=== PATIENT | female | born 1960 | race Hispanic/Latino ===

== ENCOUNTER 2018-11-10 20:02 | Emergency (ER) | payer OTHER ==
[~2018-11-10] VITALS: Ht 152.4 cm; Wt 69.4 kg
--- OUTSIDE RECORDS SUMMARY | 2018-11-10 20:09 | XMS REPORT | Continuity of Care Document ---
Author Author [facility] Organization [facility] Address Unknown Phone Unavailable Care Team Providers Care Personnel Placement Specialist Name Role Phone Kenyetta GARCIA, Ángela YOO Unavailable Insurance Providers Payer name Policy type / Coverage type Policy ID Covered green party ID [place] [place] Encounters Encounter Performer Location Date Office Visit Ángela Kumari MD [facility] Oct 05, 2012 Allergies, Adverse Reactions, Alerts Type Substance Reaction Status Drug allergy IBUPROFEN Active Problems Problem Effective Dates Problem Status GOITER, MULTINODULAR Apr 16, 2010 Active DIABETES MELLITUS, TYPE II, UNCONTROLLED Apr 16, 2010 Active ESSENTIAL HYPERTENSION, BENIGN Apr 16, 2010 Active HYPERLIPIDEMIA Apr 16, 2010 Active OBESITY Apr 16, 2010 Active FIBROMYALGIA Dec 09, 2010 Active ARTHRITIS Dec 09, 2010 Active PEPTIC ULCER DISEASE Dec 09, 2010 Active ANXIETY Dec 09, 2010 Active SMOKER Dec 09, 2010 Active SNORING Dec 09, 2010 Active INSOMNIA Dec 26, 2010 Active ALLERGIC RHINITIS Jan 06, 2011 Active SLEEP APNEA, OBSTRUCTIVE Feb 13, 2011 Active URI May 29, 2011 Inactive WRIST PAIN Nov 17, 2011 Inactive NECK PAIN Jan 13, 2012 Inactive STREPTOCOCCAL PHARYNGITIS Mar 17, 2012 Inactive BRONCHITIS Mar 17, 2012 Inactive VITAMIN D DEFICIENCY Sep 10, 2012 Active Procedures Date Description Comments Oct 03, 2010 smoking status current Oct 03, 2010 smoking/tobacco cessation, patient education and counseling no Oct 03, 2010 diabetic foot check Diabetic Foot Exam Done Today Dec 09, 2010 smoking status current every day smoker Dec 09, 2010 smoking/tobacco cessation, patient education and counseling yes Mar 16, 2011 smoking/tobacco cessation, patient education and counseling yes Apr 03, 2011 diabetic foot check Diabetic Foot Exam Done Today Jan 13, 2012 smoking/tobacco cessation, patient education and counseling DONE Mar 08, 2012 smoking/tobacco cessation, patient education and counseling Smokinng Cessation Handout Provided Sep 07, 2012 smoking/tobacco cessation, patient education and counseling DONE Oct 05, 2012 smoking/tobacco cessation, patient education and counseling Smokinng Cessation Handout Provided Medications Medication Instructions Start Date Status FREESTYLE LITE TEST STRP Check glucose levels tid Apr 16, 2010 Active INSULIN SYRINGE 31G X 5/16" 0.3 ML MISC takes u to 25 units TID Apr 16, 2010 Active INSULIN SYRINGE 31G X 5/16" 1 ML MISC takes up to 65 units daily Apr 16, 2010 Active LEXAPRO 20 MG TABS 1 tab daily Oct 03, 2010 Inactive LACTULOSE 10 GM/15ML SOLN 30 cc every 6 hours as needed for constipation Oct 03, 2010 Inactive MOVIPREP 100 GM SOLR prn Oct 03, 2010 Inactive ACTOPLUS MET 15-850 MG TABS 1 tab twice daily with food Oct 03, 2010 Inactive TRAMADOL HCL 50 MG TABS 1 tablet every 4 to 6 hours as needed Oct 03, 2010 Inactive CARISOPRODOL 350 MG TABS 1 po bid Oct 03, 2010 Inactive TRICOR 145 MG TABS 1 po qd Oct 03, 2010 Inactive LUNESTA 2 MG TABS 1 po prn Oct 03, 2010 Inactive PRILOSEC 40 MG CPDR one PO daily Jan 06, 2011 Active ALPRAZOLAM 0.5 MG TABS 1 po bid Oct 03, 2010 Inactive ALIGN CAPS 1 po qd Oct 03, 2010 Inactive CITALOPRAM HYDROBROMIDE 40 MG TABS 1 po qd Apr 03, 2011 Active VICODIN ES TABS (10/325mg) 1 po prn Oct 03, 2010 Inactive NOVOTWIST 32G X 5 MM MISC Use as directed Jul 09, 2011 Active SOMA 350 MG TABS 1 po qid (only takes 1 daily) Apr 03, 2011 Inactive AZITHROMYCIN 500 MG TABS one PO daily May 29, 2011 Inactive MUCINEX 600 MG [id number] one PO bid prn congestion May 29, 2011 Inactive LORATADINE 10 MG TABS one PO daily prn allergies Jan 12, 2011 Inactive FLUTICASONE PROPIONATE 50 MCG/ACT SUSP one spray in each nostril BID prn allergies. Jan 12, 2011 Inactive LYRICA 100 MG CAPS 1 po tid Apr 03, 2011 Inactive SOMA 350 MG TABS 1-2 po qd Apr 03, 2011 Inactive SIMVASTATIN 40 MG TABS 1 po qhs Jan 06, 2011 Inactive ATORVASTATIN CALCIUM 40 MG TABS one PO qHS Sep 24, 2011 Active ZANAFLEX 4 MG CAPS 1 po BID prn pain Jan 13, 2012 Active LUNESTA 3 MG TABS one PO qHS Sep 08, 2011 Inactive GUAIFENESIN-CODEINE 100-10 MG/5ML SYRP 10 cc PO q 6 hours PRN cough Mar 17, 2012 Inactive PREDNISONE 20 MG TABS 2 PO daily Mar 17, 2012 Inactive LEVOFLOXACIN 500 MG TABS one PO daily Mar 10, 2012 Inactive CEFDINIR 300 MG CAPS 2 tablets PO daily Mar 17, 2012 Inactive ZOLPIDEM TARTRATE 10 MG TABS one PO qHS prn insomnia Jan 15, 2012 Inactive LANTUS 100 UNIT/ML SOLN 60 units sq qhs Sep 07, 2012 Active NOVOLOG 100 UNIT/ML SOLN injects up to 30 units TID-with major meals Sep 07, 2012 Active VICTOZA 18 MG/3ML SOLN Inject 1.2mg qd Aug 03, 2011 Inactive FLORASTOR 250 MG CAPS 1 cap twice daily Sep 07, 2012 Active CLONAZEPAM 2 MG TABS 1 tab qhs Sep 07, 2012 Active TRAMADOL HCL ER (BIPHASIC) 200 MG [id number] 1 tab qhs Sep 07, 2012 Active PREDNISONE 20 MG TABS 2 PO daily Mar 17, 2012 Inactive VITAMIN D3 39541 UNIT CAPS 1 capsule once weekly for 8 weeks Sep 10, 2012 Active AMLODIPINE BESY-BENAZEPRIL HCL 5-10 MG CAPS 1 po qd Oct 05, 2012 Active Vital Signs Date Description Test Result Apr 16, 2010 height E&M - 8302-2 HEIGHT 60 in Apr 16, 2010 weight E&M - 3141-9 WEIGHT 162 lb Apr 16, 2010 pulse rate E&M - 8867-4 PULSE RATE 78 /min Apr 16, 2010 blood pressure, systolic - 8480-6 BP SYSTOLIC 130 mm Hg Apr 16, 2010 blood pressure, diastolic - 8462-4 BP DIASTOLIC 82 mm Hg Oct 03, 2010 height E&M - 8302-2 HEIGHT 60 in Oct 03, 2010 weight E&M - 3141-9 WEIGHT 166 lb Oct 03, 2010 pulse rate E&M - 8867-4 PULSE RATE 76 /min Oct 03, 2010 blood pressure, systolic - 8480-6 BP SYSTOLIC 160 mm Hg Oct 03, 2010 blood pressure, diastolic - 8462-4 BP DIASTOLIC 92 mm Hg Dec 09, 2010 weight E&M - 3141-9 WEIGHT 168 lb Dec 09, 2010 temperature E&M TEMPERATURE 97.6 deg f Dec 09, 2010 pulse rate E&M - 8867-4 PULSE RATE 84 /min Dec 09, 2010 blood pressure, systolic - 8480-6 BP SYSTOLIC 119 mm Hg Dec 09, 2010 blood pressure, diastolic - 8462-4 BP DIASTOLIC 77 mm Hg Dec 26, 2010 weight E&M - 3141-9 WEIGHT 172 lb Dec 26, 2010 temperature E&M TEMPERATURE 97.9 deg f Dec 26, 2010 respiratory rate E&M - 9279-1 RESP RATE 24 /min Dec 26, 2010 pulse rate E&M - 8867-4 PULSE RATE 59 /min Dec 26, 2010 blood pressure, systolic - 8480-6 BP SYSTOLIC 146 mm Hg Dec 26, 2010 blood pressure, diastolic - 8462-4 BP DIASTOLIC 75 mm Hg Jan 06, 2011 weight E&M - 3141-9 WEIGHT 172 lb Jan 06, 2011 temperature E&M TEMPERATURE 97.6 deg f Jan 06, 2011 respiratory rate E&M - 9279-1 RESP RATE 20 /min Jan 06, 2011 pulse rate E&M - 8867-4 PULSE RATE 65 /min Jan 06, 2011 blood pressure, systolic - 8480-6 BP SYSTOLIC 114 mm Hg Jan 06, 2011 blood pressure, diastolic - 8462-4 BP DIASTOLIC 68 mm Hg Feb 13, 2011 weight E&M - 3141-9 WEIGHT 170 lb Feb 13, 2011 temperature E&M TEMPERATURE 97.4 deg f Feb 13, 2011 respiratory rate E&M - 9279-1 RESP RATE 20 /min Feb 13, 2011 pulse rate E&M - 8867-4 PULSE RATE 76 /min Feb 13, 2011 blood pressure, systolic - 8480-6 BP SYSTOLIC 124 mm Hg Feb 13, 2011 blood pressure, diastolic - 8462-4 BP DIASTOLIC 77 mm Hg Mar 16, 2011 weight E&M - 3141-9 WEIGHT 175 lb Mar 16, 2011 respiratory rate E&M - 9279-1 RESP RATE 16 /min Mar 16, 2011 temperature E&M TEMPERATURE 97.9 deg f Mar 16, 2011 pulse rate E&M - 8867-4 PULSE RATE 89 /min Mar 16, 2011 blood pressure, systolic - 8480-6 BP SYSTOLIC 147 mm Hg Mar 16, 2011 blood pressure, diastolic - 8462-4 BP DIASTOLIC 76 mm Hg Apr 03, 2011 weight E&M - 3141-9 WEIGHT 177 lb Apr 03, 2011 blood pressure, systolic - 8480-6 BP SYSTOLIC 128 mm Hg Apr 03, 2011 blood pressure, diastolic - 8462-4 BP DIASTOLIC 80 mm Hg Apr 03, 2011 pulse rate E&M - 8867-4 PULSE RATE 64 /min May 29, 2011 weight E&M - 3141-9 WEIGHT 185 lb May 29, 2011 temperature E&M TEMPERATURE 99.3 deg f May 29, 2011 respiratory rate E&M - 9279-1 RESP RATE 20 /min May 29, 2011 pulse rate E&M - 8867-4 PULSE RATE 69 /min May 29, 2011 blood pressure, systolic - 8480-6 BP SYSTOLIC 162 mm Hg May 29, 2011 blood pressure, diastolic - 8462-4 BP DIASTOLIC 74 mm Hg Sep 08, 2011 weight E&M - 3141-9 WEIGHT 180 lb Sep 08, 2011 temperature E&M TEMPERATURE 97.7 deg f Sep 08, 2011 respiratory rate E&M - 9279-1 RESP RATE 20 /min Sep 08, 2011 pulse rate E&M - 8867-4 PULSE RATE 74 /min Sep 08, 2011 blood pressure, systolic - 8480-6 BP SYSTOLIC 157 mm Hg Sep 08, 2011 blood pressure, diastolic - 8462-4 BP DIASTOLIC 77 mm Hg Sep 08, 2011 weight E&M - 3141-9 WEIGHT 177 lb Sep 08, 2011 blood pressure, systolic - 8480-6 BP SYSTOLIC 144 mm Hg Sep 08, 2011 blood pressure, diastolic - 8462-4 BP DIASTOLIC 86 mm Hg Sep 08, 2011 pulse rate E&M - 8867-4 PULSE RATE 68 /min Jan 13, 2012 weight E&M - 3141-9 WEIGHT 171 lb Jan 13, 2012 temperature E&M TEMPERATURE 98.5 deg f Jan 13, 2012 respiratory rate E&M - 9279-1 RESP RATE 16 /min Jan 13, 2012 blood pressure, systolic - 8480-6 BP SYSTOLIC 143 mm Hg Jan 13, 2012 blood pressure, diastolic - 8462-4 BP DIASTOLIC 81 mm Hg Jan 13, 2012 pulse rate E&M - 8867-4 PULSE RATE 73 /min Mar 08, 2012 weight E&M - 3141-9 WEIGHT 178 lb Mar 08, 2012 pulse rate E&M - 8867-4 PULSE RATE 64 /min Mar 08, 2012 blood pressure, systolic - 8480-6 BP SYSTOLIC 102 mm Hg Mar 08, 2012 blood pressure, diastolic - 8462-4 BP DIASTOLIC 64 mm Hg Mar 17, 2012 weight E&M - 3141-9 WEIGHT 178 lb Mar 17, 2012 temperature E&M TEMPERATURE 98.4 deg f Mar 17, 2012 respiratory rate E&M - 9279-1 RESP RATE 14 /min Mar 17, 2012 pulse rate E&M - 8867-4 PULSE RATE 74 /min Mar 17, 2012 blood pressure, systolic - 8480-6 BP SYSTOLIC 117 mm Hg Mar 17, 2012 blood pressure, diastolic - 8462-4 BP DIASTOLIC 71 mm Hg Sep 07, 2012 weight E&M - 3141-9 WEIGHT 188 lb Sep 07, 2012 temperature E&M TEMPERATURE 98.2 deg f Sep 07, 2012 respiratory rate E&M - 9279-1 RESP RATE 18 /min Sep 07, 2012 pulse rate E&M - 8867-4 PULSE RATE 81 /min Sep 07, 2012 blood pressure, systolic - 8480-6 BP SYSTOLIC 134 mm Hg Sep 07, 2012 blood pressure, diastolic - 8462-4 BP DIASTOLIC 77 mm Hg Oct 05, 2012 weight E&M - 3141-9 WEIGHT 181 lb Oct 05, 2012 pulse rate E&M - 8867-4 PULSE RATE 80 /min Oct 05, 2012 blood pressure, systolic - 8480-6 BP SYSTOLIC 120 mm Hg Oct 05, 2012 blood pressure, diastolic - 8462-4 BP DIASTOLIC 70 mm Hg Results Date Description Test Name Value Reference Interpretation Status Oct 03, 2010 hemoglobin, blood HGB 13.7 g/dL 12.0-16.0 Oct 03, 2010 hematocrit, blood HCT 41.3 % 36.0-48.0 Oct 03, 2010 platelet count PLATELETS 307 K/CMM /mm3 133-450 Sep 08, 2011 hemoglobin, blood HGB 14.8 g/dL 12.0-16.0 Sep 08, 2011 hematocrit, blood HCT 46.5 % 36.0-48.0 Sep 08, 2011 platelet count PLATELETS 305 K/CMM /mm3 133-450 Mar 08, 2012 hemoglobin, blood HGB 13.0 g/dL 12.0-16.0 Mar 08, 2012 hematocrit, blood HCT 39.3 % 36.0-48.0 Mar 08, 2012 platelet count PLATELETS 209 K/CMM /mm3 133-450 Sep 07, 2012 urine color UA COLOR Yellow null Yellow Sep 07, 2012 bacteria, urine microscopy BACTERIA URN Occasional null None Seen Oct 03, 2010 hemoglobin A1C, blood, as % of total hemoglobin HGBA1C 8.6 % - Oct 03, 2010 thyroid stimulating hormone, serum TSH 0.203 uIU/mL 0.360-3.740 Low Oct 03, 2010 sodium, serum SODIUM 139 mmol/L 135-145 Oct 03, 2010 potassium, serum POTASSIUM 4.3 mmol/L 3.5-5.1 Oct 03, 2010 urea nitrogen, blood BUN 20 mg/dL 7-22 Oct 03, 2010 creatinine, serum CREATININE 0.6 mg/dL 0.5-1.4 Oct 03, 2010 urea nitrogen/creatinine ratio, serum BUN/CREAT 33 null 6-25 High Oct 03, 2010 albumin, serum ALBUMIN 4.3 g/dL 3.5-5.0 Oct 03, 2010 calcium, serum CALCIUM 9.6 mg/dL 8.5-10.5 Oct 03, 2010 aspartate aminotransferase (SGOT), serum SGOT (AST) 7 U/L 0-37 Oct 03, 2010 alanine aminotransferase (SGPT), serum SGPT (ALT) 24 U/L 0-65 Oct 03, 2010 alkaline phosphatase, serum ALK PHOS 98 U/L 39-136 Apr 03, 2011 hemoglobin A1C, blood, as % of total hemoglobin HGBA1C 10.3 % - Apr 03, 2011 thyroid stimulating hormone, serum TSH 0.823 uIU/mL 0.360-3.740 Apr 03, 2011 sodium, serum SODIUM 140 MEQ/L mmol/L 135-145 Apr 03, 2011 potassium, serum POTASSIUM 4.2 MEQ/L mmol/L 3.5-5.1 Apr 03, 2011 urea nitrogen, blood BUN 15 mg/dL 7-Apr 03, 2011 creatinine, serum CREATININE 0.6 mg/dL 0.5-1.4 Apr 03, 2011 urea nitrogen/creatinine ratio, serum BUN/CREAT 25 null 6-25 Apr 03, 2011 albumin, serum ALBUMIN 4.4 g/dL 3.5-5.0 Apr 03, 2011 calcium, serum CALCIUM 9.3 mg/dL 8.5-10.5 Apr 03, 2011 aspartate aminotransferase (SGOT), serum SGOT (AST) 9 U/L 0-37 Apr 03, 2011 alanine aminotransferase (SGPT), serum SGPT (ALT) 23 U/L 0-65 Apr 03, 2011 alkaline phosphatase, serum ALK PHOS 109 U/L 39-136 Sep 08, 2011 hemoglobin A1C, blood, as % of total hemoglobin HGBA1C 8.6 % Sep 08, 2011 cholesterol, serum CHOLESTEROL 283 mg/dl 120-200 High Sep 08, 2011 triglyceride, serum, fasting TRIGLYCERIDE 407 mg/dl 0-200 High Sep 08, 2011 HDL cholesterol, serum HDL 38 mg/dl >=35 Sep 08, 2011 LDL cholesterol, serum LDL See Note mg/dL mg/dl 0-129 Sep 08, 2011 ferritin, serum FERRITIN 60 ng/mL 5-204 Sep 08, 2011 iron, serum IRON 58 ug/dL 30-160 Sep 08, 2011 iron binding capacity, total TIBC 436 ug/dL 228-428 High Sep 08, 2011 thyroxine, serum, free T4, FREE 1.06 ng/dl 0.76-1.46 Sep 08, 2011 thyroid stimulating hormone, serum TSH 0.274 uIU/mL 0.360-3.740 Low Sep 08, 2011 sodium, serum SODIUM 140 MEQ/L mmol/L 135-145 Sep 08, 2011 potassium, serum POTASSIUM 4.3 MEQ/L mmol/L 3.5-5.1 Sep 08, 2011 urea nitrogen, blood BUN 11 mg/dL 7-Sep 08, 2011 creatinine, serum CREATININE 0.6 mg/dL 0.5-1.4 Sep 08, 2011 urea nitrogen/creatinine ratio, serum BUN/CREAT 18 null 6-25 Sep 08, 2011 albumin, serum ALBUMIN 4.3 g/dL 3.5-5.0 Sep 08, 2011 calcium, serum CALCIUM 9.6 mg/dL 8.5-10.5 Sep 08, 2011 aspartate aminotransferase (SGOT), serum SGOT (AST) 17 U/L 0-37 Sep 08, 2011 alanine aminotransferase (SGPT), serum SGPT (ALT) 32 U/L 0-65 Sep 08, 2011 alkaline phosphatase, serum ALK PHOS 125 U/L 39-136 Mar 08, 2012 hemoglobin A1C, blood, as % of total hemoglobin HGBA1C 11.8 % Mar 08, 2012 sodium, serum SODIUM 137 MEQ/L mmol/L 135-145 Mar 08, 2012 potassium, serum POTASSIUM 4.3 MEQ/L mmol/L 3.5-5.1 Mar 08, 2012 creatinine, serum CREATININE 0.8 mg/dL 0.5-1.4 Mar 08, 2012 urea nitrogen, blood BUN 15 mg/dL 7-Mar 08, 2012 urea nitrogen/creatinine ratio, serum BUN/CREAT 19 null 6-25 Mar 08, 2012 albumin, serum ALBUMIN 3.7 g/dL 3.5-5.0 Mar 08, 2012 calcium, serum CALCIUM 8.7 mg/dL 8.5-10.5 Mar 08, 2012 alanine aminotransferase (SGPT), serum SGPT (ALT) 34 U/L 0-65 Mar 08, 2012 aspartate aminotransferase (SGOT), serum SGOT (AST) 21 U/L 0-37 Mar 08, 2012 alkaline phosphatase, serum ALK PHOS 88 U/L 39-136 Mar 08, 2012 thyroid stimulating hormone, serum TSH 0.395 uIU/mL 0.360-3.740 Sep 07, 2012 hemoglobin A1C, blood, as % of total hemoglobin HGBA1C 10.6 % <=5.6 High Sep 07, 2012 cholesterol, serum CHOLESTEROL 201 mg/dl <=199 High Sep 07, 2012 triglyceride, serum, fasting TRIGLYCERIDE 203 mg/dl <=149 High Sep 07, 2012 HDL cholesterol, serum HDL 40 mg/dl >=61 Low Sep 07, 2012 LDL cholesterol, serum LDL 120 mg/dl <=99 High Sep 07, 2012 sodium, serum SODIUM 142 MEQ/L mmol/L 135-145 Sep 07, 2012 potassium, serum POTASSIUM 4.2 MEQ/L mmol/L 3.5-5.1 Sep 07, 2012 creatinine, serum CREATININE 0.6 mg/dL 0.5-1.4 Sep 07, 2012 urea nitrogen, blood BUN 16 mg/dL 7-22 Sep 07, 2012 urea nitrogen/creatinine ratio, serum BUN/CREAT 27 null 6-25 High Sep 07, 2012 albumin, serum ALBUMIN 4.1 g/dL 3.5-5.0 Sep 07, 2012 calcium, serum CALCIUM 9.3 mg/dL 8.5-10.5 Sep 07, 2012 alanine aminotransferase (SGPT), serum SGPT (ALT) 30 U/L 0-65 Sep 07, 2012 aspartate aminotransferase (SGOT), serum SGOT (AST) 12 U/L 0-37 Sep 07, 2012 alkaline phosphatase, serum ALK PHOS 114 U/L 39-136 Sep 07, 2012 thyroid stimulating hormone, serum TSH 0.568 uIU/mL 0.360-3.740
--- OUTSIDE RECORDS SUMMARY | 2018-11-10 20:09 | XMS REPORT | Continuity of Care Document ---
Author Author [facility] Address Unknown Phone Unavailable Care Team Providers Care Manager Post Name Role Phone Kenyetta GARCIA, Ángela YOO Unavailable Insurance Providers Payer name Policy type / Coverage type Policy ID Covered constitution party ID [place] [employer] [place] [place] [place] Encounters Encounter Performer Location Date Lab Report Ángela Kumari MD [facility] Sep 07, 2012 Allergies, Adverse Reactions, Alerts Type Substance [...] 2012 Inactive BRONCHITIS Mar 17, 2012 Inactive Procedures Date Description Comments Oct 03, 2010 [...] smoking/tobacco cessation, patient education and counseling DONE Medications Medication Instructions Start Date Status FREESTYLE [...] 1 po qd Apr 03, 2011 Active AMLODIPINE BESY-BENAZEPRIL HCL 5-10 MG CAPS 1 po qd Apr 03, 2011 Active VICODIN ES TABS (10/325mg) 1 po prn Oct 03, 2010 Inactive NOVOTWIST 32G X 5 MM MISC Use as directed Jul 09, 2011 Active SOMA 350 MG TABS 1 po qid (only takes 1 daily) Apr 03, 2011 Inactive AZITHROMYCIN 500 MG TABS one PO daily May 29, 2011 Inactive MUCINEX 600 MG [id number] one PO bid prn congestion May 29, [...] Active TRAMADOL HCL ER (BIPHASIC) 200 MG [id number] 1 tab qhs Sep 07, 2012 Active PREDNISONE 20 MG TABS 2 PO daily Mar 17, 2012 Inactive Vital Signs Date Description Test Result Apr [...] - 8462-4 BP DIASTOLIC 77 mm Hg Results Date Description Test Name [...]
--- OUTSIDE RECORDS SUMMARY | 2018-11-10 20:09 | XMS REPORT | Continuity of Care Document ---
Author Author [facility] Address Unknown Phone Unavailable Care Team Providers Care Vector Control Specialist Name Role Phone Kenyetta GARCIA, Ángela YOO Unavailable Insurance Providers Payer name Policy type / Coverage type Policy ID Covered libertarian ID [place] [employer] Encounters Encounter Performer Location Date Office Visit Ángela Kumari MD [facility] Sep 07, 2012 Allergies, Adverse Reactions, Alerts [...] May 29, 2011 Inactive MUCINEX 600 MG [id number] one PO bid prn congestion May 29, [...] Active TRAMADOL HCL ER (BIPHASIC) 200 MG [id number] 1 tab qhs Sep 07, 2012 Active [...] platelet count PLATELETS 209 K/CMM /mm3 133-450 Oct 03, 2010 hemoglobin A1C, blood, as [...]
--- OUTSIDE RECORDS SUMMARY | 2018-11-10 20:09 | XMS REPORT | Continuity of Care Document ---
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 Name Role Phone [employer] Unavailable Unavailable Problems Problem Status Onset Date Classification Date Reported Comments Source Discharge Diagnosis: Acute lower urinary tract infection 02/24/2017 02/27/2017 [facility] URINARY SYMPTOMS Active 02/24/2017 [facility] Discharge Diagnosis: Acute bronchitis 01/08/2017 01/11/2017 [facility] , COUGH Active 01/08/2017 [facility] SOB Active 01/06/2017 [facility] HEADACHE Active 01/03/2014 Condition 07/19/2014 [facility] Headache7 Active 01/03/2014 Problem 07/14/2018 Data migrated from [employer] on 09/01/14. [facility] VITAMIN D DEFICIENCY Active 09/10/2012 Condition 07/19/2014 [facility] Vitamin D [id number] Active 09/10/2012 Problem 07/14/2018 Data migrated from [employer] on 09/01/14. [facility] STREPTOCOCCAL PHARYNGITIS Inactive 03/17/2012 Condition 07/19/2014 [facility] BRONCHITIS Inactive 03/17/2012 Condition 07/19/2014 [facility] Bronchitis5 Resolved 03/17/2012 Problem 07/14/2018 Data migrated from [employer] on 10/19/14. [facility] Streptococcal sore [id number] Resolved 03/17/2012 Problem 07/14/2018 Data migrated from [employer] on 10/19/14. [facility] NECK PAIN Inactive 01/13/2012 Condition 07/19/2014 [facility] WRIST PAIN Inactive 11/17/2011 Condition 07/19/2014 [facility] URI Inactive 05/29/2011 Condition 07/19/2014 [facility] Upper respiratory [id number] Resolved 05/29/2011 Problem 07/14/2018 Data migrated from [employer] on 10/19/14. [facility] SLEEP APNEA, OBSTRUCTIVE Active 02/13/2011 Condition 07/19/2014 [facility] Obstructive sleep apnea [id number] Active 02/13/2011 Problem 07/14/2018 Data migrated from [employer] on 09/01/14. [facility] ALLERGIC RHINITIS Active 01/06/2011 Condition 07/19/2014 [facility] Allergic rhinitis1 Active 01/06/2011 Problem 07/14/2018 Data migrated from [employer] on 09/01/14. [facility] INSOMNIA Active 12/26/2010 Condition 07/19/2014 [facility] Insomnia9 Active 12/26/2010 Problem 07/14/2018 Data migrated from [employer] on 09/01/14. [facility] FIBROMYALGIA Active 12/09/2010 Condition 07/19/2014 [facility] ARTHRITIS Active 12/09/2010 Condition 07/19/2014 [facility] PEPTIC ULCER DISEASE Active 12/09/2010 Condition 07/19/2014 [facility] ANXIETY Active 12/09/2010 Condition 07/19/2014 [facility] SMOKER Active 12/09/2010 Condition 07/19/2014 [facility] SNORING Active 12/09/2010 Condition 07/19/2014 [facility] Anxiety disorder2 Active 12/09/2010 Problem 07/14/2018 Data migrated from [employer] on 09/01/14. [facility] Arthritis3 Active 12/09/2010 Problem 07/14/2018 Data migrated from [employer] on 09/01/14. [facility] Fibromyositis6 Active 12/09/2010 Problem 07/14/2018 Data migrated from [employer] on 09/01/14. [facility] Peptic ulcer13 Active 12/09/2010 Problem 07/14/2018 Data migrated from [employer] on 09/01/14. [facility] [id number] Active 12/09/2010 Problem 07/14/2018 Data migrated from [employer] on 09/01/14. [facility] [id number] Active 12/09/2010 Problem 07/14/2018 Data migrated from [employer] on 09/01/14. [facility] GOITER, MULTINODULAR Active 04/16/2010 Condition 07/19/2014 [facility] DIABETES MELLITUS, TYPE II, UNCONTROLLED Active 04/16/2010 Condition 07/19/2014 [facility] ESSENTIAL HYPERTENSION, BENIGN Active 04/16/2010 Condition 07/19/2014 [facility] HYPERLIPIDEMIA Active 04/16/2010 Condition 07/19/2014 [facility] OBESITY Active 04/16/2010 Condition 07/19/2014 [facility] Benign essential hypertension4 Active 04/16/2010 Problem 07/14/2018 Data migrated from [employer] on 09/01/14. [facility] Hyperlipidemia8 Active 04/16/2010 Problem 07/14/2018 Data migrated from [employer] on 09/01/14. [facility] Multinodular [id number] Active 04/16/2010 Problem 07/14/2018 Data migrated from [employer] on 09/01/14. [facility] [id number] Active 04/16/2010 Problem 07/14/2018 Data migrated from [employer] on 09/01/14. [facility] Type II diabetes mellitus [id number] Active 04/16/2010 Problem 07/14/2018 Data migrated from [employer] on 09/01/14. [facility] Type 2 diabetes mellitus with hyperglycemia Active Problem 11/08/2018 Serafin Kim Insomnia Active Problem 11/08/2018 Serafin Kim Other and unspecified hyperlipidemia Active Problem 11/08/2018 Serafin Kim Nontoxic multinodular goiter Active Problem 11/08/2018 Serafin Kim Peptic ulcer Active Problem 11/08/2018 Serafin Kim Obesity, unspecified Active Problem 11/08/2018 Serafin Kim Benign essential hypertension Active Problem 11/08/2018 Serafin Kim Cellulitis of shoulder Active Problem 11/08/2018 Serafin Kim Furuncle Active Problem 11/08/2018 Serafin Kim Anemia of other chronic disease Active Problem 11/08/2018 Serafin Kmi DKA Active Problem 11/08/2018 Serafin Kim Other chronic pain Active Problem 11/08/2018 Serafin Kim DM w/o complication type II Active Problem 11/08/2018 Serafin Kim Acquired hypothyroidism Active Problem 11/08/2018 Serafin Kim Type 2 diabetes mellitus without complications Active Problem 11/08/2018 Serafin Kim nursing home current use of insulin Active Problem 11/08/2018 Serafin Kim Vaginal yeast infection Active Problem 11/08/2018 Serafin Kim Acute lower urinary tract infection Active Problem 11/08/2018 Serafin Kim Back pain Active Problem 11/08/2018 Serafin Kim Orthostatic hypotension Active Problem 11/08/2018 Serafin Kim Bronchitis Active Problem 11/08/2018 Serafin Kim Pressure ulcer of buttock Active Problem 11/08/2018 Serafin Kim Mixed hyperlipidemia Active Problem 11/08/2018 Serafin Kim Chronic insomnia Active Problem 11/08/2018 Serafin Kim URI with cough and congestion Active Problem 11/08/2018 Serafin Kim Right hip pain Active Problem 11/08/2018 Serafin Kim Vitamin D deficiency Active Problem 11/08/2018 Serafin Kim Flu vaccine need Active Problem 10/23/2017 Serafin Kim Obstructive sleep apnea Active Problem 11/08/2018 Serafin Kim GERD Active Problem 11/08/2018 Serafin Kim Allergic rhinitis Active Problem 11/08/2018 Serafin Kim Encounter for immunization Active Problem 11/08/2018 Serafin Kim Anxiety state Active Problem 11/08/2018 Serafin Kim Muscle spasm Active Problem 11/08/2018 Serafin Kim Tobacco use disorder Active Problem 11/08/2018 Serafin Kim Iron deficiency anemia due to dietary causes Active Problem 11/08/2018 Serafin Kim Arthropathy Active Problem 11/08/2018 Serafin Kim Pain in thoracic spine Active Problem 11/08/2018 Serafin Kim Altered glucose metabolism due to diabetes Active Problem 11/08/2018 Serafin Kim Vitamin B12 deficiency anemia Active Problem 11/08/2018 Serafin Kim Vitamin B12 deficiency Active Diagnosis 12/15/2016 Serafin Kim Benign paroxysmal positional vertigo due to bilateral vestibular disorder Active Problem 11/08/2018 Serafin Kim Acute lower UTI Active Problem 11/08/2018 Serafin Kim Mass of skin of left shoulder Active Diagnosis 03/09/2017 Serafin Kim Generalized anxiety disorder Active Problem 08/26/2014 Serafin Kim Other chronic pain Active Problem 08/26/2014 Serafin Kim Unspecified arthropathy, site unspecified Active Problem 08/26/2014 Serafin Kim Unspecified vitamin D deficiency Active Problem 08/26/2014 Serafin Kim Peptic ulcer, unspecified site, unspecified as acute or chronic, without mention of hemorrhage, perforation, or obstruction Active Problem 08/26/2014 Serafin Kim Edema Active Problem 08/26/2014 Serafin Kim Unspecified myalgia and myositis Active Problem 08/26/2014 Serafin Kim Abdominal pain, generalized Active Problem 08/26/2014 Serafin Kim Pain in joint, forearm Active Problem 08/26/2014 Serafin Kim Nontraumatic hematoma of soft tissue Active Problem 08/26/2014 Serafin Kim Abdominal pain, epigastric Active Diagnosis 08/26/2014 Serafin Kim Acute bronchitis Active Problem 08/26/2014 Serafin Kim Insomnia, unspecified Active Problem 08/26/2014 Serafin Kim Other dyspnea and respiratory abnormalities Active Problem 08/26/2014 Serafin Kim Acute gastritis without mention of hemorrhage Active Problem 08/26/2014 Serafin Kim Anxiety state, unspecified Active Problem 08/26/2014 Serafin Kim Pain in joint, pelvic region and thigh Active Problem 08/26/2014 Serafin Kim Pain in soft tissues of limb Active Problem 08/26/2014 Serafin Kim Acute laryngitis, without mention of obstruction Active Problem 08/26/2014 Serafin Kim Cough Active Problem 08/26/2014 Serafin Kim Nondependent tobacco use disorder Active Problem 08/26/2014 Serafin Kim Nontoxic multinodular goiter Active Problem 08/26/2014 Serafin Kim Allergic rhinitis, cause unspecified Active Problem 08/26/2014 Serafin Kim Obesity, unspecified Active Problem 08/26/2014 Serafin Kim Essential hypertension, benign Active Problem 08/26/2014 Serafin Kim Diabetes mellitus without mention of complication, type II or unspecified type, uncontrolled Active Problem 08/26/2014 Serafin Kim Obstructive sleep apnea (pediatric) Active Problem 08/26/2014 Serafin Kim Other and unspecified hyperlipidemia Active Problem 08/26/2014 Serafin Kim Flu vaccine need Active Diagnosis 03/13/2014 Serafin Kim Chest pain Active Diagnosis 08/26/2014 Serafin Kim Peptic ulcer Active Diagnosis 08/26/2014 Serafin Kim Leg cramping Active Problem 11/08/2018 Serafin Kim Disorder of right sciatic nerve Active Problem 11/08/2018 Serafin Kim Generalized OA Active Problem 11/08/2018 Serafin Kim Chronic constipation Active Problem 11/08/2018 Serafin Kim Fibromyalgia Active Problem 11/08/2018 Serafin Kim Vaginal dryness Active Problem 11/08/2018 Serafin Kim Sexual pain disorder Active Problem 11/08/2018 Serafin Kim Low back pain Active Diagnosis 10/15/2018 Serafin Kim Cervicalgia Active Diagnosis 10/15/2018 Serafin Kim Folic acid deficiency Active Diagnosis 08/16/2018 Serafin Kim Iron deficiency Active Diagnosis 06/23/2018 Serafin Kim Pain in left hip Active Diagnosis 06/23/2018 Serafin Kim Hot flashes Active Diagnosis 06/23/2018 Serafin Kim Pain in right hip Active Diagnosis 06/23/2018 Serafin Kim Depression [facility]14[facility]N - Hypertension Resolved Problem 07/14/2018 [facility] Thyroid disease Resolved Problem 07/14/2018 [facility] Medications Medication Details Route Status Patient Instructions Ordering Provider Order Date Source Meloxicam 1 TABLET ONCE A DAY WITH FOOD ORALLY 90 DAYS Orally Active 15 MG Orally after breakfast [facility] 10/17/2018 Serafin Kim Trulicity INJECT 1 SYRINGE WEEKLY subcutaneous Active 1.5 MG/0.5ML subcutaneous weekly [facility] 10/17/2018 Serafin Kim Robaxin-750 TAKE 1 TABLET BY MOUTH TWICE A DAY Orally Active 750 MG Orally Daily [facility] 10/17/2018 Serafin Kim Tizanidine HCl TAKE 1 TABLET BY MOUTH 3 TIMES A DAY NEEDED Orally Active 4 MG Orally Daily [facility] 10/17/2018 Serafin Kim NovoFine Plus as directed NA Active 32G X 4 MM [facility] 08/18/2018 Serafin Kim Tresiba FlexTouch 30u Subcutaneous Active 200 UNIT/ML Subcutaneous daily [facility] 08/17/2018 Serafin Kim Levemir FlexTouch 15u Subcutaneous Active 100 UNIT/ML Subcutaneous twice a day (bid) [facility] 08/15/2018 Serafin Kim Folic Acid 1 tablet Orally Active 1 MG Orally Once a day [facility] 08/15/2018 Serafin Kim Methocarbamol 1 tablet Orally Active 750 MG Orally every 4 hrs before breakfast [facility] 04/20/2018 Serafin Kim Cefdinir 1 capsule Orally Active 300 MG Orally Twice a day [facility] 02/04/2018 Serafin Kim Proventil HFA 2 puffs as needed Inhalation Active 108 (90 Base) MCG/ACT Inhalation every 6 hrs [facility] 01/25/2018 Serafin Lopezm Trulicity 0.5 ml Subcutaneous Active 1.5 MG/0.5ML Subcutaneous Q week [facility] 08/07/2017 Serafin Reesxbaum Trulicity 0.5 ml Subcutaneous Active 1.5 MG/0.5ML Subcutaneous Q week [facility] 08/07/2017 Serafin Kim FreeStyle Lite Test Strips and Lancets as directed Capillary Active test strips Capillary three times a day (tid) [facility] 08/05/2017 Serafin Kim PredniSONE 1 tablet Orally Active 10 mg Orally Once a day [facility] 07/01/2017 Serafin Kim Tussionex Pennkinetic ER 5 ml as needed Orally Active 10-8 MG/5ML Orally every 12 hrs [facility] 03/09/2017 Serafin Kim Meclizine HCl 1 tablet as needed for dizziness Orally Active 25 MG Orally four times a day (qid) [facility] 03/08/2017 Serafin Kim Phenazopyridine hydrochloride 200 MG Oral Tablet [Pyridium] 200 mg=1 tab, PO, TID, PRN Dysuria, X 2 day, # 6 tab, 0 Refill(s), [id number] No Longer Active 02/24/2017 [facility] Cephalexin 500 MG Oral Capsule [Keflex] 500 mg=1 cap, PO, TID, X 10 day, # 30 cap, 0 Refill(s), [id number] Active 02/24/2017 [facility] Phenazopyridine hydrochloride 200 MG Oral Tablet [Pyridium] 200 mg=1 tab, PO, TID, PRN Dysuria, X 2 day, # 6 tab, 0 Refill(s), [id number] No Longer Active 02/24/2017 [facility] Acetaminophen 300 MG / Codeine Phosphate 30 MG Oral Tablet [Tylenol with Codeine #3] 1 - 2 tab, PO, Q4H, PRN Pain, X 2 day, # 12 tab, 0 Refill(s) Inactive 02/24/2017 [facility] Cephalexin 500 MG Oral Capsule [Keflex] 500 mg=1 cap, PO, TID, X 10 day, # 30 cap, 0 Refill(s), [id number] Inactive 02/24/2017 [facility] Rocephin 1 gm, Route: IM, Drug form: PDR/INJ, ONCE, Dosing Weight 68.182, kg, Priority: STAT, Start date: 02/24/17 8:43:00 [employer] MONITORING, Stop date: 02/24/17 8:43:00 [employer] MONIT[employer]ING, ABX Indication: Urinary Tract InfectionNotes: (Same As: Rocephin). MEDICATION WASTE Product Size: 1000 mg Product Wasted: _0__ mg Inactive 02/24/2017 [facility] Fluconazole 1 tablet PO once (may repeat in 72 hours if symptoms persist) Active 150 MG PO once (may repeat in 72 hours if symptoms persist) as directed [facility] 01/15/2017 Serafin Kim Medrol (Rigoberto) as directed Orally Active 4 mg Orally as directed [facility] 01/15/2017 Serafin Kim Lisinopril 1 tablet Orally Active 40 mg Orally Once a day before breakfast [facility] 01/11/2017 Serafin Kim albuterol 90 mcg/inh inhalation aerosol 2 puff, INHALATION, Q4H, PRN for wheezing, # 9 gm, 0 Refill(s) Active 01/08/2017 [facility] Tylenol with Codeine 120 mg-12 mg/5 mL oral liquid 15 ml, PO, Q6H, PRN Cough, X 2 day, # 120 mL, 0 Refill(s) No Longer Active 01/08/2017 [facility] Dexamethasone 10 mg, Route: IM, ONCE, Dosing Weight 70.455, kg, Priority: STAT, Start date: 01/08/17 18:04:00 CDT, Stop date: 01/08/17 18:04:00 CDT Inactive 01/08/2017 [facility] Albuterol 0.833 MG/ML / Ipratropium [place] 0.167 MG/ML Inhalant Solution [DuoNeb] 3 ml, Route: INHALATION, Drug Form: SOLN, Dosing Weight 70.455, kg, PRN, PRN Respiratory Protocol, Start date: 01/08/17 18:04:00 CDT, Duration: 30 day, Stop date: 02/07/17 17:03:00 CSTNotes: (Same as: Duoneb) Inactive 01/08/2017 [facility] Augmentin 1 tablet Orally Active 875-125 MG Orally Twice a day with food [facility] 12/28/2016 Serafin Lopezm Promethazine-DM 5 ml as needed for cough Orally Active 6.25-15 MG/5ML Orally every 6 hrs [facility] 12/28/2016 Serafin Reesxbaum PredniSONE 3 tabs qd x 3d, 2 tabs qd x 5d, 1 tab qd x 5d with food or milk Orally Active 10 MG Orally Once a day [facility] 12/28/2016 Serafin Billings [facility] PredniSONE 3 tabs qd x 3d, 2 tabs qd x 5d, 1 tab qd x 5d with food or milk Orally Active 10 mg Orally Once a day [facility] 12/28/2016 Serafin Reesxbaum Promethazine-DM 5 ml as needed for cough Orally Active 6.25-15 MG/5ML Orally every 6 hrs [facility] 12/28/2016 Serafin Lopezm Benzonatate 1 capsule as needed Orally Active 200 MG Orally [facility] Serafin Kim Bactrim DS 1 tablet Orally Active 800-160 MG Orally twice a day (bid) [facility] 12/14/2016 Serafin Reesxboleksandrm Amitriptyline HCl 1 tablet Orally Active 75 MG Orally once every night [facility] 12/14/2016 Serafin Reesxbaum Amitriptyline HCl 1 tablet Orally Active 75 mg Orally once every night [facility] 12/14/2016 Serafin Reesxbaum Benzonatate 1 capsule as needed Orally Active 200 MG Orally Three times a day prn cough [facility] 12/14/2016 Serafin Billings [facility] Trulicity 0.5 ml Subcutaneous Active 1.5 MG/0.5ML Subcutaneous q week [facility] 10/29/2016 Serafin Billings [facility] Trulicity 0.5 ml Subcutaneous Active 1.5 MG/0.5ML Subcutaneous q week [facility] 10/29/2016 Serafin Reesxboleksandrm Meloxicam 1 tablet Orally Active 15 MG Orally Once a day with food [facility] 04/01/2016 Sreafin Reesxboleksandrm Meloxicam 1 tablet Orally Active 15 MG Orally Once a day with food [facility] 04/01/2016 Serafin Reesxbaum Lisinopril 1 tablet Orally Active 40 MG Orally Once a day [facility] 12/31/2015 Serafin Reesxbaum Lisinopril 1 tablet Orally Active 10 mg Orally Once a day [facility] 12/31/2015 Serafin Reesxbaum Amitriptyline HCl 1 tablet Orally Active 50 mg Orally Once a day [facility] 12/31/2015 Serafin Reesxbaum Lisinopril 1 tablet Orally Active 10 mg Orally Once a day [facility] 12/31/2015 Serafin Reesxboleksandrm Robaxin-750 1 tablet Orally Active 750 MG Orally twice a day (bid) [facility] 10/22/2015 Serafin Reesxbaum Omeprazole 1 capsule Orally Active 40 mg Orally Once a day [facility] 07/25/2015 Serafin Billings [facility] Lisinopril 1 tablet Orally Active 2.5 MG Orally Once a day [facility] 07/25/2015 Serafin Reesxboleksandrm Tramadol HCl 1 tablet Orally No Longer Active 50 mg Orally twice a day (bid) for pain [facility] 07/25/2015 Serafin Reesxboleksandrm Tizanidine HCl 1 tablet as needed Orally Active 4 mg Orally three times a day (tid) [facility] 07/12/2015 Serafin Kim Pantoprazole Sodium 1 tablet Orally Active 40 mg [facility] 06/27[facility]2015 Serafin Kim Citalopram Hydrobromide 1 tablet Orally Active 10 mg [facility] 06/12/2015 Serafin Kim Diflucan 1 tablet Orally Active 150 MG Orally Once a day [facility] 01/28/2015 Serafin Kim Tizanidine HCl TAKE 1 TABLET NEEDED THREE TIMES A DAY (TID) NEEDED (PRN) ORALLY NA Active 4 mg [facility] 08/25/2014 Serafin Kim Pantoprazole Sodium 1 tablet Orally Active 40 mg Orally Once a day [facility] 08/24/2014 Serafin Kim Trazodone HCl 1 tablet Orally Active 50 mg [facility] 07/26/2014 Serafin Kim PROBIOTIC CAPS 1 po qd Active 07/19/2014 [facility] VITAMIN D (ERGOCALCIFEROL) 24844 UNIT CAPS Take 1 capsule by mouth every week for 12 weeks Active 07/19/2014 [facility] CONTRAVE 8-90 MG [id number] 2 in am and 2 in pm No Longer Active 04/24/2014 [facility] CREON CPEP 1 po qd No Longer Active 04/19/2014 [facility] TraMADol HCl ER 1 tablet Orally Active 200 MG Orally [facility] 03/14/2014 Serafin Lopezmary Creon 20 1 capsule with meals Orally Active 66.4-20-75 MU Orally Three times a day [facility] 03/12/2014 Serafin Lopezmary Pantoprazole Sodium 1 tablet Orally Active 40 mg [facility]ally [facility] 02/22/2014 Serafin Awa Jessicamary DEXILANT 60 MG CPDR 1 po qd No Longer Active 01/03/2014 [facility] CALCIUM 600 TABS 2 po qd No Longer Active 01/03/2014 [facility] OMEGA-3 300 MG CAPS 2 po bid No Longer Active 01/03/2014 [facility] LORAZEPAM 1 MG TABS 1 po prn Active 01/03/2014 [facility] TRAMADOL HCL ER 200 MG [id number] 1 po prn No Longer Active 01/03/2014 [facility] LORAZEPAM 1 MG TABS 1 po prn Active 01/03/2014 [facility] Dexilant 1 capsule Orally Active 60 MG Orally Once a day [facility] 11/14/2013 Serafin Lopezm INVOKANA 300 MG TABS 1 po qd Active 06/05/2013 [facility] V-GO 40 KIT 1 po qd No Longer Active 06/05/2013 [facility] WELCHOL 625 MG TABS 6 po qd Active 06/05/2013 [facility] INVOKANA 300 MG TABS 1 po qd Active 06/05/2013 [facility] CYMBALTA 60 MG CPEP 1 po qd No Longer Active 05/30/2013 [facility] PREDNISONE 10 MG TABS 1 po qd Active 05/30/2013 [facility] CEVIMELINE HCL 30 MG CAPS 1 po qd prn No Longer Active 05/30/2013 [facility] CYMBALTA 60 MG CPEP 1 po qd Active 05/30/2013 [facility] PREDNISONE 10 MG TABS 1 po qd Active 05/30/2013 [facility] CEVIMELINE HCL 30 MG CAPS 1 po qd prn Active 05/30/2013 [facility] PREDNISONE 10 MG TABS 1 po qd No Longer Active 05/30/2013 [facility] PREDNISONE 10 MG TABS 1 po qd No Longer Active 05/30/2013 [facility] Promethazine-DM 5 ml as needed Orally Active 6.25-15 MG/5ML Orally every 6 hrs for cough [facility] 04/11/2013 Serafin Kim PredniSONE 3 tabs qd x 3d, 2 tabs qd x 5d, 1 tab qd x 5d with food or milk Orally No Longer Active 10 mg Orally Once a day [facility] 04/11/2013 Serafin Lopezm Xanax 1 tablet Orally Active 1 MG Orally twice a day (bid) as needed (prn) for anxiety [facility] 10/14/2012 Serafin Lopezm Neurontin 1 capsule Orally Active 300 MG Orally Three times a day for chronic pain [facility] 10/14/2012 Serafin Reesxboleksandrm Xanax 1 tablet Orally Active 0.5 MG Orally twice a day (bid) as needed (prn) for anxiety [facility] 10/14/2012 Serafin Kim AMLODIPINE BESY-BENAZEPRIL HCL 5-10 MG CAPS 1 po qd Active 10/05/2012 [facility] AMLODIPINE BESY-BENAZEPRIL HCL 5-10 MG CAPS 1 po qd Active 10/05/2012 [facility] AMLODIPINE BESY-BENAZEPRIL HCL 5-10 MG CAPS 1 po qd Active 10/05/2012 [facility] VITAMIN D3 48049 UNIT CAPS take 2 times a week Active 09/10/2012 [facility] VITAMIN D3 60099 UNIT CAPS take 2 times a week No Longer Active 09/10/2012 [facility] LANTUS 100 UNIT/ML SOLN 60 units sq qhs Active 09/07/2012 [facility] NOVOLOG 100 UNIT/ML SOLN injects up to 30 units TID-with major meals (if sugars are 200 inject 20 units, and if they are 300 inject 30 units per patient) Active 09/07/2012 [facility] FLORASTOR 250 MG CAPS 1 cap twice daily Active 09/07/2012 [facility] CLONAZEPAM 2 MG TABS 1 tab qhs Active 09/07/2012 [facility] TRAMADOL HCL ER (BIPHASIC) 200 MG [id number] 1 tab qhs No Longer Active 09/07/2012 [facility] CLONAZEPAM 2 MG TABS 1 tab qhs Active 09/07/2012 [facility] LANTUS 100 UNIT/ML SOLN 65 units sq qhs Active 09/07/2012 [facility] FLORASTOR 250 MG CAPS 1 cap twice daily No Longer Active 09/07/2012 [facility] CLONAZEPAM 2 MG TABS 1 tab qhs No Longer Active 09/07/2012 [facility] NOVOLOG 100 UNIT/ML SOLN injects up to 30 units TID-with major meals Active 09/07/2012 [facility] CLONAZEPAM 2 MG TABS 1 tab qhs No Longer Active 09/07/2012 [facility] CLONAZEPAM 2 MG TABS 1 tab qhs No Longer Active 09/07/2012 [facility] LANTUS 100 UNIT/ML SOLN 65 units sq qhs Active 09/07/2012 [facility] GUAIFENESIN-CODEINE 100-10 MG/5ML SYRP 10 cc PO q 6 hours PRN cough No Longer Active 03/17/[facility] PREDNISONE 20 MG TABS 2 PO daily No Longer Active 03/17/2012 [facility] CEFDINIR 300 MG CAPS 2 tablets PO daily No Longer Active 03/17/2012 [facility] PREDNISONE 20 MG TABS 2 PO daily No Longer Active 03/17/2012 [facility] CEFDINIR 300 MG CAPS 2 tablets PO daily No Longer Active 03/17/2012 [facility] PREDNISONE 20 MG TABS 2 PO daily No Longer Active 03/17/2012 [facility] CEFDINIR 300 MG CAPS 2 tablets PO daily No Longer Active 03/17/2012 [facility] PREDNISONE 20 MG TABS 2 PO daily No Longer Active 03/17/2012 [facility] CEFDINIR 300 MG CAPS 2 tablets PO daily No Longer Active 03/17/2012 [facility] PREDNISONE 20 MG TABS 2 PO daily No Longer Active 03/17/2012 [facility] PREDNISONE 20 MG TABS 2 PO daily No Longer Active 03/17/2012 [facility] LEVOFLOXACIN 500 MG TABS one PO daily No Longer Active 03/10/2012 [facility] LEVOFLOXACIN 500 MG TABS one PO daily No Longer Active 03/10/2012 [facility] LEVOFLOXACIN 500 MG TABS one PO daily No Longer Active 03/10/2012 [facility] LEVOFLOXACIN 500 MG TABS one PO daily No Longer Active 03/10/2012 [facility] LEVOFLOXACIN 500 MG TABS one PO daily No Longer Active 03/10/2012 [facility] ZOLPIDEM TARTRATE 10 MG TABS one PO qHS prn insomnia No Longer Active 01/15/2012 [facility] ZOLPIDEM TARTRATE 10 MG TABS one PO qHS prn insomnia No Longer Active 01/15/2012 [facility] ZOLPIDEM TARTRATE 10 MG TABS one PO qHS prn insomnia No Longer Active 01/15/2012 [facility] ZOLPIDEM TARTRATE 10 MG TABS one PO qHS prn insomnia No Longer Active 01/15/2012 [facility] ZANAFLEX 4 MG CAPS 1 po BID prn pain Active 01/13/2012 [facility] ZANAFLEX 4 MG CAPS 1 po BID prn pain Active 01/13/2012 [facility] ATORVASTATIN CALCIUM 40 MG TABS one PO qHS No Longer Active 09/24/2011 [facility] ATORVASTATIN CALCIUM 40 MG TABS one PO qHS Active 09/24/2011 [facility] ATORVASTATIN CALCIUM 40 MG TABS one PO qHS No Longer Active 09/24/2011 [facility] LUNESTA 3 MG TABS one PO qHS No Longer Active 09/08/2011 [facility] LUNESTA 3 MG TABS one PO qHS No Longer Active 09/08/2011 [facility] LUNESTA 3 MG TABS one PO qHS No Longer Active 09/08/2011 [facility] LUNESTA 3 MG TABS one PO qHS No Longer Active 09/08/2011 [facility] LUNESTA 3 MG TABS one PO qHS No Longer Active 09/08/2011 [facility] VICTOZA 18 MG/3ML SOLN Inject 1.2mg qd No Longer Active 08/03/2011 [facility] VICTOZA 18 MG/3ML SOLN Inject 1.2mg qd No Longer Active 08/03/2011 [facility] NOVOTWIST 32G X 5 MM MISC Use as directed No Longer Active 07/09/2011 [facility] AZITHROMYCIN 500 MG TABS one PO daily No Longer Active 05/29/2011 [facility] MUCINEX 600 MG [id number] one PO bid prn congestion No Longer Active 05/29/2011 [facility] AZITHROMYCIN 500 MG TABS one PO daily No Longer Active 05/29/2011 [facility] MUCINEX 600 MG [id number] one PO bid prn congestion No Longer Active 05/29/2011 [facility] MUCINEX 600 MG [id number] one PO bid prn congestion No Longer Active 05/29/2011 [facility] AZITHROMYCIN 500 MG TABS one PO daily No Longer Active 05/29/2011 [facility] MUCINEX 600 MG [id number] one PO bid prn congestion No Longer Active 05/29/2011 [facility] MUCINEX 600 MG [id number] one PO bid prn congestion No Longer Active 05/29/2011 [facility] CITALOPRAM HYDROBROMIDE 40 MG TABS 1 po qd Active 04/03/2011 [facility] SOMA 350 MG TABS 1 po qid (only takes 1 daily) No Longer Active 04/03/2011 [facility] LYRICA 100 MG CAPS 1 po tid No Longer Active 04/03/2011 [facility] CITALOPRAM HYDROBROMIDE 40 MG TABS 1 po qd Active 04/03/2011 [facility] AMLODIPINE BESY-BENAZEPRIL HCL 5-10 MG CAPS 1 po qd Active 04/03/2011 [facility] SOMA 350 MG TABS 1 po qid (only takes 1 daily) No Longer Active 04/03/2011 [facility] LYRICA 100 MG CAPS 1 po tid No Longer Active 04/03/2011 [facility] LYRICA 100 MG CAPS 1 po tid No Longer Active 04/03/2011 [facility] CITALOPRAM HYDROBROMIDE 40 MG TABS 1 po qd No Longer Active 04/03/2011 [facility] LYRICA 100 MG CAPS 1 po tid No Longer Active 04/03/2011 [facility] CITALOPRAM HYDROBROMIDE 40 MG TABS 1 po qd No Longer Active 04/03/2011 [facility] LYRICA 100 MG CAPS 1 po tid No Longer Active 04/03/2011 [facility] CITALOPRAM HYDROBROMIDE 40 MG TABS 1 po qd No Longer Active 04/03/2011 [facility] LORATADINE 10 MG TABS one PO daily prn allergies No Longer Active 01/12/2011 [facility] FLUTICASONE PROPIONATE 50 MCG/ACT SUSP one spray in each nostril BID prn allergies. No Longer Active 01/12/2011 [facility] LORATADINE 10 MG TABS one PO daily prn allergies No Longer Active 01/12/2011 [facility] LORATADINE 10 MG TABS one PO daily prn allergies No Longer Active 01/12/2011 [facility] FLUTICASONE PROPIONATE 50 MCG/ACT SUSP one spray in each nostril BID prn allergies. No Longer Active 01/12/2011 [facility] LORATADINE 10 MG TABS one PO daily prn allergies No Longer Active 01/12/2011 [facility] LORATADINE 10 MG TABS one PO daily prn allergies No Longer Active 01/12/2011 [facility] FLUTICASONE PROPIONATE 50 MCG/ACT SUSP one spray in each nostril BID prn allergies. No Longer Active 01/12/2011 [facility] PRILOSEC 40 MG CPDR one PO daily Active 01/06/2011 [facility] SIMVASTATIN 40 MG TABS 1 po qhs No Longer Active 01/06/2011 [facility] PRILOSEC 40 MG CPDR one PO daily Active 01/06/2011 [facility] SIMVASTATIN 40 MG TABS 1 po qhs No Longer Active 01/06/2011 [facility] PRILOSEC 40 MG CPDR one PO daily No Longer Active 01/06/2011 [facility] SIMVASTATIN 40 MG TABS 1 po qhs No Longer Active 01/06/2011 [facility] PRILOSEC 40 MG CPDR one PO daily Active 01/06/2011 [facility] SIMVASTATIN 40 MG TABS 1 po qhs No Longer Active 01/06/2011 [facility] SIMVASTATIN 40 MG TABS 1 po qhs No Longer Active 01/06/2011 [facility] LEXAPRO 20 MG TABS 1 tab daily Inactive 10/03/2010 [facility] LACTULOSE 10 GM/15ML SOLN 30 cc every 6 hours as needed for constipation Inactive 10/03/2010 [facility] MOVIPREP 100 GM SOLR prn Inactive 10/03/2010 [facility] ACTOPLUS MET 15-850 MG TABS 1 tab twice daily with food Inactive 10/03/2010 [facility] TRAMADOL HCL 50 MG TABS 1 tablet every 4 to 6 hours as needed Inactive 10/03/2010 [facility] CARISOPRODOL 350 MG TABS 1 po bid No Longer Active 10/03/2010 [facility] TRICOR 145 MG TABS 1 po qd No Longer Active 10/03/2010 [facility] LUNESTA 2 MG TABS 1 po prn No Longer Active 10/03/2010 [facility] ALPRAZOLAM 0.5 MG TABS 1 po bid No Longer Active 10/03/2010 [facility] ALIGN CAPS 1 po qd No Longer Active 10/03/2010 [facility] VICODIN ES TABS (10/325mg) 1 po prn No Longer Active 10/03/2010 [facility] LEXAPRO 20 MG TABS 1 tab daily Inactive 10/03/2010 [facility] MOVIPREP 100 GM SOLR prn Inactive 10/03/2010 [facility] TRAMADOL HCL 50 MG TABS 1 tablet every 4 to 6 hours as needed Inactive 10/03/2010 [facility] CARISOPRODOL 350 MG TABS 1 po bid No Longer Active 10/03/2010 [facility] TRICOR 145 MG TABS 1 po qd No Longer Active 10/03/2010 [facility] LUNESTA 2 MG TABS 1 po prn No Longer Active 10/03/2010 [facility] ALPRAZOLAM 0.5 MG TABS 1 po bid No Longer Active 10/03/2010 [facility] LEXAPRO 20 MG TABS 1 tab daily Inactive 10/03/2010 [facility] TRAMADOL HCL 50 MG TABS 1 tablet every 4 to 6 hours as needed Inactive 10/03/2010 [facility] CARISOPRODOL 350 MG TABS 1 po bid No Longer Active 10/03/2010 [facility] TRICOR 145 MG TABS 1 po qd No Longer Active 10/03/2010 [facility] LUNESTA 2 MG TABS 1 po prn No Longer Active 10/03/2010 [facility] ALPRAZOLAM 0.5 MG TABS 1 po bid No Longer Active 10/03/2010 [facility] LEXAPRO 20 MG TABS 1 tab daily Inactive 10/03/2010 [facility] TRAMADOL HCL 50 MG TABS 1 tablet every 4 to 6 hours as needed Inactive 10/03/2010 [facility] CARISOPRODOL 350 MG TABS 1 po bid No Longer Active 10/03/2010 [facility] LUNESTA 2 MG TABS 1 po prn No Longer Active 10/03/2010 [facility] ALPRAZOLAM 0.5 MG TABS 1 po bid No Longer Active 10/03/2010 [facility] TRAMADOL HCL 50 MG TABS 1 tablet every 4 to 6 hours as needed Inactive 10/03/2010 [facility] CARISOPRODOL 350 MG TABS 1 po bid No Longer Active 10/03/2010 [facility] TRAMADOL HCL 50 MG TABS 1 tablet every 4 to 6 hours as needed Inactive 10/03/2010 [facility] CARISOPRODOL 350 MG TABS 1 po bid No Longer Active 10/03/2010 [facility] TRAMADOL HCL 50 MG TABS 1 tablet every 4 to 6 hours as needed Inactive 10/03/2010 [facility] CARISOPRODOL 350 MG TABS 1 po bid No Longer Active 10/03/2010 [facility] TRICOR 145 MG TABS 1 po qd No Longer Active 10/03/2010 [facility] FREESTYLE LITE TEST STRP Check glucose levels tid Active 04/16/2010 [facility] INSULIN SYRINGE 31G X 5/16" 0.3 ML MISC takes u to 25 units TID Active 04/16/2010 [facility] INSULIN SYRINGE 31G X 5/16" 1 ML MISC takes up to 65 units daily Active 04/16/2010 [facility] FREESTYLE LITE TEST STRP Check glucose levels qid Active 04/16/2010 [facility] INSULIN SYRINGE 31G X 5/16" 0.3 ML MISC takes u to 25 units TID No Longer Active 04/16/2010 [facility] INSULIN SYRINGE 31G X 5/16" 1 ML MISC takes up to 65 units daily Active 04/16/2010 [facility] INSULIN SYRINGE 31G X 5/16" 0.3 ML MISC takes u to 25 units TID Active 04/16/2010 [facility] INSULIN SYRINGE 31G X 5/16" 1 ML MISC takes up to 65 units daily Active 04/16/2010 [facility] Omeprazole 1 capsule Orally Active 40 MG Orally Once a day Judy Kim MetFORMIN HCl ER 2 tablets Orally Active 500 MG Orally twice a day (bid) Bujay Kim Vitamin D3 1 capsule Orally Active 2000 UNIT Orally twice a day (bid) Bujay Kim Vitamin B12 not defined Orally Active 100 MCG Orally Judy Kim Lantus 60 units Subcutaneous Active 100 UNIT/ML Subcutaneous once every night Judy Kim Methocarbamol 1 tablet Orally Active 750 MG Orally every 4 hrs Judy Kim Vitamin D 1 tablet Orally Active 1000 UNIT Orally Once a day Judy Kim Iron 1 tablet Orally Active 325 (65 Fe) MG Orally Once a day Judy Kim NovoLog Mix 70/30 17u qam, 20u qpm Subcutaneous Active (70-30) 100 UNIT/ML Subcutaneous as directed Judy Kim Simvastatin 1 tablet in the evening Orally Active 20 MG Orally Once a day Judy Kim Tizanidine HCl 1 TABLET NEEDED THREE TIMES A DAY (TID) ORALLY 30 NA Active 4 MG Judy Kim Amitriptyline HCl TAKE 1 TABLET ONCE A DAY ORALLY 30 DAY(S) NA Active 50 mg Buxbadri Kim GuaiFENesin DM 10 ml as needed Orally Active 10-100 MG/5ML Orally every 4 hrs for cough Buxbadri Kim Cefdinir 1 capsule Orally Active 300 MG Orally Twice a day Bujay Reesxbadri Simvastatin 1 TABLET IN THE EVENING ONCE A DAY ORALLY 30 DAY(S) Orally Active 20 MG Orally Daily Buxbadri Reesxbadri Robaxin-750 TAKE 1 TABLET BY MOUTH TWICE A DAY NA Active 750 MG Judy Serafin Awa Kim Methocarbamol 1-1 tablets Orally Active 750 MG Orally every 6 hrs prn mm relaxation Bujay Serafin Awa Reesxbaumary Vitamin B12 not defined Orally Active 100 MCG Orally after breakfast Buxboleksandrmary Serafin Awa Claudioadri Omeprazole 1 capsule Orally Active 40 MG Orally Once a day Bujay Betancourt Awa Claudioadri MetFORMIN HCl ER 2 tablets am, 2 pm Orally Active 500 mg Orally as directed Judy Kim Iron 1 tablet Orally Active 325 (65 Fe) MG Orally once a day after breakfast Judy Betancourt Awa Judy Vitamin D 1 tablet Orally Active 1000 UNIT Orally once a day after breakfast Negritajay Betancourt Awa Judy Vitamin D3 1 capsule Orally Active 2000 UNIT Orally twice a day (bid) Negritajay Betancourt Awa Claudiooleksandrmary NovoLog Mix 70/30 15u qam, 15u qpm Subcutaneous Active (70-30) 100 UNIT/ML Subcutaneous as directed Judy Kim Diflucan 1 tablet Orally Active 200 MG Orally Once a day Buxbadri Betancourt Awa Gonzálezaumary Tizanidine HCl TAKE 1 TABLET BY MOUTH THREE TIMES A DAY NEEDED NA Active 4 MG Bugenovevaoleksandrmary Betancourt Awa Judy Meloxicam 1 TABLET ONCE A DAY WITH FOOD ORALLY 90 DAYS NA Active 15 MG after breakfast Bujay Betancourt Awa Judy Phenazopyridine HCl 1 tablet after meals Orally Active 200 MG Orally Three times a day Judy Betancourt Awa Claudioadri Acetaminophen-Codeine #3 1/2 half tablet Orally Active 300-30 MG Orally every 4 hrs PRN Buxbadri Betancourt Awa Reesxbaumary Omeprazole 1 capsule Orally Active 40 mg Orally Once a day before breakfast Bujay Betancourt Awa Claudioaumary Trulicity INJECT 1 SYRINGE WEEKLY subcutaneous Active 1.5 MG/0.5ML subcutaneous weekly Buxbadri Betancourt Awa Reesxbaum Tizanidine HCl TAKE 1 TABLET NEEDED THREE TIMES A DAY (TID) NEEDED (PRN) ORALLY NA Active 4 MG Buxboleksandrm Serafin Awa Reesxbaumary Cymbalta 1 capsule Orally Active 60 MG Orally Once a day Judy Reesxbaumary Amlodipine Besy-Benazepril HCl TAKE 1 CAPSULE BY MOUTH DAILY NA No Longer Active 5-10 MG Buxbaum Serafin E Buxbaum PredniSONE 2 tablet with food or milk Orally Active 20 mg Orally Once a day Buxbaum Serafin E Buxbaum Amitriptyline HCl TAKE 1 TABLET BY MOUTH AT BEDTIME NA Active 50 mg Buxbaum Serafin E Buxbaum NovoLog Unknown Subcutaneous Active 100 UNIT/ML Subcutaneous Buxbaum Serafin Reesxbaum Folic Acid 1 tablet Orally Active 400 MCG Orally Once a day Buxbaum Serafin E Buxbaum Amitriptyline HCl TAKE 1 TABLET BY MOUTH EVERY NIGHT po Active 75 mg po q HS Buxbaum Serafin E Buxbaum Amitriptyline HCl TAKE 1 TABLET BY MOUTH AT BEDTIME Orally No Longer Active 25 MG Orally daily Buxbaum Serafin Billings Buxbaumary Colace 1 capsule as needed Orally Active 100 mg Orally twice a day (bid) Buxbadri Reesxbadri Pantoprazole Sodium 1 tablet Orally Active 40 MG Orally Once a day Buxbadri Billings Buxbaumary Multivitamin Unknown Orally Active Orally Buxbadri Bililngs Buxbaumary Amlodipine Besy-Benazepril HCl TAKE 1 CAPSULE BY MOUTH DAILY NA Active 5-10 MG Negritaxbadri Reesxbaumary Vitamin C Unknown Orally Active 500 MG Orally Buxboleksandrm Serafin Reesxbaum Levemir Unknown Subcutaneous Active 100 UNIT/ML Subcutaneous 40 Units in the morning Buxbadri Kim Lisinopril 1 tablet Orally Active 5 MG Orally Once a day Judy Reesxbadri Amlodipine Besylate 1 tablet Orally Active 5 MG Orally Once a day Buxbadri Billings Buxbaum Invokana 1 tablet Orally Active 300 MG Orally Once a day Buxbadri [place] Buxbaum Omeprazole 1 capsule Orally Active 40 mg Orally Once a day Buxbadri [place] Buxbaum Welchol 3 tablets with meals Orally Active 625 MG Orally Twice a day Buxbaumary [place] Buxbaum Cevimeline HCl 1 capsule Orally Active 30 mg Orally once a day Buxbaumary Billings Buxbaum Trulicity 0.5 ml Subcutaneous Active 1.5 MG/0.5ML Subcutaneous Buxbaumary Billings Buxbaumary Hair Skin Nails as directed Orally Active - Orally Buxbaum Serafin Reesxbaumary MetFORMIN HCl ER TAKE 2 TABLETS BY MOUTH TWICE A DAY NA Active 500 MG Buxbaum Serafin Bill[place] Buxbaum Allergies, Adverse Reactions, Alerts Substance Category Reaction Severity Reaction type Status Date Reported Comments Source IBUPROFEN Drug allergy IBUPROFEN 04/16/2010 [facility] ibuprofen<sup>1</sup> Assertion Drug allergy Active 04/16/2010 1Data migrated from [employer] on 07/31/14. Originally documented as IBUPROFEN. PEGGY [place] Adverse Reaction Info Not Available Adverse Reaction Active 10/14/2018 Serafin Reesxbaum Immunizations Immunization Date Given Site Status Last Updated Comments Source Flu Vaccine - NOT Medicare 01/14/2018 completed Serafin Claudioaumary Flu Vaccine - NOT Medicare 12/31/2015 completed Serafin Reesxbaum Flu Vaccine - NOT Medicare 01/31/2014 completed Serafin Kim Results Order Name Results Value Reference Range Date Interpretation Comments Source URINE AND STOOL UA Urobilinogen <=1.0 mg/dL 0.1 - 1.0 02/24/2017 [facility] URINE AND STOOL UA Trans Epi 4 <=0 /LPF 02/24/2017 [facility] URINE AND STOOL UA pH 5.0 5.0 - 8.0 02/24/2017 [facility] URINE AND STOOL UA Bili Small *ABN* (02/24/17 8:17 AM) Negative 02/24/2017 [facility] URINE AND STOOL UA Blood Large *ABN* (02/24/17 8:17 AM) Negative 02/24/2017 [facility] URINE AND STOOL UA Ketones Trace mg/dL Negative mg/dL 02/24/2017 [facility] URINE AND STOOL UA Turbidity Clear (02/24/17 8:17 AM) Clear 02/24/2017 [facility] URINE AND STOOL UA Spec Grav 1.023 <=1.030 02/24/2017 [facility] URINE AND STOOL UA Color Yellow *NA* (02/24/17 8:17 AM) Yellow 02/24/2017 [facility] URINE AND STOOL UA WBC 15 0 - 5 02/24/2017 [facility] URINE AND STOOL UA Leuk Est Small *ABN* (02/24/17 8:17 AM) Negative 02/24/2017 [facility] URINE AND STOOL UA Nitrite Negative (02/24/17 8:17 AM) Negative 02/24/2017 [facility] URINE AND STOOL UA Protein Negative mg/dL Negative mg/dL 02/24/2017 [facility] URINE AND STOOL UA Glucose Negative mg/dL Negative mg/dL 02/24/2017 [facility] URINE AND STOOL UA RBC >182 0 - 2 02/24/2017 [facility] URINE AND STOOL UA Mucus Many /LPF None Seen /LPF 02/24/2017 [facility] URINE AND STOOL UA Sq Epi Few /LPF Few /LPF 02/24/2017 [facility] Chemistry HGBA1C 8.4 - 5.6 07/18/2014 [facility] CHOLESTEROL 380 - 199 07/18/2014 [facility] TRIGLYCERIDE 537 - 149 07/18/2014 [facility] Chemistry HDL 36 >=61 07/18/2014 [facility] LDL See Note mg/dL - 99 07/18/2014 [facility] SODIUM 135 MEQ/L 135 - 145 07/18/2014 [facility] POTASSIUM 3.7 MEQ/L 3.5 - 5.1 07/18/2014 [facility] CREATININE 0.9 0.5 - 1.4 07/18/2014 [facility] BUN 19 7 - 22 07/18/2014 [facility] Chemistry BUN/CREAT 21 6 - 25 07/18/2014 [facility] ALBUMIN 4.2 3.5 - 5.0 07/18/2014 [facility] CALCIUM 10.0 8.5 - 10.5 07/18/2014 [facility] Chemistry SGPT (ALT) 31 0 - 65 07/18/2014 [facility] Chemistry SGOT (AST) 19 0 - 37 07/18/2014 [facility] ALK PHOS 105 39 - 136 07/18/2014 [facility] Chemistry TSH 0.958 0.360 - 3.740 07/18/2014 [facility] Hematology HGB 14.9 12.0 - 16.0 07/18/2014 [facility] Hematology HCT 48.0 36.0 - 48.0 07/18/2014 [facility] Hematology PLATELETS 310 K/CMM 133 - 450 07/18/2014 [facility] Chemistry HGBA1C 8.1 - 5.6 04/17/2014 [facility] CHOLESTEROL 312 - 199 04/17/2014 [facility] TRIGLYCERIDE 278 - 149 04/17/2014 [facility] Chemistry HGBA1C 8.1 - 5.6 04/17/2014 [facility] CHOLESTEROL 312 - 199 04/17/2014 [facility] TRIGLYCERIDE 278 - 149 04/17/2014 [facility] HDL 41 >=61 04/17/2014 [facility] LDL 215 - 99 04/17/2014 [facility] SODIUM 139 MEQ/L 135 - 145 04/17/2014 [facility] POTASSIUM 4.0 MEQ/L 3.5 - 5.1 04/17/2014 [facility] CREATININE 0.9 0.5 - 1.4 04/17/2014 [facility] BUN 20 7 - 22 04/17/2014 [facility] BUN/CREAT 22 6 - 25 04/17/2014 [facility] ALBUMIN 4.2 3.5 - 5.0 04/17/2014 [facility] CALCIUM 9.1 8.5 - 10.5 04/17/2014 [facility] SGPT (ALT) 28 0 - 65 04/17/2014 [facility] SGOT (AST) 15 0 - 37 04/17/2014 [facility] ALK PHOS 119 39 - 136 04/17/2014 [facility] TSH 0.725 0.360 - 3.740 04/17/2014 [facility] Hematology HGB 14.8 12.0 - 16.0 04/17/2014 [facility] Hematology HCT 45.7 36.0 - 48.0 04/17/2014 [facility] Hematology PLATELETS 307 K/CMM 133 - 450 04/17/2014 [facility] HGBA1C 9.7 - 5.6 01/02/2014 [facility] CHOLESTEROL 339 - 199 01/02/2014 [facility] TRIGLYCERIDE 414 - 149 01/02/2014 [facility] HGBA1C 9.7 - 5.6 01/02/2014 [facility] CHOLESTEROL 339 - 199 01/02/2014 [facility] TRIGLYCERIDE 414 - 149 01/02/2014 [facility] HGBA1C 9.7 - 5.6 01/02/2014 [facility] CHOLESTEROL 339 - 199 01/02/2014 [facility] TRIGLYCERIDE 414 - 149 01/02/2014 [facility] HDL 43 >=61 01/02/2014 [facility] LDL See Note mg/dL - 99 01/02/2014 [facility] SODIUM 139 MEQ/L 135 - 145 01/02/2014 [facility] POTASSIUM 4.2 MEQ/L 3.5 - 5.1 01/02/2014 [facility] CREATININE 0.9 0.5 - 1.4 01/02/2014 [facility] BUN 17 7 - 22 01/02/2014 [facility] BUN/CREAT 19 6 - 25 01/02/2014 [facility] ALBUMIN 3.9 3.5 - 5.0 01/02/2014 [facility] CALCIUM 9.3 8.5 - 10.5 01/02/2014 [facility] SGPT (ALT) 39 0 - 65 01/02/2014 [facility] SGOT (AST) 16 0 - 37 01/02/2014 [facility] ALK PHOS 124 39 - 136 01/02/2014 [facility] TSH 1.230 0.360 - 3.740 01/02/2014 [facility] Hematology HGB 14.9 12.0 - 16.0 01/02/2014 [facility] Hematology HCT 45.7 36.0 - 48.0 01/02/2014 [facility] Hematology PLATELETS 320 K/CMM 133 - 450 01/02/2014 [facility] HGBA1C 10.5 - 5.6 05/29/2013 [facility] CHOLESTEROL 355 - 199 05/29/2013 [facility] TRIGLYCERIDE 348 - 149 05/29/2013 [facility] HGBA1C 10.5 - 5.6 05/29/2013 [facility] CHOLESTEROL 355 - 199 05/29/2013 [facility] TRIGLYCERIDE 348 - 149 05/29/2013 [facility] HGBA1C 10.5 - 5.6 05/29/2013 [facility] CHOLESTEROL 355 - 199 05/29/2013 [facility] TRIGLYCERIDE 348 - 149 05/29/2013 [facility] HGBA1C 10.5 - 5.6 05/29/2013 [facility] CHOLESTEROL 355 - 199 05/29/2013 [facility] TRIGLYCERIDE 348 - 149 05/29/2013 [facility] HDL 41 >=61 05/29/2013 [facility] LDL 244 - 99 05/29/2013 [facility] SODIUM 143 MEQ/L 135 - 145 05/29/2013 [facility] POTASSIUM 4.0 MEQ/L 3.5 - 5.1 05/29/2013 [facility] CREATININE 0.7 0.5 - 1.4 05/29/2013 [facility] BUN 17 7 - 22 05/29/2013 [facility] BUN/CREAT 24 6 - 25 05/29/2013 [facility] ALBUMIN 4.0 3.5 - 5.0 05/29/2013 [facility] CALCIUM 9.5 8.5 - 10.5 05/29/2013 [facility] SGPT (ALT) 34 0 - 65 05/29/2013 [facility] SGOT (AST) 21 0 - 37 05/29/2013 [facility] ALK PHOS 121 39 - 136 05/29/2013 [facility] TSH 1.210 0.360 - 3.740 05/29/2013 [facility] Hematology HGB 13.5 12.0 - 16.0 05/29/2013 [facility] Hemat[facility] HCT 41.3 36.0 - 48.0 05/29/2013 [facility] Hematology PLATELETS 307 K/CMM 133 - 450 05/29/2013 [facility] HGBA1C 10.6 - 5.6 09/07/2012 [facility] CHOLESTEROL 201 - 199 09/07/2012 [facility] TRIGLYCERIDE 203 - 149 09/07/2012 [facility] HGBA1C 10.6 - 5.6 09/07/2012 [facility] CHOLESTEROL 201 - 199 09/07/2012 [facility] TRIGLYCERIDE 203 - 149 09/07/2012 [facility] HGBA1C 10.6 - 5.6 09/07/2012 [facility] CHOLESTEROL 201 - 199 09/07/2012 [facility] TRIGLYCERIDE 203 - 149 09/07/2012 [facility] HGBA1C 10.6 - 5.6 09/07/2012 [facility] CHOLESTEROL 201 - 199 09/07/2012 [facility] TRIGLYCERIDE 203 - 149 09/07/2012 [facility] HGBA1C 10.6 - 5.6 09/07/2012 [facility] CHOLESTEROL 201 - 199 09/07/2012 [facility] TRIGLYCERIDE 203 - 149 09/07/2012 [facility] HDL 40 >=61 09/07/2012 [facility] LDL 120 - 99 09/07/2012 [facility] SODIUM 142 MEQ/L 135 - 145 09/07/2012 [facility] POTASSIUM 4.2 MEQ/L 3.5 - 5.1 09/07/2012 [facility] CREATININE 0.6 0.5 - 1.4 09/07/2012 [facility] BUN 16 7 - 22 09/07/2012 [facility] BUN/CREAT 27 6 - 25 09/07/2012 [facility] ALBUMIN 4.1 3.5 - 5.0 09/07/2012 [facility] CALCIUM 9.3 8.5 - 10.5 09/07/2012 [facility] SGPT (ALT) 30 0 - 65 09/07/2012 [facility] SGOT (AST) 12 0 - 37 09/07/2012 [facility] ALK PHOS 114 39 - 136 09/07/2012 [facility] TSH 0.568 0.360 - 3.740 09/07/2012 [facility] Urinalysis UA COLOR Yellow 09/07/2012 [facility] Urinalysis BACTERIA URN Occasional 09/07/2012 [facility] Urinalysis UA COLOR Yellow 09/07/2012 [facility] Urinalysis BACTERIA URN Occasional 09/07/2012 [facility] Urinalysis UA COLOR Yellow 09/07/2012 [facility] Urinalysis BACTERIA URN Occasional 09/07/2012 [facility] Urinalysis UA COLOR Yellow 09/07/2012 [facility] Urinalysis BACTERIA URN Occasional 09/07/2012 [facility] Urinalysis UA COLOR Yellow 09/07/2012 [facility] Urinalysis BACTERIA URN Occasional 09/07/2012 [facility] Chemistry HGBA1C 11.8 03/08/2012 [facility] Chemistry SODIUM 137 MEQ/L 135 - 145 03/08/2012 [facility] POTASSIUM 4.3 MEQ/L 3.5 - 5.1 03/08/2012 [facility] HGBA1C 11.8 03/08/2012 [facility] SODIUM 137 MEQ/L 135 - 145 03/08/2012 [facility] POTASSIUM 4.3 MEQ/L 3.5 - 5.1 03/08/2012 [facility] Chemistry HGBA1C 11.8 03/08/2012 [facility] SODIUM 137 MEQ/L 135 - 145 03/08/2012 [facility] POTASSIUM 4.3 MEQ/L 3.5 - 5.1 03/08/2012 [facility] HGBA1C 11.8 03/08/2012 [facility] SODIUM 137 MEQ/L 135 - 145 03/08/2012 [facility] POTASSIUM 4.3 MEQ/L 3.5 - 5.1 03/08/2012 [facility] Chemistry HGBA1C 11.8 03/08/2012 [facility] SODIUM 137 MEQ/L 135 - 145 03/08/2012 [facility] Chemistry HGBA1C 11.8 03/08/2012 [facility] Chemistry SODIUM 137 MEQ/L 135 - 145 03/08/2012 [facility] POTASSIUM 4.3 MEQ/L 3.5 - 5.1 03/08/2012 [facility] CREATININE 0.8 0.5 - 1.4 03/08/2012 [facility] BUN 15 7 - 22 03/08/2012 [facility] Chemistry BUN/CREAT 19 6 - 25 03/08/2012 [facility] ALBUMIN 3.7 3.5 - 5.0 03/08/2012 [facility] CALCIUM 8.7 8.5 - 10.5 03/08/2012 [facility] SGPT (ALT) 34 0 - 65 03/08/2012 [facility] SGOT (AST) 21 0 - 37 03/08/2012 [facility] ALK PHOS 88 39 - 136 03/08/2012 [facility] TSH 0.395 0.360 - 3.740 03/08/2012 [facility] Hematology HGB 13.0 12.0 - 16.0 03/08/2012 [facility] HCT 39.3 36.0 - 48.0 03/08/2012 [facility] Hematology PLATELETS 209 K/CMM 133 - 450 03/08/2012 [facility] HGBA1C 8.6 09/08/2011 [facility] CHOLESTEROL 283 120 - 200 09/08/2011 [facility] TRIGLYCERIDE 407 0 - 200 09/08/2011 [facility] HGBA1C 8.6 09/08/2011 [facility] CHOLESTEROL 283 120 - 200 09/08/2011 [facility] TRIGLYCERIDE 407 0 - 200 09/08/2011 [facility] HGBA1C 8.6 09/08/2011 [facility] CHOLESTEROL 283 120 - 200 09/08/2011 [facility] TRIGLYCERIDE 407 0 - 200 09/08/2011 [facility] HGBA1C 8.6 09/08/2011 [facility] CHOLESTEROL 283 120 - 200 09/08/2011 [facility] TRIGLYCERIDE 407 0 - 200 09/08/2011 [facility] Chemistry HGBA1C 8.6 09/08/2011 [facility] CHOLESTEROL 283 120 - 200 09/08/2011 [facility] TRIGLYCERIDE 407 0 - 200 09/08/2011 [facility] Chemistry HDL 38 >=35 09/08/2011 [facility] LDL See Note mg/dL 0 - 129 09/08/2011 [facility] FERRITIN 60 5 - 204 09/08/2011 [facility] IRON 58 30 - 160 09/08/2011 [facility] TIBC 436 228 - 428 09/08/2011 [facility] HGBA1C 8.6 09/08/2011 [facility] CHOLESTEROL 283 120 - 200 09/08/2011 [facility] Chemistry T4, FREE 1.06 0.76 - 1.46 09/08/2011 [facility] TSH 0.274 0.360 - 3.740 09/08/2011 [facility] SODIUM 140 MEQ/L 135 - 145 09/08/2011 [facility] POTASSIUM 4.3 MEQ/L 3.5 - 5.1 09/08/2011 [facility] BUN 11 7 - 22 09/08/2011 [facility] CREATININE 0.6 0.5 - 1.4 09/08/2011 [facility] BUN/CREAT 18 6 - 25 09/08/2011 [facility] ALBUMIN 4.3 3.5 - 5.0 09/08/2011 [facility] CALCIUM 9.6 8.5 - 10.5 09/08/2011 [facility] Chemistry SGOT (AST) 17 0 - 37 09/08/2011 [facility] SGPT (ALT) 32 0 - 65 09/08/2011 [facility] Chemistry ALK PHOS 125 39 - 136 09/08/2011 [facility] Hematology HGB 14.8 12.0 - 16.0 09/08/2011 [facility] H[facility] HCT 46.5 36.0 - 48.0 09/08/2011 [facility] Hematology PLATELETS 305 K/CMM 133 - 450 09/08/2011 [facility] Chemistry HGBA1C 10.3 04/03/2011 [facility] Chemistry TSH 0.823 0.360 - 3.740 04/03/2011 [facility] Chemistry SODIUM 140 MEQ/L 135 - 145 04/03/2011 [facility] Chemistry HGBA1C 10.3 04/03/2011 [facility] Chemistry TSH 0.823 0.360 - 3.740 04/03/2011 [facility] Chemistry SODIUM 140 MEQ/L 135 - 145 04/03/2011 [facility] Chemistry HGBA1C 10.3 04/03/2011 [facility] Chemistry TSH 0.823 0.360 - 3.740 04/03/2011 [facility] Chemistry SODIUM 140 MEQ/L 135 - 145 04/03/2011 [facility] Chemistry HGBA1C 10.3 04/03/2011 [facility] Chemistry TSH 0.823 0.360 - 3.740 04/03/2011 [facility] Chemistry SODIUM 140 MEQ/L 135 - 145 04/03/2011 [facility] Chemistry HGBA1C 10.3 04/03/2011 [facility] Chemistry TSH 0.823 0.360 - 3.740 04/03/2011 [facility] Chemistry HGBA1C 10.3 04/03/2011 [facility] Chemistry TSH 0.823 0.360 - 3.740 04/03/2011 [facility] Chemistry SODIUM 140 MEQ/L 135 - 145 04/03/2011 [facility] POTASSIUM 4.2 MEQ/L 3.5 - 5.1 04/03/2011 [facility] BUN 15 7 - 22 04/03/2011 [facility] CREATININE 0.6 0.5 - 1.4 04/03/2011 [facility] BUN/CREAT 25 6 - 25 04/03/2011 [facility] ALBUMIN 4.4 3.5 - 5.0 04/03/2011 [facility] CALCIUM 9.3 8.5 - 10.5 04/03/2011 [facility] SGOT (AST) 9 0 - 37 04/03/2011 [facility] SGPT (ALT) 23 0 - 65 04/03/2011 [facility] ALK PHOS 109 39 - 136 04/03/2011 [facility] HGBA1C 8.6 10/03/2010 [facility] TSH 0.203 0.360 - 3.740 10/03/2010 [facility] SODIUM 139 135 - 145 10/03/2010 [facility] Chemistry HGBA1C 8.6 10/03/2010 [facility] Chemistry TSH 0.203 0.360 - 3.740 10/03/2010 [facility] SODIUM 139 135 - 145 10/03/2010 [facility] Chemistry HGBA1C 8.6 10/03/2010 [facility] Chemistry TSH 0.203 0.360 - 3.740 10/03/2010 [facility] SODIUM 139 135 - 145 10/03/2010 [facility] Chemistry HGBA1C 8.6 10/03/2010 [facility] Chemistry TSH 0.203 0.360 - 3.740 10/03/2010 [facility] Chemistry SODIUM 139 135 - 145 10/03/2010 [facility] Chemistry HGBA1C 8.6 10/03/2010 [facility] Chemistry TSH 0.203 0.360 - 3.740 10/03/2010 [facility] Chemistry HGBA1C 8.6 10/03/2010 [facility] Chemistry TSH 0.203 0.360 - 3.740 10/03/2010 [facility] SODIUM 139 135 - 145 10/03/2010 [facility] POTASSIUM 4.3 3.5 - 5.1 10/03/2010 [facility] BUN 20 7 - 22 10/03/2010 [facility] CREATININE 0.6 0.5 - 1.4 10/03/2010 [facility] BUN/CREAT 33 6 - 25 10/03/2010 [facility] ALBUMIN 4.3 3.5 - 5.0 10/03/2010 [facility] CALCIUM 9.6 8.5 - 10.5 10/03/2010 [facility] Chemistry SGOT (AST) 7 0 - 37 10/03/2010 [facility] Chemistry SGPT (ALT) 24 0 - 65 10/03/2010 [facility] Chemistry ALK PHOS 98 39 - 136 10/03/2010 [facility] Hematology HGB 13.7 12.0 - 16.0 10/03/2010 [facility] H[facility] HCT 41.3 36.0 - 48.0 10/03/2010 [facility] Hemat[facility] PLATELETS 307 K/CMM 133 - 450 10/03/2010 [facility] Pathology Reports No Data Provided for This Section Diagnostic Reports Report Value Date Source Hip bilat w pelvis and both lat hips DX Exam: Pelvis x- ray, one view and bilateral hip x-rays 2 views each Reason for Exam: - M62.838 Other muscle spasm;M25.552 Pain in left hip; M25.551 Pain in right hip Comparison Exam: None Discussion: No fractures or dislocations are seen within the pelvis or hips. SI joints and pubic symphysis are unremarkable. 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 No evidence for avascular necrosis within the femoral heads. No suspicious osteoblastic or osteolytic lesions. No dilated loops of bowel within the visualized portions of the pelvis. Impression: 1. 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 07/12/2018 PEGGY Dye Spine lumbar 2 or 3 views DX Exam: Spine lumbar 2 or 3 views DX Reason for Exam: - M54.5 Low back pain; M62.838 Other muscle spasm Comparison Exam: None Discussion: 5 non rib-bearing lumbar vertebral bodies are seen. Vertebral body heights are maintained. No spondylolisthesis or scoliosis. Bridging osteophyte formation seen at the L2/L3 and L3/L4 levels. Facet joint arthropathy seen within the lower lumbar spine. No suspicious osteoblastic or osteolytic lesions. Note that a lumbar spine x-ray cannot rule out ligamentous injuries or spinal cord abnormalities. No dilated loops of bowel within the visualized portions of the abdomen and pelvis. Impression: 1. Bridging osteophyte formation seen at the L2/L3 and L3/L4 levels. Facet joint arthropathy seen within the lower lumbar spine. 07/12/2018 PEGGY Dye Chest 2 views DX Two-view chest Patient Name: NATALIE ARENAS : 1960; Age: 56 years Female MR: [id number] Study: Chest 2 views DX Order Time: 01/08/2017 2:49 PM CDT Clinical Indication: - productive cough. COMPARISON: January 2017. May 2011. March 2011. FINDINGS: Views: 2 LUNGS: There is normal lung volume. There are no suspicious interstitial/airspace opacities. There are no pleural effusions. There is no pneumothorax. The pulmonary vasculature is normal. MEDIASTINUM: The cardiac silhouette is normal. The trachea is midline. BONES: Mild thoracic spondylosis. IMPRESSION: No radiographic evidence of acute pulmonary disease. SL: [id number] 01/08/2017 Geraldo Chest 2 views DX Study: Chest 2 views DX Clinical Indication: R06.02 Shortness of breath - R06.02 Shortness of breath Comparison: Chest x-ray from 05/29/2011 FINDINGS: The cardiac silhouette is normal in size. Aortic arch calcification is present. The lungs are clear and without consolidation or congestion. No pleural effusion or pneumothorax is seen. The osseous structures are unremarkable. IMPRESSION: No acute cardiopulmonary disease. SL: [id number] 01/06/2017 [facility] Consultation Notes No Data Provided for This Section Discharge Summaries No Data Provided for This Section History and Physicals No Data Provided for This Section Vital Signs Vital Sign Value Date Comments Source Weight 157 10/14/2018 Serafin Reesxbaum Height 60 10/14/2018 Serafin E Buxbaum Temperature Oral (F) 97.9 F 10/14/2018 Serafin E Buxbaum Heart Rate 80 10/14/2018 Serafin E Buxbaum Diastolic (mm Hg) 98 10/14/2018 Serafin E Buxbaum Systolic (mm Hg) 178 10/14/2018 Serafin Billings Buxbaum Weight 162.4 08/15/2018 Serafin E Buxbaum Height 60 08/15/2018 Serafin E Buxbaum Temperature Oral (F) 97.7 F 08/15/2018 Serafin E Buxbaum Heart Rate 86 08/15/2018 Serafin E Buxbaum Diastolic (mm Hg) 76 08/15/2018 Serafin E Buxbaum Systolic (mm Hg) 138 08/15/2018 Serafin Awa Buxbaum Weight 160.4 06/22/2018 Serafin E Buxbaum Height 60 06/22/2018 Serafin E Buxbaum Temperature Oral (F) 97.1 F 06/22/2018 Serafin E Buxbaum Heart Rate 94 06/22/2018 Serafin E Buxbaum Diastolic (mm Hg) 82 06/22/2018 Serafin E Buxbaum Systolic (mm Hg) 136 06/22/2018 Serafin E Buxbaum Weight 155 01/14/2018 Serafin E Buxbaum Height 60 01/14/2018 Serafin E Buxbaum Temperature Oral (F) 97.8 F 01/14/2018 Serafin E Buxbaum Heart Rate 74 01/14/2018 Serafin E Buxbaum Diastolic (mm Hg) 88 01/14/2018 Serafin E Buxbaum Systolic (mm Hg) 154 01/14/2018 Serafin E Buxbaum Weight 157 10/22/2017 Serafin E Buxbaum Height 60 10/22/2017 Serafin E Buxbaum Temperature Oral (F) 98.3 F 10/22/2017 Serafin Claudioaum Heart Rate 83 10/22/2017 Serafin Reesxbaum Diastolic (mm Hg) 88 10/22/2017 Serafin Reesxbaum Systolic (mm Hg) 144 10/22/2017 Serafin Claudioaum Weight 155 03/08/2017 Serafin Claudioaum Height 60 03/08/2017 Serafin Claudioaum Temperature Oral (F) 96.4 F 03/08/2017 Serafin Reesxbaum Heart Rate 76 03/08/2017 Serafin Awa Reesxbaum Diastolic (mm Hg) 84 03/08/2017 Serafin Claudioaum Systolic (mm Hg) 136 03/08/2017 Serafin Claudioaum Respitory Rate 18 02/24/2017 [facility] Heart Rate 82 02/24/2017 [facility] Systolic (mm Hg) 160 02/24/2017 [facility] Diastolic (mm Hg) 85 02/24/2017 [facility] Temperature Oral (F) 98.7 F 02/24/2017 [facility] Respitory Rate 18 02/24/2017 [facility] Systolic (mm Hg) 160 02/24/2017 [facility] Diastolic (mm Hg) 80 02/24/2017 [facility] Heart Rate 90 02/24/2017 [facility] Temperature Oral (F) 99.1 F 02/24/2017 [facility] BMI Calculated 29.36 02/24/2017 [facility] Height 152.4 cm 02/24/2017 [facility] Weight 68.182 02/24/2017 [facility] Weight 155 01/15/2017 Serafin Kim Height 60 01/15/2017 Serafin Claudioaum Temperature Oral (F) 98.1 F 01/15/2017 Serafin Awa Reesxbaum Heart Rate 80 01/15/2017 Serafin Billings Buxbaum Diastolic (mm Hg) 86 01/15/2017 Serafin Reesxbaum Systolic (mm Hg) 140 01/15/2017 Serafin Billings Buxbaum Systolic (mm Hg) 156 01/09/2017 [facility] Diastolic (mm Hg) 84 01/09/2017 [facility] Temperature Oral (F) 97.9 F 01/09/2017 [facility] Heart Rate 80 01/09/2017 [facility] Respitory Rate 20 01/09/2017 [facility] Respitory Rate 16 01/09/2017 [facility] Systolic (mm Hg) 145 01/08/2017 [facility] Diastolic (mm Hg) 82 01/08/2017 [facility] Heart Rate 82 01/08/2017 [facility] Respitory Rate 18 01/08/2017 [facility] Temperature Oral (F) 98 F 01/08/2017 [facility] Temperature Oral (F) 97.8 F 01/08/2017 [facility] Height 152.4 cm 01/08/2017 [facility] Weight 70.455 01/08/2017 [facility] BMI Calculated 30.33 01/08/2017 [facility] Heart Rate 98 01/08/2017 [facility] Systolic (mm Hg) 179 01/08/2017 [facility] Diastolic (mm Hg) 86 01/08/2017 [facility] Weight 163 12/14/2016 Serafin E Buxbaum Height 60 12/14/2016 Serafin E Buxbaum Temperature Oral (F) 97.1 F 12/14/2016 Serafin E Buxbaum Heart Rate 64 12/14/2016 Serafin E Buxbaum Diastolic (mm Hg) 86 12/14/2016 Serafin E Buxbaum Systolic (mm Hg) 126 12/14/2016 Serafin E Buxbaum Weight 167 08/12/2016 Serafin E Buxbaum Height 60 08/12/2016 Serafin E Buxbaum Temperature Oral (F) 98.5 F 08/12/2016 Serafin E Buxbaum Heart Rate 84 08/12/2016 Serafin E Buxbaum Diastolic (mm Hg) 92 08/12/2016 Serafin E Buxbaum Systolic (mm Hg) 152 08/12/2016 Serafin E Buxbaum Weight 170 04/01/2016 Serafin E Buxbaum Height 60 04/01/2016 Serafin E Buxbaum Temperature Oral (F) 97.3 F 04/01/2016 Serafin E Buxbaum Heart Rate 64 04/01/2016 Serafin E Buxbaum Diastolic (mm Hg) 85 04/01/2016 Serafin E Buxbaum Systolic (mm Hg) 125 04/01/2016 Serafin E Buxbaum Weight 170 12/31/2015 Serafin E Buxbaum Height 60 12/31/2015 Serafin E Buxbaum Temperature Oral (F) 97.1 F 12/31/2015 Serafin E Buxbaum Heart Rate 84 12/31/2015 Serafin E Buxbaum Diastolic (mm Hg) 94 12/31/2015 Serafin E Buxbaum Systolic (mm Hg) 192 12/31/2015 Serafin Kim Weight 130 07/25/2015 Serafin Kim Height 60 07/25/2015 Serafin Claudioaum Temperature Oral (F) 97.9 F 07/25/2015 Serafin Lopezm Heart Rate 84 07/25/2015 Serafin Claudioaum Diastolic (mm Hg) 86 07/25/2015 Serafin Claudioaum Systolic (mm Hg) 152 07/25/2015 Serafin Lopezm Weight 135 05/21/2015 Serafin Lopezm Height 60 05/21/2015 Serafin Reesxbaum Temperature Oral (F) 98.4 F 05/21/2015 Serafin Claudioaum Heart Rate 76 05/21/2015 Serafin Claudioaum Diastolic (mm Hg) 86 05/21/2015 Serafin Claudioaum Systolic (mm Hg) 134 05/21/2015 Serafin Kim Weight 187 08/24/2014 Serafin Kim Height 60 08/24/2014 Serafin Claudioaum Temperature Oral (F) 97.1 F 08/24/2014 Serafin Kim Heart Rate 90 08/24/2014 Serafin Claudioaum Diastolic (mm Hg) 68 08/24/2014 Serafin Claudioaum Systolic (mm Hg) 138 08/24/2014 Serafin Kim Height 60 07/19/2014 [facility] Weight 191 07/19/2014 [facility] Systolic (mm Hg) 130 07/19/2014 [facility] Diastolic (mm Hg) 72 07/19/2014 [facility] Heart Rate 88 07/19/2014 [facility] Height 60 04/19/2014 [facility] Weight 189 04/19/2014 [facility] Heart Rate 92 04/19/2014 [facility] Systolic (mm Hg) 140 04/19/2014 [facility] Diastolic (mm Hg) 80 04/19/2014 [facility] Weight 186 01/03/2014 [facility] Height 60 01/03/2014 [facility] Heart Rate 108 01/03/2014 [facility] Systolic (mm Hg) 120 01/03/2014 [facility] Diastolic (mm Hg) 80 01/03/2014 [facility] Weight 182 11/14/2013 Serafin Lopezm Height 60 11/14/2013 Serafin Claudioaum Temperature Oral (F) 98.5 F 11/14/2013 Serafin Kim Heart Rate 72 11/14/2013 Serafin Kim Diastolic (mm Hg) 78 11/14/2013 Serafin Kim Systolic (mm Hg) 120 11/14/2013 Serafin Kim Weight 192 05/30/2013 [facility] Systolic (mm Hg) 120 05/30/2013 [facility] Diastolic (mm Hg) 60 05/30/2013 [facility] Heart Rate 76 05/30/2013 [facility] Weight 181 10/05/2012 [facility] Heart Rate 80 10/05/2012 [facility] Systolic (mm Hg) 120 10/05/2012 [facility] Diastolic (mm Hg) 70 10/05/2012 [facility] Weight 188 09/07/2012 [facility] Temperature Oral (F) 98.2 F 09/07/2012 [facility] Respitory Rate 18 09/07/2012 [facility] Heart Rate 81 09/07/2012 [facility] Systolic (mm Hg) 134 09/07/2012 [facility] Diastolic (mm Hg) 77 09/07/2012 [facility] Weight 178 03/17/2012 [facility] Temperature Oral (F) 98.4 F 03/17/2012 [facility] Respitory Rate 14 03/17/2012 [facility] Heart Rate 74 03/17/2012 [facility] Systolic (mm Hg) 117 03/17/2012 [facility] Diastolic (mm Hg) 71 03/17/2012 [facility] Weight 178 03/08/2012 [facility] Heart Rate 64 03/08/2012 [facility] Systolic (mm Hg) 102 03/08/2012 [facility] Diastolic (mm Hg) 64 03/08/2012 [facility] Weight 171 01/13/2012 [facility] Temperature Oral (F) 98.5 F 01/13/2012 [facility] Respitory Rate 16 01/13/2012 [facility] Systolic (mm Hg) 143 01/13/2012 [facility] Diastolic (mm Hg) 81 01/13/2012 [facility] Heart Rate 73 01/13/2012 [facility] Weight 177 09/08/2011 [facility] Systolic (mm Hg) 144 09/08/2011 [facility] Diastolic (mm Hg) 86 09/08/2011 [facility] Heart Rate 68 09/08/2011 [facility] Weight 180 09/08/2011 [facility] Temperature Oral (F) 97.7 F 09/08/2011 [facility] Respitory Rate 20 09/08/2011 [facility] Heart Rate 74 09/08/2011 [facility] Systolic (mm Hg) 157 09/08/2011 [facility] Diastolic (mm Hg) 77 09/08/2011 [facility] Weight 185 05/29/2011 [facility] Temperature Oral (F) 99.3 F 05/29/2011 [facility] Respitory Rate 20 05/29/2011 [facility] Heart Rate 69 05/29/2011 [facility] Systolic (mm Hg) 162 05/29/2011 [facility] Diastolic (mm Hg) 74 05/29/2011 [facility] Weight 177 04/03/2011 [facility] Systolic (mm Hg) 128 04/03/2011 [facility] Diastolic (mm Hg) 80 04/03/2011 [facility] Heart Rate 64 04/03/2011 [facility] Weight 175 03/16/2011 [facility] Respitory Rate 16 03/16/2011 [facility] Temperature Oral (F) 97.9 F 03/16/2011 [facility] Heart Rate 89 03/16/2011 [facility] Systolic (mm Hg) 147 03/16/2011 [facility] Diastolic (mm Hg) 76 03/16/2011 [facility] Weight 170 02/13/2011 [facility] Temperature Oral (F) 97.4 F 02/13/2011 [facility] Respitory Rate 20 02/13/2011 [facility] Heart Rate 76 02/13/2011 [facility] Systolic (mm Hg) 124 02/13/2011 [facility] Diastolic (mm Hg) 77 02/13/2011 [facility] Weight 172 01/06/2011 [facility] Temperature Oral (F) 97.6 F 01/06/2011 [facility] Respitory Rate 20 01/06/2011 [facility] Heart Rate 65 01/06/2011 [facility] Systolic (mm Hg) 114 01/06/2011 [facility] Diastolic (mm Hg) 68 01/06/2011 [facility] Weight 172 12/26/2010 [facility] Temperature Oral (F) 97.9 F 12/26/2010 [facility] Respitory Rate 24 12/26/2010 [facility] Heart Rate 59 12/26/2010 [facility] Systolic (mm Hg) 146 12/26/2010 [facility] Diastolic (mm Hg) 75 12/26/2010 [facility] Weight 168 12/09/2010 [facility] Temperature Oral (F) 97.6 F 12/09/2010 [facility] Heart Rate 84 12/09/2010 [facility] Systolic (mm Hg) 119 12/09/2010 [facility] Diastolic (mm Hg) 77 12/09/2010 [facility] Height 60 10/03/2010 [facility] Weight 166 10/03/2010 [facility] Heart Rate 76 10/03/2010 [facility] Systolic (mm Hg) 160 10/03/2010 [facility] Diastolic (mm Hg) 92 10/03/2010 [facility] Height 60 04/16/2010 [facility] Weight 162 04/16/2010 [facility] Heart Rate 78 04/16/2010 [facility] Systolic (mm Hg) 130 04/16/2010 [facility] Diastolic (mm Hg) 82 04/16/2010 [facility] Encounters Location Location Details Encounter Type Encounter Number Reason For Visit Attending Provider ADM Date DC Date Status Source [facility] Office Visit [id number] Andrés Fritz MD 09/07/2012 09/07/2012 [facility] Lab Report [id number] Andrés Fritz MD 09/07/2012 09/07/2012 [facility] [place] Visit [id number] Andrés Fritz MD 10/05/2012 10/05/2012 [facility] [place] Visit [id number] Adnrés Fritz MD 05/30/2013 05/30/2013 [facility] Serafin Kim DO, PA reff, meds [id number] 11/14/2013 11/14/2013 Serafin Kim DO, PA reff, meds [id number] 11/14/2013 11/14/2013 Serafin Kim DO, PA reff, meds [id number] 11/14/2013 11/14/2013 Serafin Kim DO PA reff, meds [id number] 11/14/2013 11/14/2013 Serafin Kim DO PA reff, meds [id number] 11/14/2013 11/14/2013 Serafin Kim DO PA reff, meds [id number] 11/14/2013 11/14/2013 Serafin Kim DO PA reff, meds [id number] 11/14/2013 11/14/2013 Serafin Kim DO PA reff, meds [id number] 11/14/2013 11/14/2013 Serafin Kim DO PA reff, meds [id number] 11/14/2013 11/14/2013 Serafin Kim DO PA reff, meds [id number] 11/14/2013 11/14/2013 Serafin Kim DO PA reff, meds [id number] 11/14/2013 11/14/2013 Serafin Kim DO PA reff, meds [id number] 11/14/2013 11/14/2013 Serafin Kim DO PA reff, meds [id number] 11/14/2013 11/14/2013 Serafin Kim DO PA reff, meds [id number] 11/14/2013 11/14/2013 Serafin Kim DO PA reff, meds [id number] 11/14/2013 11/14/2013 Serafin Kim DO PA reff, meds [id number] 11/14/2013 11/14/2013 Serafin Kim DO PA reff, meds [id number] 11/14/2013 11/14/2013 Serafin Kim DO PA reff, meds [id number] 11/14/2013 11/14/2013 Serafin Kim DO PA reff, meds [id number] 11/14/2013 11/14/2013 Serafin Kim DO PA reff, meds [id number] 11/14/2013 11/14/2013 Serafin Kim DO PA reff, meds [id number] 11/14/2013 11/14/2013 Serafin Kim DO, PA reff, meds [id number] 11/14/2013 11/14/2013 Serafin Kim DO, PA reff, meds [id number] 11/14/2013 11/14/2013 Serafin Kim DO, PA reff, meds [id number] 11/14/2013 11/14/2013 Serafin Kim DO, PA reff, meds [id number] 11/14/2013 11/14/2013 Serafin Kim DO, PA reff, meds [id number] 11/14/2013 11/14/2013 Serafin Kim DO, PA reff, meds [id number] 11/14/2013 11/14/2013 Serafin Kim [facility] [place] Lab Report [id number] Andrés Fritz MD 11/15/2013 11/15/2013 [facility] Serafin Kim [facility], [place] refill [id number] 11/15/2013 11/15/2013 Serafin Kim DO, PA refill [id number] 11/15/2013 11/15/2013 Serafin Kim DO, PA refill [id number] 11/15/2013 11/15/2013 Serafin Betancourt Kirstin Judy DO, PA refill [id number] 11/15/2013 11/15/2013 Serafin Awa Judy Betancourt Kirstin Judy DO, PA refill [id number] 11/15/2013 11/15/2013 Serafin Kim DO, PA refill [id number] 11/15/2013 11/15/2013 Serafin Kim DO, PA refill [id number] 11/15/2013 11/15/2013 Serafin Kim DO, PA refill [id number] 11/15/2013 11/15/2013 Serafin Kim DO, PA refill [id number] 11/15/2013 11/15/2013 Serafin Betancourt AwaClaudia Kim DO, PA refill [id number] 11/15/2013 11/15/2013 Serafin Kim DO, PA refill [id number] 11/15/2013 11/15/2013 Serafin Kim DO, PA refill [id number] 11/15/2013 11/15/2013 Serafin Kim DO, [place] refill [id number] 11/15/2013 11/15/2013 Serafin Awa Judy Betancourt Kirstin Judy DO, PA refill [id number] 11/15/2013 11/15/2013 Serafin Kim Serafin Fulton Judy DO, PA refill [id number] 11/15/2013 11/15/2013 Serafin Betancourt AwaClaudia Kim DO, PA refill [id number] 11/15/2013 11/15/2013 Serafin Kim DO, PA refill [id number] 11/15/2013 11/15/2013 Serafin Betancourt AwaClaudia Kim DO, PA refill [id number] 11/15/2013 11/15/2013 Serafin Kim DO, PA refill [id number] 11/15/2013 11/15/2013 Serafin Betancourt AwaClaudia Kim DO, PA refill [id number] 11/15/2013 11/15/2013 Serafin Betancourt AwaClaudia Kim DO, PA refill [id number] 11/15/2013 11/15/2013 Serafin Kim DO, PA refill [id number] 11/15/2013 11/15/2013 Serafin Kim DO, PA refill [id number] 11/15/2013 11/15/2013 Serafin Kim DO, PA refill [id number] 11/15/2013 11/15/2013 Serafin Kim DO, PA refill [id number] 11/15/2013 11/15/2013 Serafin Kim DO, PA refill [id number] 11/15/2013 11/15/2013 Seraifn Kim DO, PA refill [id number] 11/15/2013 11/15/2013 Serafin Kim DO, [place] coupon [id number] 11/20/2013 11/20/2013 Serafin Kim DO, PA coupon [id number] 11/20/2013 11/20/2013 Serafin Kim DO, PA coupon [id number] 11/20/2013 11/20/2013 Serafin Kim DO, PA coupon [id number] 11/20/2013 11/20/2013 Serafin Kim DO, [place] coupon [id number] 11/20/2013 11/20/2013 Serafin Kim DO, PA coupon [id number] 11/20/2013 11/20/2013 Serafin Kim DO, PA coupon [id number] 11/20/2013 11/20/2013 Serafin Kim DO, [place] coupon [id number] 11/20/2013 11/20/2013 Serafin Kim DO, PA coupon [id number] 11/20/2013 11/20/2013 Serafin Kim DO, [place] coupon [id number] 11/20/2013 11/20/2013 Serafin Kim DO, [place] coupon [id number] 11/20/2013 11/20/2013 Serafin Kim DO, PA coupon [id number] 11/20/2013 11/20/2013 Serafin Kim DO, PA coupon [id number] 11/20/2013 11/20/2013 Serafin Kim DO, PA coupon [id number] 11/20/2013 11/20/2013 Serafin Kim DO, PA coupon [id number] 11/20/2013 11/20/2013 Serafin Kim DO, PA coupon [id number] 11/20/2013 11/20/2013 Serafin Kim Serafin Kirstin Lopezmary DO, PA coupon [id number] 11/20/2013 11/20/2013 Serafin Kim DO, PA coupon [id number] 11/20/2013 11/20/2013 Serafin Kim DO, PA coupon [id number] 11/20/2013 11/20/2013 Serafin Kim DO, PA coupon [id number] 11/20/2013 11/20/2013 Serafin Kim DO, PA coupon [id number] 11/20/2013 11/20/2013 Serafin Kim, DO, PA coupon [id number] 11/20/2013 11/20/2013 Serafin Kim DO, PA coupon [id number] 11/20/2013 11/20/2013 Serafin Kim DO, PA coupon [id number] 11/20/2013 11/20/2013 Serafin Kim DO, PA coupon [id number] 11/20/2013 11/20/2013 Serafin Lopezm, DO, PA coupon [id number] 11/20/2013 11/20/2013 Serafin Kim DO, PA coupon [id number] 11/20/2013 11/20/2013 Serafin Kim [facility] Endocrinology [facility] [place] [phone] Andrés Fritz MD 01/03/2014 01/03/2014 [facility] Serafin Kim DO, [place] Mammogram [id number] 01/12/2014 01/12/2014 Serafin Kim DO, PA Mammogram [id number] 01/12/2014 01/12/2014 Serafin Kim DO, PA Mammogram [id number] 01/12/2014 01/12/2014 Serafin Kim DO, PA Mammogram [id number] 01/12/2014 01/12/2014 Serafin Kim DO, PA Mammogram [id number] 01/12/2014 01/12/2014 Serafin Kim DO, PA Mammogram [id number] 01/12/2014 01/12/2014 Serafin Kim DO, PA Mammogram [id number] 01/12/2014 01/12/2014 Serafin Kim DO, PA Mammogram [id number] 01/12/2014 01/12/2014 Serafin Kim, DO, PA Mammogram [id number] 01/12/2014 01/12/2014 Serafin Kim, DO, PA Mammogram [id number]-730l-t34k-cm4d667h0090 01/12/2014 01/12/2014 Serafin Kim, DO, PA Mammogram [id number] 01/12/2014 01/12/2014 Serafin Kim, DO, PA Mammogram [id number] 01/12/2014 01/12/2014 Serafin Kim, DO, PA Mammogram [id number]-h2w6q69xzd1y 01/12/2014 01/12/2014 Serafin Kim, DO, PA Mammogram [id number] 01/12/2014 01/12/2014 Serafin Kim, DO, PA Mammogram [id number] 01/12/2014 01/12/2014 Serafin Kim, DO, PA Mammogram [id number] 01/12/2014 01/12/2014 Serafin Kim DO, PA Mammogram [id number] 01/12/2014 01/12/2014 Serafin Claudioaum, DO, PA Mammogram [id number] 01/12/2014 01/12/2014 Serafin Kim DO, PA Mammogram [id number] 01/12/2014 01/12/2014 Serafin Kim DO, PA Mammogram [id number] 01/12/2014 01/12/2014 Serafin Kim DO, PA Mammogram [id number] 01/12/2014 01/12/2014 Serafin Kim DO, PA Mammogram [id number] 01/12/2014 01/12/2014 Serafin Kim , PA Mammogram [id number] 01/12/2014 01/12/2014 Serafin Kim , PA Mammogram [id number] 01/12/2014 01/12/2014 Serafin Kim DO, PA Unknown [id number] 01/31/2014 01/31/2014 Serafin Kim DO, PA Unknown [id number] 01/31/2014 01/31/2014 Serafin Kim DO, PA Unknown [id number] 01/31/2014 01/31/2014 Serafin Billings. Buxbaum, DO, [place] Unknown [id number] 01/31/2014 01/31/2014 Serafin Reesdharmeshmary Kim DO, PA Unknown [id number] 01/31/2014 01/31/2014 Serafin Billings Jessicamary Reesgenovevaadri DO, PA Unknown [id number] 01/31/2014 01/31/2014 Serafin Billings Judy Serafin Fulton Gonzálezadri DO, PA Unknown [id number] 01/31/2014 01/31/2014 Serafin Billings Judy Serafin Kim DO, PA Unknown [id number] 01/31/2014 01/31/2014 Serafin Billings Jessicamary Kim DO, PA Unknown [id number] 01/31/2014 01/31/2014 Serafin Billings Judy Serafin Reesgenovevaadri DO, PA Unknown [id number] 01/31/2014 01/31/2014 Serafin Kim Serafin Fulton Gonzálezadri DO, PA Unknown [id number] 01/31/2014 01/31/2014 Serafin Awa Judy Serafin Fulton Jessicamary DO, PA Unknown [id number] 01/31/2014 01/31/2014 Serafin Kim Serafin Fulton Jessicamary DO, PA Unknown [id number] 01/31/2014 01/31/2014 Serafin Kim DO, PA Unknown [id number] 01/31/2014 01/31/2014 Serafin Kim DO, PA Unknown [id number] 01/31/2014 01/31/2014 Serafin Kim DO, PA Unknown [id number] 01/31/2014 01/31/2014 Serafin Kim DO, PA Unknown [id number] 01/31/2014 01/31/2014 Serafin Kim DO, PA Unknown [id number] 01/31/2014 01/31/2014 Serafin Kim DO, PA Unknown [id number] 01/31/2014 01/31/2014 Serafin Kim DO, PA Unknown [id number] 01/31/2014 01/31/2014 Serafin Kim DO, PA Unknown [id number] 01/31/2014 01/31/2014 Serafin Billings Gonzálezadri Reesgenovevaadri DO, PA Unknown [id number] 01/31/2014 01/31/2014 Serafin Billings Gonzálezadri Reesgenovevaadri DO, PA Unknown [id number] 01/31/2014 01/31/2014 Serafin Kim DO, PA refill meds [id number] 02/07/2014 02/07/2014 Serafin Kim DO, PA refill meds [id number] 02/07/2014 02/07/2014 Serafin Kim DO, PA refill meds [id number] 02/07/2014 02/07/2014 Serafin Kim DO, PA refill meds [id number] 02/07/2014 02/07/2014 Serafin Kim DO, PA refill meds [id number] 02/07/2014 02/07/2014 Serafin Kim DO, PA refill meds [id number]-dhrc-[id number] 02/07/2014 02/07/2014 Serafin Kim DO, PA refill meds [id number] 02/07/2014 02/07/2014 Serafin Kim DO, PA refill meds [id number] 02/07/2014 02/07/2014 Serafin Kim DO, PA refill meds [id number] 02/07/2014 02/07/2014 Serafin Kim DO, PA refill meds [id number] 02/07/2014 02/07/2014 Serafin Kim DO, PA refill meds [id number] 02/07/2014 02/07/2014 Serafin Kim DO, PA refill meds [id number] 02/07/2014 02/07/2014 Serafin Kim DO, PA refill meds [id number] 02/07/2014 02/07/2014 Serafin Kim DO, PA refill meds [id number] 02/07/2014 02/07/2014 Serafin Kim DO, PA refill meds [id number]-l19f-80fow1hf0100 02/07/2014 02/07/2014 Serafin Kim DO, PA refill meds [id number]-4x5247wqlk4n 02/07/2014 02/07/2014 Serafin Kim DO, PA refill meds [id number]-[id number] 02/07/2014 02/07/2014 Serafin Kim DO, PA refill meds [id number] 02/07/2014 02/07/2014 Serafin Kim DO, PA refill meds [id number] 02/07/2014 02/07/2014 Serafin Kim DO, PA refill meds [id number] 02/07/2014 02/07/2014 Serafin Kim DO, PA refill meds [id number] 02/07/2014 02/07/2014 Serafin Kim DO, PA refill meds [id number] 02/07/2014 02/07/2014 Serafin Kim DO PA refill meds [id number]-[id number] 02/07/2014 02/07/2014 Serafin Kim DO PA reff [id number] 02/21/2014 02/21/2014 Serafin Kim DO PA reff [id number] 02/21/2014 02/21/2014 Serafin Kim DO, PA reff [id number] 02/21/2014 02/21/2014 Serafin Kim DO PA reff [id number] 02/21/2014 02/21/2014 Serafin Kim DO, PA reff [id number] 02/21/2014 02/21/2014 Serafin Kim DO PA reff [id number] 02/21/2014 02/21/2014 Serafin Kim DO, PA reff [id number] 02/21/2014 02/21/2014 Serafin Kim DO, PA reff [id number] 02/21/2014 02/21/2014 Serafin Kim DO, PA reff [id number] 02/21/2014 02/21/2014 Serafin Kim DO, PA reff [id number] 02/21/2014 02/21/2014 Serafin Kim DO, PA reff [id number] 02/21/2014 02/21/2014 Serafin Kim DO, PA reff [id number]-kkrpdk9szq57 02/21/2014 02/21/2014 Serafin Kim DO, PA reff [id number] 02/21/2014 02/21/2014 Serafin Kim DO, PA reff [id number] 02/21/2014 02/21/2014 Serafin Kim DO, PA reff [id number] 02/21/2014 02/21/2014 Serafin Kim DO, PA reff [id number] 02/21/2014 02/21/2014 Serafin Kim DO, PA reff [id number] 02/21/2014 02/21/2014 Serafin Kim DO, PA reff [id number] 02/21/2014 02/21/2014 Serafin iKm DO, PA reff [id number] 02/21/2014 02/21/2014 Serafin Kim DO, PA reff [id number] 02/21/2014 02/21/2014 Serafin Kim DO, PA reff [id number] 02/21/2014 02/21/2014 Serafin Kim DO, PA reff [id number] 02/21/2014 02/21/2014 Serafin Kim DO, PA reff [id number] 02/21/2014 02/21/2014 Serafin Kim DO, PA refill meds [id number] 02/22/2014 02/22/2014 Serafin Kim DO, PA refill meds [id number]-[id number] 02/22/2014 02/22/2014 Serafin Kim DO PA refill meds [id number] 02/22/2014 02/22/2014 Serafin Kim DO, PA refill meds [id number] 02/22/2014 02/22/2014 Serafin Kim DO, PA refill meds [id number] 02/22/2014 02/22/2014 Serafin Kim DO, PA refill meds [id number] 02/22/2014 02/22/2014 Serafin Kim DO, PA refill meds [id number] 02/22/2014 02/22/2014 Serafin Kim DO, PA refill meds [id number] 02/22/2014 02/22/2014 Serafin Kim DO, PA refill meds [id number] 02/22/2014 02/22/2014 Serafin Kim DO, PA refill meds [id number] 02/22/2014 02/22/2014 Serafin Kim DO, PA refill meds [id number] 02/22/2014 02/22/2014 Serafin Kim DO, PA refill meds [id number] 02/22/2014 02/22/2014 Serafin Kim DO, PA refill meds [id number] 02/22/2014 02/22/2014 Serafin Kim DO, PA refill meds [id number] 02/22/2014 02/22/2014 Serafin Kim DO, PA refill meds [id number]-[id number] 02/22/2014 02/22/2014 Serafin Kim DO, PA refill meds [id number] 02/22/2014 02/22/2014 Serafin Kim DO, PA refill meds [id number]-398t7r463t2h 02/22/2014 02/22/2014 Serafin Kim DO, PA refill meds [id number]-[id number] 02/22/2014 02/22/2014 Serafin Kim DO, PA refill meds [id number] 02/22/2014 02/22/2014 Serafin Kim DO, PA refill meds [id number] 02/22/2014 02/22/2014 Serafin Kim DO, PA refill meds [id number] 02/22/2014 02/22/2014 Serafin Reesgenovevaadri Fulton Gonzálezadri DO, PA refill meds [id number] 02/22/2014 02/22/2014 Serafin Reesgenovevaadri DO, PA refill meds [id number] 02/22/2014 02/22/2014 Serafin Billings Gonzálezadri Fulton Gonzálezadri DO, [place] Unknown [id number] 03/12/2014 03/12/2014 Serafin Billings Gonzálezadri Fulton Gonzálezadri DO, [place] Unknown [id number] 03/12/2014 03/12/2014 Serafin Billings Jessicamary Fulton Jessicamary DO, PA Unknown [id number] 03/12/2014 03/12/2014 Serafin Billings Gonzálezadri Fulton Jessicamary DO, [place] Unknown [id number] 03/12/2014 03/12/2014 Serafin Billings Gonzálezadri Fulton Gonzálezadri DO, PA Unknown [id number] 03/12/2014 03/12/2014 Serafin Billings Gonzálezadri Fulton Gonzálezadri DO, [place] Unknown [id number] 03/12/2014 03/12/2014 Serafin Lopezmary [place]on Jessicamary DO, [place] Unknown [id number] 03/12/2014 03/12/2014 Serafin Lopezmary Serafin Kirstin Jessicamary DO, [place] Unknown [id number] 03/12/2014 03/12/2014 Serafin Reesgenovevaadri DO, [place] Unknown [id number] 03/12/2014 03/12/2014 Serafin Reesgenovevaadri DO, [place] Unknown [id number] 03/12/2014 03/12/2014 Serafin Billings Gonzálezadri Reesgenovevaadri DO, [place] Unknown [id number] 03/12/2014 03/12/2014 Serafin Billings Gonzálezadri Reesgenovevaadri [place], [place] Unknown [id number] 03/12/2014 03/12/2014 Serafin Billings Jessicamary Fulton Jessicamary DO, [place] Unknown [id number] 03/12/2014 03/12/2014 Serafin Billings Jessicamary [place]on Jessicamary DO, [place] Unknown [id number] 03/12/2014 03/12/2014 Serafin Billings Gonzálezadri Fulton Gonzálezadri DO, [place] Unknown [id number] 03/12/2014 03/12/2014 Serafin Billings Gonzálezadri Fulton Gonzálezadri DO, [place] Unknown [id number] 03/12/2014 03/12/2014 Serafin Lopezmary Serafin Kirstin Jessicamary DO, [place] Unknown [id number] 03/12/2014 03/12/2014 Serafin Lopezmary Serafin BillingsClaudia Judy DO, [place] Unknown [id number] 03/12/2014 03/12/2014 Serafin Kim DO, PA [facility] [id number] 03/12/2014 03/12/2014 Serafin Kim DO, [place] refill meds [id number] 04/13/2014 04/13/2014 Serafin Kim DO, [place] refill meds [id number] 04/13/2014 04/13/2014 Serafin Kim DO, [place] refill meds [id number] 04/13/2014 04/13/2014 Serafin Kim DO, [place] refill meds [id number] 04/13/2014 04/13/2014 Serafin Kim DO, [place] refill meds [id number] 04/13/2014 04/13/2014 Serafin Kim DO PA refill meds [id number] 04/13/2014 04/13/2014 Serafin Kim DO, [place] refill meds [id number] 04/13/2014 04/13/2014 Serafin Kim DO, PA refill meds [id number] 04/13/2014 04/13/2014 Serafin Kim DO, [place] refill meds [id number] 04/13/2014 04/13/2014 Serafin Kim DO, PA refill meds [id number] 04/13/2014 04/13/2014 Serafin Kim DO, PA refill meds [id number] 04/13/2014 04/13/2014 Serafin Kim DO, [place] refill meds [id number] 04/13/2014 04/13/2014 Serafin Kim DO, PA refill meds [id number] 04/13/2014 04/13/2014 Serafin Kim DO, PA refill meds [id number] 04/13/2014 04/13/2014 Serafin Kim DO, PA refill meds [id number] 04/13/2014 04/13/2014 Serafin Kim DO, PA refill meds [id number] 04/13/2014 04/13/2014 Serafin Kim DO, PA refill meds [id number] 04/13/2014 04/13/2014 Serafin Kim DO, PA refill meds [id number] 04/13/2014 04/13/2014 Serafin Kim DO PA refill meds [id number] 04/13/2014 04/13/2014 Serafin Kim [facility] Endocrin[facility] [place] [id number] Andrés Fritz MD 04/17/2014 04/17/2014 [facility] Endocrin[facility] [place] Visit [id number] nAdrés Fritz MD 04/19/2014 04/19/2014 [facility] Serafin Kim DO [place] Refill [id number] 04/27/2014 04/27/2014 Serafin Kim DO, PA Refill [id number] 04/27/2014 04/27/2014 Serafin Kim DO PA Refill [id number] 04/27/2014 04/27/2014 Serafin Kim DO PA Refill [id number] 04/27/2014 04/27/2014 Serafin Kim DO PA Refill [id number] 04/27/2014 04/27/2014 Serafin Kim DO PA Refill [id number] 04/27/2014 04/27/2014 Serafin Kim DO PA Refill [id number] 04/27/2014 04/27/2014 Serafin Kim DO, PA Refill [id number] 04/27/2014 04/27/2014 Serafin Kim DO, [place] Refill [id number] 04/27/2014 04/27/2014 Serafin Kim DO, [place] Refill [id number] 04/27/2014 04/27/2014 Serafin Kim DO, PA Refill [id number] 04/27/2014 04/27/2014 Serafin Kim DO, PA Refill [id number] 04/27/2014 04/27/2014 Serafin Kim DO, [place] Refill [id number] 04/27/2014 04/27/2014 Serafin Kim DO, [place] Refill [id number] 04/27/2014 04/27/2014 Serafin Kim DO, [place] Refill [id number] 04/27/2014 04/27/2014 Serafin Kim DO, [place] Refill [id number] 04/27/2014 04/27/2014 Serafin Kim DO, [place] Refill [id number] 04/27/2014 04/27/2014 Serafin Kim, DO, [place] Refill [id number] 04/27/2014 04/27/2014 Serafin Kim [facility] Endocrinology C Office Visit [id number] Andrés Fritz MD 07/19/2014 07/19/2014 [facility] Serafin Kim DO, PA ankle pain and swelling [id number] 07/26/2014 07/26/2014 Serafin Kim DO, PA ankle pain and swelling [id number] 07/26/2014 07/26/2014 Serafin Kim DO, PA ankle pain and swelling [id number] 07/26/2014 07/26/2014 Serafin Kim, DO, PA ankle pain and swelling [id number] 07/26/2014 07/26/2014 Serafin Kim, DO, PA ankle pain and swelling [id number] 07/26/2014 07/26/2014 Serafin Kim DO, PA ankle pain and swelling [id number] 07/26/2014 07/26/2014 Serafin Kim DO, PA ankle pain and swelling [id number] 07/26/2014 07/26/2014 Serafin Kim DO, PA ankle pain and swelling [id number] 07/26/2014 07/26/2014 Serafin Kim, DO, PA ankle pain and swelling [id number] 07/26/2014 07/26/2014 Serafin Kim, DO, PA ankle pain and swelling [id number] 07/26/2014 07/26/2014 Serafin Kim, DO, PA ankle pain and swelling [id number] 07/26/2014 07/26/2014 Serafin Kim, DO, PA ankle pain and swelling [id number] 07/26/2014 07/26/2014 Serafin Kim, DO, PA ankle pain and swelling [id number] 07/26/2014 07/26/2014 Serafin Kim, DO, PA ankle pain and swelling [id number] 07/26/2014 07/26/2014 Serafin Kim, DO, PA ankle pain and swelling [id number] 07/26/2014 07/26/2014 Serafin Kim, DO, PA ankle pain and swelling [id number] 07/26/2014 07/26/2014 Serafin Kim, DO, PA ankle pain and swelling [id number] 07/26/2014 07/26/2014 Serafin Kim [id number] Andrés Fritz 07/30/2014 [facility]/31/2014 [facility] Seraf[facility] Kim [facility], [place] refill request [id number] 08/01/2014 08/01/2014 Serafin Kim DO, [place] refill request [id number] 08/01/2014 08/01/2014 Serafin Kim DO, PA refill request [id number] 08/01/2014 08/01/2014 Serafin Kim DO, PA refill request [id number] 08/01/2014 08/01/2014 Serafin Kim DO, PA refill request [id number] 08/01/2014 08/01/2014 Serafin Kim DO, [place] refill request [id number] 08/01/2014 08/01/2014 Serafin Kim DO, [place] refill request [id number] 08/01/2014 08/01/2014 Serafin Kim DO, [place] refill request [id number] 08/01/2014 08/01/2014 Serafin Kim DO, [place] refill request [id number] 08/01/2014 08/01/2014 Serafin Kim DO, [place] refill request [id number] 08/01/2014 08/01/2014 Serafin Kim DO, [place] refill request [id number] 08/01/2014 08/01/2014 Serafin Kim DO, [place] refill request [id number] 08/01/2014 08/01/2014 Serafin Kim DO, [place] refill request [id number] 08/01/2014 08/01/2014 Serafin Kim DO, [place] refill request [id number] 08/01/2014 08/01/2014 Serafin Kim DO, [place] refill request [id number] 08/01/2014 08/01/2014 Serafin Kim DO, [place] refill request [id number] 08/01/2014 08/01/2014 Serafin Kim DO, [place] refill request [id number] 08/01/2014 08/01/2014 Serafin Kim DO, [place] f/u hospital [id number] 08/24/2014 08/24/2014 Serafin Kim DO, [place] f/u hospital [id number] 08/24/2014 08/24/2014 Serafin Kim [facility] f[place]u [facility] [id number] 08/24/2014 08/24/2014 Serafin Kim [facility]u [facility] [id number] 08/24/2014 08/24/2014 Serafin Kim [facility]u [facility] [id number] 08/24/2014 08/24/2014 Serafin Kim [facility]u [facility] [id number] 08/24/2014 08/24/2014 Serafin Kim [facility]u [facility] [id number] 08/24/2014 08/24/2014 Serafin Kim [facility] f[place]u [facility] [id number] 08/24/2014 08/24/2014 Serafin Kim [place] f/u [facility] [id number] 08/24/2014 08/24/2014 Serafin Kim [facility]u [facility] [id number] 08/24/2014 08/24/2014 Serafin Kim [facility]u [facility] [id number] 08/24/2014 08/24/2014 Serafin Kim, DO, [place] f/u [facility] [id number] 08/24/2014 08/24/2014 Serafin Kim DO, [place] f/u [facility] [id number] 08/24/2014 08/24/2014 Serafin Kim DO, [place] /u [facility] [id number] 08/24/2014 08/24/2014 Serafin Kim DO, [place] /u [facility] [id number] 08/24/2014 08/24/2014 Serafin Kim DO, [place] /u [facility] [id number] 08/24/2014 08/24/2014 Serafin Kim DO, [place] /u [facility] [id number] 08/24/2014 08/24/2014 Serafin Kim [facility] [id number] ANDRÉS FRITZ 10/18/2014 [facility] Serafin Kim DO, [place] Unknown [id number] 01/10/2015 01/10/2015 Serafin Kim DO [place] Unknown [id number] 01/10/2015 01/10/2015 Serafin Kim DO [place] Unknown [id number] 01/10/2015 01/10/2015 Serafin Kim DO [place] Unknown [id number] 01/10/2015 01/10/2015 Serafin Awa Judy Serafin Fulton Gonzálezadri DO, [place] Unknown [id number] 01/10/2015 01/10/2015 Serafin Kim Serafin Fulton Jessicamary DO, [place] Unknown [id number] 01/10/2015 01/10/2015 Serafin Betancourt Kirstin Jessicamary DO, [place] Unknown [id number] 01/10/2015 01/10/2015 Serafin Betancourt Kirstin Judy DO, [place] Unknown [id number] 01/10/2015 01/10/2015 Serafin Betancourt AwaClaudia Kim DO, [place] Unknown [id number] 01/10/2015 01/10/2015 Serafin Betancourt AwaClaudia Kim DO, [place] Unknown [id number] 01/10/2015 01/10/2015 Serafin Kim DO, [place] Unknown [id number] 01/10/2015 01/10/2015 Serafin Kim DO, [place] Unknown [id number] 01/10/2015 01/10/2015 Serafin Kim DO, [place] Unknown [id number] 01/10/2015 01/10/2015 Serafin Kim DO, [place] Unknown [id number] 01/10/2015 01/10/2015 Serafin Kim DO [place] Unknown [id number] 01/10/2015 01/10/2015 Serafin Kim DO [place] Unknown [id number] 01/10/2015 01/10/2015 Serafin Kim Outpatient [id number] ANDRÉS CATRINA 01/28/2015 [facility] Serafin Kim DO [place] refill meds [id number] 01/28/2015 01/28/2015 Serafin Kim DO [place] refill meds [id number] 01/28/2015 01/28/2015 Serafin Kim DO [place] refill meds [id number] 01/28/2015 01/28/2015 Serafin Kim DO [place] refill meds [id number] 01/28/2015 01/28/2015 Serafin Kim DO [place] refill meds [id number] 01/28/2015 01/28/2015 Serafin Kim DO [place] refill meds [id number] 01/28/2015 01/28/2015 Serafin Kim DO PA refill meds [id number] 01/28/2015 01/28/2015 Serafin Kim DO, [place] refill meds [id number] 01/28/2015 01/28/2015 Serafin Kim DO, [place] refill meds [id number] 01/28/2015 01/28/2015 Serafin Kim DO, [place] refill meds [id number] 01/28/2015 01/28/2015 Serafin Kim DO, [place] refill meds [id number] 01/28/2015 01/28/2015 Serafin Kim DO, [place] refill meds [id number] 01/28/2015 01/28/2015 Serafin Kim DO, [place] refill meds [id number] 01/28/2015 01/28/2015 Serafin Kim DO, [place] refill meds [id number] 01/28/2015 01/28/2015 Serafin Kim DO, [place] refill meds [id number] 01/28/2015 01/28/2015 Serafin Kim DO, [place] refill meds [id number] 01/28/2015 01/28/2015 Serafin Kim [facility] [id number] ANDRÉS FRITZ 03/12/2015 [facility] Serafin Kim DO, [place] Unknown [id number] 05/21/2015 05/21/2015 Serafin Billings Jessicamary Fulton Gonzálezadri DO, [place] Unknown [id number] 05/21/2015 05/21/2015 Serafin Lopezmary Fulton Jessicamary DO, [place] Unknown [id number] 05/21/2015 05/21/2015 Serafin Betancourt Kirstin Jessicamary DO, [place] Unknown [id number] 05/21/2015 05/21/2015 Serafin Betancourt Kirstin Jessicamary DO, [place] Unknown [id number] 05/21/2015 05/21/2015 Serafin Betancourt Kirstin Jessicamary DO, [place] Unknown [id number] 05/21/2015 05/21/2015 Serafin Lopezmary Fulton Jessicamary DO, [place] Unknown [id number] 05/21/2015 05/21/2015 Serafin Lopezmary Serafin Lopezmary DO, [place] Unknown [id number] 05/21/2015 05/21/2015 Serafin Kim DO, [place] Unknown [id number] 05/21/2015 05/21/2015 Serafin Kim DO, [place] Unknown [id number] 05/21/2015 05/21/2015 Serafin Billings Jessicamary Fulton Gonzálezadri DO, [place] Unknown [id number] 05/21/2015 05/21/2015 Serafin Billings Jessicamary Reesgenovevaadri DO, [place] Unknown [id number] 05/21/2015 05/21/2015 Serafin Awa Jessicamary Fulton Gonzálezadri DO, [place] Unknown [id number] 05/21/2015 05/21/2015 Serafin Awa Judy Serafin Fulton Gonzálezadri DO, [place] Unknown [id number] 05/21/2015 05/21/2015 Serafin Kim Serafin Fulton Jessicamary DO, [place] Unknown [id number] 05/21/2015 05/21/2015 Serafin Billings Judy Serafin Fulton Gonzálezadri DO, [place] Unknown [id number] 06/12/2015 06/12/2015 Serafin Awa Kim Serafin Fulton Gonzálezadri DO, [place] Unknown [id number] 06/12/2015 06/12/2015 Serafin Betancourt AwaClaudia Lopezmary DO, PA Unknown [id number] 06/12/2015 06/12/2015 Serafin Betancourt AwaClaudia Lopezmary DO, [place] Unknown [id number] 06/12/2015 06/12/2015 Serafin Kim DO, [place] Unknown [id number] 06/12/2015 06/12/2015 Serafin Betancourt E. GonzálezDO adri, [place] Unknown [id number] 06/12/2015 06/12/2015 Serafin Billings Gonzálezadir Reesgenovevaadri DO, PA Unknown [id number] 06/12/2015 06/12/2015 Serafin Awa Lopezmary Fulton Gonzálezadri DO, [place] Unknown [id number] 06/12/2015 06/12/2015 Serafin Lopezmary Fulton Jessicamary DO, PA Unknown [id number] 06/12/2015 06/12/2015 Serafin Kim Serafin Fulton Jessicamary DO, [place] Unknown [id number] 06/12/2015 06/12/2015 Serafin Awa Jessicamary Fulton Jessicamary DO, [place] Unknown [id number] 06/12/2015 06/12/2015 Serafin Billings Jessicamary Fulton Gonzálezadri DO, [place] Unknown [id number] 06/12/2015 06/12/2015 Serafin Lopezmary Serafin Kirstin Jessicamary DO, [place] Unknown [id number] 06/12/2015 06/12/2015 Serafin BillingsClaudia Jessicamary DO, PA Unknown [id number] 06/12/2015 06/12/2015 [facility] [id number] 06/27/2015 06/27/2015 Serafin Kim DO, [place] refill meds [id number] 06/27/2015 06/27/2015 Serafin Kim DO, [place] refill meds [id number] 06/27/2015 06/27/2015 Serafin Kim DO, [place] refill meds [id number] 06/27/2015 06/27/2015 Serafin Kim DO, [place] refill meds [id number] 06/27/2015 06/27/2015 Serafin Kim DO, [place] refill meds [id number] 06/27/2015 06/27/2015 Serafin Kim DO, [place] refill meds [id number] 06/27/2015 06/27/2015 Serafin Kim DO, [place] refill meds [id number] 06/27/2015 06/27/2015 Serafin Kim DO, [place] refill meds [id number] 06/27/2015 06/27/2015 Serafin Kim DO, [place] refill meds [id number] 06/27/2015 06/27/2015 Serafin Kim DO, [place] refill meds [id number] 06/27/2015 06/27/2015 Serafin Kim DO, [place] refill meds [id number] 06/27/2015 06/27/2015 Serafin Kim DO, [place] refill meds [id number] 06/27/2015 06/27/2015 Serafin Kim DO, [place] Refill [id number] 07/12/2015 07/12/2015 Serafin Kim DO, [place] Refill [id number] 07/12/2015 07/12/2015 Serafin Kim DO, [place] Refill [id number] 07/12/2015 07/12/2015 Serafin Kim DO, [place] Refill [id number] 07/12/2015 07/12/2015 Serafin Kim DO, [place] Refill [id number] 07/12/2015 07/12/2015 Serafin Kim DO, [place] Refill [id number] 07/12/2015 07/12/2015 Serafin Kim DO, [place] Refill [id number] 07/12/2015 07/12/2015 Serafin Kim DO, [place] Refill [id number] 07/12/2015 07/12/2015 Serafin Kim DO, [place] Refill [id number] 07/12/2015 07/12/2015 Serafin Kim DO, [place] Refill [id number] 07/12/2015 07/12/2015 Serafin Kim DO, [place] Refill [id number] 07/12/2015 07/12/2015 Serafin Kim DO, [place] Refill [id number] 07/12/2015 07/12/2015 Serafin Kim DO, [place] Unknown [id number] 07/25/2015 07/25/2015 Serafin Kim DO, [place] Unknown [id number] 07/25/2015 07/25/2015 Serafin Kim DO, [place] Unknown [id number] 07/25/2015 07/25/2015 Serafin Kim DO, [place] Unknown [id number] 07/25/2015 07/25/2015 Serafin Kim DO [place] Unknown [id number] 07/25/2015 07/25/2015 Serafin Awa Jessicamary Fulton Gonzálezadri DO, [place] Unknown [id number] 07/25/2015 07/25/2015 Serafin Billings Jessicamary Reesgenovevaadri DO, [place] Unknown [id number] 07/25/2015 07/25/2015 Serafin Lopezmary Fulton Jessicamary DO, [place] Unknown [id number] 07/25/2015 07/25/2015 Serafin Kim Serafin Fulton Jessicamary DO, [place] Unknown [id number] 07/25/2015 07/25/2015 Serafin Betancourt Kirstin Judy DO, [place] Unknown [id number] 07/25/2015 07/25/2015 Serafin Kim Serafin Fulton Jessicamary DO, [place] Unknown [id number] 07/25/2015 07/25/2015 Serafin Kim Serafin Fulton Jessicamary DO, [place] Unknown [id number] 10/22/2015 10/22/2015 Serafin Betancourt AwaClaudia Lopezmary DO, [place] Unknown [id number] 10/22/2015 10/22/2015 Serafin Kim DO, [place] Unknown [id number] 10/22/2015 10/22/2015 Serafin Kim DO, [place] Unknown [id number] 10/22/2015 10/22/2015 Serafin Reesxbaum Serafin Fulton JessicaDO mary, [place] Unknown [id number] 10/22/2015 10/22/2015 Serafin Awa Jessicamary Fulton Gonzálezadri DO, [place] Unknown [id number] 10/22/2015 10/22/2015 Serafin Betancourt Kirstin Jessicamary , PA Unknown [id number] 10/22/2015 10/22/2015 Serafin BillingsClaudia Judy , [place] Unknown [id number] 10/22/2015 10/22/2015 Serafin BillingsClaudia DO Judy, [place] Unknown [id number] 10/22/2015 10/22/2015 Serafin Betancourt Kirstin Jessicamary DO, [place] Unknown [id number] 10/22/2015 10/22/2015 Serafin Betancourt AwaClaudia Kim DO, [place] Refill [id number] 12/18/2015 12/18/2015 Serafin Kim DO, [place] Refill [id number] 12/18/2015 12/18/2015 Serafin Kim DO [place] Refill [id number] 12/18/2015 12/18/2015 Serafin Kim DO PA Refill [id number] 12/18/2015 12/18/2015 Serafin Billings Jessicamary Reesgenovevaadri DO, [place] Refill [id number] 12/18/2015 12/18/2015 Serafin Billings Jessicamary Kim DO, [place] Refill [id number] 12/18/2015 12/18/2015 Serafin Billings Jessicamary Fulton Gonzálezadri DO, [place] Refill [id number] 12/18/2015 12/18/2015 Serafin Billings Jessicamary Fulton Gonzálezadri DO, [place] Refill [id number] 12/18/2015 12/18/2015 Serafin Billings Jessicamary Fulton Jessicamary DO, [place] Refill [id number] 12/18/2015 12/18/2015 Serafin Billings Jessicamary Fulton Jessicamary DO, [place] Unknown [id number] 12/31/2015 12/31/2015 Serafin Billings Jessiacmary Fulton Jessicamary DO, PA Unknown [id number] 12/31/2015 12/31/2015 Seraifn Lopezmary Fulton Jessicamary DO, PA Unknown [id number] 12/31/2015 12/31/2015 Serafin Lopezmary Serafin Kirstin Jessicamary DO, PA Unknown [id number] 12/31/2015 12/31/2015 Serafin Kim DO, [place] Unknown [id number] 12/31/2015 12/31/2015 Serafin Kim DO PA Unknown [id number] 12/31/2015 12/31/2015 Serafin Kim DO PA Unknown [id number] 12/31/2015 12/31/2015 Serafin Kim DO PA Unknown [id number] 12/31/2015 12/31/2015 Serafin Kim DO [place] Refill [id number] 01/06/2016 01/06/2016 Serafin Kim DO, [place] Refill [id number] 01/06/2016 01/06/2016 Serafin Kim DO, [place] Refill [id number] 01/06/2016 01/06/2016 Serafin Kim DO PA Unknown [id number] 01/06/2016 01/06/2016 Serafin Kim DO [place] Unknown [id number] 01/06/2016 01/06/2016 Serafin Kim DO PA Unknown [id number] 01/06/2016 01/06/2016 Serafin Kim DO [place] Refill [id number] 01/06/2016 01/06/2016 Serafin Kim DO, [place] Refill [id number] 01/06/2016 01/06/2016 Serafin Betancourt Kirstin DO Judy, [place] Refill [id number] 01/06/2016 01/06/2016 Serafin Kim DO, [place] Unknown [id number] 01/06/2016 01/06/2016 Serafin Kim DO, [place] Unknown [id number] 01/06/2016 01/06/2016 Serafin Kim DO, [place] Unknown [id number] 01/06/2016 01/06/2016 Serafin Kim DO, [place] Unknown [id number] 01/07/2016 01/07/2016 Serafin Kim DO, [place] Unknown [id number] 01/07/2016 01/07/2016 Serafin Kim DO, [place] Unknown [id number] 01/07/2016 01/07/2016 Serafin Kim DO, [place] Unknown [id number] 01/07/2016 01/07/2016 Serafin Kim DO PA Unknown [id number] 01/07/2016 01/07/2016 Serafin Kim DO, PA Unknown [id number] 01/07/2016 01/07/2016 Serafin Kim DO, PA Unknown [id number] 01/07/2016 01/07/2016 Serafin Kim DO, PA Unknown [id number] 01/30/2016 01/30/2016 Serafin Kim DO, PA Unknown [id number] 01/30/2016 01/30/2016 Serafin Kim DO, PA Unknown [id number] 01/30/2016 01/30/2016 Sreafin Kim DO, PA Unknown [id number] 01/30/2016 01/30/2016 Serafin Kim DO, PA Refill [id number] 03/10/2016 03/10/2016 Serafin Kim DO, PA Refill [id number] 03/10/2016 03/10/2016 Serafin Kim DO, PA Refill [id number] 03/10/2016 03/10/2016 Serafin Kim DO, PA Refill [id number] 03/12/2016 03/12/2016 Serafin Kim DO, PA Refill [id number] 03/12/2016 03/12/2016 Serafin Kim DO, PA Follow- Up [id number] 04/01/2016 04/01/2016 Serafin Kim [facility] Outpatient [id number] Serafin Kim 01/06/2017 01/07/2017 [facility] Emergency [id number] Wade Lien 01/08/2017 01/09/2017 [facility] Emergency [id number] Trung Blount 02/24/2017 02/24/2017 [facility] [id number] Serafin Kim 07/12/2018 07/13/2018 [facility] Procedures Procedure Code Date Perfomer Comments Source diabetic foot check [id number] 07/19/2014 yes [facility] diabetic eye exam 11571.1 05/07/2014 normal [facility] diabetic eye exam 69786.1 05/07/2014 normal [facility] smoking/tobacco cessation, patient education and counseling 14 04/19/2014 yes [facility] diabetic foot check [id number] 04/19/2014 yes [facility] smoking/tobacco cessation, patient education and counseling 14 01/03/2014 yes [facility] diabetic eye exam 29213.1 11/07/2012 normal [facility] smoking/tobacco cessation, patient education and counseling 14 10/05/2012 Smokinng Cessation Handout Provided [facility] smoking/tobacco cessation, patient education and counseling 14 09/07/2012 [facility] smoking/tobacco cessation, patient education and counseling 14 03/08/2012 Smokinng Cessation Handout Provided [facility] smoking/tobacco cessation, patient education and counseling 14 01/13/2012 [facility] diabetic foot check [id number] 04/03/2011 Diabetic Foot Exam Done [facility] smoking/tobacco cessation, patient education and counseling 14 03/16/2011 yes [facility] smoking/tobacco cessation, patient education and counseling 14 12/09/2010 yes [facility] smoking/tobacco cessation, patient education and counseling 14 10/03/2010 no [facility] diabetic foot check [id number] 10/03/2010 Diabetic Foot Exam Done [facility] [id number] [facility] Other<sup>1</sup> [id number] [facility] Other<sup>2</sup> [id number] [facility] Tonsillectomy [id number] [facility]endectomy [id number] [facility] Other<sup>1</sup> [id number] [facility] Other<sup>2</sup> [id number] [facility] Tonsillectomy [id number] [facility] Assessment and Plan No Data Provided for This Section Plan of Care No Data Provided for This Section Social History Social History Date Source Social History TypeResponse Smoking Status Never smoker; Exposure to Tobacco Smoke None; Cigarette Smoking Last 365 Days No; Reg Smoking Cessation Counseling No 02/24/2017 [facility] Social History TypeResponse Smoking Status Never smoker; Exposure to Tobacco Smoke None; Cigarette Smoking Last 365 Days No; Reg Smoking Cessation Counseling No entered on: 02/24/17 02/24/2017 [facility] Social History ElementQualifiersDate Reported Tobacco Use: . Are you a: former smoker Apr 01, 2016 Use of recreational / street drugs? . Answer: No Apr 01, 2016 Marital Status: . Apr 01, 2016 Do you exercise? . Answer: No Apr 01, 2016 Do you drink alcohol? . Status: No Apr 01, 2016 04/01/2016 Serafin Kim No data available for this section 07/31/2014 PEGGY Chávez Family History Value Date Source QualifierDescriptionCommentDate Reported Maternal Grandmother emphysema Apr 01, 2016 Paternal Grandmother Comment not available Apr 01, 2016 Siblings Comment not available Apr 01, 2016 Maternal Grandfather heart attack Apr 01, 2016 Children alive Comment not available Apr 01, 2016 Father colon cancer, diabetes Apr 01, 2016 Paternal Grandfather Comment not available Apr 01, 2016 Mother colon cancer, diabetes Apr 01, 2016 Other: Comment not available Apr 01, 2016 04/02/2016 Serafin Lopezm QualifierDescriptionCommentDate Reported Maternal Grandmother emphysema Dec 31, 2015 Paternal Grandmother Comment not available Dec 31, 2015 Siblings Comment not available Dec 31, 2015 Maternal Grandfather heart attack Dec 31, 2015 Children alive Comment not available Dec 31, 2015 Father colon cancer, diabetes Dec 31, 2015 Paternal Grandfather Comment not available Dec 31, 2015 Mother colon cancer, diabetes Dec 31, 2015 Other: Comment not available Dec 31, 2015 01/02/2016 Serafin [place] QualifierDescriptionCommentDate Reported Maternal Grandmother emphysema July 25, 2015 Paternal Grandmother Comment not available July 25, 2015 Siblings Comment not available July 25, 2015 Maternal Grandfather heart attack July 25, 2015 Children alive Comment not available July 25, 2015 Father colon cancer, diabetes July 25, 2015 Paternal Grandfather Comment not available July 25, 2015 Mother colon cancer, diabetes July 25, 2015 Other: Comment not available July 25, 2015 07/26/2015 Serafin Awa [place] QualifierDescriptionCommentDate Reported Maternal Grandmother emphysema May 21, 2015 Paternal Grandmother Comment not available May 21, 2015 Siblings Comment not available May 21, 2015 Maternal Grandfather heart attack May 21, 2015 Children alive Comment not available May 21, 2015 Father colon cancer, diabetes May 21, 2015 Paternal Grandfather Comment not available May 21, 2015 Mother colon cancer, diabetes May 21, 2015 Other: Comment not available May 21, 2015 05/22/2015 Serafin Awa Judy QualifierDescriptionCommentDate Reported Maternal Grandmother emphysema August 24, 2014 Paternal Grandmother Comment not available August 24, 2014 Siblings Comment not available August 24, 2014 Maternal Grandfather heart attack August 24, 2014 Children alive Comment not available August 24, 2014 Father colon cancer, diabetes August 24, 2014 Paternal Grandfather Comment not available August 24, 2014 Mother colon cancer, diabetes August 24, 2014 Other: Comment not available August 24, 2014 08/26/2014 Serafin Lopezm QualifierDescriptionCommentDate Reported Maternal Grandmother emphysema Mar 12, 2014 Paternal Grandmother Comment not available Mar 12, 2014 Children alive Comment not available Mar 12, 2014 Maternal Grandfather heart attack Mar 12, 2014 Father colon cancer, diabetes Mar 12, 2014 Mother colon cancer, diabetes Mar 12, 2014 Paternal Grandfather Comment not available Mar 12, 2014 03/13/2014 Serafin Kim QualifierDescriptionCommentDate Reported Maternal Grandmother emphysema Mar 12, 2014 Paternal Grandmother Comment not available Mar 12, 2014 Children alive Comment not available Mar 12, 2014 Maternal Grandfather heart attack Mar 12, 2014 Father colon cancer, diabetes Mar 12, 2014 Mother colon cancer, diabetes Mar 12, 2014 Paternal Grandfather Comment not available Mar 12, 2014 03/13/2014 Serafin Kim QualifierDescriptionCommentDate Reported Maternal Grandmother emphysema Mar 12, 2014 Paternal Grandmother Comment not available Mar 12, 2014 Children alive Comment not available Mar 12, 2014 Maternal Grandfather heart attack Mar 12, 2014 Father colon cancer, diabetes Mar 12, 2014 Mother colon cancer, diabetes Mar 12, 2014 Paternal Grandfather Comment not available Mar 12, 2014 03/13/2014 Serafin Kim QualifierDescriptionCommentDate Reported Maternal Grandmother emphysema Mar 12, 2014 Paternal Grandmother Comment not available Mar 12, 2014 Children alive Comment not available Mar 12, 2014 Maternal Grandfather heart attack Mar 12, 2014 Father colon cancer, diabetes Mar 12, 2014 Mother colon cancer, diabetes Mar 12, 2014 Paternal Grandfather Comment not available Mar 12, 2014 03/13/2014 Serafin Kim Advance Directives No Data Provided for This Section Functional Status No Data Provided for This Section
--- OUTSIDE RECORDS SUMMARY | 2018-11-10 20:10 | XMS REPORT | Continuity of Care Document ---
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 Name Role Phone MD Kenyetta, Ángela YOO Unavailable Insurance Providers Payer name Policy type / Coverage type Policy ID Covered alliance party ID [place] Encounters Encounter Performer Location Date Lab Report Ángela Kumari MD [facility] [place] Nov 15, 2013 Allergies, Adverse Reactions, Alerts Type Substance Reaction [...] education and counseling Smokinng Cessation Handout Provided Nov 07, 2012 diabetic eye exam normal Medications Medication Instructions Start Date Status FREESTYLE [...] 1 po qd Oct 03, 2010 Inactive VICODIN ES TABS (10/325mg) 1 po prn Oct 03, 2010 Inactive NOVOTWIST 32G X 5 MM MISC Use as directed Jul 09, 2011 Active SOMA 350 MG TABS 1 po qid (only takes 1 daily) Apr 03, 2011 Inactive AZITHROMYCIN 500 MG TABS one PO daily May 29, 2011 Inactive MUCINEX 600 MG [id number] one PO bid prn congestion May 29, [...] 1 po qhs Jan 06, 2011 Inactive ZANAFLEX 4 MG CAPS 1 po BID [...] Inject 1.2mg qd Aug 03, 2011 Inactive PREDNISONE 20 MG TABS 2 PO daily Mar 17, 2012 Inactive VITAMIN D3 08552 UNIT CAPS 1 capsule once weekly for 8 weeks Sep 10, 2012 Active AMLODIPINE BESY-BENAZEPRIL HCL 5-10 MG CAPS 1 po qd Oct 05, 2012 Active FLORASTOR 250 MG CAPS 1 cap twice daily Sep 07, 2012 Inactive TRAMADOL HCL ER (BIPHASIC) 200 MG [id number] 1 tab qhs Sep 07, 2012 Inactive ATORVASTATIN CALCIUM 40 MG TABS one PO qHS Sep 24, 2011 Inactive CLONAZEPAM 2 MG TABS 1 tab qhs Sep 07, 2012 Inactive CITALOPRAM HYDROBROMIDE 40 MG TABS 1 po qd Apr 03, 2011 Inactive CYMBALTA 60 MG CPEP 1 po qd May 30, 2013 Active PREDNISONE 10 MG TABS 1 po qd May 30, 2013 Active CEVIMELINE HCL 30 MG CAPS 1 po qd prn May 30, 2013 Active INVOKANA 300 MG TABS 1 po qd Jun 05, 2013 Active V-GO 40 KIT 1 po qd Jun 05, 2013 Active WELCHOL 625 MG TABS 6 po qd Jun 05, 2013 Active Vital Signs Date Description Test Result Apr 16, 2010 height E&M HEIGHT 60 in Apr 16, 2010 weight E&M WEIGHT 162 lb Apr 16, 2010 pulse rate E&M PULSE RATE 78 /min Apr 16, 2010 blood pressure, systolic BP SYSTOLIC 130 mm Hg Apr 16, 2010 blood pressure, diastolic BP DIASTOLIC 82 mm Hg Oct 03, 2010 height E&M HEIGHT 60 in Oct 03, 2010 weight E&M WEIGHT 166 lb Oct 03, 2010 pulse rate E&M PULSE RATE 76 /min Oct 03, 2010 blood pressure, systolic BP SYSTOLIC 160 mm Hg Oct 03, 2010 blood pressure, diastolic BP DIASTOLIC 92 mm Hg Dec 09, 2010 weight E&M WEIGHT 168 lb Dec 09, 2010 temperature E&M TEMPERATURE 97.6 deg f Dec 09, 2010 pulse rate E&M PULSE RATE 84 /min Dec 09, 2010 blood pressure, systolic BP SYSTOLIC 119 mm Hg Dec 09, 2010 blood pressure, diastolic BP DIASTOLIC 77 mm Hg Dec 26, 2010 weight E&M WEIGHT 172 lb Dec 26, 2010 temperature E&M TEMPERATURE 97.9 deg f Dec 26, 2010 respiratory rate E&M RESP RATE 24 /min Dec 26, 2010 pulse rate E&M PULSE RATE 59 /min Dec 26, 2010 blood pressure, systolic BP SYSTOLIC 146 mm Hg Dec 26, 2010 blood pressure, diastolic BP DIASTOLIC 75 mm Hg Jan 06, 2011 weight E&M WEIGHT 172 lb Jan 06, 2011 temperature E&M TEMPERATURE 97.6 deg f Jan 06, 2011 respiratory rate E&M RESP RATE 20 /min Jan 06, 2011 pulse rate E&M PULSE RATE 65 /min Jan 06, 2011 blood pressure, systolic BP SYSTOLIC 114 mm Hg Jan 06, 2011 blood pressure, diastolic BP DIASTOLIC 68 mm Hg Feb 13, 2011 weight E&M WEIGHT 170 lb Feb 13, 2011 temperature E&M TEMPERATURE 97.4 deg f Feb 13, 2011 respiratory rate E&M RESP RATE 20 /min Feb 13, 2011 pulse rate E&M PULSE RATE 76 /min Feb 13, 2011 blood pressure, systolic BP SYSTOLIC 124 mm Hg Feb 13, 2011 blood pressure, diastolic BP DIASTOLIC 77 mm Hg Mar 16, 2011 weight E&M WEIGHT 175 lb Mar 16, 2011 respiratory rate E&M RESP RATE 16 /min Mar 16, 2011 temperature E&M TEMPERATURE 97.9 deg f Mar 16, 2011 pulse rate E&M PULSE RATE 89 /min Mar 16, 2011 blood pressure, systolic BP SYSTOLIC 147 mm Hg Mar 16, 2011 blood pressure, diastolic BP DIASTOLIC 76 mm Hg Apr 03, 2011 weight E&M WEIGHT 177 lb Apr 03, 2011 blood pressure, systolic BP SYSTOLIC 128 mm Hg Apr 03, 2011 blood pressure, diastolic BP DIASTOLIC 80 mm Hg Apr 03, 2011 pulse rate E&M PULSE RATE 64 /min May 29, 2011 weight E&M WEIGHT 185 lb May 29, 2011 temperature E&M TEMPERATURE 99.3 deg f May 29, 2011 respiratory rate E&M RESP RATE 20 /min May 29, 2011 pulse rate E&M PULSE RATE 69 /min May 29, 2011 blood pressure, systolic BP SYSTOLIC 162 mm Hg May 29, 2011 blood pressure, diastolic BP DIASTOLIC 74 mm Hg Sep 08, 2011 weight E&M WEIGHT 180 lb Sep 08, 2011 temperature E&M TEMPERATURE 97.7 deg f Sep 08, 2011 respiratory rate E&M RESP RATE 20 /min Sep 08, 2011 pulse rate E&M PULSE RATE 74 /min Sep 08, 2011 blood pressure, systolic BP SYSTOLIC 157 mm Hg Sep 08, 2011 blood pressure, diastolic BP DIASTOLIC 77 mm Hg Sep 08, 2011 weight E&M WEIGHT 177 lb Sep 08, 2011 blood pressure, systolic BP SYSTOLIC 144 mm Hg Sep 08, 2011 blood pressure, diastolic BP DIASTOLIC 86 mm Hg Sep 08, 2011 pulse rate E&M PULSE RATE 68 /min Jan 13, 2012 weight E&M WEIGHT 171 lb Jan 13, 2012 temperature E&M TEMPERATURE 98.5 deg f Jan 13, 2012 respiratory rate E&M RESP RATE 16 /min Jan 13, 2012 blood pressure, systolic BP SYSTOLIC 143 mm Hg Jan 13, 2012 blood pressure, diastolic BP DIASTOLIC 81 mm Hg Jan 13, 2012 pulse rate E&M PULSE RATE 73 /min Mar 08, 2012 weight E&M WEIGHT 178 lb Mar 08, 2012 pulse rate E&M PULSE RATE 64 /min Mar 08, 2012 blood pressure, systolic BP SYSTOLIC 102 mm Hg Mar 08, 2012 blood pressure, diastolic BP DIASTOLIC 64 mm Hg Mar 17, 2012 weight E&M WEIGHT 178 lb Mar 17, 2012 temperature E&M TEMPERATURE 98.4 deg f Mar 17, 2012 respiratory rate E&M RESP RATE 14 /min Mar 17, 2012 pulse rate E&M PULSE RATE 74 /min Mar 17, 2012 blood pressure, systolic BP SYSTOLIC 117 mm Hg Mar 17, 2012 blood pressure, diastolic BP DIASTOLIC 71 mm Hg Sep 07, 2012 weight E&M WEIGHT 188 lb Sep 07, 2012 temperature E&M TEMPERATURE 98.2 deg f Sep 07, 2012 respiratory rate E&M RESP RATE 18 /min Sep 07, 2012 pulse rate E&M PULSE RATE 81 /min Sep 07, 2012 blood pressure, systolic BP SYSTOLIC 134 mm Hg Sep 07, 2012 blood pressure, diastolic BP DIASTOLIC 77 mm Hg Oct 05, 2012 weight E&M WEIGHT 181 lb Oct 05, 2012 pulse rate E&M PULSE RATE 80 /min Oct 05, 2012 blood pressure, systolic BP SYSTOLIC 120 mm Hg Oct 05, 2012 blood pressure, diastolic BP DIASTOLIC 70 mm Hg May 30, 2013 weight E&M WEIGHT 192 lb May 30, 2013 blood pressure, systolic BP SYSTOLIC 120 mm Hg May 30, 2013 blood pressure, diastolic BP DIASTOLIC 60 mm Hg May 30, 2013 pulse rate E&M PULSE RATE 76 /min Results Date Description Test Name Value Reference [...] platelet count PLATELETS 209 K/CMM /mm3 133-450 May 29, 2013 hemoglobin, blood HGB 13.5 g/dL 12.0-16.0 May 29, 2013 hematocrit, blood HCT 41.3 % 36.0-48.0 May 29, 2013 platelet count PLATELETS 307 K/CMM /mm3 133-450 Sep 07, 2012 urine [...] 2011 urea nitrogen, blood BUN 15 mg/dL 7-22 Apr 03, 2011 creatinine, serum CREATININE 0.6 mg/dL [...] 2011 urea nitrogen, blood BUN 11 mg/dL 7-22 Sep 08, 2011 creatinine, serum CREATININE 0.6 mg/dL [...] 2012 cholesterol, serum CHOLESTEROL 201 mg/dl <=199 Sep 07, 2012 triglyceride, serum, fasting TRIGLYCERIDE 203 mg/dl <=149 Sep 07, 2012 HDL cholesterol, serum HDL 40 mg/dl >=61 Low Sep 07, 2012 LDL cholesterol, serum LDL 120 mg/dl <=99 Sep 07, 2012 sodium, serum SODIUM 142 MEQ/L mmol/L 135-145 Sep 07, 2012 potassium, serum POTASSIUM 4.2 MEQ/L mmol/L 3.5-5.1 Sep 07, 2012 creatinine, serum CREATININE 0.6 mg/dL 0.5-1.4 Sep 07, 2012 urea nitrogen, blood BUN 16 mg/dL 7-Sep 07, 2012 urea nitrogen/creatinine ratio, serum BUN/CREAT 27 null 6-Sep 07, 2012 albumin, serum ALBUMIN 4.1 g/dL 3.5-5.0 Sep 07, 2012 calcium, serum CALCIUM 9.3 mg/dL 8.5-10.5 Sep 07, 2012 alanine aminotransferase (SGPT), serum SGPT (ALT) 30 U/L 0-65 Sep 07, 2012 aspartate aminotransferase (SGOT), serum SGOT (AST) 12 U/L 0-37 Sep 07, 2012 alkaline phosphatase, serum ALK PHOS 114 U/L 39-136 Sep 07, 2012 thyroid stimulating hormone, serum TSH 0.568 uIU/mL 0.360-3.740 May 29, 2013 hemoglobin A1C, blood, as % of total hemoglobin HGBA1C 10.5 % <=5.6 High May 29, 2013 cholesterol, serum CHOLESTEROL 355 mg/dl <=199 High May 29, 2013 triglyceride, serum, fasting TRIGLYCERIDE 348 mg/dl <=149 High May 29, 2013 HDL cholesterol, serum HDL 41 mg/dl >=61 Low May 29, 2013 LDL cholesterol, serum LDL 244 mg/dl <=99 High May 29, 2013 sodium, serum SODIUM 143 MEQ/L mmol/L 135-145 May 29, 2013 potassium, serum POTASSIUM 4.0 MEQ/L mmol/L 3.5-5.1 May 29, 2013 creatinine, serum CREATININE 0.7 mg/dL 0.5-1.4 May 29, 2013 urea nitrogen, blood BUN 17 mg/dL 7-May 29, 2013 urea nitrogen/creatinine ratio, serum BUN/CREAT 24 null 6-25 May 29, 2013 albumin, serum ALBUMIN 4.0 g/dL 3.5-5.0 May 29, 2013 calcium, serum CALCIUM 9.5 mg/dL 8.5-10.5 May 29, 2013 alanine aminotransferase (SGPT), serum SGPT (ALT) 34 U/L 0-65 May 29, 2013 aspartate aminotransferase (SGOT), serum SGOT (AST) 21 U/L 0-37 May 29, 2013 alkaline phosphatase, serum ALK PHOS 121 U/L 39-136 May 29, 2013 thyroid stimulating hormone, serum TSH 1.210 uIU/mL 0.360-3.740
--- OUTSIDE RECORDS SUMMARY | 2018-11-10 20:10 | XMS REPORT | Continuity of Care Document ---
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 Name Role Phone MD Kenyetta, Ángela YOO Unavailable Insurance Providers Payer name Policy type / Coverage type Policy ID Covered republican ID [place] Encounters Encounter Performer Location Date Lab Report Ángela Kumari MD [facility] Apr 17, 2014 Allergies, Adverse Reactions, Alerts Type Substance Reaction [...] VITAMIN D DEFICIENCY Sep 10, 2012 Active HEADACHE Jan 03, 2014 Active Procedures Date Description Comments Oct 03, [...] Nov 07, 2012 diabetic eye exam normal Jan 03, 2014 smoking status Current every day smoker Jan 03, 2014 smoking/tobacco cessation, patient education and counseling yes Medications Medication Instructions Start Date Status FREESTYLE [...] 1 po prn Oct 03, 2010 Inactive ALPRAZOLAM 0.5 MG TABS 1 po bid Oct 03, 2010 Inactive ALIGN CAPS 1 po qd Oct 03, 2010 Inactive VICODIN ES TABS (10/325mg) 1 po prn Oct 03, 2010 Inactive SOMA 350 MG TABS 1 po qid (only takes 1 daily) Apr 03, 2011 Inactive AZITHROMYCIN 500 MG TABS one PO daily May 29, 2011 Inactive MUCINEX 600 MG [id number] one PO bid prn congestion May 29, [...] units sq qhs Sep 07, 2012 Active VICTOZA 18 MG/3ML SOLN Inject 1.2mg qd Aug 03, 2011 Inactive PREDNISONE 20 MG TABS 2 PO daily Mar 17, 2012 Inactive AMLODIPINE BESY-BENAZEPRIL HCL 5-10 MG CAPS 1 po qd Oct 05, 2012 Active FLORASTOR 250 MG CAPS 1 cap twice daily Sep 07, 2012 Inactive TRAMADOL HCL ER (BIPHASIC) 200 MG [id number] 1 tab qhs Sep 07, 2012 Inactive [...] 6 po qd Jun 05, 2013 Active NOVOLOG 100 UNIT/ML SOLN injects up to 30 units TID-with major meals (if sugars are 200 inject 20 units, and if they are 300 inject 30 units per patient) Sep 07, 2012 Active NOVOTWIST 32G X 5 MM MISC Use as directed Jul 09, 2011 Inactive INSULIN SYRINGE 31G X 5/16" 0.3 ML MISC takes u to 25 units TID Apr 16, 2010 Inactive PRILOSEC 40 MG CPDR one PO daily Jan 06, 2011 Inactive DEXILANT 60 MG CPDR 1 po qd Jan 03, 2014 Active VITAMIN D3 99830 UNIT CAPS take 2 times a week Sep 10, 2012 Active CALCIUM 600 TABS 2 po qd Jan 03, 2014 Active OMEGA-3 300 MG CAPS 2 po bid Jan 03, 2014 Active PREDNISONE 10 MG TABS 1 po qd May 30, 2013 Inactive V-GO 40 KIT 1 po qd Jun 05, 2013 Inactive LORAZEPAM 1 MG TABS 1 po prn Jan 03, 2014 Active TRAMADOL HCL ER 200 MG [id number] 1 po prn Jan 03, 2014 Active Vital Signs Date Description Test Result [...] - 8462-4 BP DIASTOLIC 70 mm Hg May 30, 2013 weight E&M - 3141-9 WEIGHT 192 lb May 30, 2013 blood pressure, systolic - 8480-6 BP SYSTOLIC 120 mm Hg May 30, 2013 blood pressure, diastolic - 8462-4 BP DIASTOLIC 60 mm Hg May 30, 2013 pulse rate E&M - 8867-4 PULSE RATE 76 /min Jan 03, 2014 weight EErichM - 3141-9 WEIGHT 186 lb Jan 03, 2014 height E&M - 8302-2 HEIGHT 60 in Jan 03, 2014 pulse rate E&M - 8867-4 PULSE RATE 108 /min Jan 03, 2014 blood pressure, systolic - 8480-6 BP SYSTOLIC 120 mm Hg Jan 03, 2014 blood pressure, diastolic - 8462-4 BP DIASTOLIC 80 mm Hg Results Date Description Test Name [...] platelet count PLATELETS 307 K/CMM /mm3 133-450 Jan 02, 2014 hemoglobin, blood HGB 14.9 g/dL 12.0-16.0 Jan 02, 2014 hematocrit, blood HCT 45.7 % 36.0-48.0 Jan 02, 2014 platelet count PLATELETS 320 K/CMM /mm3 133-450 Apr 17, 2014 hemoglobin, blood HGB 14.8 g/dL 12.0-16.0 Apr 17, 2014 hematocrit, blood HCT 45.7 % 36.0-48.0 Apr 17, 2014 platelet count PLATELETS 307 K/CMM /mm3 133-450 [...] 2010 urea nitrogen, blood BUN 20 mg/dL 7-Oct 03, 2010 creatinine, serum CREATININE 0.6 mg/dL [...] 2012 urea nitrogen, blood BUN 15 mg/dL -Mar 08, 2012 urea nitrogen/creatinine ratio, serum BUN/CREAT [...] 2012 urea nitrogen, blood BUN 16 mg/dL -Sep 07, 2012 urea nitrogen/creatinine ratio, serum BUN/CREAT [...] urea nitrogen/creatinine ratio, serum BUN/CREAT 24 null 6-May 29, 2013 albumin, serum ALBUMIN 4.0 g/dL 3.5-5.0 May 29, 2013 calcium, serum CALCIUM 9.5 mg/dL 8.5-10.5 May 29, 2013 alanine aminotransferase (SGPT), serum SGPT (ALT) 34 U/L 0-65 May 29, 2013 aspartate aminotransferase (SGOT), serum SGOT (AST) 21 U/L 0-37 May 29, 2013 alkaline phosphatase, serum ALK PHOS 121 U/L 39-136 May 29, 2013 thyroid stimulating hormone, serum TSH 1.210 uIU/mL 0.360-3.740 Jan 02, 2014 hemoglobin A1C, blood, as % of total hemoglobin HGBA1C 9.7 % <=5.6 High Jan 02, 2014 cholesterol, serum CHOLESTEROL 339 mg/dl <=199 High Jan 02, 2014 triglyceride, serum, fasting TRIGLYCERIDE 414 mg/dl <=149 High Jan 02, 2014 HDL cholesterol, serum HDL 43 mg/dl >=61 Low Jan 02, 2014 LDL cholesterol, serum LDL See Note mg/dL mg/dl <=99 Jan 02, 2014 sodium, serum SODIUM 139 MEQ/L mmol/L 135-145 Jan 02, 2014 potassium, serum POTASSIUM 4.2 MEQ/L mmol/L 3.5-5.1 Jan 02, 2014 creatinine, serum CREATININE 0.9 mg/dL 0.5-1.4 Jan 02, 2014 urea nitrogen, blood BUN 17 mg/dL 7-Jan 02, 2014 urea nitrogen/creatinine ratio, serum BUN/CREAT 19 null 6-25 Jan 02, 2014 albumin, serum ALBUMIN 3.9 g/dL 3.5-5.0 Jan 02, 2014 calcium, serum CALCIUM 9.3 mg/dL 8.5-10.5 Jan 02, 2014 alanine aminotransferase (SGPT), serum SGPT (ALT) 39 U/L 0-65 Jan 02, 2014 aspartate aminotransferase (SGOT), serum SGOT (AST) 16 U/L 0-37 Jan 02, 2014 alkaline phosphatase, serum ALK PHOS 124 U/L 39-136 Jan 02, 2014 thyroid stimulating hormone, serum TSH 1.230 uIU/mL 0.360-3.740 Apr 17, 2014 hemoglobin A1C, blood, as % of total hemoglobin HGBA1C 8.1 % <=5.6 High Apr 17, 2014 cholesterol, serum CHOLESTEROL 312 mg/dl <=199 High Apr 17, 2014 triglyceride, serum, fasting TRIGLYCERIDE 278 mg/dl <=149 High Apr 17, 2014 HDL cholesterol, serum HDL 41 mg/dl >=61 Low Apr 17, 2014 LDL cholesterol, serum LDL 215 mg/dl <=99 High Apr 17, 2014 sodium, serum SODIUM 139 MEQ/L mmol/L 135-145 Apr 17, 2014 potassium, serum POTASSIUM 4.0 MEQ/L mmol/L 3.5-5.1 Apr 17, 2014 creatinine, serum CREATININE 0.9 mg/dL 0.5-1.4 Apr 17, 2014 urea nitrogen, blood BUN 20 mg/dL 7-Apr 17, 2014 urea nitrogen/creatinine ratio, serum BUN/CREAT 22 null 6-25 Apr 17, 2014 albumin, serum ALBUMIN 4.2 g/dL 3.5-5.0 Apr 17, 2014 calcium, serum CALCIUM 9.1 mg/dL 8.5-10.5 Apr 17, 2014 alanine aminotransferase (SGPT), serum SGPT (ALT) 28 U/L 0-65 Apr 17, 2014 aspartate aminotransferase (SGOT), serum SGOT (AST) 15 U/L 0-37 Apr 17, 2014 alkaline phosphatase, serum ALK PHOS 119 U/L 39-136 Apr 17, 2014 thyroid stimulating hormone, serum TSH 0.725 uIU/mL 0.360-3.740
--- OUTSIDE RECORDS SUMMARY | 2018-11-10 20:10 | XMS REPORT | Continuity of Care Document ---
Author Author [facility] Organization [facility] Address Unknown Phone Unavailable Care Team Providers Care Pilot Control Operator Helper Name Role Phone MD Kenyetta, Ángela YOO Unavailable Insurance Providers Payer name Policy type / Coverage type Policy ID Covered constitution party ID [place] [place] Encounters Encounter Performer Location Date Office Visit Ángela Kumari MD [facility] [place] [place] 03, 2014 Allergies, Adverse Reactions, Alerts Type Substance [...] May 29, 2011 Inactive MUCINEX 600 MG [id number] one PO bid prn congestion May 29, [...] Inactive TRAMADOL HCL ER (BIPHASIC) 200 MG [id number] 1 tab qhs Sep 07, 2012 Inactive [...] qd Jan 03, 2014 Active VITAMIN D3 94418 UNIT CAPS take 2 times a week [...] 2014 Active TRAMADOL HCL ER 200 MG [id number] 1 po prn Jan 03, 2014 Active [...] RATE 76 /min Jan 03, 2014 weight Shantel - 3141-9 WEIGHT 186 lb Jan 03, [...] platelet count PLATELETS 320 K/CMM /mm3 133-450 Sep 07, 2012 urine [...] 2011 urea nitrogen, blood BUN 11 mg/dL -Sep 08, 2011 creatinine, serum CREATININE 0.6 mg/dL 0.5-1.4 Sep 08, 2011 urea nitrogen/creatinine ratio, serum BUN/CREAT 18 null 6-Sep 08, 2011 albumin, serum ALBUMIN 4.3 g/dL [...] 2014 urea nitrogen, blood BUN 17 mg/dL -Jan 02, 2014 urea nitrogen/creatinine ratio, serum BUN/CREAT 19 null 6-Jan 02, 2014 albumin, serum ALBUMIN 3.9 g/dL [...]
--- OUTSIDE RECORDS SUMMARY | 2018-11-10 20:10 | XMS REPORT | Continuity of Care Document ---
Author Author [facility] Organization [facility] Address Unknown Phone Unavailable Care Team Providers Care Ice Cream Server Name Role Phone MD Kenyetta, Ángela YOO Unavailable Insurance Providers Payer name Policy type / Coverage type Policy ID Covered constitution party ID [place] Encounters Encounter Performer Location Date Office Visit Ángela Kumari MD [facility] [place] [facility] [place] [facility] [place], 2013 Allergies, Adverse Reactions, Alerts Type Substance [...] May 29, 2011 Inactive MUCINEX 600 MG [id number] one PO bid prn congestion May 29, [...] daily Mar 17, 2012 Inactive VITAMIN D3 69865 UNIT CAPS 1 capsule once weekly for 8 weeks Sep 10, 2012 Active AMLODIPINE BESY-BENAZEPRIL HCL 5-10 MG CAPS 1 po qd Oct 05, 2012 Active FLORASTOR 250 MG CAPS 1 cap twice daily Sep 07, 2012 Inactive TRAMADOL HCL ER (BIPHASIC) 200 MG [id number] 1 tab qhs Sep 07, 2012 Inactive [...] po qd prn May 30, 2013 Active Vital Signs Date Description Test [...] E&M - 8867-4 PULSE RATE 76 /min Results Date Description [...] 2013 urea nitrogen, blood BUN 17 mg/dL 7-22 May 29, 2013 urea nitrogen/creatinine ratio, serum BUN/CREAT [...]
--- OUTSIDE RECORDS SUMMARY | 2018-11-10 20:11 | XMS REPORT | Continuity of Care Document ---
Author Author [facility] Organization [facility] Address Unknown Phone Unavailable Care Team Providers Care Cracking Unit Operator Name Role Phone MD Kenyetta, Ángela YOO Unavailable Insurance Providers Payer name Policy type / Coverage type Policy ID Covered green party ID [place] Encounters Encounter Performer Location Date Office Visit Ángela Kumari MD [facility] Endocrinology [facility] [place] Jul 19, 2014 Allergies, Adverse Reactions, Alerts Type Substance [...] cessation, patient education and counseling yes Apr 19, 2014 smoking status Current every day smoker Apr 19, 2014 smoking/tobacco cessation, patient education and counseling yes Apr 19, 2014 diabetic foot check yes May 07, 2014 diabetic eye exam normal Jul 19, 2014 diabetic foot check yes May 07, 2014 diabetic eye exam normal Medications Medication Instructions Start Date Status INSULIN SYRINGE 31G X 5/16" 1 ML [...] May 29, 2011 Inactive MUCINEX 600 MG [id number] one PO bid prn congestion May 29, [...] qHS prn insomnia Jan 15, 2012 Inactive VICTOZA 18 MG/3ML SOLN Inject 1.2mg qd Aug 03, 2011 Inactive PREDNISONE 20 MG TABS 2 PO daily Mar 17, 2012 Inactive FLORASTOR 250 MG CAPS 1 cap twice daily Sep 07, 2012 Inactive TRAMADOL HCL ER (BIPHASIC) 200 MG [id number] 1 tab qhs Sep 07, 2012 Inactive ATORVASTATIN CALCIUM 40 MG TABS one PO qHS Sep 24, 2011 Inactive CLONAZEPAM 2 MG TABS 1 tab qhs Sep 07, 2012 Inactive CITALOPRAM HYDROBROMIDE 40 MG TABS 1 po qd Apr 03, 2011 Inactive INVOKANA 300 MG TABS 1 po qd [...] one PO daily Jan 06, 2011 Inactive PREDNISONE 10 MG TABS 1 po qd May 30, 2013 Inactive V-GO 40 KIT 1 po qd Jun 05, 2013 Inactive LORAZEPAM 1 MG TABS 1 po prn Jan 03, 2014 Active LANTUS 100 UNIT/ML SOLN 65 units sq qhs Sep 07, 2012 Active FREESTYLE LITE TEST STRP Check glucose levels qid Apr 16, 2010 Active VITAMIN D3 29676 UNIT CAPS take 2 times a week Sep 10, 2012 Inactive CALCIUM 600 TABS 2 po qd Jan 03, 2014 Inactive CYMBALTA 60 MG CPEP 1 po qd May 30, 2013 Inactive DEXILANT 60 MG CPDR 1 po qd Jan 03, 2014 Inactive CEVIMELINE HCL 30 MG CAPS 1 po qd prn May 30, 2013 Inactive OMEGA-3 300 MG CAPS 2 po bid Jan 03, 2014 Inactive TRAMADOL HCL ER 200 MG [id number] 1 po prn Jan 03, 2014 Inactive CONTRAVE 8-90 MG [id number] 2 in am and 2 in pm Apr 24, 2014 Inactive CREON CPEP 1 po qd Apr 19, 2014 Inactive AMLODIPINE BESY-BENAZEPRIL HCL 5-10 MG CAPS 1 po qd Oct 05, 2012 Active PROBIOTIC CAPS 1 po qd Jul 19, 2014 Active VITAMIN D (ERGOCALCIFEROL) 49365 UNIT CAPS Take 1 capsule by mouth every week for 12 weeks Jul 19, 2014 Active Vital Signs Date Description Test [...] 77 mm Hg Sep 08, 2011 weight Awa&Adam - William1-9 WEIGHT 177 lb Sep 08, 2011 blood pressure, systolic - 8480-6 BP SYSTOLIC 144 mm Hg Sep 08, 2011 blood pressure, diastolic - 8462-4 BP DIASTOLIC 86 mm Hg Sep 08, 2011 pulse rate E&M - 8867-4 PULSE RATE 68 /min Jan 13, 2012 weight Awa&Adam - William1-9 WEIGHT 171 lb Jan 13, 2012 temperature [...] RATE 73 /min Mar 08, 2012 weight Awa&Adam - William1-9 WEIGHT 178 lb Mar 08, 2012 pulse rate E&M - 8867-4 PULSE RATE 64 /min Mar 08, 2012 blood pressure, systolic - 8480-6 BP SYSTOLIC 102 mm Hg Mar 08, 2012 blood pressure, diastolic - 8462-4 BP DIASTOLIC 64 mm Hg Mar 17, 2012 weight Awa&Adam - William1-9 WEIGHT 178 lb Mar 17, 2012 temperature [...] 71 mm Hg Sep 07, 2012 weight Awa&Adam - William1-9 WEIGHT 188 lb Sep 07, 2012 temperature [...] RATE 76 /min Jan 03, 2014 weight E&M - 3141-9 WEIGHT 186 lb Jan 03, 2014 height E&M - 8302-2 HEIGHT 60 in Jan 03, 2014 pulse rate E&M - 8867-4 PULSE RATE 108 /min Jan 03, 2014 blood pressure, systolic - 8480-6 BP SYSTOLIC 120 mm Hg Jan 03, 2014 blood pressure, diastolic - 8462-4 BP DIASTOLIC 80 mm Hg Apr 19, 2014 height E&M - 8302-2 HEIGHT 60 in Apr 19, 2014 weight E&M - 3141-9 WEIGHT 189 lb Apr 19, 2014 pulse rate E&M - 8867-4 PULSE RATE 92 /min Apr 19, 2014 blood pressure, systolic - 8480-6 BP SYSTOLIC 140 mm Hg Apr 19, 2014 blood pressure, diastolic - 8462-4 BP DIASTOLIC 80 mm Hg Jul 19, 2014 height E&M - 8302-2 HEIGHT 60 in Jul 19, 2014 weight E&M - 3141-9 WEIGHT 191 lb Jul 19, 2014 blood pressure, systolic - 8480-6 BP SYSTOLIC 130 mm Hg Jul 19, 2014 blood pressure, diastolic - 8462-4 BP DIASTOLIC 72 mm Hg Jul 19, 2014 pulse rate E&M - 8867-4 PULSE RATE 88 /min Results Date Description Test Name Value [...] platelet count PLATELETS 307 K/CMM /mm3 133-450 Jul 18, 2014 hemoglobin, blood HGB 14.9 g/dL 12.0-16.0 Jul 18, 2014 hematocrit, blood HCT 48.0 % 36.0-48.0 Jul 18, 2014 platelet count PLATELETS 310 K/CMM /mm3 133-450 Sep 07, 2012 urine [...] 2011 urea nitrogen, blood BUN 15 mg/dL -Apr 03, 2011 creatinine, serum CREATININE 0.6 mg/dL [...] 2012 urea nitrogen, blood BUN 15 mg/dL 7-22 Mar 08, 2012 urea nitrogen/creatinine ratio, serum BUN/CREAT [...] stimulating hormone, serum TSH 0.725 uIU/mL 0.360-3.740 Jul 18, 2014 hemoglobin A1C, blood, as % of total hemoglobin HGBA1C 8.4 % <=5.6 High Jul 18, 2014 cholesterol, serum CHOLESTEROL 380 mg/dl <=199 High Jul 18, 2014 triglyceride, serum, fasting TRIGLYCERIDE 537 mg/dl <=149 High Jul 18, 2014 HDL cholesterol, serum HDL 36 mg/dl >=61 Low Jul 18, 2014 LDL cholesterol, serum LDL See Note mg/dL mg/dl <=99 Jul 18, 2014 sodium, serum SODIUM 135 MEQ/L mmol/L 135-145 Jul 18, 2014 potassium, serum POTASSIUM 3.7 MEQ/L mmol/L 3.5-5.1 Jul 18, 2014 creatinine, serum CREATININE 0.9 mg/dL 0.5-1.4 Jul 18, 2014 urea nitrogen, blood BUN 19 mg/dL 7-22 Jul 18, 2014 urea nitrogen/creatinine ratio, serum BUN/CREAT 21 null 6-25 Jul 18, 2014 albumin, serum ALBUMIN 4.2 g/dL 3.5-5.0 Jul 18, 2014 calcium, serum CALCIUM 10.0 mg/dL 8.5-10.5 Jul 18, 2014 alanine aminotransferase (SGPT), serum SGPT (ALT) 31 U/L 0-65 Jul 18, 2014 aspartate aminotransferase (SGOT), serum SGOT (AST) 19 U/L 0-37 Jul 18, 2014 alkaline phosphatase, serum ALK PHOS 105 U/L 39-136 Jul 18, 2014 thyroid stimulating hormone, serum TSH 0.958 uIU/mL 0.360-3.740
--- OUTSIDE RECORDS SUMMARY | 2018-11-10 20:11 | XMS REPORT ---
Author Author Serafin Kim Organization [employer] Address Unknown Phone Unavailable Care Team Providers Care Debeader Name Role Phone Serafin Kim CP Unavailable Allergies No Known Allergies Problems Problem Type Condition Code Onset Dates Condition Status Problem Type 2 diabetes mellitus with hyperglycemia E11.65 Active Problem Insomnia G47.00 Active Problem Other and unspecified hyperlipidemia E78.5 Active Problem Nontoxic multinodular goiter E04.2 Active Problem Peptic ulcer K27.9 Active Problem Obesity, unspecified E66.9 Active Problem Benign essential hypertension I10 Active Problem Cellulitis of shoulder L03.119 Active Problem Furuncle L02.92 Active Problem Anemia of other chronic disease D63.8 Active Problem DKA (diabetic ketoacidoses) E13.10 Active Problem Other chronic pain G89.29 Active Problem DM w/o complication type II E11.9 Active Problem Acquired hypothyroidism E03.9 Active Problem Type 2 diabetes mellitus without complications E11.9 Active Problem termination clerk current use of insulin Z79.4 Active Problem Vaginal yeast infection B37.3 Active Problem Acute lower urinary tract infection N39.0 Active Problem Back pain M54.9 Active Problem Orthostatic hypotension I95.1 Active Problem Bronchitis J40 Active Problem Pressure ulcer of buttock L89.309 Active Problem Mixed hyperlipidemia E78.2 Active Problem Chronic insomnia F51.04 Active Problem URI with cough and congestion J06.9 Active Problem Right hip pain M25.551 Active Problem Vitamin D deficiency E55.9 Active Problem Flu vaccine need Z23 Active Problem Obstructive sleep apnea G47.33 Active Problem GERD (gastroesophageal reflux disease) K21.9 Active Problem Allergic rhinitis J30.9 Active Problem Encounter for immunization Z23 Active Problem Anxiety state F41.1 Active Problem Muscle spasm M62.838 Active Problem Tobacco use disorder Z72.0 Active Problem Iron deficiency anemia due to dietary causes D50.8 Active Problem Arthropathy M12.9 Active Problem Pain in thoracic spine M54.6 Active Problem Altered glucose metabolism due to diabetes E11.9 Active Problem Vitamin B12 deficiency (dietary) anemia D51.8 Active Medications No Known Medications Results No Known Results Summary Purpose [employer] Submission
--- OUTSIDE RECORDS SUMMARY | 2018-11-10 20:11 | XMS REPORT ---
Author Author Serafin Kim Organization [employer] Address Unknown Phone Unavailable Care Team Providers Care Air Pollution Auditor Name Role Phone Searfin Kim CP Unavailable Allergies No Known Allergies [...] diabetes mellitus without complications E11.9 Active Problem intermediate accountant current use of insulin Z79.4 Active Problem [...]
--- OUTSIDE RECORDS SUMMARY | 2018-11-10 20:11 | XMS REPORT ---
Author Author Serafin Kim Organization [employer] Address Unknown Phone Unavailable Care Team Providers Care Frame Pulley Mortising Machine Operator Name Role Phone Serafin Kim CP Unavailable Allergies No Known Allergies Problems Problem Type Condition Code Onset Dates Condition Status Problem Arthropathy M12.9 Active Problem Anxiety state F41.1 Active Problem Peptic ulcer K27.9 Active Problem Insomnia G47.00 Active Problem Allergic rhinitis J30.9 Active Problem Obesity, unspecified E66.9 Active Problem Tobacco use disorder Z72.0 Active Problem Nontoxic multinodular goiter E04.2 Active Problem GERD (gastroesophageal reflux disease) K21.9 Active Problem Obstructive sleep apnea G47.33 Active Problem Flu vaccine need Z23 Active Problem Other and unspecified hyperlipidemia E78.5 Active Problem Encounter for immunization Z23 Active Problem Other chronic pain G89.29 Active Problem Pain in thoracic spine M54.6 Active Problem food inspector current use of insulin Z79.4 Active Problem Anemia of other chronic disease D63.8 Active Problem Vitamin D deficiency E55.9 Active Problem Type 2 diabetes mellitus with hyperglycemia E11.65 Active Problem Type 2 diabetes mellitus without complications E11.9 Active Problem Benign essential hypertension I10 Active Problem Altered glucose metabolism due to diabetes E11.9 Active Problem Vitamin B12 deficiency (dietary) anemia D51.8 Active Problem Acquired hypothyroidism E03.9 Active Problem Iron deficiency anemia due to dietary causes D50.8 Active Problem Orthostatic hypotension I95.1 Active Problem DM w/o complication type II E11.9 Active Problem Furuncle L02.92 Active Problem Cellulitis of shoulder L03.119 Active Problem Back pain M54.9 Active Problem Muscle spasm M62.838 Active Problem DKA (diabetic ketoacidoses) E13.10 Active Problem Pressure ulcer of buttock L89.309 Active Medications Medication Code System Code Instructions Start Date End Date Status Dosage Omeprazole [facility] [address]-09 40 MG Orally Once a day Active 1 capsule Results No Known Results Summary Purpose [employer] Submission
--- OUTSIDE RECORDS SUMMARY | 2018-11-10 20:11 | XMS REPORT ---
Author Author Serafin Kim Organization [employer] Address Unknown Phone Unavailable Care Team Providers Care Blooming Mill Supervisor Name Role Phone Serafin Kim CP Unavailable Allergies, Adverse Reactions, Alerts Substance Reaction Event Type N.K.D.A. Info Not Available Non Drug Allergy Problems Problem Type Condition Code Onset Dates Condition Status Problem Arthropathy M12.9 Active Assessment Type 2 diabetes mellitus without complications E11.9 Active Problem Anxiety state F41.1 Active Problem [...] Pain in thoracic spine M54.6 Active Problem custodial current use of insulin Z79.4 Active Problem [...] D50.8 Active Problem Orthostatic hypotension I95.1 Active Assessment custodial current use of insulin Z79.4 Active Problem DM w/o complication type II E11.9 Active Problem Furuncle L02.92 Active Problem Cellulitis of shoulder L03.119 Active Problem Back pain M54.9 Active Problem Muscle spasm M62.838 Active Problem DKA (diabetic ketoacidoses) E13.10 Active Problem Pressure ulcer of buttock L89.309 Active Medications Medication Code System Code Instructions Start Date End Date Status Dosage MetFORMIN HCl ER [facility] [address]-36 500 MG Orally once a day Active 2 tablets Omeprazole [facility] [address]-13 40 mg Orally Once a day July 25, 2015 Active 1 capsule Vitamin D3 [facility] [address]-05 2000 UNIT Orally twice a day (bid) Active 1 capsule Vitamin B12 [facility] [address] 100 MCG Orally Active not defined Lantus [facility] [address]-78 100 UNIT/ML Subcutaneous once every night Active 60 units Lisinopril [facility] [address]-87 40 MG Orally Once a day Dec 31, 2015 Active 1 tablet Pantoprazole Sodium [facility] [address]-92 40 mg Orally Once a day June 27, 2015 Active 1 tablet Methocarbamol [facility] [address]-71 750 MG Orally every 4 hrs Active 1 tablet Vitamin D [facility] [address]-72 1000 UNIT Orally Once a day Active 1 tablet Iron [facility] [address]365-[address]454 325 (65 Fe) MG Orally Once a day Active 1 tablet Trulicity [facility] [address]-70 1.5 MG/0.5ML Subcutaneous Q week August 07, 2017 Active 0.5 ml NovoLog Mix 70/30 [facility] [address]-36 (70-30) 100 UNIT/ML Subcutaneous as directed Active 14u qam, 22u qpm Simvastatin [facility] [address]-88 20 MG Orally Once a day Active 1 tablet in the evening Lisinopril [facility] [address]-16 2.5 MG Orally Once a day July 25, 2015 Active 1 tablet Meloxicam [facility] [address]-72 15 MG Orally Once a day with food Apr 01, 2016 Mar 27, 2017 Active 1 tablet Tizanidine HCl [facility] 67874584868 4 MG Active 1 TABLET NEEDED THREE TIMES A DAY (TID) ORALLY 30 Amitriptyline HCl [facility] 30093861634 50 MG Active TAKE 1 TABLET ONCE A DAY ORALLY 30 DAY(S) Vital Signs Date/Time: August 12, 2016 BMI 32.61 Index Weight 167 lbs Height 60 in Temperature 98.5 F Cardiac Monitoring Heart Rate 84 /min Blood Pressure Diastolic 92 mm Hg Blood Pressure Systolic 152 mm Hg Results No Known Results Summary Purpose [employer] Submission
--- OUTSIDE RECORDS SUMMARY | 2018-11-10 20:11 | XMS REPORT ---
Author Author Serafin Kim Organization [employer] Address Unknown Phone Unavailable Care Team Providers Care Mirror Machine Feeder Name Role Phone Serafin Kim CP Unavailable [...] diabetes mellitus without complications E11.9 Active Problem manager long term care current use of insulin Z79.4 Active Problem Vaginal yeast infection B37.3 Active Problem Acute lower urinary tract infection N39.0 Active Problem Back pain M54.9 Active Problem Orthostatic hypotension I95.1 Active Assessment Bronchitis J40 Active Problem Bronchitis J40 Active Problem Pressure ulcer of buttock L89.309 Active Assessment Vaginal yeast infection B37.3 Active Problem Mixed hyperlipidemia E78.2 Active Problem [...] B12 deficiency (dietary) anemia D51.8 Active Medications Medication Code System Code Instructions Start Date End Date Status Dosage Amitriptyline HCl [facility] 83905611874 50 MG Active TAKE 1 TABLET ONCE A DAY ORALLY 30 DAY(S) Methocarbamol [facility] 43750101593 750 MG Orally every 4 hrs Active 1 tablet Meloxicam [facility] 83635834869 15 MG Orally Once a day with food Apr 01, 2016 Mar 27, 2017 Active 1 tablet Trulicity [facility] 33058901705 1.5 MG/0.5ML Subcutaneous Q week August 07, 2017 Active 0.5 ml Tizanidine HCl [facility] 18270165063 4 MG Active 1 TABLET NEEDED THREE TIMES A DAY (TID) ORALLY 30 PredniSONE [facility] 09221561990 10 MG Orally Once a day Dec 28, 2016 Active 3 tabs qd x 3d, 2 tabs qd x 5d, 1 tab qd x 5d with food or milk Amitriptyline HCl [facility] 07889098369 75 MG Orally once every night Dec 14, 2016 Active 1 tablet Lisinopril [facility] 04700280169 40 mg Orally Once a day Jan 11, 2017 Active 1 tablet Vitamin B12 [facility] 78547403142 100 MCG Orally Active not defined Fluconazole [facility] 56130524153 150 MG PO once (may repeat in 72 hours if symptoms persist) as directed Jan 15, 2017 Jan 16, 2017 Active 1 tablet Robaxin-750 [facility] 73837294720 750 MG Active TAKE 1 TABLET BY MOUTH TWICE A DAY Omeprazole [facility] 13790141890 40 MG Orally Once a day Active 1 capsule Promethazine-DM [facility] 19262728187 6.25-15 MG/5ML Orally every 6 hrs Dec 28, 2016 Active 5 ml as needed for cough MetFORMIN HCl ER [facility] 62309398531 500 MG Orally twice a day (bid) Active 2 tablets Trulicity [facility] 99378221244 1.5 MG/0.5ML Subcutaneous q week October 29, 2016 Jan 27, 2017 Active 0.5 ml Iron [facility] 43414973665 325 (65 Fe) MG Orally Once a day Active 1 tablet Vitamin D [facility] 49565489391 1000 UNIT Orally Once a day Active 1 tablet Benzonatate [facility] 23999067015 200 MG Orally Three times a day prn cough Dec 14, 2016 Active 1 capsule as needed Medrol (Rigoberto) NDC 0 4 mg Orally as directed Jan 15, 2017 Jan 22, 2017 Active as directed Simvastatin [facility] 76459012785 20 MG Active 1 TABLET IN THE EVENING ONCE A DAY ORALLY 30 DAY(S) Lisinopril [facility] 09097091082 10 mg Orally Once a day Dec 31, 2015 Active 1 tablet Vitamin D3 [facility] 88830164914 2000 UNIT Orally twice a day (bid) Active 1 capsule NovoLog Mix 70/30 [facility] 98254355271 (70-30) 100 UNIT/ML Subcutaneous as directed Active 14u qam, 20u qpm Vital Signs Date/Time: Jan 15, 2017 BMI 30.27 Index Weight 155 lbs Height 60 in Temperature 98.1 F Cardiac Monitoring Heart Rate 80 /min Blood Pressure Diastolic 86 mm Hg Blood Pressure Systolic 140 mm Hg Results No Known Results Summary Purpose [employer] Submission
--- OUTSIDE RECORDS SUMMARY | 2018-11-10 20:11 | XMS REPORT ---
Author Author Serafin Kim Organization [employer] Address Unknown Phone Unavailable Care Team Providers Care Trust Mail Clerk Name Role Phone Serafin Kim CP Unavailable [...] diabetes mellitus without complications E11.9 Active Problem roasterman current use of insulin Z79.4 Active Problem [...] Instructions Start Date End Date Status Dosage GuaiFENesin DM [facility] [address]-13 10-100 MG/5ML Orally every 4 hrs for cough Active 10 ml as needed Cefdinir [facility] 43738816779 300 MG Orally Twice a day Active 1 capsule Results No Known Results Summary Purpose [employer] Submission
--- OUTSIDE RECORDS SUMMARY | 2018-11-10 20:11 | XMS REPORT ---
Author Author Serafin Kim Organization [employer] Address Unknown Phone Unavailable Care Team Providers Care Premix Concrete Batcher Name Role Phone Serafin Kim CP Unavailable [...] diabetes mellitus without complications E11.9 Active Problem emt intermediate current use of insulin Z79.4 Active Problem [...] Instructions Start Date End Date Status Dosage Lisinopril [facility][NOTE 3] 30758593838 40 mg Orally Once a day Jan 11, 2017 Active 1 tablet Results No Known Results Summary Purpose [employer] Submission
--- OUTSIDE RECORDS SUMMARY | 2018-11-10 20:11 | XMS REPORT | Continuity of Care Document ---
Author Author [facility] Organization [facility] Address Unknown Phone Unavailable Care Team Providers Care Spinner Tender Name Role Phone MD Kenyetta, Ángela YOO Unavailable Insurance Providers Payer name Policy type / Coverage type Policy ID Covered libertarian ID [place] [employer] [place] [place] [place] [place] Encounters Encounter Performer Location Date Office Visit Ángela Kumari MD [facility] [place] [facility] [place] 19, 2014 Allergies, Adverse Reactions, Alerts Type [...] Apr 19, 2014 diabetic foot check yes Medications Medication Instructions Start Date Status INSULIN [...] May 29, 2011 Inactive MUCINEX 600 MG [id number] one PO bid prn congestion May 29, [...] Inactive TRAMADOL HCL ER (BIPHASIC) 200 MG [id number] 1 tab qhs Sep 07, 2012 Inactive [...] qid Apr 16, 2010 Active VITAMIN D3 12126 UNIT CAPS take 2 times a week [...] 2014 Inactive TRAMADOL HCL ER 200 MG [id number] 1 po prn Jan 03, 2014 Inactive CREON CPEP 1 po qd Apr 19, 2014 Active Vital Signs Date Description [...] 2012 urea nitrogen, blood BUN 15 mg/dL 10-24Mar 08, 2012 urea nitrogen/creatinine ratio, serum BUN/CREAT [...] 2013 urea nitrogen, blood BUN 17 mg/dL -May 29, 2013 urea nitrogen/creatinine ratio, serum BUN/CREAT [...] 2014 urea nitrogen, blood BUN 20 mg/dL 7- Apr 17, 2014 urea nitrogen/creatinine ratio, serum BUN/CREAT [...]
--- OUTSIDE RECORDS SUMMARY | 2018-11-10 20:11 | XMS REPORT ---
Author Author Serafin Kim Organization [employer] Address Unknown Phone Unavailable Care Team Providers Care Mohs Surgeon/General Dermatologist Name Role Phone Serafin Kim CP Unavailable Allergies No Known Allergies Problems Problem Type Condition Code Onset Dates Condition Status Problem DKA (diabetic ketoacidoses) E13.10 Active Problem Cellulitis of shoulder L03.119 Active Problem Orthostatic hypotension I95.1 Active Problem Pressure ulcer of buttock L89.309 Active Problem Tobacco use disorder Z72.0 Active Problem DM w/o complication type II E11.9 Active Problem Arthropathy M12.9 Active Problem Back pain M54.9 Active Problem Allergic rhinitis J30.9 Active Problem Encounter for immunization Z23 Active Problem Muscle spasm M62.838 Active Problem GERD (gastroesophageal reflux disease) K21.9 Active Problem Altered glucose metabolism due to diabetes E11.9 Active Problem Mixed hyperlipidemia E78.2 Active Problem Bronchitis J40 Active Problem Iron deficiency anemia due to dietary causes D50.8 Active Problem Vaginal yeast infection B37.3 Active Problem 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 Active Problem Acute lower UTI N39.0 Active Problem Leg cramping R25.2 Active Problem 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 Problem Pain in thoracic spine M54.6 Active Problem Vitamin B12 deficiency (dietary) anemia D51.8 Active Problem Insomnia G47.00 Active Problem Generalized OA M15.9 Active Problem Other chronic pain G89.29 Active Problem Obstructive sleep apnea G47.33 Active Problem Chronic constipation K59.09 Active Problem Vitamin D deficiency E55.9 Active Problem Fibromyalgia M79.7 Active Problem Anxiety state F41.1 Active Problem Vaginal dryness N89.8 Active Problem Other and unspecified hyperlipidemia E78.5 Active Problem 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 Active Problem Peptic ulcer K27.9 Active Problem nursing home current use of insulin Z79.4 Active Problem Furuncle L02.92 Active Problem Type 2 diabetes mellitus without complications E11.9 Active Problem Type 2 diabetes mellitus with hyperglycemia E11.65 Active Problem Anemia of other chronic disease D63.8 Active Problem Nontoxic multinodular goiter E04.2 Active Problem Acquired hypothyroidism E03.9 Active Problem Obesity, unspecified E66.9 Active Problem Chronic insomnia F51.04 Active Problem Benign essential hypertension I10 Active Problem Right hip pain M25.551 Active Problem URI with cough and congestion J06.9 Active Problem Acute lower urinary tract infection N39.0 Active Medications Medication Code System Code Instructions Start Date End Date Status Dosage Tizanidine HCl [facility] 76284305483 4 MG Active TAKE 1 TABLET BY MOUTH THREE TIMES A DAY NEEDED Results No Known Results Summary Purpose eClinicalWorks Submission
--- OUTSIDE RECORDS SUMMARY | 2018-11-10 20:12 | XMS REPORT ---
Author Author Serafin Kim Organization [employer] Address Unknown Phone Unavailable Care Team Providers Care Balance Weigher Name Role Phone Serafin Kim CP Unavailable [...] Pain in thoracic spine M54.6 Active Problem terminal press operator current use of insulin Z79.4 Active Problem [...] Instructions Start Date End Date Status Dosage Trulicity [facility] [address]-54 1.5 MG/0.5ML Subcutaneous q week October 29, 2016 Jan 27, 2017 Active 0.5 ml Results No Known Results Summary Purpose eClinicalWorks Submission
--- OUTSIDE RECORDS SUMMARY | 2018-11-10 20:12 | XMS REPORT ---
Author Author Serafin Kim Organization [employer] Address Unknown Phone Unavailable Care Team Providers Care Strap Sewer Name Role Phone Serafin Kim CP Unavailable Allergies No Known Allergies Problems Problem Type Condition Code Onset Dates Condition Status Problem Other and unspecified hyperlipidemia E78.5 Active Problem Nontoxic multinodular goiter E04.2 Active Problem Obesity, unspecified E66.9 Active Problem Peptic ulcer K27.9 Active Problem Benign essential hypertension I10 Active Problem Cellulitis of shoulder L03.119 Active Problem Furuncle L02.92 Active Problem DKA (diabetic ketoacidoses) E13.10 Active Problem DM w/o complication type II E11.9 Active Problem Acquired hypothyroidism E03.9 Active Problem Pressure ulcer of buttock L89.309 Active Problem correction current use of insulin Z79.4 Active Problem Orthostatic hypotension I95.1 Active Problem Type 2 diabetes mellitus without complications E11.9 Active Problem Acute lower urinary tract infection N39.0 Active Problem URI with cough and congestion J06.9 Active Problem 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 Active Problem Vaginal yeast infection B37.3 Active Problem Muscle spasm M62.838 Active Problem Encounter for immunization Z23 Active Problem Arthropathy M12.9 Active Problem Acute lower UTI N39.0 Active Problem Back pain M54.9 Active Problem Tobacco use disorder Z72.0 Active Problem Mixed hyperlipidemia E78.2 Active Problem Chronic insomnia F51.04 Active Problem Bronchitis J40 Active Problem Right hip pain M25.551 Active Problem Insomnia G47.00 Active Problem Altered glucose metabolism due to diabetes E11.9 Active Problem Type 2 diabetes mellitus with hyperglycemia E11.65 Active Problem Vitamin B12 deficiency (dietary) anemia D51.8 Active Problem Vitamin D deficiency E55.9 Active Problem Flu vaccine need Z23 Active Problem Obstructive sleep apnea G47.33 Active Problem GERD (gastroesophageal reflux disease) K21.9 Active Problem Allergic rhinitis J30.9 Active Problem Anemia of other chronic disease D63.8 Active Problem Anxiety state F41.1 Active Problem Other chronic pain G89.29 Active Problem Iron deficiency anemia due to dietary causes D50.8 Active Problem Pain in thoracic spine M54.6 Active Medications Medication Code System Code Instructions Start Date End Date Status Dosage Tussionex Pennkinetic [facility] [address]-29 10-8 MG/5ML Orally every 12 hrs Mar 09, 2017 Active 5 ml as needed Results No Known Results Summary Purpose eClinicalWorks Submission
--- OUTSIDE RECORDS SUMMARY | 2018-11-10 20:12 | XMS REPORT ---
Author Author Serafin Kim Organization [employer] Address Unknown Phone Unavailable Care Team Providers Care Garnett Fixer Name Role Phone Serafin Kim CP Unavailable Allergies No Known Allergies Problems Problem Type Condition Code Onset Dates Condition Status Problem Obesity, unspecified E66.9 Active Problem Allergic rhinitis J30.9 Active Problem Nontoxic multinodular goiter E04.2 Active Problem Tobacco use disorder Z72.0 Active Problem Obstructive sleep apnea G47.33 Active Problem Other and unspecified hyperlipidemia E78.5 Active Problem Benign essential hypertension I10 Active Problem Type 2 diabetes mellitus with hyperglycemia E11.65 Active Problem Vitamin D deficiency E55.9 Active Problem Vitamin B12 deficiency (dietary) anemia D51.8 Active Problem Furuncle L02.92 Active Problem Altered glucose metabolism due to diabetes E11.9 Active Problem Cellulitis of shoulder L03.119 Active Problem Iron deficiency anemia due to dietary causes D50.8 Active Problem Anemia of other chronic disease D63.8 Active Problem Acquired hypothyroidism E03.9 Active Problem URI with cough and congestion J06.9 Active Problem Chronic insomnia F51.04 Active Problem DKA (diabetic ketoacidoses) E13.10 Active Problem DM w/o complication type II E11.9 Active Problem Right hip pain M25.551 Active Problem Orthostatic hypotension I95.1 Active Problem Type 2 diabetes mellitus without complications E11.9 Active Problem retirement current use of insulin Z79.4 Active Problem Acute lower urinary tract infection N39.0 Active Problem Mixed hyperlipidemia E78.2 Active Problem Anxiety state F41.1 Active Problem Muscle spasm M62.838 Active Problem Insomnia G47.00 Active Problem GERD (gastroesophageal reflux disease) K21.9 Active Problem Arthropathy M12.9 Active Problem Pressure ulcer of buttock L89.309 Active Problem Peptic ulcer K27.9 Active Problem Back pain M54.9 Active Problem Pain in thoracic spine M54.6 Active Problem Other chronic pain G89.29 Active Problem Flu vaccine need Z23 Active Problem Encounter for immunization Z23 Active Medications Medication Code System Code Instructions Start Date End Date Status Dosage Augmentin [facility] [address]-20 875-125 MG Orally Twice a day with food Dec 28, 2016 Jan 07, 2017 Active 1 tablet Promethazine-DM [facility] [address]-32 6.25-15 MG/5ML Orally every 6 hrs Dec 28, 2016 Active 5 ml as needed for cough PredniSONE [facility] [address]-09 10 MG Orally Once a day Dec 28, 2016 Active 3 tabs qd x 3d, 2 tabs qd x 5d, 1 tab qd x 5d with food or milk Results No Known Results Summary Purpose eClinicalWorks Submission
--- OUTSIDE RECORDS SUMMARY | 2018-11-10 20:12 | XMS REPORT ---
Author Author Serafin Kim Organization [employer] Address Unknown Phone Unavailable Care Team Providers Care Broker In Charge Name Role Phone Serafin Kim CP Unavailable [...] Pressure ulcer of buttock L89.309 Active Problem detention current use of insulin Z79.4 Active Problem [...] Instructions Start Date End Date Status Dosage PredniSONE [facility] 61662761737 10 mg Orally Once a day July 01, 2017 July 08, 2017 Active 1 tablet Results No Known Results Summary Purpose eClinicalWorks Submission
--- OUTSIDE RECORDS SUMMARY | 2018-11-10 20:12 | XMS REPORT ---
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
--- OUTSIDE RECORDS SUMMARY | 2018-11-10 20:12 | XMS REPORT ---
Author Author Serafin Kim Organization [employer] Address Unknown Phone Unavailable Care Team Providers Care Director Biology Name Role Phone Serafin Kim CP Unavailable [...] Pain in thoracic spine M54.6 Active Medications No Known Medications Results No Known Results Summary Purpose eClinicalWorks Submission
--- OUTSIDE RECORDS SUMMARY | 2018-11-10 20:12 | XMS REPORT ---
Author Author Serafin Kim Organization [employer] Address Unknown Phone Unavailable Care Team Providers Care Costume Maker Name Role Phone Serafin Kim CP Unavailable [...] Active Problem Peptic ulcer K27.9 Active Problem correction current use of insulin [...] Instructions Start Date End Date Status Dosage FreeStyle Lite Test Strips and Lancets NDC 0 test strips Capillary three times a day (tid) August 05, 2017 Active as directed Results No Known Results Summary Purpose eClinicalWorks Submission
--- OUTSIDE RECORDS SUMMARY | 2018-11-10 20:12 | XMS REPORT ---
Author Author Serafin Kim Organization [employer] Address Unknown Phone Unavailable Care Team Providers Care Dynamics Ax Solution Architect Name Role Phone Serafin Kim CP Unavailable [...] Active Problem Cellulitis of shoulder L03.119 Active Assessment Mass of skin of left shoulder R22.32 Active Problem Furuncle L02.92 Active Problem DKA (diabetic ketoacidoses) E13.10 Active Problem DM w/o complication type II E11.9 Active Problem Acquired hypothyroidism E03.9 Active Problem Pressure ulcer of buttock L89.309 Active Problem group home current use of insulin Z79.4 Active [...] Z72.0 Active Problem Mixed hyperlipidemia E78.2 Active Assessment Acute lower UTI N39.0 Active Problem Chronic insomnia F51.04 Active Assessment 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 Active Problem Bronchitis J40 Active Assessment Type 2 diabetes mellitus with hyperglycemia E11.65 Active Problem Right hip pain M25.551 Active [...] Instructions Start Date End Date Status Dosage Simvastatin [facility] 21162968912 20 MG Active 1 TABLET IN THE EVENING ONCE A DAY ORALLY 30 DAY(S) Amitriptyline HCl [facility] 78459200435 75 mg Orally once every night Dec 14, 2016 Active 1 tablet Iron [facility] 39139584157 325 (65 Fe) MG Orally once a day after breakfast Active 1 tablet Meclizine HCl [facility] 66877531111 25 MG Orally four times a day (qid) Mar 08, 2017 Active 1 tablet as needed for dizziness Tizanidine HCl [facility] 85739124634 4 mg before bed Active TAKE 1 TABLET BY MOUTH 3 TIMES A DAY NEEDED Lisinopril [facility] 96703208261 10 mg Orally Once a day Dec 31, 2015 Active 1 tablet Promethazine-DM [facility] 81462201684 6.25-15 MG/5ML Orally every 6 hrs Dec 28, 2016 Active 5 ml as needed for cough Vitamin D [facility] 49665144084 1000 UNIT Orally once a day after breakfast Active 1 tablet Vitamin B12 [facility] 67964589320 100 MCG Orally after breakfast Active not defined Lisinopril [facility] 41224020781 40 mg Orally Once a day before breakfast Jan 11, 2017 Active 1 tablet Meloxicam [facility] 34309909240 15 MG after breakfast Active 1 TABLET ONCE A DAY WITH FOOD ORALLY 90 DAYS NovoLog Mix 70/30 [facility] 73597869279 (70-30) 100 UNIT/ML Subcutaneous as directed Active 15u qam, 18u qpm GuaiFENesin DM [facility] [address]-89 10-100 MG/5ML Orally every 4 hrs for cough Active 10 ml as needed Phenazopyridine HCl [facility] 24815126680 200 MG Orally Three times a day Active 1 tablet after meals Vitamin D3 [facility] 57699823873 2000 UNIT Orally twice a day (bid) Active 1 capsule Methocarbamol [facility] 13993715905 750 MG Orally every 4 hrs before breakfast Active 1 tablet Acetaminophen-Codeine #3 [facility] 90845950398 300-30 MG Orally every 4 hrs PRN Active 1/2 half tablet PredniSONE [facility] 30762521499 10 MG Orally Once a day Dec 28, 2016 Active 3 tabs qd x 3d, 2 tabs qd x 5d, 1 tab qd x 5d with food or milk Benzonatate [facility] 45810210370 200 MG Orally Three times a day prn cough Dec 14, 2016 Active 1 capsule as needed Omeprazole [facility] 35164689784 40 mg Orally Once a day before breakfast Active 1 capsule Amitriptyline HCl [facility] 40424309409 50 MG Active TAKE 1 TABLET ONCE A DAY ORALLY 30 DAY(S) Cefdinir [facility] 32891348477 300 MG Orally Twice a day Active 1 capsule MetFORMIN HCl ER [facility] 74977362584 500 mg Orally as directed Active 2 tablets am, 1 pm Robaxin-750 [facility] 59561384055 750 MG Active TAKE 1 TABLET BY MOUTH TWICE A DAY Trulicity [facility] 14116920140 1.5 MG/0.5ML Active INJECT 1 SYRINGE WEEKLY Vital Signs Date/Time: Mar 08, 2017 BMI 30.27 Index Weight 155 lbs Height 60 in Temperature 96.4 F Cardiac Monitoring Heart Rate 76 /min Blood Pressure Diastolic 84 mm Hg Blood Pressure Systolic 136 mm Hg Results No Known Results Summary Purpose eClinicalWorks Submission
--- OUTSIDE RECORDS SUMMARY | 2018-11-10 20:12 | XMS REPORT ---
Author Author Serafin Kim Organization [employer] Address Unknown Phone Unavailable Care Team Providers Care Special Machine Operator Name Role Phone Serafin Kim [...] mellitus without complications E11.9 Active Problem manager intermediate current use of insulin Z79.4 Active [...]
--- OUTSIDE RECORDS SUMMARY | 2018-11-10 20:12 | XMS REPORT ---
Author Author Serafin Kim Organization [employer] Address Unknown Phone Unavailable Care Team Providers Care Glass Silverer Name Role Phone Serafin Kim CP Unavailable [...] Pressure ulcer of buttock L89.309 Active Problem [facility] current use of insulin Z79.4 Active Problem [...] Instructions Start Date End Date Status Dosage Diflucan [facility] 40607730814 200 MG Orally Once a day Active 1 tablet Results No Known Results Summary Purpose eClinicalWorks Submission
--- OUTSIDE RECORDS SUMMARY | 2018-11-10 20:12 | XMS REPORT ---
Author Author Serafin Kim Organization [employer] Address Unknown Phone Unavailable Care Team Providers Care Pbx Operator Name Role Phone Serafin Kim CP Unavailable Allergies No Known Allergies Problems Problem Type Condition Code Onset Dates Condition Status Problem Vitamin D deficiency E55.9 Active Problem Anxiety state F41.1 Active Problem Insomnia G47.00 Active Problem Obstructive sleep apnea G47.33 Active Problem Benign essential hypertension I10 Active Problem Type 2 diabetes mellitus with hyperglycemia E11.65 Active Problem Nontoxic multinodular goiter E04.2 Active Problem Obesity, unspecified E66.9 Active Problem Peptic ulcer K27.9 Active Problem Vitamin B12 deficiency (dietary) anemia D51.8 Active Problem Furuncle L02.92 Active Problem Acquired hypothyroidism E03.9 Active Problem Cellulitis of shoulder L03.119 Active Problem Iron deficiency anemia due to dietary causes D50.8 Active Problem Anemia of other chronic disease D63.8 Active Problem Pain in thoracic spine M54.6 Active Problem Right hip pain M25.551 Active Problem Chronic insomnia F51.04 Active Problem Orthostatic hypotension I95.1 Active Problem Pressure ulcer of buttock L89.309 Active Problem Mixed hyperlipidemia E78.2 Active Problem DKA (diabetic ketoacidoses) E13.10 Active Problem 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.4 Active Problem Type 2 diabetes mellitus without complications E11.9 Active Problem Acute lower urinary tract infection N39.0 Active Problem URI with cough and congestion J06.9 Active Problem Allergic rhinitis J30.9 Active Problem Muscle spasm M62.838 Active Problem Other and unspecified hyperlipidemia E78.5 Active Problem Encounter for immunization Z23 Active Problem Tobacco use disorder Z72.0 Active Problem DM w/o complication type II E11.9 Active Problem Arthropathy M12.9 Active Problem Back pain M54.9 Active Problem Altered glucose metabolism due to diabetes E11.9 Active Assessment Benign essential hypertension I10 Active Problem Other chronic pain G89.29 Active Problem Flu vaccine need Z23 Active Problem GERD (gastroesophageal reflux disease) K21.9 Active Medications Medication Code System Code Instructions Start Date End Date Status Dosage Lisinopril [facility] 09659572577 10 mg Orally Once a day Dec 31, 2015 Active 1 tablet Omeprazole [facility] 32466419852 40 MG Orally Once a day Active 1 capsule Results No Known Results Summary Purpose eClinicalWorks Submission
--- OUTSIDE RECORDS SUMMARY | 2018-11-10 20:12 | XMS REPORT ---
Author Author Serafin Kim Organization [employer] Address Unknown Phone Unavailable Care Team Providers Care Manager Of Business Name Role Phone Serafin Kim CP Unavailable [...] Pressure ulcer of buttock L89.309 Active Problem [facility] current use of insulin Z79.4 Active Problem [...] Active Problem Mixed hyperlipidemia E78.2 Active Assessment Type 2 diabetes mellitus with hyperglycemia E11.65 Active Problem Chronic insomnia F51.04 Active Problem [...] Instructions Start Date End Date Status Dosage NovoLog Mix 70/30 [facility] 69554976249 (70-30) 100 UNIT/ML Subcutaneous as directed Active 15u qam, 18u qpm Results No Known Results Summary Purpose eClinicalWorks Submission
--- OUTSIDE RECORDS SUMMARY | 2018-11-10 20:12 | XMS REPORT ---
Author Author Serafin Kim Organization [employer] Address Unknown Phone Unavailable Care Team Providers Care Factory Supervisor Name Role Phone Serafin Kim CP [...] Problem DKA (diabetic ketoacidoses) E13.10 Active Problem terminal block assembler current use of insulin Z79.4 Active Problem [...] metabolism due to diabetes E11.9 Active Problem Other chronic pain G89.29 Active Problem Flu vaccine need Z23 Active Problem GERD (gastroesophageal reflux disease) K21.9 Active Medications No Known Medications Results No Known Results Summary Purpose eClinicalWorks Submission
--- OUTSIDE RECORDS SUMMARY | 2018-11-10 20:12 | XMS REPORT ---
Author Author Serafin Kim Organization [employer] Address Unknown Phone Unavailable Care Team Providers Care Cloth Handler Name Role Phone Serafin Kim CP Unavailable Allergies, Adverse Reactions, Alerts Substance Reaction Event Type N.K.D.A. Info Not Available Non Drug Allergy Problems Problem Type Condition Code Onset Dates Condition Status Problem Obesity, unspecified E66.9 Active Problem Allergic rhinitis J30.9 Active Problem Nontoxic multinodular goiter E04.2 Active Problem Tobacco use disorder Z72.0 Active Problem Obstructive sleep apnea G47.33 Active Assessment Vitamin B12 deficiency E53.8 Active Problem Other and unspecified hyperlipidemia E78.5 Active Assessment Vitamin D deficiency E55.9 Active Problem Benign essential hypertension I10 Active [...] DM w/o complication type II E11.9 Active Assessment URI with cough and congestion J06.9 Active Problem Right hip pain M25.551 Active Problem Orthostatic hypotension I95.1 Active Assessment Type 2 diabetes mellitus with hyperglycemia E11.65 Active Problem Type 2 diabetes mellitus without complications E11.9 Active Assessment Benign essential hypertension I10 Active Problem long-term current use of insulin Z79.4 Active Assessment Chronic insomnia F51.04 Active Problem Acute lower urinary tract infection N39.0 Active Assessment Mixed hyperlipidemia E78.2 Active Problem Mixed hyperlipidemia E78.2 Active Problem Anxiety state F41.1 Active Problem Muscle spasm M62.838 Active Problem Insomnia G47.00 Active Problem GERD (gastroesophageal reflux disease) K21.9 Active Problem Arthropathy M12.9 Active Problem Pressure ulcer of buttock L89.309 Active Problem Peptic ulcer K27.9 Active Problem Back pain M54.9 Active Assessment Acute lower urinary tract infection N39.0 Active Problem Pain in thoracic spine M54.6 Active Assessment Right hip pain M25.551 Active Problem Other chronic pain G89.29 Active Problem Flu vaccine need Z23 Active Problem Encounter for immunization Z23 Active Medications Medication Code System Code Instructions Start Date End Date Status Dosage Benzonatate [facility] [address]-67 200 MG Orally Three times a day prn cough Dec 14, 2016 Active 1 capsule as needed Meloxicam [facility] [address]-18 15 MG Orally Once a day with food Apr 01, 2016 Mar 27, 2017 Active 1 tablet Iron [facility] 67[address] 325 (65 Fe) MG Orally Once a day Active 1 tablet Trulicity [facility] [address]-08 1.5 MG/0.5ML Subcutaneous q week October 29, 2016 Jan 27, 2017 Active 0.5 ml Omeprazole [facility] [address]-12 40 MG Orally Once a day Active 1 capsule Bactrim DS [facility] [address]-40 800-160 MG Orally twice a day (bid) Dec 14, 2016 Dec 21, 2016 Active 1 tablet MetFORMIN HCl ER [facility] [address]-76 500 MG Orally twice a day (bid) Active 2 tablets Vitamin B12 [facility] [address] 100 MCG Orally Active not defined Amitriptyline HCl [facility] [address]-99 75 MG Orally once every night Dec 14, 2016 Active 1 tablet Amitriptyline HCl [facility] 99372101604 50 MG Active TAKE 1 TABLET ONCE A DAY ORALLY 30 DAY(S) Vitamin D3 [facility] [address]-21 2000 UNIT Orally twice a day (bid) Active 1 capsule Trulicity [facility] [address]-83 1.5 MG/0.5ML Subcutaneous Q week August 07, 2017 Active 0.5 ml Lisinopril [facility] [address]-61 40 MG Orally Once a day Dec 31, 2015 Active 1 tablet NovoLog Mix 70/30 [facility] [address]-10 (70-30) 100 UNIT/ML Subcutaneous as directed Active 14u qam, 20u qpm Simvastatin [facility] 29439093906 20 MG Active 1 TABLET IN THE EVENING ONCE A DAY ORALLY 30 DAY(S) Robaxin-750 [facility] 19859293998 750 MG Active TAKE 1 TABLET BY MOUTH TWICE A DAY Vitamin D [facility] [address]-77 1000 UNIT Orally Once a day Active 1 tablet Methocarbamol [facility] [address]-95 750 MG Orally every 4 hrs Active 1 tablet Tizanidine HCl [facility] 37002455344 4 MG Active 1 TABLET NEEDED THREE TIMES A DAY (TID) ORALLY 30 Vital Signs Date/Time: Dec 14, 2016 BMI 31.83 Index Weight 163 lbs Height 60 in Temperature 97.1 F Cardiac Monitoring Heart Rate 64 /min Blood Pressure Diastolic 86 mm Hg Blood Pressure Systolic 126 mm Hg Results No Known Results Summary Purpose [employer] Submission
--- OUTSIDE RECORDS SUMMARY | 2018-11-10 20:12 | XMS REPORT ---
Author Author Serafin Kim Organization [employer] Address Unknown Phone Unavailable Care Team Providers Care Content Strategist Name Role Phone Serafin Kim CP Unavailable [...] Pressure ulcer of buttock L89.309 Active Problem [facility] current use of insulin Z79.4 Active Problem [...] End Date Status Dosage NovoLog Mix 70/30 [facility] 24904782852 (70-30) 100 UNIT/ML Subcutaneous as directed Active 15u qam, 18u qpm Results No Known Results Summary Purpose [employer] Submission
--- OUTSIDE RECORDS SUMMARY | 2018-11-10 20:13 | XMS REPORT ---
Author Author Serafin Kim Organization [employer] Address Unknown Phone Unavailable Care Team Providers Care Feed And Farm Management Adviser Name Role Phone Serafin Kim CP Unavailable [...] Active Problem Peptic ulcer K27.9 Active Problem detention current use of insulin [...] Instructions Start Date End Date Status Dosage NovoFine Plus [facility] 22281223862 32G X 4 MM August 18, 2018 Active as directed Results No Known Results Summary Purpose [employer] Submission
--- OUTSIDE RECORDS SUMMARY | 2018-11-10 20:13 | XMS REPORT ---
Author Author Serafin Kim Organization [employer] Address Unknown Phone Unavailable Care Team Providers Care Apparel Cutter Name Role Phone Serafin Kim CP Unavailable Allergies No Known Allergies Problems Problem Type Condition Code Onset Dates Condition Status Problem Cellulitis of shoulder L03.119 Active Problem Furuncle L02.92 Active Problem Pressure ulcer of buttock L89.309 Active Problem DKA (diabetic ketoacidoses) E13.10 Active Problem Orthostatic hypotension I95.1 Active Problem Tobacco use disorder Z72.0 Active Problem DM w/o complication type II E11.9 Active Problem Arthropathy M12.9 Active Problem Back pain M54.9 Active Problem Encounter for immunization Z23 Active Problem Muscle spasm M62.838 Active Problem Right hip pain M25.551 Active Problem GERD (gastroesophageal reflux disease) K21.9 Active Problem Mixed hyperlipidemia E78.2 Active Problem Altered glucose metabolism due to diabetes E11.9 Active Problem Bronchitis J40 Active Problem Acute lower UTI N39.0 Active Problem Vaginal yeast infection B37.3 Active Problem Chronic constipation K59.09 Active Problem Leg cramping R25.2 Active Problem Vitamin B12 deficiency (dietary) anemia D51.8 Active Problem Other chronic pain G89.29 Active Problem Obstructive sleep apnea G47.33 Active Problem Fibromyalgia M79.7 Active Problem Iron deficiency anemia due to dietary causes D50.8 Active Problem Vitamin D deficiency E55.9 Active Problem 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 Active Problem Anxiety state F41.1 Active Problem 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 Active Problem Other and unspecified hyperlipidemia E78.5 Active Problem 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 Problem Allergic rhinitis J30.9 Active Problem Vaginal dryness N89.8 Active Problem Nontoxic multinodular goiter E04.2 Active Problem Acquired hypothyroidism E03.9 Active Problem Peptic ulcer K27.9 Active Problem correction current use of insulin Z79.4 Active Problem Benign essential hypertension I10 Active Problem Pain in thoracic spine M54.6 Active Problem Type 2 diabetes mellitus with hyperglycemia E11.65 Active Problem Anemia of other chronic disease D63.8 Active Problem Insomnia G47.00 Active Problem Acute lower urinary tract infection N39.0 Active Problem Obesity, unspecified E66.9 Active Problem Chronic insomnia F51.04 Active Problem Type 2 diabetes mellitus without complications E11.9 Active Problem URI with cough and congestion J06.9 Active Medications Medication Code System Code Instructions Start Date End Date Status Dosage Proventil HFA [facility] 06215401340 108 (90 Base) MCG/ACT Inhalation every 6 hrs Jan 25, 2018 Active 2 puffs as needed PredniSONE [facility] 10344942918 10 mg Orally Once a day Dec 28, 2016 Active 3 tabs qd x 3d, 2 tabs qd x 5d, 1 tab qd x 5d with food or milk Cefdinir [facility] 51882009784 300 MG Orally Twice a day Feb 04, 2018 Active 1 capsule Promethazine-DM [facility] 77670954734 6.25-15 MG/5ML Orally every 6 hrs Dec 28, 2016 Active 5 ml as needed for cough Results No Known Results Summary Purpose [employer]ClinicalWorks Submission
--- OUTSIDE RECORDS SUMMARY | 2018-11-10 20:13 | XMS REPORT ---
Author Author Serafin Kim Organization [employer] Address Unknown Phone Unavailable Care Team Providers Care Electrocardiograph Repairer Name Role Phone Serafin Kim CP Unavailable [...] Active Problem Mixed hyperlipidemia E78.2 Active Assessment URI with cough and congestion [...] Start Date End Date Status Dosage Benzonatate [facility] 71708340098 200 MG Orally Three times a day prn cough Dec 14, 2016 Active 1 capsule as needed Results No Known Results Summary Purpose [employer]ClinicalWorks Submission
--- OUTSIDE RECORDS SUMMARY | 2018-11-10 20:13 | XMS REPORT ---
Author Author Serafin Kim Organization [employer] Address Unknown Phone Unavailable Care Team Providers Care Shirt Closer Name Role Phone Serafin Kim CP Unavailable Allergies, Adverse Reactions, Alerts Substance Reaction Event Type N.K.D.A. Info Not Available Non Drug Allergy Problems Problem Type Condition Code Onset Dates Condition Status Problem DKA (diabetic ketoacidoses) E13.10 Active Problem Cellulitis of shoulder L03.119 Active Problem Orthostatic hypotension I95.1 Active Problem Pressure ulcer of buttock L89.309 Active Problem DM w/o complication type II E11.9 Active Problem Back pain M54.9 Active Problem Encounter for immunization Z23 Active Problem Muscle spasm M62.838 Active Problem GERD (gastroesophageal reflux disease) K21.9 Active Problem Altered glucose metabolism due to diabetes E11.9 Active Problem Iron deficiency anemia due to dietary causes D50.8 Active Problem Pain in thoracic spine M54.6 Active Problem Vitamin B12 deficiency (dietary) anemia D51.8 Active Problem Other chronic pain G89.29 Active Problem correction current use of insulin Z79.4 Active Problem Type 2 diabetes mellitus without complications E11.9 Active Problem Anemia of other chronic disease D63.8 Active Problem Acquired hypothyroidism E03.9 Active Problem Chronic insomnia F51.04 Active Problem Right hip pain M25.551 Active Problem URI with cough and congestion J06.9 Active Problem Acute lower urinary tract infection N39.0 Active Assessment Low back pain M54.5 Active Assessment Other chronic pain G89.29 Active Assessment Cervicalgia M54.2 Active Assessment Folic acid deficiency E53.8 Active Problem Tobacco use disorder Z72.0 Active Problem Arthropathy M12.9 Active Problem Allergic rhinitis J30.9 Active Problem Mixed hyperlipidemia E78.2 Active Assessment Type 2 diabetes mellitus with hyperglycemia E11.65 Active Problem Bronchitis J40 Active Problem Vaginal yeast infection B37.3 Active Problem 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 Active Problem Acute lower UTI N39.0 Active Problem Leg cramping R25.2 Active Problem 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 Problem Generalized OA M15.9 Active Problem Insomnia G47.00 Active Problem Chronic constipation K59.09 Active Problem Obstructive sleep apnea G47.33 Active Problem Fibromyalgia M79.7 Active Problem Vitamin D deficiency E55.9 Active Problem Vaginal dryness N89.8 Active Problem Anxiety state F41.1 Active Problem 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 Active Problem Other and unspecified hyperlipidemia E78.5 Active Problem Peptic ulcer K27.9 Active Problem Furuncle L02.92 Active Problem Type 2 diabetes mellitus with hyperglycemia E11.65 Active Problem Nontoxic multinodular goiter E04.2 Active Problem Obesity, unspecified E66.9 Active Problem Benign essential hypertension I10 Active Medications Medication Code System Code Instructions Start Date End Date Status Dosage Vitamin B12 [facility] 16950197824 100 MCG Orally after breakfast Active not defined Iron [facility] 36077877662 325 (65 Fe) MG Orally once a day after breakfast Active 1 tablet Hair Skin Nails [facility] 25044625437 - Orally Active as directed Simvastatin [facility] 59865607010 20 MG Orally Daily Active 1 TABLET IN THE EVENING ONCE A DAY ORALLY 30 DAY(S) Tizanidine HCl [facility] 47529324048 4 MG Active TAKE 1 TABLET BY MOUTH THREE TIMES A DAY NEEDED Levemir FlexTouch [facility] 91721080895 100 UNIT/ML Subcutaneous twice a day (bid) August 15, 2018 Active 15u Amitriptyline HCl [facility] 29113806512 75 MG po q HS Active TAKE 1 TABLET BY MOUTH EVERY NIGHT Methocarbamol [facility] 70674426989 750 MG Orally every 6 hrs prn mm relaxation Active 1-1 tablets Folic Acid [facility] 05521736711 400 MCG Orally Once a day Active 1 tablet Vitamin D [facility] 40863733522 1000 UNIT Orally once a day after breakfast Active 1 tablet Omeprazole [facility] 86939349407 40 mg Orally Once a day before breakfast Active 1 capsule Meloxicam [facility] 11608660545 15 MG Orally after breakfast October 17, 2018 Active 1 TABLET ONCE A DAY WITH FOOD ORALLY 90 DAYS Lisinopril ND 14641176626 40 mg Orally Once a day before breakfast Jan 11, 2017 Active 1 tablet NovoLog Mix 70/30 [facility] 94344942174 (70-30) 100 UNIT/ML Subcutaneous as directed Inactive 15u qam, 15u qpm Folic Acid [facility] 15144896538 1 MG Orally Once a day August 15, 2018 Feb 11, 2019 Active 1 tablet MetFORMIN HCl ER [facility] 60371252874 500 MG Active TAKE 2 TABLETS BY MOUTH TWICE A DAY Trulicity [facility] 81786215321 1.5 MG/0.5ML subcutaneous weekly Active INJECT 1 SYRINGE WEEKLY Vital Signs Date/Time: August 15, 2018 BMI 31.71 Index Weight 162.4 lbs Height 60 in Temperature 97.7 F Cardiac Monitoring Heart Rate 86 /min Blood Pressure Diastolic 76 mm Hg Blood Pressure Systolic 138 mm Hg Results No Known Results Summary Purpose [employer]ClinicalWorks Submission
--- OUTSIDE RECORDS SUMMARY | 2018-11-10 20:13 | XMS REPORT ---
Author Author Serafin Kim Organization [employer] Address Unknown Phone Unavailable Care Team Providers Care Theatre Manager Name Role Phone Serafin Kim CP Unavailable [...] Pressure ulcer of buttock L89.309 Active Problem prison current use of insulin Z79.4 Active Problem [...] Date End Date Status Dosage Amitriptyline HCl [facility] 62309838384 50 mg Active TAKE 1 TABLET ONCE A DAY ORALLY 30 DAY(S) Results No Known Results Summary Purpose [employer]ClinicalWorks Submission
--- OUTSIDE RECORDS SUMMARY | 2018-11-10 20:13 | XMS REPORT ---
Author Author Serafin Kim Organization [employer] Address Unknown Phone Unavailable Care Team Providers Care Tray Server Name Role Phone Serafin Kim CP Unavailable [...] Problem Other chronic pain G89.29 Active Problem retirement current use of insulin Z79.4 Active Problem Type 2 diabetes mellitus without complications E11.9 Active Problem Anemia of other chronic disease D63.8 Active Problem Acquired hypothyroidism E03.9 Active Problem Chronic insomnia F51.04 Active Problem Right hip pain M25.551 Active Problem URI with cough and congestion J06.9 Active Problem Acute lower urinary tract infection N39.0 Active Assessment 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 Z79.4 Active Assessment Iron deficiency E61.1 Active Assessment Other chronic pain G89.29 Active Assessment Pain in left hip M25.552 Active Assessment Hot flashes R23.2 Active Assessment Type 2 diabetes mellitus with hyperglycemia E11.65 Active Assessment Pain in right hip M25.551 Active Assessment Generalized OA M15.9 Active Problem Tobacco use disorder Z72.0 Active Problem Arthropathy M12.9 Active Problem Allergic rhinitis J30.9 Active Problem Mixed hyperlipidemia E78.2 Active Assessment Low back pain M54.5 Active Problem Bronchitis J40 Active Problem Vaginal [...] HCl [facility] 03358818180 4 MG Active TAKE 1 TABLET BY MOUTH THREE TIMES A DAY NEEDED Trulicity [facility] 06254378561 1.5 MG/0.5ML subcutaneous weekly Active INJECT 1 SYRINGE WEEKLY Iron [facility] 38916466602 325 (65 Fe) MG Orally once a day after breakfast Active 1 tablet Vitamin B12 [facility] 69910090717 100 MCG Orally after breakfast Active not defined Omeprazole [facility] 39560273890 40 mg Orally Once a day before breakfast Active 1 capsule Folic Acid [facility] 69819701077 400 MCG Orally Once a day Active 1 tablet Meloxicam [facility] 02438840323 15 MG Orally after breakfast October 17, 2018 Active 1 TABLET ONCE A DAY WITH FOOD ORALLY 90 DAYS Amitriptyline HCl [facility] 84003458734 75 MG po q HS Active TAKE 1 TABLET BY MOUTH EVERY NIGHT MetFORMIN HCl ER [facility] 09919763410 500 MG Active TAKE 2 TABLETS BY MOUTH TWICE A DAY Methocarbamol [facility] 79099990931 750 MG Orally every 6 hrs prn mm relaxation Active 1-1 tablets Vitamin D [facility] 11822143464 1000 UNIT Orally once a day after breakfast Active 1 tablet NovoLog Mix 70/30 [facility] [address]-04 (70-30) 100 UNIT/ML Subcutaneous as directed Active 17u qam, 20u qpm Hair Skin Nails [facility] 66876457756 - Orally Active as directed Lisinopril [facility] 25375675152 40 mg Orally Once a day before breakfast Jan 11, 2017 Active 1 tablet Simvastatin [facility] 45921866527 20 MG Orally Daily Active 1 TABLET IN THE EVENING ONCE A DAY ORALLY 30 DAY(S) Proventil HFA [facility] 38256306010 108 (90 Base) MCG/ACT Inhalation every 6 hrs Jan 25, 2018 Active 2 puffs as needed Vital Signs Date/Time: June 22, 2018 BMI 31.32 Index Weight 160.4 lbs Height 60 in Temperature 97.1 F Cardiac Monitoring Heart Rate 94 /min Blood Pressure Diastolic 82 mm Hg Blood Pressure Systolic 136 mm Hg Results No Known Results Summary Purpose eClinicalWorks Submission
--- OUTSIDE RECORDS SUMMARY | 2018-11-10 20:13 | XMS REPORT ---
Author Author Serafin Kim Organization [employer] Address Unknown Phone Unavailable Care Team Providers Care Radar Operator Name Role Phone Serafin Kim CP [...] Active Problem Peptic ulcer K27.9 Active Problem [facility] current use of insulin Z79.4 Active Problem [...] Instructions Start Date End Date Status Dosage Tresiba FlexTouch [facility] 86830303096 200 UNIT/ML Subcutaneous daily August 17, 2018 Active 30u Results No Known Results Summary Purpose eClinicalWorks Submission
--- OUTSIDE RECORDS SUMMARY | 2018-11-10 20:13 | XMS REPORT ---
Author Author Serafin Kim Organization [employer] Address Unknown Phone Unavailable Care Team Providers Care Hand Tacker Name Role Phone Serafin Kim CP Unavailable Allergies, Adverse Reactions, Alerts Substance Reaction Event Type N.K.D.A. Info Not Available Non Drug Allergy Problems Problem Type Condition Code Onset Dates Condition Status Problem Cellulitis of shoulder L03.119 Active Problem Furuncle L02.92 Active Problem DM w/o complication type II E11.9 Active Problem DKA (diabetic ketoacidoses) E13.10 Active Problem Orthostatic hypotension I95.1 Active Problem Pressure ulcer of buttock L89.309 Active Problem Back pain M54.9 Active Problem Encounter for immunization Z23 Active Problem Muscle spasm M62.838 Active Problem GERD (gastroesophageal reflux disease) K21.9 Active Problem Altered glucose metabolism due to diabetes E11.9 Active Problem Vitamin B12 deficiency (dietary) anemia D51.8 Active Problem Iron deficiency anemia due to dietary causes D50.8 Active Problem Acquired hypothyroidism E03.9 Active Problem Other chronic pain G89.29 Active Problem Type 2 diabetes mellitus without complications E11.9 Active Problem Pain in thoracic spine M54.6 Active Problem Anemia of other chronic disease D63.8 Active Problem URI with cough and congestion J06.9 Active Problem Acute lower urinary tract infection N39.0 Active Problem nursing home current use of insulin Z79.4 Active Problem Chronic insomnia F51.04 Active Assessment Encounter for immunization Z23 Active Assessment Vaginal dryness N89.8 Active Assessment 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 Active Assessment Fibromyalgia M79.7 Active Assessment Leg cramping R25.2 Active Assessment Benign essential hypertension I10 Active Assessment Chronic constipation K59.09 Active Assessment Type 2 diabetes mellitus with hyperglycemia E11.65 Active Problem Peptic ulcer K27.9 Active Problem Nontoxic multinodular goiter E04.2 Active Problem Right hip pain M25.551 Active Problem Mixed hyperlipidemia E78.2 Active Assessment 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 Problem Bronchitis J40 Active Problem Acute lower UTI N39.0 Active Problem Vaginal yeast infection B37.3 Active Problem Chronic constipation K59.09 Active Problem 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 Problem Fibromyalgia M79.7 Active Problem Obstructive sleep apnea G47.33 Active Problem Leg cramping R25.2 Active Problem Insomnia G47.00 Active Problem 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 Active Problem Benign essential hypertension I10 Active Problem Vaginal dryness N89.8 Active Problem Obesity, unspecified E66.9 Active Problem 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 Active Problem Type 2 diabetes mellitus with hyperglycemia E11.65 Active Problem Tobacco use disorder Z72.0 Active Problem Other and unspecified hyperlipidemia E78.5 Active Problem Allergic rhinitis J30.9 Active Problem Arthropathy M12.9 Active Problem Vitamin D deficiency E55.9 Active Problem Anxiety state F41.1 Active Medications Medication Code System Code Instructions Start Date End Date Status Dosage Lisinopril [facility] 83993013725 40 mg Orally Once a day before breakfast Jan 11, 2017 Active 1 tablet MetFORMIN HCl ER [facility] 52247453526 500 MG Active TAKE 2 TABLETS BY MOUTH TWICE A DAY Trulicity [facility] 60103873742 1.5 MG/0.5ML subcutaneous weekly October 17, 2018 Active INJECT 1 SYRINGE WEEKLY Methocarbamol [facility] 15247306924 750 MG Orally every 4 hrs before breakfast Apr 20, 2018 Active 1 tablet Phenazopyridine HCl [facility] 18149704184 200 MG Orally Three times a day Active 1 tablet after meals Promethazine-DM [facility] 27491116883 6.25-15 MG/5ML Orally every 6 hrs Dec 28, 2016 Active 5 ml as needed for cough Lisinopril [facility] 04075445868 10 mg Orally Once a day Dec 31, 2015 Active 1 tablet Robaxin-750 [facility] 29909080789 750 MG Orally Daily October 17, 2018 Active TAKE 1 TABLET BY MOUTH TWICE A DAY Meloxicam ND 04399323532 15 MG Orally after breakfast October 17, 2018 Active 1 TABLET ONCE A DAY WITH FOOD ORALLY 90 DAYS Vitamin D3 [facility] 06702975771 2000 UNIT Orally twice a day (bid) Active 1 capsule GuaiFENesin DM [facility] [address]-91 10-100 MG/5ML Orally every 4 hrs for cough Active 10 ml as needed Meclizine HCl [facility] 11264214592 25 MG Orally four times a day (qid) Mar 08, 2017 Active 1 tablet as needed for dizziness Diflucan [facility] 70534731918 200 MG Orally Once a day Active 1 tablet Tussionex Pennkinetic ER [facility] [address]-02 10-8 MG/5ML Orally every 12 hrs Mar 09, 2017 Active 5 ml as needed Tizanidine HCl [facility] 26518162402 4 MG Orally Daily October 17, 2018 Active TAKE 1 TABLET BY MOUTH 3 TIMES A DAY NEEDED FreeStyle Lite Test Strips and Lancets ND 0 test strips Capillary three times a day (tid) August 05, 2017 Active as directed Vitamin B12 [facility] 35109027770 100 MCG Orally after breakfast Active not defined PredniSONE [facility] 45153868647 10 MG Orally Once a day Dec 28, 2016 Active 3 tabs qd x 3d, 2 tabs qd x 5d, 1 tab qd x 5d with food or milk NovoLog Mix 70/30 [facility] 54882493198 (70-30) 100 UNIT/ML Subcutaneous as directed Active 15u qam, 18u qpm Omeprazole [facility] 92434494315 40 mg Orally Once a day before breakfast Active 1 capsule Vitamin D [facility] 29559397189 1000 UNIT Orally once a day after breakfast Active 1 tablet Hair Skin Nails [facility] 05094856382 - Orally Active as directed Folic Acid [facility] 94402204933 400 MCG Orally Once a day Active 1 tablet Acetaminophen-Codeine #3 [facility] 52183101697 300-30 MG Orally every 4 hrs PRN Active 1/2 half tablet Iron [facility] 23425531989 325 (65 Fe) MG Orally once a day after breakfast Active 1 tablet Cefdinir [facility] 08506671874 300 MG Orally Twice a day Active 1 capsule Amitriptyline HCl [facility] 16354931743 75 MG Active TAKE 1 TABLET BY MOUTH EVERY NIGHT Simvastatin [facility] 21974007262 20 MG Orally Daily Active 1 TABLET IN THE EVENING ONCE A DAY ORALLY 30 DAY(S) Amitriptyline HCl [facility] 71812275608 50 mg Active TAKE 1 TABLET ONCE A DAY ORALLY 30 DAY(S) Vital Signs Date/Time: Jan 14, 2018 BMI 30.27 Index Weight 155 lbs Height 60 in Temperature 97.8 F Cardiac Monitoring Heart Rate 74 /min Blood Pressure Diastolic 88 mm Hg Blood Pressure Systolic 154 mm Hg Results No Known Results Immunizations Vaccine Administration Date Flu Vaccine - NOT Medicare Jan 14, 2018 Summary Purpose [employer]ClinicalWorks Submission
--- OUTSIDE RECORDS SUMMARY | 2018-11-10 20:13 | XMS REPORT ---
Author Author Serafin Kim Organization [employer] Address Unknown Phone Unavailable Care Team Providers Care [employer] Hospitalist Name Role Phone Serafin Kim CP Unavailable [...] Pressure ulcer of buttock L89.309 Active Problem senior living current use of insulin Z79.4 Active Problem [...]
--- OUTSIDE RECORDS SUMMARY | 2018-11-10 20:13 | XMS REPORT ---
Author Author Serafin Kim Organization [employer] Address Unknown Phone Unavailable Care Team Providers Care Linux Programmer Name Role Phone Serafin Kim CP Unavailable Encounters Encounter Location Date reff, [place] Nov 14, 2013 refill [facility] [place] Nov 15, 2013 coupon [place]af[place], [place] Nov 20, 2013 Problems Problem Type Condition ICD-9 Code Onset Dates Condition Status Problem Generalized anxiety disorder 300.02 Active Problem Other chronic pain 338.29 Active Problem Unspecified arthropathy, site unspecified 716.90 Active Problem Unspecified vitamin D deficiency 268.9 Active Problem Peptic ulcer, unspecified site, unspecified as acute or chronic, without mention of hemorrhage, perforation, or obstruction 533.90 Active Problem Edema 782.3 Active Problem Unspecified myalgia and myositis 729.1 Active Problem Abdominal pain, generalized 789.07 Active Problem Pain in joint, forearm 719.43 Active Problem Nontraumatic hematoma of soft tissue 729.92 Active Problem Abdominal pain, epigastric 789.06 Active Problem Acute bronchitis 466.0 Active Problem Insomnia, unspecified 780.52 Active Problem Other dyspnea and respiratory abnormalities 786.09 Active Problem Acute gastritis without mention of hemorrhage 535.00 Active Problem Anxiety state, unspecified 300.00 Active Problem Pain in joint, pelvic region and thigh 719.45 Active Problem Pain in soft tissues of limb 729.5 Active Problem Acute laryngitis, without mention of obstruction 464.00 Active Problem Cough 786.2 Active Problem Nondependent tobacco use disorder 305.1 Active Problem Nontoxic multinodular goiter 241.1 Active Problem Allergic rhinitis, cause unspecified 477.9 Active Problem Obesity, unspecified 278.00 Active Problem Essential hypertension, benign 401.1 Active Problem Diabetes mellitus without mention of complication, type II or unspecified type, uncontrolled 250.02 Active Problem Obstructive sleep apnea (adult) (pediatric) 327.23 Active Problem Other and unspecified hyperlipidemia 272.4 Active Medications Medication Code System Code Instructions Start Date End Date Status Dosage Tizanidine HCl [facility] [address]-71 4 MG Active TAKE 1 TABLET NEEDED THREE TIMES A DAY (TID) NEEDED (PRN) ORALLY Social History Social History Element Qualifiers Date Reported Tobacco Use: . Are you a: former smoker Nov 14, 2013 Use of recreational / street drugs? . Answer: No Nov 14, 2013 Do you exercise? . Answer: No Nov 14, 2013 Do you drink alcohol? . Status: No Nov 14, 2013 Summary Purpose eClinicalWorks Submission
--- OUTSIDE RECORDS SUMMARY | 2018-11-10 20:13 | XMS REPORT ---
Author Author Serafin Kim Organization [employer] Address Unknown Phone Unavailable Care Team Providers Care Nitrocellulose Operator Name Role Phone Serafin Kim CP [...] w/o complication type II E11.9 Active Problem Pressure ulcer of buttock L89.309 Active Problem Orthostatic hypotension I95.1 Active Problem Muscle spasm M62.838 Active Problem Encounter for immunization Z23 Active Problem Back pain M54.9 Active Problem Altered glucose metabolism due to diabetes E11.9 Active Problem Vitamin B12 deficiency (dietary) anemia D51.8 Active Problem Flu vaccine need Z23 Active Problem GERD (gastroesophageal reflux disease) K21.9 Active Problem Anemia of other chronic disease D63.8 Active Problem Other chronic pain G89.29 Active Problem Iron deficiency anemia due to dietary causes D50.8 Active Problem Pain in thoracic spine M54.6 Active Assessment Pain in thoracic spine M54.6 Active Assessment 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.4 Active Assessment Other and unspecified hyperlipidemia E78.5 Active Assessment Vitamin D deficiency E55.9 Active Assessment Mixed hyperlipidemia E78.2 Active Problem Acquired hypothyroidism E03.9 Active Assessment Vitamin B12 deficiency (dietary) anemia D51.8 Active Problem half-way current use of insulin Z79.4 Active Problem Type 2 diabetes mellitus without complications E11.9 Active Problem Acute lower urinary tract infection N39.0 Active Problem URI with cough and congestion J06.9 Active Problem 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 Active Problem Vaginal yeast infection B37.3 Active Problem Acute lower UTI N39.0 Active Problem Arthropathy M12.9 Active Problem Mixed hyperlipidemia E78.2 Active Problem Tobacco use disorder Z72.0 Active Problem Chronic insomnia F51.04 Active Assessment Type 2 diabetes mellitus with hyperglycemia E11.65 Active Problem Bronchitis J40 Active Assessment Benign essential hypertension I10 Active Problem Right hip pain M25.551 Active Assessment Back pain M54.9 Active Problem Insomnia G47.00 Active Problem Type 2 diabetes mellitus with hyperglycemia E11.65 Active Problem Vitamin D deficiency E55.9 Active Problem Obstructive sleep apnea G47.33 Active Problem Allergic rhinitis J30.9 Active Problem Anxiety state F41.1 Active Medications Medication Code System Code Instructions Start Date End Date Status Dosage GuaiFENesin DM [facility] [address]-71 10-100 MG/5ML Orally every 4 hrs for cough Active 10 ml as needed Diflucan [facility] 00494904418 200 MG Orally Once a day Active 1 tablet Phenazopyridine HCl [facility] 47779862511 200 MG Orally Three times a day Active 1 tablet after meals Benzonatate [facility] 94459527178 200 MG Orally Three times a day prn cough Dec 14, 2016 Nov 21, 2017 Active 1 capsule as needed Meloxicam [facility] 74758448823 15 MG Orally after breakfast October 17, 2018 Active 1 TABLET ONCE A DAY WITH FOOD ORALLY 90 DAYS Vitamin D [facility] 93630390120 1000 UNIT Orally once a day after breakfast Active 1 tablet Vitamin D3 [facility] 25654392053 2000 UNIT Orally twice a day (bid) Active 1 capsule Tussionex Pennkinetic ER [facility] [address]-67 10-8 MG/5ML Orally every 12 hrs Mar 09, 2017 Active 5 ml as needed Acetaminophen-Codeine #3 [facility] 53754347078 300-30 MG Orally every 4 hrs PRN Active 1/2 half tablet PredniSONE [facility] 77800130885 10 MG Orally Once a day Dec 28, 2016 Active 3 tabs qd x 3d, 2 tabs qd x 5d, 1 tab qd x 5d with food or milk Lisinopril [facility] 49187118714 40 mg Orally Once a day before breakfast Jan 11, 2017 Active 1 tablet Trulicity [facility] 67805069721 1.5 MG/0.5ML subcutaneous weekly October 17, 2018 Active INJECT 1 SYRINGE WEEKLY MetFORMIN HCl ER [facility] 03909491336 500 mg Orally as directed Active 2 tablets am, 2 pm NovoLog Mix 70/30 [facility] 54170206464 (70-30) 100 UNIT/ML Subcutaneous as directed Active 15u qam, 18u qpm Folic Acid [facility] 12821640346 400 MCG Orally Once a day Active 1 tablet Cefdinir [facility] 80276471514 300 MG Orally Twice a day Active 1 capsule Robaxin-750 [facility] 48442012288 750 MG Orally Daily October 17, 2018 Active TAKE 1 TABLET BY MOUTH TWICE A DAY Amitriptyline HCl [facility] 28716892822 75 MG Orally as directed Active TAKE 1 TABLET BY MOUTH EVERY NIGHT Meclizine HCl [facility] 42034451029 25 MG Orally four times a day (qid) Mar 08, 2017 Active 1 tablet as needed for dizziness Amitriptyline HCl [facility] 03845490097 50 mg Active TAKE 1 TABLET ONCE A DAY ORALLY 30 DAY(S) Tizanidine HCl [facility] 94785984741 4 MG Orally Daily October 17, 2018 Active TAKE 1 TABLET BY MOUTH 3 TIMES A DAY NEEDED Promethazine-DM [facility] 83772035297 6.25-15 MG/5ML Orally every 6 hrs Dec 28, 2016 Active 5 ml as needed for cough Simvastatin [facility] 37940376983 20 MG Orally Daily Active 1 TABLET IN THE EVENING ONCE A DAY ORALLY 30 DAY(S) Omeprazole [facility] 85542510257 40 mg Orally Once a day before breakfast Active 1 capsule FreeStyle Lite Test Strips and Lancets NDC 0 test strips Capillary three times a day (tid) August 05, 2017 Active as directed Iron [facility] 07625215002 325 (65 Fe) MG Orally once a day after breakfast Active 1 tablet Lisinopril [facility] 74066380339 10 mg Orally Once a day Dec 31, 2015 Active 1 tablet Methocarbamol [facility] 69762858931 750 MG Orally every 4 hrs before breakfast Apr 20, 2018 Active 1 tablet Vitamin B12 [facility] 24670182422 100 MCG Orally after breakfast Active not defined Vital Signs Date/Time: October 22, 2017 BMI 30.66 Index Weight 157 lbs Height 60 in Temperature 98.3 F Cardiac Monitoring Heart Rate 83 /min Blood Pressure Diastolic 88 mm Hg Blood Pressure Systolic 144 mm Hg Results No Known Results Summary Purpose eClinicalWorks Submission
--- OUTSIDE RECORDS SUMMARY | 2018-11-10 20:13 | XMS REPORT ---
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.4 Active Problem Type 2 diabetes mellitus without complications E11.9 Active Problem Anemia of other chronic disease D63.8 Active Problem Acquired hypothyroidism E03.9 Active Problem Chronic insomnia F51.04 Active Problem Right hip pain M25.551 Active Problem URI with cough and congestion J06.9 Active Problem Acute lower urinary tract infection N39.0 Active Assessment Other chronic pain G89.29 Active Assessment Cervicalgia M54.2 Active Problem Tobacco use disorder Z72.0 Active [...] Start Date End Date Status Dosage Simvastatin [facility] 01083098472 20 MG Orally Daily Active 1 TABLET IN THE EVENING ONCE A DAY ORALLY 30 DAY(S) Folic Acid [facility] 08792670273 400 MCG Orally Once a day Active 1 tablet NovoFine Plus [facility] 21026645951 32G X 4 MM August 18, 2018 Active as directed Tizanidine HCl [facility] 56527692191 4 MG Active TAKE 1 TABLET BY MOUTH THREE TIMES A DAY NEEDED Vitamin D [facility] 03076063726 1000 UNIT Orally once a day after breakfast Active 1 tablet Amitriptyline HCl [facility] 16904856593 75 mg po q HS Active TAKE 1 TABLET BY MOUTH EVERY NIGHT Omeprazole [facility] 84332772370 40 mg Orally Once a day before breakfast Active 1 capsule Trulicity [facility] 25303231030 1.5 MG/0.5ML subcutaneous weekly Active INJECT 1 SYRINGE WEEKLY Tresiba FlexTouch [facility] 87153588066 200 UNIT/ML Subcutaneous daily August 17, 2018 Active 30u Methocarbamol [facility] 95580560984 750 MG Orally every 6 hrs prn mm relaxation Active 1-1 tablets Lisinopril [facility] 28040442937 40 mg Orally Once a day before breakfast Jan 11, 2017 Active 1 tablet Vitamin B12 [facility] 67765292771 100 MCG Orally after breakfast Active not defined Iron [facility] 56318595542 325 (65 Fe) MG Orally once a day after breakfast Active 1 tablet Folic Acid [facility] 86166017650 1 MG Orally Once a day August 15, 2018 Feb 11, 2019 Active 1 tablet MetFORMIN HCl ER [facility] 06979078359 500 MG Active TAKE 2 TABLETS BY MOUTH TWICE A DAY Meloxicam [facility] 42221469923 15 MG Orally after breakfast October 17, 2018 Active 1 TABLET ONCE A DAY WITH FOOD ORALLY 90 DAYS Hair Skin Nails [facility] 75189331294 - Orally Active as directed Levemir FlexTouch [facility] 55629509414 100 UNIT/ML Subcutaneous twice a day (bid) August 15, 2018 Active 15u Vital Signs Date/Time: October 14, 2018 BMI 30.66 Index Weight 157 lbs Height 60 in Temperature 97.9 F Cardiac Monitoring Heart Rate 80 /min Blood Pressure Diastolic 98 mm Hg Blood Pressure Systolic 178 mm Hg Results No Known Results Summary Purpose eClinicalWorks Submission
--- OUTSIDE RECORDS SUMMARY | 2018-11-10 20:13 | XMS REPORT ---
Author Author Serafin Kim Organization [employer] Address Unknown Phone Unavailable Care Team Providers Care Accounts Receivable Supervisor Name Role Phone Serafin Kim CP [...] GERD (gastroesophageal reflux disease) K21.9 Active Problem Right hip pain M25.551 Active Problem Mixed hyperlipidemia E78.2 Active Problem [...] Active Problem Peptic ulcer K27.9 Active Problem custodial current use of insulin [...] with cough and congestion J06.9 Active Medications No Known Medications Results No Known Results Summary Purpose eClinicalWorks Submission
--- OUTSIDE RECORDS SUMMARY | 2018-11-10 20:14 | XMS REPORT ---
Author Author Serafin Kim Organization [employer] Address Unknown Phone Unavailable Care Team Providers Care Innersole Fitter Name Role Phone Serafin Kim CP Unavailable Encounters Encounter Location Date Mammogram [place] Jan 12, 2014 Unknown [facility]af[place], [place] Jan 31, 2014 refill meds [place], [place] Feb 07, 2014 reff [facility] Feb 21, 2014 reff, meds [place] Nov 14, 2013 refill [facility] [place], [place] Nov 15, 2013 coupon [facility] [place], [place] Nov 20, 2013 refill meds [place] [place] Apr 13, 2014 refill meds [place] Feb 22, 2014 Unknown [facility]af[place], [place] Mar 12, 2014 Unknown [place]af[place], [place] May 21, 2015 Unknown [facility]af[place], [place] June 12, 2015 Unknown [place] Jan 10, 2015 refill meds [place] Jan 28, 2015 refill request [facility], [place] August 01, 2014 f/u hospital [place] August 24, 2014 Refill [place] Apr 27, 2014 ankle pain and swelling [place] July 26, 2014 Problems Problem Type Condition ICD-9 Code Onset Dates Condition Status Problem Other and unspecified hyperlipidemia E78.5 Active Problem Type 2 diabetes mellitus with hyperglycemia E11.65 Active Problem Benign essential hypertension I10 Active Problem DKA (diabetic ketoacidoses) E13.10 Active Problem DM w/o complication type II E11.9 Active Problem Pressure ulcer of buttock L89.309 Active Problem Furuncle L02.92 Active Problem Vitamin D deficiency E55.9 Active Problem Orthostatic hypotension I95.1 Active Problem Cellulitis of shoulder L03.119 Active Problem Peptic ulcer K27.9 Active Problem Anxiety state F41.1 Active Problem Arthropathy M12.9 Active Problem Obesity, unspecified E66.9 Active Problem Tobacco use disorder Z72.0 Active Problem Insomnia G47.00 Active Problem Nontoxic multinodular goiter E04.2 Active Problem Allergic rhinitis J30.9 Active Problem Obstructive sleep apnea G47.33 Active Medications Medication Code System Code Instructions Start Date End Date Status Dosage Citalopram Hydrobromide [facility] [address]-70 10 mg Orally once every night June 12, 2015 Active 1 tablet Social History Social History Element Qualifiers Date Reported Tobacco Use: . Are you a: former smoker May 21, 2015 Use of recreational / street drugs? . Answer: No May 21, 2015 Do you exercise? . Answer: No May 21, 2015 Do you drink alcohol? . Status: No May 21, 2015 Summary Purpose eClinicalWorks Submission
--- OUTSIDE RECORDS SUMMARY | 2018-11-10 20:14 | XMS REPORT ---
Author Author Serafin Kim Organization [employer] Address Unknown Phone Unavailable Care Team Providers Care Ornamental Ironworking Supervisor Name Role Phone Serafin Kim CP Unavailable Encounters Encounter Location Date Mammogram Seraf[place], [place] Jan 12, 2014 reff, meds [place]af[place] DO, [place] [...] Problem Other and unspecified hyperlipidemia 272.4 Active Social History Social History Element Qualifiers Date Reported Tobacco Use: . Are you a: former smoker Nov 14, 2013 Use of recreational / street drugs? . Answer: No Nov 14, 2013 Do you exercise? . Answer: No Nov 14, 2013 Do you drink alcohol? . Status: No Nov 14, 2013 Summary Purpose eClinicalWorks Submission
--- OUTSIDE RECORDS SUMMARY | 2018-11-10 20:14 | XMS REPORT ---
Author Author Serafin Kim Organization [employer] Address Unknown Phone Unavailable Care Team Providers Care Devil Tender Name Role Phone Serafin Kim CP Unavailable Allergies, Adverse Reactions, Alerts Substance Reaction Event Type N.K.D.A. Info Not Available Non Drug Allergy Encounters Encounter Location Date reff, med[place], [place] Nov 14, 2013 refill [place]af[place], [place] Nov 15, 2013 coupon Serafin [place], [place] Nov 20, 2013 Problems Problem Type Condition ICD-9 Code Onset Dates Condition Status Assessment Anxiety state, unspecified 300.00 Active Assessment Other chronic pain 338.29 Active Assessment Abdominal pain, epigastric 789.06 Active Assessment Acute gastritis without mention of hemorrhage 535.00 Active Problem Generalized anxiety disorder 300.02 Active Problem [...] Instructions Start Date End Date Status Dosage Xanax [facility] [address]-70 1 MG Orally twice a day (bid) as needed (prn) for anxiety October 14, 2012 Active 1 tablet Dexilant [facility] [address]-53 60 MG Orally Once a day Nov 14, 2013 Active 1 capsule Neurontin [facility] [address]-28 300 MG Orally Three times a day for chronic pain October 14, 2012 Active 1 capsule Omeprazole [facility] [address]-23 40 MG Active TAKE ONE CAPSULE BY MOUTH EVERY DAY Cymbalta [facility] [address]-17 60 MG Orally Once a day Active 1 capsule Amlodipine Besy-Benazepril HCl [facility] 56125471333 5-10 MG Inactive TAKE 1 CAPSULE BY MOUTH DAILY Lantus [facility] [address]-14 100 UNIT/ML Subcutaneous Once a day Active 0.02 ml PredniSONE [facility] [address]-50 20 mg Orally Once a day Active 2 tablet with food or milk Amitriptyline HCl [facility] [address]-99 50 MG Active TAKE 1 TABLET BY MOUTH AT BEDTIME Promethazine-DM [facility] [address]-35 6.25-15 MG/5ML Orally every 6 hrs for cough Apr 11, 2013 Active 5 ml as needed Tizanidine HCl [facility] [address]-33 4 MG Active TAKE 1 TABLET NEEDED THREE TIMES A DAY (TID) NEEDED (PRN) ORALLY NovoLog [facility] [address]-81 100 UNIT/ML Subcutaneous Active as directed TraMADol HCl ER [facility] [address]-74 200 MG Orally Once a day Mar 14, 2014 Active 1 tablet PredniSONE [facility] [address]-00 10 mg Orally Once a day Apr 11, 2013 Inactive 3 tabs qd x 3d, 2 tabs qd x 5d, 1 tab qd x 5d with food or milk Xanax [facility] [address]-63 0.5 MG Orally twice a day (bid) as needed (prn) for anxiety October 14, 2012 Active 1 tablet Social History Social History Element Qualifiers Date Reported Tobacco Use: . Are you a: former smoker Nov 14, 2013 Use of recreational / street drugs? . Answer: No Nov 14, 2013 Do you exercise? . Answer: No Nov 14, 2013 Do you drink alcohol? . Status: No Nov 14, 2013 Vital Signs Date/Time: Nov 14, 2013 Weight 182 lbs Height 60 in Temperature 98.5 F Cardiac Monitoring Heart Rate 72 /min Blood Pressure Diastolic 78 mm Hg Blood Pressure Systolic 120 mm Hg Summary Purpose eClinicalWorks Submission
--- OUTSIDE RECORDS SUMMARY | 2018-11-10 20:14 | XMS REPORT ---
Author Author Serafin Kim Organization [employer] Address Unknown Phone Unavailable Care Team Providers Care Ground Support Equipment Assembler Name Role Phone Serafin Kim CP Unavailable Encounters Encounter Location Date Mammogram [place]af[place], [place] Jan 12, 2014 Unknown Serafin Kim DO, [place] Jan 31, 2014 refill meds Serafin Kim DO, [place] Feb 07, 2014 reff Serafin Kim DO, [place] Feb 21, 2014 reff, sumeet Kim DO, [place] Nov 14, 2013 refill Serafin Kim DO, [place] Nov 15, 2013 coupon Serafin Kim DO, [place] Nov 20, 2013 refill meds Serafin Kim DO, [place] Apr 13, 2014 refill meds Serafin Kim DO, [place] Feb 22, 2014 Unknown Serafin Kim DO, [place] Mar 12, 2014 Problems Problem Type Condition ICD-9 Code Onset Dates Condition Status Assessment Anxiety state, unspecified 300.00 Active Social History Social History Element Qualifiers Date Reported Tobacco Use: . Are you a: former smoker Mar 12, 2014 Use of recreational / street drugs? . Answer: No Mar 12, 2014 Do you exercise? . Answer: No Mar 12, 2014 Do you drink alcohol? . Status: No Mar 12, 2014 Summary Purpose [employer]ClinicalWorks Submission
--- OUTSIDE RECORDS SUMMARY | 2018-11-10 20:14 | XMS REPORT ---
Author Author Serafin Kim Organization [employer] Address Unknown Phone Unavailable Care Team Providers Care Customer Security Clerk Name Role Phone Serafin Kim CP [...]
--- OUTSIDE RECORDS SUMMARY | 2018-11-10 20:14 | XMS REPORT ---
Author Author Serafin Kim Organization [employer] Address Unknown Phone Unavailable Care Team Providers Care Lead Game Designer Name Role Phone Serafin Kim CP Unavailable Allergies, Adverse Reactions, Alerts Substance Reaction Event Type N.K.D.A. Info Not Available Non Drug Allergy Encounters Encounter Location Date Mammogram Serafin Kim [...] 21, 2015 Unknown Serafin Kim DO, [place] Jan [...] Active Problem DKA (diabetic ketoacidoses) E13.10 Active Assessment DKA (diabetic ketoacidoses) E13.10 Active Problem DM w/o complication type II E11.9 Active Assessment DM w/o complication type II E11.9 Active Assessment Orthostatic hypotension I95.1 Active Problem Pressure ulcer of buttock L89.309 Active Problem Furuncle L02.92 Active Problem Vitamin D deficiency E55.9 Active Problem Orthostatic hypotension I95.1 Active Problem Cellulitis of shoulder L03.119 Active Problem Peptic ulcer K27.9 Active Problem Anxiety state F41.1 Active Assessment Pressure ulcer of buttock L89.309 Active Problem Arthropathy M12.9 Active Problem Obesity, unspecified E66.9 Active Problem Tobacco use disorder Z72.0 Active Problem Insomnia G47.00 Active Problem Nontoxic multinodular goiter E04.2 Active Problem Allergic rhinitis J30.9 Active Problem Obstructive sleep apnea G47.33 Active Medications Medication Code System Code Instructions Start Date End Date Status Dosage Lantus [facility] [address]-38 100 UNIT/ML Subcutaneous once every night Active 60 units Colace [facility] [address]-36 100 mg Orally twice a day (bid) Active 1 capsule as needed Pantoprazole Sodium [facility] [address]-41 40 MG Orally Once a day Active 1 tablet Multivitamin [facility] 501[address]4675 Orally Active Unknown Amlodipine Besy-Benazepril HCl [facility] [address]-96 5-10 MG Active TAKE 1 CAPSULE BY MOUTH DAILY Vitamin C [facility] 04654-33744 500 MG Orally Active Unknown Levemir [facility] [address]-20 100 UNIT/ML Subcutaneous 40 Units in the morning Active Unknown Amitriptyline HCl [facility] [address]-28 25 MG Orally daily Active TAKE 1 TABLET BY MOUTH AT BEDTIME Lisinopril [facility] [address]-50 5 MG Orally Once a day Active 1 tablet Amlodipine Besylate [facility] [address]-99 5 MG Orally Once a day Active 1 tablet NovoLog [facility] [address]-20 100 UNIT/ML Subcutaneous Active Unknown Invokana [facility] [address]-77 300 MG Orally Once a day Active 1 tablet NovoLog [facility] [address]-33 100 UNIT/ML Subcutaneous BID Active 30 units Omeprazole [facility] [address]-46 40 mg Orally Once a day Active 1 capsule Social History Social History Element Qualifiers Date Reported Tobacco Use: . Are you a: former smoker May 21, 2015 Use of recreational / street drugs? . Answer: No May 21, 2015 Do you exercise? . Answer: No May 21, 2015 Do you drink alcohol? . Status: No May 21, 2015 Family history Qualifier Description Comment Date Reported Maternal Grandmother emphysema May 21, 2015 [...] Other: Comment not available May 21, 2015 Vital Signs Date/Time: May 21, 2015 Weight 135 lbs Height 60 in Temperature 98.4 F Cardiac Monitoring Heart Rate 76 /min Blood Pressure Diastolic 86 mm Hg Blood Pressure Systolic 134 mm Hg Summary Purpose eClinicalWorks Submission
--- OUTSIDE RECORDS SUMMARY | 2018-11-10 20:14 | XMS REPORT ---
Author Author Serafin Kim Organization [employer] Address Unknown Phone Unavailable Care Team Providers Care Education Intern Name Role Phone Serafin Kim CP Unavailable [...] 2013 refill meds Serafin [place] DO, [place] Feb 22, 2014 Problems Problem Type Condition ICD-9 Code Onset Dates Condition Status Assessment Flu vaccine need V04.81 Active Problem Generalized anxiety disorder 300.02 Active [...] alcohol? . Status: No Mar 12, 2014 Family history Qualifier Description Comment Date Reported Maternal Grandmother emphysema Mar 12, 2014 Paternal Grandmother Comment not available Mar 12, 2014 Children alive Comment not available Mar 12, 2014 Maternal Grandfather heart attack Mar 12, 2014 Father colon cancer, diabetes Mar 12, 2014 Mother colon cancer, diabetes Mar 12, 2014 Paternal Grandfather Comment not available Mar 12, 2014 Immunizations Vaccine Administration Date Flu Vaccine - NOT Medicare Jan 31, 2014 Summary Purpose eClinicalWorks Submission
--- OUTSIDE RECORDS SUMMARY | 2018-11-10 20:14 | XMS REPORT ---
Author Author Serafin Kim Organization [employer] Address Unknown Phone Unavailable Care Team Providers Care Physician Compensation Analyst Name Role Phone Serafin Kim CP [...] Serafin Kim DO, [place] Apr 13, 2014 Unknown Serafin Kim DO, [place] July 25, 2015 Refill Serafin Kim DO, [place] July 12, 2015 refill meds Serafin Kim DO, [place] Feb 22, 2014 Unknown Serafin Kim DO, [place] Mar 12, 2014 Unknown Serafin Kim DO, [place] May 21, 2015 Unknown Serafin Kim DO, [place] June 12, 2015 Unknown Serafin Kim DO, [place] Jan 10, 2015 refill meds Serafin Kim DO, [place] Jan 28, 2015 Unknown Serafin Kim DO, [place] October 22, 2015 refill request Serafin Kim DO, [place] August 01, 2014 f/[facility] Serafin Kim DO, [place] August 24, 2014 Refill Serafin Kim DO, [place] Apr 27, 2014 ankle pain and swelling Serafin Kim DO, [place] July 26, 2014 refill meds Serafin Kim DO, [place] June 27, 2015 Problems Problem Type Condition ICD-9 Code Onset Dates Condition Status Problem Benign essential hypertension I10 Active Problem Vitamin D deficiency E55.9 Active Problem Type 2 diabetes mellitus with hyperglycemia E11.65 Active Problem Pressure ulcer of buttock L89.309 Active Assessment Back pain M54.9 Active Problem DKA (diabetic ketoacidoses) E13.10 Active Assessment Type 2 diabetes mellitus with hyperglycemia E11.65 Active Problem Back pain M54.9 Active Problem Cellulitis of shoulder L03.119 Active Problem Furuncle L02.92 Active Problem DM w/o complication type II E11.9 Active Problem Orthostatic hypotension I95.1 Active Problem Anxiety state F41.1 Active Problem Insomnia G47.00 Active Problem Arthropathy M12.9 Active Problem Peptic ulcer K27.9 Active Problem Tobacco use disorder Z72.0 Active Problem Nontoxic multinodular goiter E04.2 Active Problem Allergic rhinitis J30.9 Active Problem Obstructive sleep apnea G47.33 Active Problem Obesity, unspecified E66.9 Active Problem Other and unspecified hyperlipidemia E78.5 Active Medications Medication Code System Code Instructions Start Date End Date Status Dosage Tramadol HCl [facility] [address]-61 50 mg Orally twice a day (bid) for pain July 25, 2015 October 22, 2015 Inactive 1 tablet Robaxin-750 [facility] [address]-04 750 MG Orally twice a day (bid) October 22, 2015 Apr 19, 2016 Active 1 tablet Social History Social History Element Qualifiers Date Reported Tobacco Use: . Are you a: former smoker July 25, 2015 Use of recreational / street drugs? . Answer: No July 25, 2015 Marital Status: . July 25, 2015 Do you exercise? . Answer: No July 25, 2015 Do you drink alcohol? . Status: No July 25, 2015 Summary Purpose eClinicalWorks Submission
--- OUTSIDE RECORDS SUMMARY | 2018-11-10 20:14 | XMS REPORT ---
Author Author Serafin Kim Organization [employer] Address Unknown Phone Unavailable Care Team Providers Care Sink Maker Name Role Phone Serafin Kim CP [...] Serafin Kim DO, [place] Mar 12, 2014 refill request Serafin Kim DO, [place] August 01, 2014 f/u hospital Serafin [place], [place] August 24, 2014 Refill Serafin Kim DO, [place] Apr 27, 2014 ankle pain and swelling Serafin Kim DO, [place] July 26, 2014 Problems Problem Type Condition ICD-9 Code Onset Dates Condition Status Assessment Chest pain 786.50 Active Assessment Peptic ulcer 533.90 Active Assessment Abdominal pain, epigastric 789.06 Active Problem Generalized anxiety disorder 300.02 Active Problem Other chronic pain 338.29 Active Problem Unspecified arthropathy, site unspecified 716.90 Active Problem Peptic ulcer, unspecified site, unspecified as acute or chronic, without mention of hemorrhage, perforation, or obstruction 533.90 Active Problem Unspecified myalgia and myositis 729.1 Active Problem Abdominal pain, generalized 789.07 Active Problem Anxiety state, unspecified 300.00 Active Problem Nontraumatic hematoma of soft tissue 729.92 Active Problem Other dyspnea and respiratory abnormalities 786.09 Active Problem Pain in joint, forearm 719.43 Active Problem Pain in joint, pelvic region and thigh 719.45 Active Problem Pain in soft tissues of limb 729.5 Active Problem Chest pain 786.50 Active Problem Acute gastritis without mention of hemorrhage 535.00 Active Problem Obesity, unspecified 278.00 Active Problem Allergic rhinitis, cause unspecified 477.9 Active Problem Peptic ulcer 533.90 Active Problem Insomnia, unspecified 780.52 Active Problem Acute laryngitis, without mention of obstruction 464.00 Active Problem Cough 786.2 Active Problem Abdominal pain, epigastric 789.06 Active Problem Acute bronchitis 466.0 Active Problem Obstructive sleep apnea (adult) (pediatric) 327.23 Active Problem Other and unspecified hyperlipidemia 272.4 Active Problem Nondependent tobacco use disorder 305.1 Active Problem Nontoxic multinodular goiter 241.1 Active Problem Unspecified vitamin D deficiency 268.9 Active Problem Edema 782.3 Active Problem Essential hypertension, benign 401.1 Active Problem Diabetes mellitus without mention of complication, type II or unspecified type, uncontrolled 250.02 Active Medications Medication Code System Code Instructions Start Date End Date Status Dosage Tizanidine HCl [facility] [address]-47 4 mg August 25, 2014 Active TAKE 1 TABLET NEEDED THREE TIMES A DAY (TID) NEEDED (PRN) ORALLY Xanax [facility] [address]-21 1 MG Orally twice a day (bid) as needed (prn) for anxiety October 14, 2012 Active 1 tablet Pantoprazole Sodium [facility] [address]-27 40 mg Orally Once a day Feb 22, 2014 Active 1 tablet Invokana [facility] [address]-67 300 MG Orally Once a day Active 1 tablet Pantoprazole Sodium [facility] [address]-58 40 mg Orally Once a day August 24, 2014 Active 1 tablet Xanax [facility] [address]-32 0.5 MG Orally twice a day (bid) as needed (prn) for anxiety October 14, 2012 Active 1 tablet Trazodone HCl [facility] [address]-47 50 mg Orally once every night July 26, 2014 Active 1 tablet Promethazine-DM [facility] [address]-68 6.25-15 MG/5ML Orally every 6 hrs for cough Apr 11, 2013 Active 5 ml as needed Welchol [facility] [address]-90 625 MG Orally Twice a day Active 3 tablets with meals Neurontin [facility] [address]-26 300 MG Orally Three times a day for chronic pain October 14, 2012 Active 1 capsule PredniSONE [facility] [address]-98 20 mg Orally Once a day Active 2 tablet with food or milk Creon 20 Unknown 0 66.4-20-75 MU Orally Three times a day Mar 12, 2014 Mar 07, 2015 Active 1 capsule with meals Cevimeline HCl [facility] [address]-16 30 mg Orally once a day Active 1 capsule Amlodipine Besy-Benazepril HCl [facility] [address]-54 5-10 MG Active TAKE 1 CAPSULE BY MOUTH DAILY Amitriptyline HCl [facility] [address]-88 50 mg Active TAKE 1 TABLET BY MOUTH AT BEDTIME Omeprazole [facility] [address]-47 40 MG Active TAKE ONE CAPSULE BY MOUTH EVERY DAY Cymbalta [facility] [address]-53 60 MG Orally Once a day Active 1 capsule NovoLog [facility] [address]-87 100 UNIT/ML Subcutaneous BID Active 30 units Lantus [facility] [address]-00 100 UNIT/ML Subcutaneous once every night Active 60 units Dexilant [facility] [address]-48 60 MG Orally Once a day Nov 14, 2013 Active 1 capsule Social History Social History Element Qualifiers Date Reported Tobacco Use: . Are you a: former smoker August 24, 2014 Use of recreational / street drugs? . Answer: No August 24, 2014 Do you exercise? . Answer: No August 24, 2014 Do you drink alcohol? . Status: No August 24, 2014 Family history Qualifier Description Comment Date Reported Maternal Grandmother emphysema August 24, 2014 [...] Other: Comment not available August 24, 2014 Vital Signs Date/Time: August 24, 2014 Weight 187 lbs Height 60 in Temperature 97.1 F Cardiac Monitoring Heart Rate 90 /min Blood Pressure Diastolic 68 mm Hg Blood Pressure Systolic 138 mm Hg Summary Purpose eClinicalWorks Submission
--- OUTSIDE RECORDS SUMMARY | 2018-11-10 20:14 | XMS REPORT ---
Author Author Serafin Kim Organization [employer] Address Unknown Phone Unavailable Care Team Providers Care Nuclear Engineering Technician Name Role Phone Serafin Kim CP Unavailable [...] Date End Date Status Dosage Amitriptyline [facility] [address]-93 25 MG Orally daily Active TAKE 1 TABLET BY MOUTH AT BEDTIME Pantoprazole Sodium [facility] [address]-38 40 mg Orally Once a day June 27, 2015 Active 1 tablet Social History Social [...]
--- OUTSIDE RECORDS SUMMARY | 2018-11-10 20:14 | XMS REPORT ---
Author Author Serafin Kim Organization [employer] Address Unknown Phone Unavailable Care Team Providers Care Electric Car Operator Name Role Phone Serafin Kim CP Unavailable Encounters Encounter Location Date Mammogram Serafin [place] DO, [place] Jan 12, 2014 Unknown Serafin Kim DO [place] Jan 31, 2014 refill meds Serafin Kim DO, [place] Feb 07, 2014 reff Serafin Kim DO, [place] Feb 21, 2014 reff, meds Serafin Kim DO [place] Nov 14, 2013 refill Serafin Kim DO [place] Nov 15, 2013 coupon Serafin Kim DO [place] Nov 20, 2013 refill meds Serafin Kim DO [place] Apr 13, 2014 Unknown Serafin Kim DO [place] July 25, 2015 Refill Serafin Kim DO [place] July 12, 2015 refill meds Serafin Kim DO [place] Feb 22, 2014 Unknown Serafin Kim DO [place] Mar 12, 2014 Unknown Serafin Kim DO [place] May 21, 2015 Unknown Serafin Kim DO [place] June 12, 2015 Unknown Serafin Kim DO [place] Jan 10, 2015 refill meds Serafin Kim DO [place] Jan 28, 2015 Unknown Serafin Kim DO [place] October 22, 2015 refill request Serafin Kim DO, [place] August 01, 2014 Refill Serafin Kim DO [place] Dec 18, 2015 /[facility] Serafin [place], [place] August 24, 2014 Refill Serafin Kim DO [place] Apr 27, 2014 ankle pain and swelling Serafin Kim DO, [place] July 26, 2014 refill meds Serafin Kim DO, [place] June 27, 2015 Problems Problem Type Condition ICD-9 Code Onset Dates Condition Status Problem Benign essential hypertension I10 Active Problem Vitamin D deficiency E55.9 Active Problem Type 2 diabetes mellitus with hyperglycemia E11.65 Active Problem Pressure ulcer of buttock L89.309 Active Assessment Peptic ulcer K27.9 Active Problem DKA (diabetic ketoacidoses) E13.10 Active Assessment Benign essential hypertension I10 Active Problem Back pain M54.9 Active Problem [...] Start Date End Date Status Dosage Omeprazole [facility] [address]-32 40 mg Orally Once a day July 25, 2015 Active 1 capsule Lisinopril [facility] [address]-37 2.5 MG Orally Once a day July 25, 2015 Active 1 tablet Social History Social [...]
--- OUTSIDE RECORDS SUMMARY | 2018-11-10 20:14 | XMS REPORT ---
Author Author Serafin Kim Organization [employer] Address Unknown Phone Unavailable Care Team Providers Care Terminal System Operator Name Role Phone Serafin Kim CP [...] Seraf[facility] [place] DO, [place] August 01, 2014 [facility] [place] August 24, 2014 Refill Serafin Kim DO, [place] Apr 27, 2014 ankle pain and swelling Serafin Kim DO, [place] July 26, 2014 refill meds Serafin Kim DO, [place] June 27, 2015 Problems Problem Type Condition ICD-9 Code Onset Dates Condition Status Problem Obstructive sleep apnea G47.33 Active Assessment Peptic ulcer K27.9 Active Problem Other and unspecified hyperlipidemia E78.5 Active Assessment Other and unspecified hyperlipidemia E78.5 Active Problem Benign essential hypertension I10 Active Problem Vitamin D deficiency E55.9 Active Problem Type 2 diabetes mellitus with hyperglycemia E11.65 Active Problem Pressure ulcer of buttock L89.309 Active Problem DKA (diabetic ketoacidoses) E13.10 Active Assessment Benign essential hypertension I10 Active Assessment Type 2 diabetes mellitus with hyperglycemia E11.65 Active Problem Back pain M54.9 Active Assessment Back pain M54.9 Active Problem Cellulitis of [...] J30.9 Active Problem Obesity, unspecified E66.9 Active Medications Medication Code System Code Instructions Start Date End Date Status Dosage NovoLog [facility] [address]-76 100 UNIT/ML Subcutaneous Active Unknown Tramadol HCl [facility] [address]-65 50 mg Orally daily for pain July 25, 2015 October 23, 2015 Active 1 tablet as needed Tizanidine HCl [facility] [address]-08 4 mg Orally three times a day (tid) July 12, 2015 Jan 09, 2016 Active 1 tablet as needed Citalopram Hydrobromide [facility] [address]-30 10 mg Orally once every night June 12, 2015 Active 1 tablet Levemir [facility] [address]-96 100 UNIT/ML Subcutaneous 40 Units in the morning Active Unknown Colace [facility] [address]-58 100 mg Orally twice a day (bid) Active 1 capsule as needed Pantoprazole Sodium [facility] [address]-32 40 mg Orally Once a day June 27, 2015 Active 1 tablet Amlodipine Besy-Benazepril HCl [facility] [address]-11 5-10 MG Active TAKE 1 CAPSULE BY MOUTH DAILY Lisinopril [facility] [address]-98 5 MG Orally Once a day Active 1 tablet Invokana [facility] [address]-98 300 MG Orally Once a day Active 1 tablet Omeprazole [facility] [address]-96 40 mg Orally Once a day Active 1 capsule Multivitamin [facility] 30869-[address]24 Orally Active Unknown Vitamin C [facility] 54[address]694 500 MG Orally Active Unknown Lisinopril [facility] [address]-69 2.5 MG Orally Once a day July 25, 2015 Active 1 tablet Lantus [facility] [address]-40 100 UNIT/ML Subcutaneous once every night Active 60 units Pantoprazole Sodium [facility] [address]-58 40 MG Orally Once a day Active 1 tablet NovoLog [facility] [address]-71 100 UNIT/ML Subcutaneous BID Active 30 units Amitriptyline HCl [facility] [address]-15 25 MG Orally daily Active TAKE 1 TABLET BY MOUTH AT BEDTIME Omeprazole [facility] [address]-55 40 mg Orally Once a day July 25, 2015 Active 1 capsule Amlodipine Besylate [facility] [address]-52 5 MG Orally Once a day Active 1 tablet Social History Social History Element Qualifiers Date Reported Tobacco Use: . Are you a: former smoker July 25, 2015 Use of recreational / street drugs? . Answer: No July 25, 2015 Marital Status: . July 25, 2015 Do you exercise? . Answer: No July 25, 2015 Do you drink alcohol? . Status: No July 25, 2015 Family history Qualifier Description Comment Date Reported Maternal Grandmother emphysema July 25, 2015 [...] Other: Comment not available July 25, 2015 Vital Signs Date/Time: July 25, 2015 Weight 130 lbs Height 60 in Temperature 97.9 F Cardiac Monitoring Heart Rate 84 /min Blood Pressure Diastolic 86 mm Hg Blood Pressure Systolic 152 mm Hg Summary Purpose eClinicalWorks Submission
--- OUTSIDE RECORDS SUMMARY | 2018-11-10 20:14 | XMS REPORT ---
Author Author Serafin Kim Organization [employer] Address Unknown Phone Unavailable Care Team Providers Care Cleaning Associate Name Role Phone Serafin Kim CP Unavailable Encounters Encounter Location Date Mammogram [place] Jan 12, 2014 Unknown [place] Jan 31, 2014 refill meds [place]af[place] Feb 07, 2014 reff Seraf[place], [place] Feb 21, 2014 reff, mednata [place] Nov 14, 2013 refill [place]afin [place], [place] Nov 15, 2013 coupon Serafin [place], [place] Nov 20, 2013 refill meds [place]af[place], [place] Apr 13, 2014 refill meds [place]af[place], [place] Feb 22, 2014 Unknown Serafin [place], [place] Mar 12, 2014 Unknown Serafin Kim DO, [place] Jan 10, [...] ICD-9 Code Onset Dates Condition Status Problem Obesity, unspecified E66.9 Active Problem Nontoxic multinodular goiter E04.2 Active Problem Tobacco use disorder Z72.0 Active Problem Furuncle L02.92 Active Problem Vitamin D deficiency E55.9 Active Problem Cellulitis of shoulder L03.119 Active Problem Other and unspecified hyperlipidemia E78.5 Active Problem Obstructive sleep apnea G47.33 Active Problem Type 2 diabetes mellitus with hyperglycemia E11.65 Active Problem Benign essential hypertension I10 Active Problem Peptic ulcer K27.9 Active Problem Anxiety state F41.1 Active Problem Insomnia G47.00 Active Problem Arthropathy M12.9 Active Problem Allergic rhinitis J30.9 Active Medications Medication Code System Code Instructions Start Date End Date Status Dosage Diflucan MEDISPAN [address]-17 150 MG Orally Once a day Jan 28, 2015 Jan 30, 2015 Active 1 tablet Social History Social History Element Qualifiers Date Reported Tobacco Use: . Are you a: former smoker Jan 10, 2015 Use of recreational / street drugs? . Answer: No Jan 10, 2015 Do you exercise? . Answer: No Jan 10, 2015 Do you drink alcohol? . Status: No Jan 10, 2015 Summary Purpose [employer] Submission
--- OUTSIDE RECORDS SUMMARY | 2018-11-10 20:14 | XMS REPORT ---
Author Author Serafin Kim Organization [employer] Address Unknown Phone Unavailable Care Team Providers Care Bulldozer Operator Name Role Phone Serafin Kim CP [...] Instructions Start Date End Date Status Dosage Pantoprazole Sodium [facility] [address]-27 40 mg Orally Once a day Feb 22, 2014 Active 1 tablet Social History Social History [...] Grandfather Comment not available Mar 12, 2014 Summary Purpose [employer] Submission
--- OUTSIDE RECORDS SUMMARY | 2018-11-10 20:14 | XMS REPORT ---
Author Author Serafin Kim Organization [employer] Address Unknown Phone Unavailable Care Team Providers Care Fourdrinier Operator Name Role Phone Serafin Kim CP [...]
--- OUTSIDE RECORDS SUMMARY | 2018-11-10 20:14 | XMS REPORT ---
Author Author Serafin Kim Organization [employer] Address Unknown Phone Unavailable Care Team Providers Care Vault Manager Name Role Phone Serafin Kim CP [...] ICD-9 Code Onset Dates Condition Status Assessment Acute gastritis without mention of hemorrhage [...] Instructions Start Date End Date Status Dosage Dexilant [employer] [address]-62 60 MG Orally Once a day Nov [...]
--- OUTSIDE RECORDS SUMMARY | 2018-11-10 20:14 | XMS REPORT ---
Author Author Serafin Kim Organization [employer] Address Unknown Phone Unavailable Care Team Providers Care Courtroom Deputy Name Role Phone Serafin Kim CP Unavailable Encounters Encounter Location Date Mammogram [place] Jan 12, 2014 Unknown Serafin [place], [place] Jan 31, 2014 refill meds Serafin [place] DO, [place] Feb 07, 2014 reff Serafin [place], [place] Feb 21, 2014 reff, mednata [place] DO, [place] Nov 14, 2013 Refill Serafin [place] DO, [place] Apr 27, 2014 refill Serafin Kim DO, [place] Nov 15, 2013 coupon Serafin Kim DO, [place] Nov 20, 2013 refill meds Serafin Kim DO, [place] Apr 13, 2014 refill meds Serafin Kim DO, [place] Feb 22, 2014 Unknown Serafin Kim DO, [place] Mar 12, 2014 Problems Problem Type Condition ICD-9 Code Onset Dates Condition Status Assessment Unspecified myalgia and myositis 729.1 Active Social History Social History Element Qualifiers Date Reported Tobacco Use: . Are you a: former smoker Mar 12, 2014 Use of recreational / street drugs? . Answer: No Mar 12, 2014 Do you exercise? . Answer: No Mar 12, 2014 Do you drink alcohol? . Status: No Mar 12, 2014 Summary Purpose [employer]Works Submission
--- OUTSIDE RECORDS SUMMARY | 2018-11-10 20:14 | XMS REPORT ---
Author Author Serafin Kim Organization [employer] Address Unknown Phone Unavailable Care Team Providers Care Studio Producer Name Role Phone Serafin Kim CP Unavailable [...] Serafin Kim DO, [place] Apr 13, 2014 Refill Serafin Kim DO, [place] July 12, [...] Date End Date Status Dosage Tizanidine HCl [facility] [address]-02 4 mg Orally three times a day (tid) July 12, 2015 Jan 09, 2016 Active 1 tablet as needed Social History Social History Element Qualifiers Date Reported Tobacco Use: . Are you a: former smoker May 21, 2015 Use of recreational / street drugs? . Answer: No May 21, 2015 Do you exercise? . Answer: No May 21, 2015 Do you drink alcohol? . Status: No May 21, 2015 Summary Purpose [employer] Submission
--- OUTSIDE RECORDS SUMMARY | 2018-11-10 20:15 | XMS REPORT ---
Author Author Serafin Kim Organization [employer] Address Unknown Phone Unavailable Care Team Providers Care Jack Winder Name Role Phone Serafin Kim CP Unavailable Encounters Encounter Location Date refill meds Serafin [place], [place] Apr 13, 2014 Unknown Serafin Kim DO, [place] May [...] Serafin Kim DO, [place] June 27, 2015 Mammogram Serafin Kim DO, [place] Jan 12, 2014 Unknown Serafin Kim DO, [place] Jan 31, 2014 refill meds Serafin Kim DO, [place] Feb 07, 2014 reff Serafin Kim DO, [place] Feb 21, 2014 reff, meds Serafin Kim DO [place] Nov 14, 2013 refill Serafin Kim DO [place] Nov 15, 2013 coupon Serafin Kim DO [place] Nov 20, 2013 Unknown Serafin Kim DO, [place] July 25, 2015 Refill Serafin Kim DO [place] July 12, 2015 refill meds Serafin Kim DO [place] Feb 22, 2014 Unknown Serafin Kim DO, [place] Mar 12, 2014 Refill Serafin Kim DO, [place] Jan 06, 2016 Unknown Serafin Kim DO, [place] Jan 06, 2016 Unknown Serafin Kim DO, [place] October 22, 2015 Refill Serafin Kim DO, [place] Dec 18, 2015 Unknown Serafin Kim DO, [place] Dec 31, 2015 Unknown Serafin Kim DO, [place] Jan 06, 2016 Problems Problem Type Condition ICD-9 Code Onset Dates Condition Status Problem Vitamin D deficiency E55.9 Active Assessment GERD (gastroesophageal reflux disease) K21.9 Active Problem Furuncle L02.92 Active Problem Arthropathy M12.9 Active Problem Cellulitis of shoulder L03.119 Active Problem DM w/o complication type II E11.9 Active Problem Orthostatic hypotension I95.1 Active Problem Flu vaccine need Z23 Active Problem GERD (gastroesophageal reflux disease) K21.9 Active Problem Insomnia G47.00 Active Problem Anxiety state F41.1 Active Problem Encounter for immunization Z23 Active Problem Peptic ulcer K27.9 Active Problem Pressure ulcer of buttock L89.309 Active Problem DKA (diabetic ketoacidoses) E13.10 Active Problem Muscle spasm M62.838 Active Problem Back pain M54.9 Active Problem Tobacco use disorder Z72.0 Active Problem Nontoxic multinodular goiter E04.2 Active Problem Allergic rhinitis J30.9 Active Problem Obesity, unspecified E66.9 Active Problem Benign essential hypertension I10 Active Problem Type 2 diabetes mellitus with hyperglycemia E11.65 Active Problem Obstructive sleep apnea G47.33 Active Problem Other and unspecified hyperlipidemia E78.5 Active Medications Medication Code System Code Instructions Start Date End Date Status Dosage Pantoprazole Sodium [facility] [address]-83 40 mg Orally Once a day June 27, 2015 Active 1 tablet Social History Social History Element Qualifiers Date Reported Tobacco Use: . Are you a: former smoker Dec 31, 2015 Use of recreational / street drugs? . Answer: No Dec 31, 2015 Marital Status: . Dec 31, 2015 Do you exercise? . Answer: No Dec 31, 2015 Do you drink alcohol? . Status: No Dec 31, 2015 Summary Purpose eClinicalWorks Submission
--- OUTSIDE RECORDS SUMMARY | 2018-11-10 20:15 | XMS REPORT ---
Author Author Serafin Kim Organization [employer] Address Unknown Phone Unavailable Care Team Providers Care Glycerine Plant Operator Name Role Phone Serafin Kim CP [...] 2016 Unknown Serafin Kim DO, [place] Jan 30, 2016 Refill Serafin Kim DO, [place] Mar 10, 2016 Unknown Serafin Kim DO, [place] October 22, 2015 Refill Serafin Kim DO, [place] Dec 18, 2015 Unknown Serafin Kim DO, [place] Dec 31, 2015 Unknown Serafin Kim DO, [place] Jan 06, 2016 Problems Problem Type Condition ICD-9 Code Onset Dates Condition Status Problem Cellulitis of shoulder L03.119 Active Problem DM w/o complication type II E11.9 Active Problem Orthostatic hypotension I95.1 Active Problem Flu vaccine need Z23 Active Problem Insomnia G47.00 Active Problem GERD (gastroesophageal reflux disease) K21.9 Active Problem Anxiety state F41.1 Active Problem Peptic ulcer K27.9 Active Problem Encounter for immunization Z23 Active Problem Pressure ulcer of buttock L89.309 [...] Problem Obstructive sleep apnea G47.33 Active Problem Vitamin D deficiency E55.9 Active Problem Arthropathy M12.9 Active Problem Other and unspecified hyperlipidemia E78.5 Active Problem Furuncle L02.92 Active Medications Medication Code System Code Instructions Start Date End Date Status Dosage Simvastatin [facility] [address]-77 20 MG Orally Once a day Active 1 tablet in the evening Social History Social History Element Qualifiers Date [...]
--- OUTSIDE RECORDS SUMMARY | 2018-11-10 20:15 | XMS REPORT ---
Author Author Serafin Kim Organization [employer] Address Unknown Phone Unavailable Care Team Providers Care Acetone Recovery Worker Name Role Phone Serafin Kim CP Unavailable [...] PA August 01, 2014 Refill Serafin Kim DO, [place] Dec 18, 2015 f/u [facility] Serafin Kim DO, [place] August 24, 2014 Unknown Serafin Kim DO, [place] Dec 31, 2015 Refill Serafin Kim DO, [place] Apr 27, 2014 ankle pain and swelling Serafin Kim DO, [place] July 26, 2014 refill meds Serafin Kim DO, [place] June 27, 2015 Problems Problem Type Condition ICD-9 Code Onset Dates Condition Status Assessment Muscle spasm M62.838 Active Assessment GERD (gastroesophageal reflux disease) K21.9 Active Assessment Flu vaccine need Z23 Active Assessment Insomnia G47.00 Active Assessment Encounter for immunization Z23 Active Problem Vitamin D deficiency E55.9 Active Assessment Benign essential hypertension I10 Active Problem Furuncle L02.92 Active Problem Arthropathy [...] Date End Date Status Dosage Amitriptyline HCl [facility] [address]-54 50 mg Orally Once a day Dec 31, 2015 Active 1 tablet Amitriptyline HCl [facility] [address]-07 25 MG Orally daily Inactive TAKE 1 TABLET BY MOUTH AT BEDTIME Omeprazole [facility] [address]-61 40 mg Orally Once a day July 25, 2015 Active 1 capsule Tizanidine HCl [facility] 37166085143 4 mg Orally three times a day (tid) Active 1 tablet as needed Lantus [facility] [address]-83 100 UNIT/ML Subcutaneous once every night Active 60 units Lisinopril [facility] [address]-89 10 mg Orally Once a day Dec 31, 2015 Active 1 tablet Robaxin-750 [facility] [address]-64 750 MG Orally twice a day (bid) October 22, 2015 June 28, 2016 Active 1 tablet NovoLog [facility] [address]-58 100 UNIT/ML Subcutaneous Active Unknown Lisinopril [facility] [address]-97 2.5 MG Orally Once a day July 25, 2015 Active 1 tablet Pantoprazole Sodium [facility] [address]-09 40 mg Orally Once a day June [...] alcohol? . Status: No Dec 31, 2015 Family history Qualifier Description Comment Date Reported Maternal Grandmother emphysema Dec 31, 2015 [...] Other: Comment not available Dec 31, 2015 Vital Signs Date/Time: Dec 31, 2015 Weight 170 lbs Height 60 in Temperature 97.1 F Cardiac Monitoring Heart Rate 84 /min Blood Pressure Diastolic 94 mm Hg Blood Pressure Systolic 192 mm Hg Immunizations Vaccine Administration Date Flu Vaccine - NOT Medicare Dec 31, 2015 Summary Purpose eClinicalWorks Submission
--- OUTSIDE RECORDS SUMMARY | 2018-11-10 20:15 | XMS REPORT ---
Author Author Serafin Kim Organization [employer] Address Unknown Phone Unavailable Care Team Providers Care Truck And Transport Mechanic Name Role Phone Serafin Kim CP Unavailable [...] Serafin Kim DO, PA Jan 30, 2016 Unknown Serafin Kim DO, PA October [...] Start Date End Date Status Dosage Simvastatin [facility] [address]-22 20 MG Orally Once a day Active [...]
--- OUTSIDE RECORDS SUMMARY | 2018-11-10 20:15 | XMS REPORT ---
Author Author Serafin Kim Organization [employer] Address Unknown Phone Unavailable Care Team Providers Care C++ Professor Name Role Phone Serafin Kim CP Unavailable [...] 12, 2014 Unknown Serafin Kim DO, [place] October 22, [...] hyperlipidemia E78.5 Active Problem Furuncle L02.92 Active Social History Social History Element Qualifiers [...]
--- OUTSIDE RECORDS SUMMARY | 2018-11-10 20:15 | XMS REPORT ---
Author Author Serafin Kim Organization [employer] Address Unknown Phone Unavailable Care Team Providers Care Cemetery Keeper Name Role Phone Serafin Kim CP Unavailable Encounters Encounter Location Date refill meds [place]afin [place], [place] Apr 13, 2014 Refill Serafin Kim DO, [place] Mar 12, 2016 Unknown Serafin Kim DO, [place] May 21, [...] Serafin Kim DO, [place] Nov 20, 2013 Unknown Serafin Kim [...] Kim DO, [place] Dec 18, 2015 Unknown Serafni Kim DO, [place] Dec 31, 2015 Unknown [...] Start Date End Date Status Dosage Simvastatin [facility] [address]-44 20 MG Orally Once a day Active [...]
--- OUTSIDE RECORDS SUMMARY | 2018-11-10 20:15 | XMS REPORT ---
Author Author Serafin Kim Organization [employer] Address Unknown Phone Unavailable Care Team Providers Care Dance Entertainer Name Role Phone Serafin Kim CP Unavailable [...] Kim DO PA Feb 22, 2014 Unknown Serfain Kim DO, [place] Mar 12, 2014 Refill [...]
--- OUTSIDE RECORDS SUMMARY | 2018-11-10 20:15 | XMS REPORT ---
Author Author Serafin Kim Organization [employer] Address Unknown Phone Unavailable Care Team Providers Care Technician Chemical Cleaning Name Role Phone Serafin Kim CP Unavailable Allergies, Adverse Reactions, Alerts Substance Reaction Event Type N.K.D.A. Info Not Available Non Drug Allergy Encounters Encounter Location Date refill meds Serafin [place], [place] Apr 13, 2014 Follow-Up Serafin Kim DO, [place] Apr 01, 2016 Refill Serafin Kim DO, [place] Mar 12, [...] ICD-9 Code Onset Dates Condition Status Assessment Anemia of other chronic disease D63.8 Active Assessment Vitamin B12 deficiency (dietary) anemia D51.8 Active Problem Arthropathy M12.9 Active Assessment Altered glucose metabolism due to diabetes E11.9 Active Problem Peptic ulcer K27.9 Active Problem Anxiety state F41.1 Active Problem Insomnia G47.00 Active Problem Allergic rhinitis J30.9 Active Problem Obesity, unspecified E66.9 Active Problem Back pain M54.9 Active Problem Tobacco use disorder Z72.0 Active Problem Muscle spasm M62.838 Active Problem Nontoxic multinodular goiter E04.2 Active Problem GERD (gastroesophageal reflux disease) K21.9 Active Problem Encounter for immunization Z23 Active Problem Flu vaccine need Z23 Active Problem Acquired hypothyroidism E03.9 Active Problem Iron deficiency anemia due to dietary causes D50.8 Active Problem Benign essential hypertension I10 Active Problem Other and unspecified hyperlipidemia E78.5 Active Problem Anemia of other chronic disease D63.8 Active Problem Obstructive sleep apnea G47.33 Active Problem Other chronic pain G89.29 Active Problem Pain in thoracic spine M54.6 Active Problem Altered glucose metabolism due to diabetes E11.9 Active Problem Vitamin B12 deficiency (dietary) anemia D51.8 Active Assessment Iron deficiency anemia due to dietary causes D50.8 Active Problem Furuncle L02.92 Active Assessment Acquired hypothyroidism E03.9 Active Problem Cellulitis of shoulder L03.119 Active Assessment Other chronic pain G89.29 Active Problem Type 2 diabetes mellitus with hyperglycemia E11.65 Active Assessment Pain in thoracic spine M54.6 Active Problem Vitamin D deficiency E55.9 Active Problem DKA (diabetic ketoacidoses) E13.10 Active Problem Pressure ulcer of buttock L89.309 Active Problem Orthostatic hypotension I95.1 Active Problem DM w/o complication type II E11.9 Active Medications Medication Code System Code Instructions Start Date End Date Status Dosage Lisinopril [facility] [address]-12 40 MG Orally Once a day Dec 31, 2015 Active 1 tablet Amitriptyline HCl [facility] [address]-81 50 mg Orally Once a day Dec 31, 2015 Active 1 tablet Pantoprazole Sodium [facility] [address]-19 40 mg Orally Once a day June 27, 2015 Active 1 tablet Trulicity [facility] [address]-66 1.5 MG/0.5ML Subcutaneous Active 0.5 ml Meloxicam [facility] [address]-78 15 MG Orally Once a day with food Apr 01, 2016 Mar 27, 2017 Active 1 tablet Tizanidine HCl [facility] 71465754190 4 mg Orally three times a day (tid) Active 1 tablet as needed Iron [facility] 02770[address]72 325 (65 Fe) MG Orally Once a day Active 1 tablet Lantus [facility] [address]-28 100 UNIT/ML Subcutaneous once every night Active 60 units NovoLog Mix 70/30 [facility] [address]-35 (70-30) 100 UNIT/ML Subcutaneous as directed Active 28u QAM, 22u QPM Simvastatin [facility] [address]-59 20 MG Orally Once a day Active 1 tablet in the evening NovoLog [facility] [address]-43 100 UNIT/ML Subcutaneous Active Unknown Vitamin B12 [facility] 98782-48627 100 MCG Orally Active Unknown Lisinopril [facility] [address]-82 2.5 MG Orally Once a day July 25, 2015 Active 1 tablet Omeprazole [facility] [address]-37 40 mg Orally Once a day July 25, 2015 Active 1 capsule Robaxin-750 [facility] [address]-05 750 MG Orally twice a day (bid) October 22, 2015 June 28, 2016 Active 1 tablet Vitamin D [facility] [address]-72 1000 UNIT Orally Once a day Active [...] alcohol? . Status: No Apr 01, 2016 Family history Qualifier Description Comment Date Reported Maternal Grandmother emphysema Apr 01, 2016 [...] Other: Comment not available Apr 01, 2016 Vital Signs Date/Time: Apr 01, 2016 Weight 170 lbs Height 60 in Temperature 97.3 F Cardiac Monitoring Heart Rate 64 /min Blood Pressure Diastolic 85 mm Hg Blood Pressure Systolic 125 mm Hg Summary Purpose eClinicalWorks Submission
--- OUTSIDE RECORDS SUMMARY | 2018-11-10 20:16 | XMS REPORT | Summary of Care ---
Author Author [facility] Organization [facility] Address Unknown Phone Unavailable Encounter BOB Herzog(KRANTHI) [id number] Date(s): 02/24/17 - 02/24/17 [facility] [address] [place] [address]- [phone] Discharge Diagnosis: Acute lower urinary tract infection Discharge Disposition: Home or Self Care Attending Physician: Trung Blount MD Vital Signs Most recent to 1 2 oldest [Reference Range]: Height 152.4 cm (02/24/17 7:09 AM) Temperature Oral 98.7 DegF 99.1 DegF [96.4-99.1 DegF] (02/24/17 9:50 AM) (02/24/17 7:09 AM) Blood Pressure 160/85 mmHg 160/80 mmHg [90-140/60-90 mmHg] *HI* *HI* (02/24/17 9:50 AM) (02/24/17 7:09 AM) Respiratory Rate 18 BRMIN 18 BRMIN [14-20 BRMIN] (02/24/17 9:50 AM) (02/24/17 7:09 AM) Peripheral Pulse 82 bpm 90 bpm Rate [60-100 bpm] (02/24/17 9:50 AM) (02/24/17 7:09 AM) Weight 68.182 kg (02/24/17 7:09 AM) Body Mass Index 29.36 m2 (02/24/17 7:09 AM) Problem List Condition Effective Dates Status Health Status Informant Allergic rhinitis1 01/06/11 Active Anxiety disorder2 12/09/10 Active Arthritis3 12/09/10 Active Benign essential 04/16/10 Active hypertension4 Bronchitis5 03/17/12 Resolved Depression(Confirmed Resolved ) Fibromyositis6 12/09/10 Active Headache7 10/1/14 Active HTN - Resolved Hypertension(Confirm ed) Hyperlipidemia8 04/16/10 Active Insomnia9 12/26/10 Active Multinodular 04/16/10 Active nfnovc58 Vtskkad29 04/16/10 Active Obstructive sleep 02/13/11 Active apnea oqfnfvjt21 Peptic ulcer13 12/09/10 Active Vxwysv62 12/09/10 Active Wjjpaca67 12/09/10 Active Streptococcal sore 03/17/12 Resolved wpllmi76 Thyroid Resolved disease(Confirmed) Type II diabetes 04/16/10 Active mellitus fihiysysuqrb64 Upper respiratory 05/29/11 Resolved whuhwucff89 Vitamin D 09/10/12 Active uebkhmpdke28 1Data migrated from [employer] on 09/01/14. 2Data migrated from [employer] on 09/01/14. 3Data migrated from [employer] on 09/01/14. 4Data migrated from [employer] on 09/01/14. 5Data migrated from [employer] on 10/19/14. 6Data migrated from [employer] on 09/01/14. 7Data migrated from [employer] on 09/01/14. 8Data migrated from [employer] on 09/01/14. 9Data migrated from [employer] on 09/01/14. 10Data migrated from [employer] on 09/01/14. 11Data migrated from [employer] on 09/01/14. 12Data migrated from [employer] on 09/01/14. 13Data migrated from [employer] on 09/01/14. 14Data migrated from [employer] on 09/01/14. 15Data migrated from [employer] on 09/01/14. 16Data migrated from [employer] on 10/19/14. 17Data migrated from [employer] on 09/01/14. 18Data migrated from [employer] on 10/19/14. 19Data migrated from [employer] on 09/01/14. Allergies, Adverse Reactions, Alerts Substance Reaction Severity Status NKDA Active Medications Keflex 500 mg oral capsule 500 mg=1 cap, PO, TID, X 10 day, # 30 cap, 0 Refill(s), Pharmacy: [facility]/pharmacy # [id number] Start Date: 02/24/17 Stop Date: 02/24/17 Status: Discontinued Keflex 500 mg oral capsule 500 mg=1 cap, PO, TID, X 10 day, # 30 cap, 0 Refill(s), Pharmacy: [facility]/pharmacy # [id number] Start Date: 02/24/17 Stop Date: 03/06/17 Status: Ordered Pyridium 200 mg oral tablet 200 mg=1 tab, PO, TID, PRN Dysuria, X 2 day, # 6 tab, 0 Refill(s), Pharmacy: [facility] /pharmacy #[id number] Start Date: 02/24/17 Stop Date: 02/26/17 Status: Completed Pyridium 200 mg oral tablet 200 mg=1 tab, PO, TID, PRN Dysuria, X 2 day, # 6 tab, 0 Refill(s), Pharmacy: [facility] /pharmacy #[id number] Start Date: 02/24/17 Stop Date: 02/26/17 Status: Completed Rocephin 1 gm, Route: IM, Drug form: PDR/INJ, ONCE, Dosing Weight 68.182, kg, Priority: S TAT, Start date: 02/24/17 8:43:00 CHEMICAL PACKAGER, Stop date: 02/24/17 8:43:00 CHEMICAL PACKAGER, ABX Millie cation: Urinary Tract Infection Notes: (Same As: Rocephin). MEDICATION WASTE Product Size: 1000 mgProduct Wasted: _0__ mg Start Date: 02/24/17 Stop Date: 02/24/17 Status: Completed Tylenol with Codeine #3 oral tablet 1 - 2 tab, PO, Q4H, PRN Pain, X 2 day, # 12 tab, 0 Refill(s) Start Date: 02/24/17 Stop Date: 02/24/17 Status: Discontinued Results URINE AND STOOL Most recent to 1 oldest [Reference Range]: UA Turbidity [Clear] Clear (02/24/17 8:17 AM) UA Color [Yellow] Yellow *NA* (02/24/17 8:17 AM) UA pH [5.0-8.0] 5.0 (02/24/17 8:17 AM) UA Spec Grav 1.023 [<=1.030] (02/24/17 8:17 AM) UA Glucose [Negative Negative mg/dL mg/dL] *NA* (02/24/17 8:17 AM) UA Blood [Negative] Large *ABN* (02/24/17 8:17 AM) UA Ketones [Negative Trace mg/dL mg/dL] *ABN* (02/24/17 8:17 AM) UA Protein [Negative Negative mg/dL mg/dL] (02/24/17 8:17 AM) UA Urobilinogen <=1.0 mg/dL [0.1-1.0 mg/dL] *NA* (02/24/17 8:17 AM) UA Bili [Negative] Small *ABN* (02/24/17 8:17 AM) UA Leuk Est Small [Negative] *ABN* (02/24/17 8:17 AM) UA Nitrite Negative [Negative] (02/24/17 8:17 AM) UA WBC [0-5 /HPF] 15 /HPF *HI* (02/24/17 8:17 AM) UA RBC [0-2 /HPF] >182 /HPF *HI* (02/24/17 8:17 AM) UA Sq Epi [Few /LPF] Few /LPF *NA* (02/24/17 8:17 AM) UA Mucus [None Seen Many /LPF /LPF] *ABN* (02/24/17 8:17 AM) UA Trans Epi [<=0 4 /LPF /LPF] *HI* (02/24/17 8:17 AM) Immunizations No data available for this section Procedures Procedure Date Related Diagnosis Body Site Appendectomy Other1 Other2 Tonsillectomy 1Nisson Fundiplication 2TAH Social History Social History Type Response Smoking Status Never smoker; Exposure to Tobacco Smoke None; Cigarette Smoking Last 365 Days No; Reg Smoking Cessation Counseling No Assessment and Plan No data available for this section
--- OUTSIDE RECORDS SUMMARY | 2018-11-10 20:16 | XMS REPORT | Summary of Care ---
Author Author [facility] [place] [facility] Organization [facility] [place] [facility] Address Unknown Phone Unavailable Encounter HQ Talat_rebecca(FIN) [id number] Date(s): 07/12/18 - 07/12/18 [facility] [place] [address] [place] [address] [phone] Discharge Disposition: Home or Self Care Attending Physician: Serafin Kim DO Referring Physician: Serafin Kim DO Vital Signs No data available for this section Problem List Condition Effective Dates Status Health Status Informant Allergic rhinitis1 01/06/11 Active Anxiety disorder2 12/09/10 Active Arthritis3 12/09/10 Active Benign essential 04/16/10 Active hypertension4 Bronchitis5 03/17/12 Resolved Depression(Confirmed Resolved ) Fibromyositis6 12/09/10 Active Headache7 01/03/14 Active HTN - Resolved Hypertension(Confirm ed) Hyperlipidemia8 04/16/10 Active Insomnia9 12/26/10 Active Multinodular 04/16/10 Active oexcqr92 Ddblkln70 04/16/10 Active Obstructive sleep 02/13/11 Active apnea obcepuaz36 Peptic ulcer13 12/09/10 Active Cowunl16 12/09/10 Active Yyngbud20 12/09/10 Active Streptococcal sore 03/17/12 Resolved curiyq89 Thyroid Resolved disease(Confirmed) Type II diabetes 04/16/10 Active mellitus oesojdmmoimz96 Upper respiratory 05/29/11 Resolved welpltcyu99 Vitamin D 09/10/12 Active cjyppwxfho81 1Data migrated from [employer] on 09/01/14. [...] Substance Reaction Severity Status NKDA Active Medications No data available for this section Results No data available for this section Immunizations No data available for this section Procedures Procedure Date Related Diagnosis Body Site Status Appendectomy Completed Other1 Completed Other2 Completed Tonsillectomy Completed 1Nisson Fundiplication 2TAH Social History Social History Type Response Smoking Status Never smoker; Exposure to Tobacco Smoke None; Cigarette Smoking Last 365 Days No; Reg Smoking Cessation Counseling No entered on: 02/24/17 Assessment and Plan No data available for this section
--- OUTSIDE RECORDS SUMMARY | 2018-11-10 20:16 | XMS REPORT ---
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 Gas Plant Worker Name Role Phone Serafin Kim CP Unavailable Allergies No Known Allergies Problems Problem Type Condition Code Onset Dates Condition Status Problem Arthropathy M12.9 Active Problem Peptic ulcer [...] D51.8 Active Problem Furuncle L02.92 Active Problem Cellulitis of shoulder L03.119 Active Problem Type 2 diabetes mellitus with hyperglycemia E11.65 Active Problem Vitamin D deficiency E55.9 Active Problem DKA (diabetic ketoacidoses) E13.10 Active Problem Pressure ulcer of buttock L89.309 Active Problem Orthostatic hypotension I95.1 Active Problem DM w/o complication type II E11.9 Active Medications No Known Medications Results No Known Results Summary Purpose [employer] Submission
--- OUTSIDE RECORDS SUMMARY | 2018-11-10 20:16 | XMS REPORT | Summary of Care ---
Author Author [facility] Organization [facility] Address Unknown Phone Unavailable Encounter BOB Herzog(KRANTHI) [id number] Date(s): 01/08/17 - 01/08/[address] [facility] [address] [place] [address]- Discharge Diagnosis: Acute bronchitis Discharge Disposition: Home or Self Care Attending Physician: Wade Maldonado DO Vital Signs 1 2 3 Most recent to oldest [Reference Range]: 152.4 cm (01/08/17 2:46 PM) Height 97.9 DegF (01/08/17 8:04 PM) 98 DegF (01/08/17 6:01 PM) 97.8 DegF (01/08/17 2:46 PM) Temperature Oral [96.4-99.1 DegF] 156/84 mmHg *HI* (01/08/17 8:04 PM) 145/82 mmHg *HI* (01/08/17 6:01 PM) 179/86 mmHg *HI* (01/08/17 2:46 PM) Blood Pressure [90-140/60-90 mmHg] 20 BRMIN (01/08/17 8:04 PM) 16 BRMIN (01/08/17 7:44 PM) 18 BRMIN (01/08/17 6:01 PM) Respiratory Rate [14-20 BRMIN] 80 bpm (01/08/17 8:04 PM) 82 bpm (01/08/17 6:01 PM) 98 bpm (01/08/17 2:46 PM) Peripheral Pulse Rate [60-100 bpm] 70.455 kg (01/08/17 2:46 PM) Weight 30.33 m2 (01/08/17 2:46 PM) Body Mass Index Problem List Condition Effective Dates Status Health Status Informant Allergic rhinitis1 01/06/11 Active Anxiety disorder2 12/09/10 Active Arthritis3 12/09/10 Active Benign essential 04/16/10 Active hypertension4 Bronchitis5 03/17/12 Resolved Depression(Confirmed Resolved ) Fibromyositis6 12/09/10 Active Headache7 01/03/14 Active HTN - Resolved Hypertension(Confirm ed) Hyperlipidemia8 04/16/10 Active Insomnia9 12/26/10 Active Multinodular 04/16/10 Active islecf12 Hpnwjmx08 04/16/10 Active Obstructive sleep 02/13/11 Active apnea kedcnpba44 Peptic ulcer13 12/09/10 Active Wzdivy90 12/09/10 Active Zgyqdon46 12/09/10 Active Streptococcal sore 03/17/12 Resolved kqeumr08 Thyroid Resolved disease(Confirmed) Type II diabetes 04/16/10 Active mellitus tzuseybltajo47 Upper respiratory 05/29/11 Resolved raaywrmge61 Vitamin D 09/10/12 Active zziratdklj18 1Data migrated from [employer] on 09/01/14. [...] Substance Reaction Severity Status NKDA Active Medications albuterol 90 mcg/inh inhalation aerosol 2 puff, INHALATION, Q4H, PRN for wheezing, # 9 gm, 0 Refill(s) Start Date: 01/08/17 Status: Ordered dexamethasone 10 mg, Route: IM, ONCE, Dosing Weight 70.455, kg, Priority: STAT, Start date: 18:04:00 CDT, Stop date: 01/08/17 18:04:00 CDT Start Date: 01/08/17 Stop Date: 01/08/17 Status: Completed DuoNeb inhalation solution 3 ml, Route: INHALATION, Drug Form: SOLN, Dosing Weight 70.455, kg, PRN, PRN Res piratory Protocol, Start date: 01/08/17 18:04:00 CDT, Duration: 30 day, Stop mari e: 02/07/17 17:03:00 ENERGY RISK MANAGEMENT ANALYST Notes: (Same as: Duoneb) Start Date: 01/08/17 Stop Date: 01/08/17 Status: Discontinued Tylenol with Codeine 120 mg-12 mg/5 mL oral liquid 15 ml, PO, Q6H, PRN Cough, X 2 day, # 120 mL, 0 Refill(s) Start Date: 01/08/17 Stop Date: 01/10/17 Status: Completed Results No data available for this section [...]
--- OUTSIDE RECORDS SUMMARY | 2018-11-10 20:16 | XMS REPORT | Summary of Care ---
Author Organization Unknown Address Unknown Phone Unavailable Encounter HQ Encntr_alias(FIN) [id number] Date(s): 07/30/14 - 07/30/14 [facility] [address] [id number]- [phone] Discharge Disposition: Home Physician Attending: Ángela Kumari MD Vital Signs No data available for this section Problem List No data available for this section Allergies, Adverse Reactions, Alerts Substance Reaction Severity Status ibuprofen1 Active 1Data migrated from [employer] on 07/31/14. Originally documented as IBUPROFEN. Medications No data available for this section Results No data available for this section Immunizations No data available for this section Procedures No data available for this section Social History No data available for this section Assessment and Plan No data available for this section
--- OUTSIDE RECORDS SUMMARY | 2018-11-10 20:16 | XMS REPORT | Summary of Care ---
Author Author [facility] Organization [facility] Address Unknown Phone Unavailable Encounter HQ Mino(KRANTHI) [id number] Date(s): 01/06/17 - 01/06/17 [facility] [address] [place] [address]- Discharge Disposition: Home or Self Care Attending Physician: Serafin Kim DO Vital Signs No data available for this section Problem List Condition Effective Dates Status Health Status Informant Allergic rhinitis1 01/06/11 Active Anxiety disorder2 12/09/10 Active Arthritis3 12/09/10 Active Benign essential 04/16/10 Active hypertension4 Bronchitis5 03/17/12 Resolved Depression(Confirmed Resolved ) Fibromyositis6 12/09/10 Active Headache7 01/03/14 Active HTN - Resolved Hypertension(Confirm ed) Hyperlipidemia8 04/16/10 Active Insomnia9 12/26/10 Active Multinodular 04/16/10 Active hspicl95 Grfwchw78 04/16/10 Active Obstructive sleep 02/13/11 Active apnea ynfccxrt98 Peptic ulcer13 12/09/10 Active Ikchxn48 12/09/10 Active Vzughhp58 12/09/10 Active Streptococcal sore 03/17/12 Resolved atgzqa74 Thyroid Resolved disease(Confirmed) Type II diabetes 04/16/10 Active mellitus fkfuojotnpll02 Upper respiratory 05/29/11 Resolved fduuyjxqb25 Vitamin D 09/10/12 Active ftykesvmdg38 1Data migrated from [employer] on 09/01/14. [...]
[2018-11-10 20:49] LABS: BASOPHILS # (AUTO) 0.1 (0.0-0.1); BASOPHILS % 0.5 % (0.0-1.0); EOSINOPHILS # (AUTO) 0.1 (0.0-0.4); EOSINOPHILS % 0.6 % (0.0-6.0); HEMATOCRIT 36.5 % (34.2-44.1); HEMOGLOBIN 11.7 g/dL (12.0-16.0); LYMPHOCYTES # (AUTO) 1.4 (1.0-3.2); LYMPHOCYTES % 9.9 % (18.0-39.1); MEAN CORPUSCULAR HEMOGLOBIN 25.3 pg (28-32); MEAN CORPUSCULAR HGB CONC 32.1 g/dL (31-35); MONOCYTES % 6.9 % (4.4-11.3); NEUTROPHILS # (AUTO) 11.4 (2.1-6.9); NEUTROPHILS % 81.6 % (38.7-80.0); PLATELET COUNT 366 x10e3/uL (140-360); RED BLOOD COUNT 4.62 x10e6/uL (3.6-5.1); RED CELL DISTRIBUTION WIDTH 13.5 % (11.7-14.4)
--- NOTE | 2018-11-10 20:56 | Diagnostic Imaging Report ---
EXAMINATION: Head CT without contrast. HISTORY:Headache and fever. COMPARISON:None. TECHNIQUE: Multidetector axial images were obtained from the foramen magnum to the vertex without contrast. The images were reconstructed using brain and bone algorithms. Thin section brain images were reformatted into coronal and sagittal planes. Dose modulation, iterative reconstruction, and/or weight based adjustment of the mA/kV was utilized to reduce the radiation dose to as low as reasonably achievable. Intravenous contrast: None IMAGE QUALITY: Acceptable. FINDINGS: Skull/scalp: No lytic or blastic. lesions. No surgical changes. Parenchyma: Nonspecific few, scattered supratentorial white matter patchy hypodensity are likely related to small vessel ischemic changes. No acute hemorrhage, mass or acute major vascular territorial infarct. Arteries: No density suggestive of thrombosis. Mild atherosclerotic calcification in bilateral carotid siphon. Dural sinuses: No abnormal density suggestive of thrombosis. Ventricles: Moderate ventricular dilatation particularly involving the lateral and third ventricle slightly disproportionate to the amount of cerebral volume loss. Extra-axial spaces: No abnormal density. Brain volume: Normal for age. Craniocervical junction: No mass, Chiari malformation, or basilar invagination. Sella: No mass. Paranasal/mastoid sinuses: Imaged portions unremarkable. IMPRESSION: 1. No acute intracranial abnormality, particularly no acute hemorrhage, mass or acute major vascular territorial infarct. 2. Moderate ventricular dilatation disproportionate to the amount of cerebral volume loss may represent compensated dilatation secondary to selective central cerebral volume loss vs normal pressure or communicating type hydrocephalus in appropriate clinical setting. Signed by: Dr. Alayna Lowe M.D. on 11/10/2018 8:53 PM
[2018-11-10 21:07] LABS: ALBUMIN 3.4 g/dL (3.5-5.0); ANION GAP 18.9 mmol/L (8-16); CALCIUM 9.5 mg/dL (8.4-10.2); CREATININE, SERUM 1.02 mg/dL (0.57-1.11); POTASSIUM 3.9 mmol/L (3.5-5.1)
[2018-11-10 21:08] LABS: AMYLASE 46 U/L (25-125); LIPASE 19 U/L (8-78)
[2018-11-10 21:20] LABS: BILIRUBIN,URINE NEGATIVE (NEGATIVE); CLARITY,URINE SL CLOUDY (CLEAR); COLOR,URINE YELLOW (YELLOW); KETONES,URINE TRACE (NEGATIVE); LEUKOCYTE ESTERASE ,URINE NEGATIVE (NEGATIVE); NITRITE,URINE NEGATIVE (NEGATIVE); PROTEIN,URINE DIPSTICK 2+ (NEGATIVE); URINE UROBILINOGEN 1 mg/dL (0.2 - 1)
[2018-11-10 21:38] LABS: BACTERIA,URINE MANY /HPF; EPITHELIAL CELLS,URINE FEW /LPF; RENAL EPITHELIAL CELLS,URINE MODERATE
[2018-11-10] MEDS: KETOROLAC TROMETHAMINE 30 MG/ML VIAL IV ONE (21:45)
[2018-11-10] MEDS: SODIUM CHLORIDE 0.9% 1000ML 1,000 ML IV STA (21:45)
[2018-11-10] MEDS: METOCLOPRAMIDE HCL 10 MG/2ML VIAL IV ONE (21:45)
[2018-11-10] MEDS: DIPHENHYDRAMINE HCL INJ 50 MG/ML VIAL IV ONE (21:45)
[2018-11-11 01:06] VITALS: BP 120/68
== END 2018-11-11 00:45 | disposition home or self-care (01) ==
LOC: ER 20:02
DX: R50.9 Fever, unspecified (principal); B34.9 Viral infection, unspecified
CPT/HCPCS: 36415; 70450; 80053; 81001; 82150; 82948; 83605; 83690; 85025; 87040; 87086; 87186; 87400; 99284; J1200; J1885; J2765; J7030

== ENCOUNTER 2018-11-30 14:52 | Inpatient (IN) | payer OTHER ==
[~2018-11-30] VITALS: Ht 152.4 cm; Wt 64.9 kg
--- OUTSIDE RECORDS SUMMARY | 2018-11-30 14:54 | XMS REPORT | Clinical Summary ---
Author Author [facility] Address Unknown Phone Unavailable Care Team Providers Care Tentering Machine Feeder Name Role Phone Serafin Kim PCP Allergies No Known Allergies Medications End Date Status Medication Sig Dispensed Refills Start Date Active amLODIPine-benazepril Take 1 0 (LOTREL 5-10) 5-10 mg per capsule by capsule mouth daily. Active traZODone (DESYREL) 50 MG Take 50 mg by 0 tablet mouth nightly. Active colesevelam (WELCHOL) 625 Take 1,875 mg 0 mg tablet by mouth 2 (two) times daily with breakfast and dinner. Active tiZANidine (ZANAFLEX) 4 Take 4 mg by 0 MG tablet mouth every 6 (six) hours as needed. Active amitriptyline (ELAVIL) 50 Take 50 mg by 0 MG tablet mouth nightly. Active canagliflozin (INVOKANA) Take 300 mg 0 300 mg Tab by mouth daily. Active insulin glargine (LANTUS) Inject 60 0 100 unit/mL injection Units subcutaneousl y nightly Use as directed. Active insulin aspart (NOVOLOG) Inject 30 0 100 unit/mL injection Units subcutaneousl y 3 (three) times daily before meals . 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 Chest pain with low risk for cardiac etiology 08/20/2014 Tobacco abuse 08/20/2014 Diabetes mellitus Hypertension Peptic ulcer Fibromyalgia Sleep apnea Hyperlipidemia Family History Medical History Relation Name Comments Cancer Father Heart disease Maternal Grandfather Cancer Mother Relation Name Status Comments Father Maternal Grandfather Mother Social History Date Tobacco Use Types Packs/Day Years Used Current Some Day Smoker 36 Alcohol Use Drinks/Week oz/Week Comments No Sex Assigned at Date Recorded Not on file Industry Job Start Date Occupation Not on file Not on file Not on file Travel End Travel History Travel Start No recent travel history available. Last Filed Vital Signs Not on file Plan of Treatment Not on file Results Not on fileafter 11/29/2017 Insurance Payer Benefit Subscriber ID Type Phone Address Plan / Group [employer]UE [employer] BCBS FED xxxxxxxxx O [phone] [address] [place] [address]
--- OUTSIDE RECORDS SUMMARY | 2018-11-30 14:57 | XMS REPORT | Continuity of Care Document ---
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 Name Role Phone [employer] Unavailable Unavailable Problems Problem Status Onset Date Classification Date Reported Comments Source Discharge Diagnosis: Acute lower urinary tract infection 02/24/2017 02/27/2017 [facility] URINARY SYMPTOMS Active 02/24/2017 [facility] Discharge Diagnosis: Acute bronchitis 01/08/2017 01/11/2017 [facility] , COUGH Active 01/08/2017 [facility] SOB Active 01/06/2017 [facility] HEADACHE Active 01/03/2014 Condition 07/19/2014 [facility] Headache7 Active 01/03/2014 Problem 07/14/2018 Data migrated from [employer] on 09/01/14. [facility] VITAMIN D DEFICIENCY Active 09/10/2012 Condition 07/19/2014 [facility] Vitamin D Active 09/10/2012 Problem 07/14/2018 Data migrated from [employer] on 09/01/14. [facility] STREPTOCOCCAL PHARYNGITIS Inactive 03/17/2012 Condition 07/19/[facility] BRONCHITIS Inactive 03/17/2012 Condition 07/19/[facility] Bronchitis5 Resolved 03/17/2012 Problem 07/14/2018 Data migrated from [employer] on 10/19/14. [facility] Streptococcal sore Resolved 03/17/2012 Problem 07/14/2018 Data migrated from [employer] on 10/19/14. [facility] NECK PAIN Inactive 01/13/2012 Condition 07/19/2014 [facility] WRIST PAIN Inactive 11/17/2011 Condition 07/19/[facility] URI Inactive 05/29/2011 Condition 07/19/2014 [facility] Upper respiratory [id number] Resolved 05/29/2011 Problem 07/14/2018 Data migrated from [employer] on 10/19/14. [facility] SLEEP APNEA, OBSTRUCTIVE Active 02/13/2011 Condition 07/19/2014 [facility] Obstructive sleep apnea [id number] Active 02/13/2011 Problem 07/14/2018 Data migrated from [employer] on 09/01/14. [facility] ALLERGIC RHINITIS Active 01/06/2011 Condition 07/19/2014 [facility] Allergic rhinitis1 Active 01/06/2011 Problem 07/14/2018 Data migrated from [employer] on 09/01/14. [facility] INSOMNIA Active 12/26/2010 Condition 07/19/2014 [facility] Insomnia9 Active 12/26/2010 Problem 07/14/2018 Data migrated from [employer] on 09/01/14. [facility] FIBROMYALGIA Active 12/09/2010 Condition 07/19/2014 [facility] ARTHRITIS Active 12/09/2010 Condition 07/19/2014 [facility] PEPTIC ULCER DISEASE Active 12/09/2010 Condition 07/19/2014 [facility] ANXIETY Active 12/09/2010 Condition 07/19/2014 [facility] SMOKER Active 12/09/2010 Condition 07/19/2014 [facility] SNORING Active 12/09/2010 Condition 07/19/2014 [facility] Anxiety disorder2 Active 12/09/2010 Problem 07/14/2018 Data migrated from [employer] on 09/01/14. [facility] Arthritis3 Active 12/09/2010 Problem 07/14/2018 Data migrated from [employer] on 09/01/14. [facility] Fibromyositis6 Active 12/09/2010 Problem 07/14/2018 Data migrated from [employer] on 09/01/14. [facility] Peptic ulcer13 Active 12/09/2010 Problem 07/14/2018 Data migrated from [employer] on 09/01/14. [facility] [id number] Active 12/09/2010 Problem 07/14/2018 Data migrated from [employer] on 09/01/14. [facility] Alyopzh37 Active 12/09/2010 Problem 07/14/2018 Data migrated from [employer] on 09/01/14. [facility] GOITER, MULTINODULAR Active 04/16/2010 Condition 07/19/2014 [facility] DIABETES MELLITUS, TYPE II, UNCONTROLLED Active 04/16/2010 Condition 07/19/2014 [facility] ESSENTIAL HYPERTENSION, BENIGN Active 04/16/2010 Condition 07/19/2014 [facility] HYPERLIPIDEMIA Active 04/16/2010 Condition 07/19/2014 [facility] OBESITY Active 04/16/2010 Condition 07/19/2014 [facility] Benign essential hypertension4 Active 04/16/2010 Problem 07/14/2018 Data migrated from [employer] on 09/01/14. [facility] Hyperlipidemia8 Active 04/16/2010 Problem 07/14/2018 Data migrated from [employer] on 09/01/14. [facility] Multinodular [id number] Active 04/16/2010 Problem 07/14/2018 Data migrated from [employer] on 09/01/14. [facility] [id number] Active 04/16/2010 Problem 07/14/2018 Data migrated from [employer] on 09/01/14. [facility] Type II diabetes mellitus [id number] Active 04/16/2010 Problem 07/14/2018 Data migrated from [employer] on 09/01/14. [facility] Type 2 diabetes mellitus with hyperglycemia Active Problem 11/30/2018 Serafin Kim Insomnia Active Problem 11/30/2018 Serafin Kim Other and unspecified hyperlipidemia Active Problem 11/30/2018 Serafin Kim Nontoxic multinodular goiter Active Problem 11/30/2018 Serafin Kim Peptic ulcer Active Problem 11/30/2018 Serafin Kim Obesity, unspecified Active Problem 11/30/2018 Serafin Kim Benign essential hypertension Active Problem 11/30/2018 Serafin Kim Cellulitis of shoulder Active Problem 11/30/2018 Serafin Kim Furuncle Active Problem 11/30/2018 Serafin Kim Anemia of other chronic disease Active Problem 11/30/2018 Serafin Kim DKA Active Problem 11/08/2018 Serafin Kim Other chronic pain Active Problem 11/30/2018 Serafin Kim DM w/o complication type II Active Problem 11/30/2018 Serafin Kim Acquired hypothyroidism Active Problem 11/30/2018 Serafin Kim Type 2 diabetes mellitus without complications Active Problem 11/30/2018 Serafin Kim [facility] current use of insulin Active Problem 11/30/2018 Serafin Kim Vaginal yeast infection Active Problem 11/30/2018 Serafin Kim Acute lower urinary tract infection Active Problem 11/30/2018 Serafin Kim Back pain Active Problem 11/30/2018 Serafin Kim Orthostatic hypotension Active Problem 11/30/2018 Serafin Kim Bronchitis Active Problem 11/30/2018 Serafin Kim Pressure ulcer of buttock Active Problem 11/30/2018 Serafin Kim Mixed hyperlipidemia Active Problem 11/30/2018 Serafin Kim Chronic insomnia Active Problem 11/30/2018 Serafin Kim URI with cough and congestion Active Problem 11/30/2018 Serafin Kim Right hip pain Active Problem 11/30/2018 Serafin Kim Vitamin D deficiency Active Problem 11/30/2018 Serafin Kim Flu vaccine need Active Problem 10/23/2017 Serafin Kim Obstructive sleep apnea Active Problem 11/30/2018 Serafin Kim GERD Active Problem 11/08/2018 Serafin Kim Allergic rhinitis Active Problem 11/30/2018 Serafin Kim Encounter for immunization Active Problem 11/30/2018 Serafin Kim Anxiety state Active Problem 11/30/2018 Serafin Kim Muscle spasm Active Problem 11/30/2018 Serafin Kim Tobacco use disorder Active Problem 11/30/2018 Serafin Kim Iron deficiency anemia due to dietary causes Active Problem 11/30/2018 Serafin Kim Arthropathy Active Problem 11/30/2018 Serafin Kim Pain in thoracic spine Active Problem 11/30/2018 Serafin Kim Altered glucose metabolism due to diabetes Active Problem 11/30/2018 Serafin Kim Vitamin B12 deficiency anemia Active Problem 11/08/2018 Serafin Kim Vitamin B12 deficiency Active Diagnosis 12/15/2016 Serafin Kim Benign paroxysmal positional vertigo due to bilateral vestibular disorder Active Problem 11/30/2018 Serafin Kim Acute lower UTI Active Problem 11/30/2018 Serafin Kim Mass of skin of left [...] 08/26/2014 Serafin Kim Leg cramping Active Problem 11/30/2018 Serafin Kim Disorder of right sciatic nerve Active Problem 11/30/2018 Serafin Kim Generalized OA Active Problem 11/30/2018 Serafin Kim Chronic constipation Active Problem 11/30/2018 Serafin Kim Fibromyalgia Active Problem 11/30/2018 Serafin Kim Vaginal dryness Active Problem 11/30/2018 Serafin Kim Sexual pain disorder Active Problem 11/30/2018 Serafin Kim Low back pain Active Diagnosis 10/15/2018 Serafin Kim Cervicalgia Active Diagnosis 10/15/2018 Serafin Kim Folic acid deficiency Active Diagnosis 08/16/2018 Serafin Kim Iron deficiency Active Diagnosis 06/23/2018 Serafin Kim Pain in left hip Active Diagnosis 06/23/2018 Serafin Kim Hot flashes Active Diagnosis 06/23/2018 Serafin Kim Pain in right hip Active Diagnosis 06/23/2018 Serafin Kim DKA (diabetic ketoacidoses) Active Problem 11/30/2018 Serafin Kim GERD (gastroesophageal reflux disease) Active Problem 11/30/2018 Serafin Kim Vitamin B12 deficiency (dietary) anemia Active Problem 11/30/2018 Serafin Kim NPH (normal pressure hydrocephalus) Active Problem 11/30/2018 Serafin Kim Essential (primary) hypertension Active Problem 11/30/2018 Serafin Kim Depression Resolved Problem 07/14/2018 VISHAL Alexis [facility] HTN - Hypertension Resolved Problem 07/14/2018 VISHAL Anderson [facility] Thyroid disease Resolved Problem 07/14/2018 VISHAL Alexis [facility] Medications Medication Details Route Status Patient Instructions Ordering Provider Order Date Source Methocarbamol 1-1 tablets Orally Active 750 MG Orally every 6 hrs prn mm relaxation [facility] 03/17/2019 Serafin Kim Meloxicam 1 TABLET ONCE A DAY WITH FOOD ORALLY 90 DAYS Orally Active 15 MG Orally after breakfast [facility] 10/17/2018 Serafin Kim Trulicity INJECT 1 SYRINGE WEEKLY subcutaneous Active 1.5 MG/0.5ML [facility] 10/17/2018 Serafin Kim Robaxin-750 TAKE 1 TABLET BY MOUTH TWICE A DAY Orally Active 750 MG Orally Daily [facility] 10/17/2018 Serafin Kim Tizanidine HCl TAKE 1 TABLET BY MOUTH 3 TIMES A DAY NEEDED Orally Active 4 MG Orally Daily [facility] 10/17/2018 Serafin Kim NovoFine Plus as directed NA Active 32G X 4 MM [facility] 08/18/2018 Serafin Kim Tresiba FlexTouch 30u Subcutaneous Active 200 UNIT/ML Subcutaneous daily [facility] 08/17/2018 Serafin Kim Levemir FlexTouch 15u Subcutaneous Active 100 UNIT/ML Subcutaneous twice a day (bid) [facility] 08/15/2018 Serafin Kim Folic Acid 1 tablet Orally Active 1 MG Orally Once a day [facility] 08/15/2018 Serafin Kim Methocarbamol 1 tablet Orally Active 750 MG Orally every 4 hrs before breakfast [facility] 04/20/2018 Serafin Kim Cefdinir 1 capsule Orally Active 300 MG Orally Twice a day [facility] 02/04/2018 Serafin Kim Proventil HFA 2 puffs as needed Inhalation Active 108 (90 Base) MCG/ACT Inhalation every 6 hrs [facility] 01/25/2018 Serafin Lopezm Trulicity 0.5 ml Subcutaneous Active 1.5 MG/0.5ML Subcutaneous Q week [facility] 08/07/2017 Serafin Reesxbaum Trulicity 0.5 ml Subcutaneous Active 1.5 MG/0.5ML Subcutaneous Q week [facility] 08/07/2017 Serafin Kim FreeStyle Lite Test Strips and Lancets as directed Capillary Active test strips Capillary three times a day (tid) [facility] 08/05/2017 Serafin Kim PredniSONE 1 tablet Orally Active 10 mg Orally Once a day [facility] 07/01/2017 Serafin Kim Tussionex Pennkinetic ER 5 ml as needed Orally Active 10-8 MG/5ML Orally every 12 hrs [facility] 03/09/2017 Serafin Kim Meclizine HCl 1 tablet as needed for dizziness Orally Active 25 MG Orally four times a day (qid) [facility] 03/08/2017 Serafin Kim Phenazopyridine hydrochloride 200 MG Oral Tablet [Pyridium] 200 mg=1 tab, PO, TID, PRN Dysuria, X 2 day, # 6 tab, 0 Refill(s), [id number] No Longer Active 02/24/2017 [facility] Cephalexin 500 MG Oral Capsule [Keflex] 500 mg=1 cap, PO, TID, X 10 day, # 30 cap, 0 Refill(s), [id number] Active 02/24/2017 [facility] Phenazopyridine hydrochloride 200 MG Oral Tablet [Pyridium] 200 mg=1 tab, PO, TID, PRN Dysuria, X 2 day, # 6 tab, 0 Refill(s), [id number] No Longer Active 02/24/2017 [facility] Acetaminophen 300 MG / Codeine Phosphate 30 MG Oral Tablet [Tylenol with Codeine #3] 1 - 2 tab, PO, Q4H, PRN Pain, X 2 day, # 12 tab, 0 Refill(s) Inactive 02/24/2017 [facility] Cephalexin 500 MG Oral Capsule [Keflex] 500 mg=1 cap, PO, TID, X 10 day, # 30 cap, 0 Refill(s), [id number] Inactive 02/24/2017 [facility] Rocephin 1 gm, Route: IM, Drug form: PDR/INJ, ONCE, Dosing Weight 68.182, kg, Priority: STAT, Start date: 02/24/17 8:43:00 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 MEDICATION WASTE Product Size: 1000 mg Product Wasted: _0__ mg Inactive 02/24/2017 [facility] Fluconazole 1 tablet PO once (may [...] # 9 gm, 0 Refill(s) Active 01/08/2017 [facility] Tylenol with Codeine 120 mg-12 mg/5 mL oral liquid 15 ml, PO, Q6H, PRN Cough, X 2 day, # 120 mL, 0 Refill(s) No Longer Active 01/08/2017 [facility] Dexamethasone 10 mg, Route: IM, ONCE, Dosing Weight 70.455, kg, Priority: STAT, Start date: 01/08/17 18:04:00 CDT, Stop date: 01/08/17 18:04:00 CDT Inactive 01/08/2017 [facility] Albuterol 0.833 MG/ML / Ipratropium [place] 0.167 MG/ML Inhalant Solution [DuoNeb] 3 ml, Route: INHALATION, Drug Form: SOLN, Dosing Weight 70.455, kg, PRN, PRN Respiratory Protocol, Start date: 01/08/17 18:04:00 CDT, Duration: 30 day, Stop date: 02/07/17 17:03:00 CSTNotes: (Same as: Duoneb) Inactive 01/08/2017 [facility] Augmentin 1 tablet Orally Active 875-125 MG Orally Twice a day with food [facility] 12/28/2016 Serafin Kim Promethazine-DM 5 ml as needed for cough Orally Active 6.25-15 MG/5ML Orally every 6 hrs [facility] 12/28/2016 Serafin Kim PredniSONE 3 tabs qd x 3d, 2 tabs qd x 5d, 1 tab qd x 5d with food or milk Orally Active 10 MG Orally Once a day [facility] 12/28/2016 Serafin Kim PredniSONE 3 tabs qd x 3d, 2 tabs qd x 5d, 1 tab qd x 5d with food or milk Orally Active 10 mg Orally Once a day [facility] 12/28/2016 Serafin Reesxbaum Promethazine-DM 5 ml as needed for cough Orally Active 6.25-15 MG/5ML Orally every 6 hrs [facility] 12/28/2016 Serafin Reesxbaum Benzonatate 1 capsule as needed Orally Active 200 MG Orally Three times a day prn cough [facility] 12/14/2016 Serafin Billings [facility] Bactrim DS 1 tablet Orally Active 800-160 MG Orally twice a day (bid) [facility] 12/14/2016 Serafin Billings [facility] Amitriptyline HCl 1 tablet Orally Active 75 MG Orally once every night [facility] 12/14/2016 Serafin Billings [facility] Amitriptyline HCl 1 tablet Orally Active 75 mg Orally once every night [facility] 12/14/2016 Serafin Reesxbaum Benzonatate 1 capsule as needed Orally Active 200 MG Orally Three times a day prn cough [facility] 12/14/2016 Serafin Billings [facility] Trulicity 0.5 ml Subcutaneous Active 1.5 MG/0.5ML Subcutaneous q week [facility] 10/29/2016 Serafin Billings [facility] Trulicity 0.5 ml Subcutaneous Active 1.5 MG/0.5ML Subcutaneous q week [facility] 10/29/2016 Serafin Reesxbaum Meloxicam 1 tablet Orally Active 15 MG Orally Once a day with food [facility] 04/01/2016 Serafin Billings [facility] Meloxicam 1 tablet Orally Active 15 MG Orally Once a day with food [facility] 04/01/2016 Serafin Billings [facility] Lisinopril 1 tablet Orally Active 40 MG Orally Once a day [facility] 12/31/2015 Serafin Billings [facility] Lisinopril 1 tablet Orally Active 10 mg Orally Once a day [facility] 12/31/2015 Serafin Billings [facility] Amitriptyline HCl 1 tablet Orally Active 50 mg Orally Once a day [facility] 12/31/2015 Serafin Billings [facility] Lisinopril 1 tablet Orally Active 10 mg Orally Once a day [facility] 12/31/2015 Serafin Billings [facility] Robaxin-750 1 tablet Orally Active 750 MG Orally twice a day (bid) [facility] 10/22/2015 Serafin Kim Omeprazole 1 capsule Orally Active 40 mg Orally Once a day [facility] 07/25/2015 Serafin Kim Lisinopril 1 tablet Orally Active 2.5 MG Orally Once a day [facility] 07/25/2015 Serafin Kim Tramadol HCl 1 tablet Orally No Longer Active 50 mg Orally twice a day (bid) for pain [facility] 07/25/2015 Serafin Kim Tizanidine HCl 1 tablet as needed Orally Active 4 mg Orally three times a day (tid) [facility] 07/12/2015 Serafin Kim Pantoprazole Sodium 1 tablet Orally Active 40 mg Orally Once a day [facility] 06/27/2015 Serafin Kim Citalopram Hydrobromide 1 tablet Orally Active 10 mg Orally once every night [facility] 06/12/2015 Serafin Kim Diflucan 1 tablet Orally Active 150 MG Orally Once a day [facility] 01/28/2015 Serafin Kim Tizanidine HCl TAKE 1 TABLET NEEDED THREE TIMES A DAY (TID) NEEDED (PRN) ORALLY NA Active 4 mg [facility] 08/25/2014 Serafin Kim Pantoprazole Sodium 1 tablet Orally Active 40 mg Orally Once a day [facility] 08/24/2014 Serafin Kim Trazodone HCl 1 tablet Orally Active 50 mg Orally once every night [facility] 07/26/2014 Serafin Kim PROBIOTIC CAPS 1 po qd Active 07/19/2014 [facility] VITAMIN D (ERGOCALCIFEROL) 72308 UNIT CAPS Take 1 capsule by mouth every week for 12 weeks Active 07/19/2014 [facility] CONTRAVE 8-90 MG [id number] 2 in am and 2 in pm No Longer Active 04/24/2014 [facility] CREON CPEP 1 po qd No Longer Active 04/19/2014 [facility] TraMADol HCl ER 1 tablet Orally Active 200 MG Orally Once a day [facility] 03/14/2014 Serafin Kim Creon 20 1 capsule with meals Orally Active 66.4-20-75 MU Orally Three times a day [facility] 03/12/2014 Serafin E [facility] Pantoprazole Sodium 1 tablet Orally Active 40 mg Orally Once a day [facility] 02/22/2014 Serafin Kim DEXILANT 60 MG CPDR 1 po qd No Longer Active 01/03/2014 [facility] CALCIUM 600 TABS 2 po qd No Longer Active 01/03/2014 [facility] OMEGA-3 300 MG CAPS 2 po bid No Longer Active 01/03/2014 [facility] LORAZEPAM 1 MG TABS 1 po prn Active 01/03/2014 [facility] TRAMADOL HCL ER 200 MG [id number] 1 po prn No Longer Active 01/03/2014 [facility] LORAZEPAM 1 MG TABS 1 po prn Active 01/03/2014 [facility] Dexilant 1 capsule Orally Active 60 MG Orally Once a day [facility] 11/14/2013 Serafin Kim INVOKANA 300 MG TABS 1 po qd [...] Orally Once a day [facility] 04/11/2013 Serafin Kim Xanax 1 tablet Orally Active 1 MG Orally twice a day (bid) as needed (prn) for anxiety [facility] 10/14/2012 Serafin Kim Neurontin 1 capsule Orally Active 300 MG Orally Three times a day for chronic pain [facility] 10/14/2012 Serafin Kim Xanax 1 tablet Orally Active 0.5 MG Orally twice a day (bid) as needed (prn) for anxiety [facility] 10/14/2012 Serafin Kim AMLODIPINE BESY-BENAZEPRIL HCL 5-10 MG CAPS 1 po qd Active 10/05/2012 [facility] AMLODIPINE BESY-BENAZEPRIL HCL 5-10 MG CAPS 1 po qd Active 10/05/2012 [facility] AMLODIPINE BESY-BENAZEPRIL HCL 5-10 MG CAPS 1 po qd Active 10/05/2012 [facility] VITAMIN D3 07317 UNIT CAPS take 2 times a week Active 09/10/2012 [facility] VITAMIN D3 31783 UNIT CAPS take 2 times a week [...] Group TRAMADOL HCL ER (BIPHASIC) 200 MG [id number] 1 tab qhs No Longer Active 09/07/2012 [facility] CLONAZEPAM 2 MG TABS 1 tab qhs Active 09/07/2012 [facility] LANTUS 100 UNIT/ML SOLN 65 units sq qhs Active 09/07/2012 [facility] FLORASTOR 250 MG CAPS 1 cap twice daily No Longer Active 09/07/2012 [facility] CLONAZEPAM 2 MG TABS 1 tab qhs No Longer Active 09/07/2012 [facility] NOVOLOG 100 UNIT/ML SOLN injects up [...] Active 05/29/2011 [facility] MUCINEX 600 MG [id number] one PO bid prn congestion No Longer Active 05/29/2011 [facility] AZITHROMYCIN 500 MG TABS one PO daily No Longer Active 05/29/2011 [facility] MUCINEX 600 MG [id number] one PO bid prn congestion No Longer Active 05/29/2011 [facility] MUCINEX 600 MG [id number] one PO bid prn congestion No Longer Active 05/29/2011 [facility] AZITHROMYCIN 500 MG TABS one PO daily No Longer Active 05/29/2011 [facility] MUCINEX 600 MG [id number] one PO bid prn congestion No Longer Active 05/29/2011 [facility] MUCINEX 600 MG [id number] one PO bid prn congestion No Longer [...] up to 65 units daily Active 04/16/2010 [facility] FREESTYLE LITE TEST STRP Check glucose levels qid Active 04/16/2010 [facility] INSULIN SYRINGE 31G X 5/16" 0.3 ML MISC takes u to 25 units TID No Longer Active 04/16/2010 [facility] INSULIN SYRINGE 31G X 5/16" 1 ML MISC takes up to 65 units daily Active 04/16/2010 [facility] INSULIN SYRINGE 31G X 5/16" 0.3 ML MISC takes u to 25 units TID Active 04/16/2010 [facility] INSULIN SYRINGE 31G X 5/16" 1 ML MISC takes up to 65 units daily Active 04/16/2010 [facility] Omeprazole 1 capsule Orally Active 40 MG Orally Once a day Judy Kim MetFORMIN HCl ER 2 tablets Orally Active 500 MG Orally twice a day (bid) Judy Kim Vitamin D3 1 capsule Orally Active 2000 UNIT Orally twice a day (bid) Judy Kim Vitamin B12 not defined Orally Active [...] ORALLY 30 DAY(S) NA Active 50 mg Judy Kim GuaiFENesin DM 10 ml as needed Orally Active 10-100 MG/5ML Orally every 4 hrs for cough Bux[facility]ri Kim Cefdinir 1 capsule Orally Active 300 MG Orally Twice a day Judy Reesxbadri Simvastatin 1 tablet in the evening Orally Active 20 MG Orally Daily Judy Kim Robaxin-750 TAKE 1 TABLET BY MOUTH TWICE A DAY NA Active 750 MG Judy Kim Methocarbamol 1-1 tablets Orally Active 750 MG Orally every 6 hrs prn mm relaxation Bujay Kim Vitamin B12 not defined Orally Active 100 MCG Orally after breakfast [facility]ri Kim Omeprazole 1 capsule Orally Active 40 MG Orally Once a day Bujay Kim MetFORMIN HCl ER 2 tablets am, 2 pm Orally Active 500 mg Orally as directed Judy Kim Iron 1 tablet Orally Active 325 (65 Fe) MG Orally once a day after breakfast Judy Kim Vitamin D 1 tablet Orally Active 1000 UNIT Orally once a day after breakfast Judy Kim Vitamin D3 1 capsule Orally Active 2000 UNIT Orally twice a day (bid) Judy Reesxbadri NovoLog Mix 70/30 15u qam, 15u qpm Subcutaneous Active (70-30) 100 UNIT/ML Subcutaneous as directed Judy Reesxbaumary Diflucan 1 tablet Orally Active 200 MG Orally Once a day Judy Kim Tizanidine HCl TAKE 1 TABLET BY MOUTH THREE TIMES A DAY NEEDED NA Active 4 MG Judy [facility] Meloxicam 1 TABLET ONCE A DAY WITH FOOD ORALLY 90 DAYS NA Active 15 MG after breakfast Bujay Kim Phenazopyridine HCl 1 tablet after meals Orally Active 200 MG Orally Three times a day Bujay Reesxbadri Acetaminophen-Codeine #3 1/2 half tablet Orally Active 300-30 MG Orally every 4 hrs PRN [facility]ri Reesxbaumary Omeprazole 1 capsule Orally Active 40 mg Orally Once a day before breakfast [facility] Serafin Billings [facility] Trulicity INJECT 1 SYRINGE WEEKLY subcutaneous Active 1.5 MG/0.5ML subcutaneous weekly [facility] Serafin E [facility] Tizanidine HCl TAKE 1 TABLET NEEDED THREE TIMES A DAY (TID) NEEDED (PRN) ORALLY NA Active 4 MG [facility] Serafin E [facility] Cymbalta 1 capsule Orally Active 60 MG Orally Once a day [facility] Betancourt E [facility] Amlodipine Besy-Benazepril HCl TAKE 1 CAPSULE BY MOUTH DAILY NA No Longer Active 5-10 MG [facility] Serafin Billings [facility] PredniSONE 2 tablet with food or milk Orally Active 20 mg Orally Once a day [facility] Betancourt E [facility] Amitriptyline HCl TAKE 1 TABLET BY MOUTH AT BEDTIME NA Active 50 mg [facility] Serafin Reesxbaum NovoLog Unknown Subcutaneous Active 100 UNIT/ML Subcutaneous [facility] Serafin Reesxbadri Folic Acid 1 tablet Orally Active 400 MCG Orally Once a day [facility] Reesxbaum Amitriptyline HCl TAKE 1 TABLET BY MOUTH EVERY NIGHT po Active 75 mg po q HS [facility] Billings [facility] Amitriptyline HCl TAKE 1 TABLET BY MOUTH AT BEDTIME Orally No Longer Active 25 MG Orally daily [facility] Reesxbaumary Colace 1 capsule as needed Orally Active 100 mg Orally twice a day (bid) [facility]ri Reesxbaumary Pantoprazole Sodium 1 tablet Orally Active 40 MG Orally Once a day Buxbadri Billings [facility] Multivitamin Unknown Orally Active Orally [facility] Billings [facility] Amlodipine Besy-Benazepril HCl TAKE 1 CAPSULE BY MOUTH DAILY NA Active 5-10 MG [facility] Billings [facility] Vitamin C Unknown Orally Active 500 MG Orally [facility] [facility] Levemir Unknown Subcutaneous Active 100 UNIT/ML Subcutaneous 40 Units in the morning Buxbadri Billings Buxbaum Lisinopril 1 tablet Orally Active 5 MG Orally Once a day Buxbadri Billings Buxbaumary Amlodipine Besylate 1 tablet Orally Active 5 MG Orally Once a day Buxbadri Billings Buxbaum Invokana 1 tablet Orally Active 300 MG Orally Once a day Buxbaum Serafin Kim Omeprazole 1 capsule Orally Active 40 mg Orally Once a day Buxbaum Serafin Kim Welchol 3 tablets with meals Orally Active 625 MG Orally Twice a day Buxbaum Serafin Kim Cevimeline HCl 1 capsule Orally Active 30 mg Orally once a day Buxbaum Serafin Lopezm Trulicity 0.5 ml Subcutaneous Active 1.5 MG/0.5ML Subcutaneous Buxbaum Serafin Kim Hair Skin Nails as directed Orally Active - Orally Buxbaum Serafin Kim MetFORMIN HCl ER TAKE 2 TABLETS BY MOUTH TWICE A DAY NA Active 500 MG Buxbaum Serafin Kim Allergies, Adverse Reactions, Alerts Substance Category Reaction Severity Reaction type Status Date Reported Comments Source IBUPROFEN Drug allergy IBUPROFEN 04/16/2010 [facility] ibuprofen<sup>1</sup> Assertion Drug allergy Active 04/16/2010 1Data migrated from [employer] on 07/31/14. Originally documented as IBUPROFEN. PEGGY [place] Adverse Reaction Info Not Available Adverse Reaction Active 10/14/2018 Serafin Kim Immunizations Immunization Date Given Site Status Last Updated Comments Source Flu Vaccine - NOT Medicare 01/14/2018 completed Serafin Kim Flu Vaccine - NOT Medicare 12/31/2015 completed Serafin Kim Flu Vaccine - NOT Medicare 01/31/2014 completed Serafin Kim Results Order Name Results Value Reference Range Date Interpretation Comments Source Capillary blood glucose measurement by glucometer (mass/volume) 144 70 - 120 11/11/2018 [facility] Influenza virus A and B antigen identification by immunofluorescence NEGATIVE NEGATIVE 11/10/2018 [facility] Urine color determination YELLOW YELLOW 11/10/2018 [facility] Urine clarity SL CLOUDY CLEAR 11/10/2018 [facility] Specific gravity of Urine by Test strip 1.025 1.010 - 1.025 11/10/2018 [facility] Urine pH measurement by automated test strip 6 5 - 7 11/10/2018 [facility] Urine leukocyte esterase detection by automated test strip NEGATIVE NEGATIVE 11/10/2018 [facility] Urine nitrite detection by automated test strip NEGATIVE NEGATIVE 11/10/2018 [facility] Urine protein detection by automated test strip 2+ NEGATIVE 11/10/2018 [facility] Urine glucose detection by automated test strip 3+ NEGATIVE 11/10/2018 [facility] Urine ketones detection by automated test strip TRACE NEGATIVE 11/10/2018 [facility] Urine urobilinogen measurement by test strip (mass/volume) 1 0.2 - 1 11/10/2018 [facility] Urine total bilirubin detection NEGATIVE NEGATIVE 11/10/2018 [facility] Urine erythrocytes detection 1+ NEGATIVE 11/10/2018 [facility] Automated urine sediment leukocyte count by microscopy (number/high power field) 11-20 0 - 5 11/10/2018 [facility] Erythrocytes detection in urine sediment by light microscopy 6-10 0 - 5 11/10/2018 [facility] Bacteria detection in urine sediment by light microscopy MANY NONE 11/10/2018 [facility] Epithelial cells detection in urine sediment by light microscopy FEW NONE 11/10/2018 [facility] Renal epithelial cells detection in urine sediment by light microscopy MODERATE NONE 11/10/2018 [facility] Blood leukocytes automated count (number/volume) 13.95 4.8 - 10.8 11/10/2018 [facility] Blood erythrocytes automated count (number/volume) 4.62 3.6 - 5.1 11/10/2018 [facility] Blood hemoglobin measurement (moles/volume) 11.7 12.0 - 16.0 11/10/2018 [facility] Automated blood hematocrit (volume fraction) 36.5 34.2 - 44.1 11/10/2018 [facility] Automated erythrocyte mean corpuscular volume 79.0 81 - 99 11/10/2018 [facility] Automated erythrocyte mean corpuscular hemoglobin (mass per erythrocyte) 25.3 28 - 32 11/10/2018 [facility] Automated erythrocyte mean corpuscular hemoglobin concentration measurement (mass/volume) 32.1 31 - 35 11/10/2018 [facility] RDW BldCo-Rto 13.5 11.7 - 14.4 11/10/2018 [facility] Automated blood platelet count (count/volume) 366 140 - 360 11/10/2018 [facility] Automated blood segmented neutrophil count as percentage of total leukocytes 81.6 38.7 - 80.0 11/10/2018 [facility] Automated blood lymphocyte count as percentage ot total leukocytes 9.9 18.0 - 39.1 11/10/2018 [facility] Automated blood monocyte count as percentage of total leukocytes 6.9 4.4 - 11.3 11/10/2018 [facility] Automated blood eosinophil count as percentage of total leukocytes 0.6 0.0 - 6.0 11/10/2018 [facility] Automated blood basophil count as percentage of total leukocytes 0.5 0.0 - 1.0 11/10/2018 [facility] IM GRANULOCYTES % 0.5 0.0 - 1.0 11/10/2018 [facility] Automated blood neutrophil count 11.4 2.1 - 6.9 11/10/2018 [facility] Blood lymphocytes count (number/volume) 1.4 1.0 - 3.2 11/10/2018 [facility] Blood monocytes automated count (number/volume) 1.0 0.2 - 0.8 11/10/2018 [facility] Automated blood eosinophil count 0.1 0.0 - 0.4 11/10/2018 [facility] Automated blood basophil count (count/volume) 0.1 0.0 - 0.1 11/10/2018 [facility] Absolute Immature Granulocyte (auto 0.07 0 - 0.1 11/10/2018 [facility] Serum or plasma sodium measurement (moles/volume) 134 136 - 145 11/10/2018 [facility] Serum or plasma potassium measurement (moles/volume) 3.9 3.5 - 5.1 11/10/2018 [facility] Serum or plasma chloride measurement (moles/volume) 94 98 - 107 11/10/2018 [facility] Serum or plasma carbon dioxide, total measurement (moles/volume) 25 22 - 29 11/10/2018 [facility] Serum or plasma anion gap 18.9 8 - 16 11/10/2018 [facility] Serum or plasma urea nitrogen measurement (mass/volume) 12 7 - 26 11/10/2018 [facility] Serum or plasma creatinine measurement (mass/volume) 1.02 0.57 - 1.11 11/10/2018 [facility] Serum or plasma urea nitrogen/creatinine mass ratio 12 6 - 25 11/10/2018 [facility] Estimated glomerular filtration rate (GFR) determination 56 60 11/10/2018 [facility] Glucose measurement 246 74 - 118 11/10/2018 [facility] Serum or plasma calcium measurement (mass/volume) 9.5 8.4 - 10.2 11/10/2018 [facility] Lactic Acid Level 22.9 4.5 - 19.8 11/10/2018 [facility] Serum or plasma total bilirubin measurement (mass/volume) 0.4 0.2 - 1.2 11/10/2018 [facility] Aspartate Amino Transf (AST/SGOT) 24 5 - 34 11/10/2018 [facility] Serum or plasma alanine aminotransferase measurement (enzymatic activity/volume) 24 0 - 55 11/10/2018 [facility] Serum or plasma protein measurement (mass/volume) 6.8 6.5 - 8.1 11/10/2018 [facility] Serum or plasma albumin measurement (mass/volume) 3.4 3.5 - 5.0 11/10/2018 [facility] Plasma globulin measurement (mass/volume) 3.4 2.3 - 3.5 11/10/2018 [facility] Serum or plasma albumin/globulin mass ratio 1.0 0.8 - 2.0 11/10/2018 [facility] Serum or plasma alkaline phosphatase measurement (enzymatic activity/volume) 114 40 - 150 11/10/2018 [facility] Serum or plasma amylase measurement (enzymatic activity/volume) 46 25 - 125 11/10/2018 [facility] Serum or plasma lipase measurement (enzymatic activity/volume) 19 8 - 78 11/10/2018 [facility] URINE AND STOOL UA Urobilinogen <=1.0 mg/dL 0.1 - 1.0 02/24/2017 [facility] URINE AND STOOL UA Trans Epi 4 <=0 /LPF 02/24/2017 [facility] URINE AND STOOL UA pH 5.0 5.0 - 8.0 02/24/2017 [facility] URINE AND STOOL UA Bili Small *ABN* (02/24/17 8:17 AM) Negative 02/24/2017 [facility] URINE AND STOOL UA Blood Large *ABN* (02/24/17 8:17 AM) Negative 02/24/2017 [facility] URINE AND STOOL UA Ketones Trace mg/dL Negative mg/dL 02/24/2017 [facility] URINE AND STOOL UA Turbidity Clear (02/24/17 8:17 AM) Clear 02/24/2017 [facility] URINE AND STOOL UA Spec Grav 1.023 <=1.030 02/24/2017 [facility] URINE AND STOOL UA Color Yellow *NA* (02/24/17 8:17 AM) Yellow 02/24/2017 [facility] URINE AND STOOL UA WBC 15 0 - 5 02/24/2017 [facility] URINE AND STOOL UA Leuk Est Small *ABN* (02/24/17 8:17 AM) Negative 02/24/2017 [facility] URINE AND STOOL UA Nitrite Negative (02/24/17 8:17 AM) Negative 02/24/2017 [facility] URINE AND STOOL UA Protein Negative mg/dL Negative mg/dL 02/24/2017 [facility] URINE AND STOOL UA Glucose Negative mg/dL Negative mg/dL 02/24/2017 [facility] URINE AND STOOL UA RBC >182 0 - 2 02/24/2017 [facility] URINE AND STOOL UA Mucus Many /LPF None Seen /LPF 02/24/2017 [facility] URINE AND STOOL UA Sq Epi Few /LPF Few /LPF 02/24/2017 [facility] Chemistry HGBA1C 8.4 - 5.6 07/18/2014 [facility] CHOLESTEROL 380 - 199 07/18/2014 [facility] TRIGLYCERIDE 537 - 149 07/18/2014 [facility] HDL 36 >=61 07/18/2014 [facility] LDL See Note mg/dL - 99 07/18/2014 [facility] SODIUM 135 MEQ/L 135 - 145 07/18/2014 [facility] POTASSIUM 3.7 MEQ/L 3.5 - 5.1 07/18/2014 [facility] CREATININE 0.9 0.5 - 1.4 07/18/2014 [facility] BUN 19 7 - 22 07/18/2014 [facility] BUN/CREAT 21 6 - 25 07/18/2014 [facility] ALBUMIN 4.2 3.5 - 5.0 07/18/2014 [facility] CALCIUM 10.0 8.5 - 10.5 07/18/2014 [facility] SGPT (ALT) 31 0 - 65 07/18/2014 [facility] SGOT (AST) 19 0 - 37 07/18/2014 [facility] ALK PHOS 105 39 - 136 07/18/2014 [facility] TSH 0.958 0.360 - 3.740 07/18/2014 [facility] Hematology HGB 14.9 12.0 - 16.0 07/18/2014 [facility] H[facility]ology HCT 48.0 36.0 - 48.0 07/18/2014 [facility] H[facility]ology PLATELETS 310 K/CMM 133 - 450 07/18/2014 [facility] HGBA1C 8.1 - 5.6 04/17/2014 [facility] CHOLESTEROL 312 - 199 04/17/2014 [facility] TRIGLYCERIDE 278 - 149 04/17/2014 [facility] HGBA1C 8.1 - 5.6 04/17/2014 [facility] [...] HGB 14.8 12.0 - 16.0 04/17/2014 [facility] Hematology HCT 45.7 36.0 - 48.0 04/17/2014 [facility] Hematology PLATELETS 307 K/CMM 133 - 450 [...] PHOS 125 39 - 136 09/08/2011 [facility] Hematology HGB 14.8 12.0 - 16.0 09/08/2011 [...] [facility] HGBA1C 8.6 10/03/2010 [facility] Chemistry TSH 0.203 0.360 - 3.740 10/03/2010 [facility] HGBA1C 8.6 10/03/2010 [facility] TSH 0.203 0.360 - 3.740 10/03/2010 [facility] SODIUM 139 135 - 145 10/03/2010 [facility] POTASSIUM 4.3 3.5 - 5.1 10/03/2010 [facility] Chemistry BUN 20 7 - 22 10/03/2010 [facility] CREATININE 0.6 0.5 - 1.4 10/03/2010 [facility] Chemistry BUN/CREAT 33 6 - 25 10/03/2010 [facility] Chemistry ALBUMIN 4.3 3.5 - 5.0 10/03/2010 [facility] Chemistry CALCIUM 9.6 8.5 - 10.5 10/03/2010 [facility] Chemistry SGOT (AST) 7 0 - 37 10/03/2010 [facility] Chemistry SGPT (ALT) 24 0 - 65 10/03/2010 [facility] Chemistry ALK PHOS 98 39 - 136 10/03/2010 [facility] Hematology HGB 13.7 12.0 - 16.0 10/03/2010 [facility] Hematology HCT 41.3 36.0 - 48.0 10/03/2010 [facility] Hematology PLATELETS 307 K/CMM 133 - 450 10/03/2010 [facility] Pathology Reports No Data Provided for This [...] : 1960; Age: 56 years Female MR: [id number] Study: Chest 2 views DX Order Time: [...] radiographic evidence of acute pulmonary disease. SL: [id number] 01/08/2017 [facility] Chest 2 views DX Study: Chest 2 [...] unremarkable. IMPRESSION: No acute cardiopulmonary disease. SL: [id number] 01/06/2017 [facility] Consultation Notes No Data Provided for This Section Discharge Summaries No Data Provided for This Section History and Physicals No Data Provided for This Section Vital Signs Vital Sign Value Date Comments Source Weight 157 10/14/2018 Serafin Billings Buxbaum Height 60 10/14/2018 Serafin E Buxbaum Temperature Oral (F) 97.9 F 10/14/2018 Serafin E Buxbaum Heart Rate 80 10/14/2018 Serafin E Buxbaum Diastolic (mm Hg) 98 10/14/2018 Serafin E Buxbaum Systolic (mm Hg) 178 10/14/2018 Seraf[facility] E Buxbaum Weight 162.4 08/15/2018 Serafin E Buxbaum Height 60 08/15/2018 Serafin E Buxbaum Temperature Oral (F) 97.7 F 08/15/2018 Serafin E Buxbaum Heart Rate 86 08/15/2018 Serafin E Buxbaum Diastolic (mm Hg) 76 08/15/2018 Serafin E Buxbaum Systolic (mm Hg) 138 08/15/2018 Seraf[facility] E Buxbaum Weight 160.4 06/22/2018 Serafin E Buxbaum Height 60 06/22/2018 Esrafin E Buxbaum Temperature Oral (F) 97.1 F [...] Temperature Oral (F) 98.3 F 10/22/2017 Serafin E Buxbaum Heart Rate 83 10/22/2017 Serafin E Buxbaum Diastolic (mm Hg) 88 10/22/2017 Serafin E Buxbaum Systolic (mm Hg) 144 10/22/2017 Seraf[facility] E Buxbaum Weight 155 03/08/2017 Serafin E Buxbaum Height 60 03/08/2017 Serafin E Buxbaum Temperature Oral (F) 96.4 F 03/08/2017 Serafin Awa Buxbaum Heart Rate 76 03/08/2017 [facility] Awa Buxbaum Diastolic (mm Hg) 84 03/08/2017 Serafin Billings Buxbaum Systolic (mm Hg) 136 03/08/2017 Serafin Reesxbaum Respitory Rate 18 02/24/2017 [facility] Heart Rate 82 02/24/2017 [facility] Systolic (mm Hg) 160 02/24/2017 [facility] Diastolic (mm Hg) 85 02/24/2017 [facility] Temperature Oral (F) 98.7 F 02/24/2017 [facility] Respitory Rate 18 02/24/2017 [facility] Systolic (mm Hg) 160 02/24/2017 [facility] Diastolic (mm Hg) 80 02/24/2017 [facility] Heart Rate 90 02/24/2017 [facility] Temperature Oral (F) 99.1 F 02/24/2017 [facility] BMI Calculated 29.36 02/24/2017 [facility] Height 152.4 cm 02/24/2017 [facility] Weight 68.182 02/24/2017 [facility] Weight 155 01/15/2017 Serafin Claudioaum Height 60 01/15/2017 Serafin Reesxbaum Temperature Oral (F) 98.1 F 01/15/2017 Serafin Awa Reesxbaum Heart Rate 80 01/15/2017 Serafin Awa Buxbaum Diastolic (mm Hg) 86 01/15/2017 Serafin Awa Buxbaum Systolic (mm Hg) 140 01/15/2017 Serafin Billings Buxbaum Systolic (mm Hg) 156 01/09/2017 [facility] Diastolic (mm Hg) 84 01/09/2017 [facility] Temperature Oral (F) 97.9 F 01/09/2017 [facility] Heart Rate 80 01/09/2017 [facility] Respitory Rate 20 01/09/2017 [facility] Respitory Rate 16 01/09/2017 [facility] Systolic (mm Hg) 145 01/08/2017 [facility] Diastolic (mm Hg) 82 01/08/2017 [facility] Heart Rate 82 01/08/2017 [facility] Respitory Rate 18 01/08/2017 [facility] Temperature Oral (F) 98 F 01/08/2017 [facility] Temperature Oral (F) 97.8 F 01/08/2017 [facility] Height 152.4 cm 01/08/2017 [facility] Weight 70.455 01/08/2017 [facility] BMI Calculated 30.33 01/08/2017 [facility] Heart Rate 98 01/08/2017 [facility] Systolic (mm Hg) 179 01/08/2017 [facility] Diastolic (mm Hg) 86 01/08/2017 [facility] Weight 163 12/14/2016 Serafin Awa Reesxbaum Height 60 12/14/2016 Serafin E Buxbaum Temperature [...] Buxbaum Systolic (mm Hg) 192 12/31/2015 Serafin E Buxbaum Weight 130 07/25/2015 Serafin E Buxbaum Height 60 07/25/2015 Serafin E Buxbaum Temperature Oral (F) 97.9 F 07/25/2015 Serafin E Buxbaum Heart Rate 84 07/25/2015 Serafin E Buxbaum Diastolic (mm Hg) 86 07/25/2015 Serafin E Buxbaum Systolic (mm Hg) 152 07/25/2015 Serafin Claudioaum Weight 135 05/21/2015 Serafin Claudioaum Height 60 05/21/2015 Serafin Claudioaum Temperature Oral (F) 98.4 F 05/21/2015 Serafin Claudioaum Heart Rate 76 05/21/2015 Serafin Reesxbaum Diastolic (mm Hg) 86 05/21/2015 Serafin Reesxbaum Systolic (mm Hg) 134 05/21/2015 Serafin Claudioaum Weight 187 08/24/2014 Serafin Awa Claudioaum Height 60 08/24/2014 Serafin Claudioaum Temperature Oral (F) 97.1 F 08/24/2014 Serafin Claudioaum Heart Rate 90 08/24/2014 Serafin Reesxbaum Diastolic (mm Hg) 68 08/24/2014 Serafin Claudioaum Systolic (mm Hg) 138 08/24/2014 Serafin Lopezm Height 60 07/19/2014 [facility] Weight 191 [...] 01/03/2014 [facility] Weight 182 11/14/2013 Serafin Claudioaum Height 60 11/14/2013 Serafin Claudioaum Temperature Oral (F) 98.5 F 11/14/2013 Serafin Claudioaum Heart Rate 72 11/14/2013 Serafin Claudioaum Diastolic (mm Hg) 78 11/14/2013 Serafin Reesxbaum Systolic (mm Hg) 120 11/14/2013 Serafin Claudioaum Weight 192 05/30/2013 [facility] Systolic (mm Hg) 120 05/30/2013 [facility] Diastolic (mm Hg) 60 05/30/2013 [facility] Heart Rate 76 05/30/2013 [facility] Weight 181 10/05/2012 [facility] Heart Rate 80 10/05/2012 [facility] Systolic (mm Hg) 120 10/05/2012 [facility] Diastolic (mm Hg) 70 10/05/2012 [facility] Weight 188 09/07/2012 [facility] Temperature Oral (F) 98.2 F 09/07/2012 [facility] Respitory Rate 18 09/07/2012 [facility] Heart Rate 81 09/07/2012 [facility] Systolic (mm Hg) 134 09/07/2012 [facility] Diastolic (mm Hg) 77 09/07/2012 [facility] Weight 178 03/17/2012 [facility] Temperature Oral (F) 98.4 F 03/17/2012 [facility] Respitory Rate 14 03/17/2012 [facility] Heart Rate 74 03/17/2012 [facility] Systolic (mm Hg) 117 03/17/2012 [facility] Diastolic (mm Hg) 71 03/17/2012 [facility] Weight 178 03/08/2012 [facility] [...] 01/13/2012 [facility] Heart Rate 73 01/13/2012 [facility] Weight 177 09/08/2011 [facility] Systolic (mm Hg) 144 09/08/2011 [facility] Diastolic (mm Hg) 86 09/08/2011 [facility] Heart Rate 68 09/08/2011 [facility] Weight 180 09/08/2011 [facility] Temperature Oral (F) 97.7 F 09/08/2011 [facility] Respitory Rate 20 09/08/2011 [facility] Heart Rate 74 09/08/2011 [facility] Systolic (mm Hg) 157 09/08/2011 [facility] Diastolic (mm Hg) 77 09/08/2011 [facility] Weight 185 05/29/2011 [facility] Temperature Oral (F) 99.3 F 05/29/2011 [facility] Respitory Rate 20 05/29/2011 [facility] Heart Rate 69 05/29/2011 [facility] Systolic (mm Hg) 162 05/29/2011 [facility] Diastolic (mm Hg) 74 05/29/2011 [facility] Weight 177 04/03/2011 [facility] Systolic (mm Hg) 128 04/03/2011 [facility] Diastolic (mm Hg) 80 04/03/2011 [facility] Heart Rate 64 04/03/2011 [facility] Weight 175 03/16/2011 [facility] Respitory Rate 16 03/16/2011 [facility] Temperature Oral (F) 97.9 F 03/16/2011 [facility] Heart Rate 89 03/16/2011 [facility] Systolic (mm Hg) 147 03/16/2011 [facility] Diastolic (mm Hg) 76 03/16/2011 [facility] Weight 170 02/13/2011 [facility] Temperature Oral (F) 97.4 F 02/13/2011 [facility] Respitory Rate 20 02/13/2011 [facility] Heart Rate 76 02/13/2011 [facility] Systolic (mm Hg) 124 02/13/2011 [facility] Diastolic (mm Hg) 77 02/13/2011 [...] Provider ADM Date DC Date Status Source [facility] Office Visit [id number] Andrés Fritz MD 09/07/2012 09/07/2012 [facility] Lab Report [id number] Andrés Fritz MD 09/07/2012 09/07/2012 [facility] [place] [id number] Andrés Fritz MD 10/05/2012 10/05/2012 [facility] [place] Visit [id number] Andrés Fritz MD 05/30/2013 05/30/2013 [facility] Serafin Kim DO, PA reff, meds [id number] 11/14/2013 11/14/2013 Serafin Kim DO, PA reff, meds [id number] 11/14/2013 11/14/2013 Serafin Kim DO, PA reff, meds [id number] 11/14/2013 11/14/2013 Serafin Kim DO, PA reff, meds [id number] 11/14/2013 11/14/2013 Serafin Kim DO, PA reff, meds [id number] 11/14/2013 11/14/2013 Serafin Kim DO, PA reff, meds [id number] 11/14/2013 11/14/2013 Serafin Kim DO, PA reff, meds [id number] 11/14/2013 11/14/2013 Serafin Kim DO, PA reff, meds [id number] 11/14/2013 11/14/2013 Serafin Kim DO, PA reff, meds [id number] 11/14/2013 11/14/2013 Serafin Kim DO PA reff, meds [id number] 11/14/2013 11/14/2013 Serafin Kim DO, PA reff, meds [id number] 11/14/2013 11/14/2013 Serafin Kim DO, PA reff, meds [id number] 11/14/2013 11/14/2013 Serafin Kim DO, PA reff, meds [id number] 11/14/2013 11/14/2013 Serafin Kim DO, PA reff, meds [id number] 11/14/2013 11/14/2013 Serafin Kim DO PA reff, meds [id number] 11/14/2013 11/14/2013 Serafin Kim DO PA reff, meds [id number] 11/14/2013 11/14/2013 Serafin Kim DO PA reff, meds [id number] 11/14/2013 11/14/2013 Serafin Kim DO PA reff, meds [id number] 11/14/2013 11/14/2013 Serafin Kim DO PA reff, meds [id number] 11/14/2013 11/14/2013 Serafin Kim DO PA reff, meds [id number] 11/14/2013 11/14/2013 Serafin Kim DO PA reff, meds [id number] 11/14/2013 11/14/2013 Serafin Kim DO, PA reff, meds [id number] 11/14/2013 11/14/2013 Serafin Kim DO PA reff, meds [id number] 11/14/2013 11/14/2013 Serafin Kim DO, PA reff, meds [id number] 11/14/2013 11/14/2013 Serafin Kim DO, PA reff, meds [id number] 11/14/2013 11/14/2013 Serafin Kim DO, PA reff, meds [id number] 11/14/2013 11/14/2013 Serafin Kim DO, PA reff, meds [id number] 11/14/2013 11/14/2013 Serafin Kim [facility] Lab Report [id number] Andrés Fritz MD 11/15/2013 11/15/2013 [facility] [place] refill [id number] 11/15/2013 11/15/2013 Serafin Kim DO, PA refill [id number] 11/15/2013 11/15/2013 Serafin Kim DO, PA refill [id number] 11/15/2013 11/15/2013 Serafin Kim DO, PA refill [id number] 11/15/2013 11/15/2013 Serafin Kim DO, PA refill [id number] 11/15/2013 11/15/2013 Serafin Kim DO, [place] refill [id number] 11/15/2013 11/15/2013 Serafin Betancourt Kirstin Judy DO, PA refill [id number] 11/15/2013 11/15/2013 Serafin Betancourt AwaClaudia Kim DO, PA refill [id number] 11/15/2013 11/15/2013 Serafin Kim DO, PA refill [id number] 11/15/2013 11/15/2013 Serafin Kim DO, PA refill [id number] 11/15/2013 11/15/2013 Serafin Kim DO, PA refill [id number] 11/15/2013 11/15/2013 Serafin Kim DO, PA refill [id number] 11/15/2013 11/15/2013 Serafin Kim DO, [place] refill [id number] 11/15/2013 11/15/2013 Serafin Kim DO, [place] refill [id number] 11/15/2013 11/15/2013 Serafin Kim DO, PA refill [id number] 11/15/2013 11/15/2013 Serafin Kim DO, PA refill [id number] 11/15/2013 11/15/2013 Serafin Kim DO, PA refill [id number] 11/15/2013 11/15/2013 Serafin Kim DO, PA refill [id number] 11/15/2013 11/15/2013 Serafin Kim DO, PA refill [id number] 11/15/2013 11/15/2013 Serafin Kim DO, PA refill [id number] 11/15/2013 11/15/2013 Serafin Kim DO, PA refill [id number] 11/15/2013 11/15/2013 Serafin Kim DO, PA refill [id number] 11/15/2013 11/15/2013 Serafin Kim DO, PA refill [id number] 11/15/2013 11/15/2013 Serafin Kim DO, PA refill [id number] 11/15/2013 11/15/2013 Serafin Kim DO, PA refill [id number] 11/15/2013 11/15/2013 Serafin Kim Serafin Kirstin Kim DO, PA refill [id number] 11/15/2013 11/15/2013 Serafin Kim DO, PA refill [id number] 11/15/2013 11/15/2013 Serafin Kim DO, [place] coupon [id number] 11/20/2013 11/20/2013 Serafin Kim DO, [place] coupon [id number] 11/20/2013 11/20/2013 Serafin Kim DO, [place] coupon [id number] 11/20/2013 11/20/2013 Serafin Kim DO, PA coupon [id number] 11/20/2013 11/20/2013 Serafin Kim DO, [place] coupon [id number] 11/20/2013 11/20/2013 Serafin Kim DO, [place] coupon [id number] 11/20/2013 11/20/2013 Serafin Kim DO, [place] coupon [id number] 11/20/2013 11/20/2013 Serafin Kim DO, [place] coupon [id number] 11/20/2013 11/20/2013 Serafin Kim DO, [place] coupon [id number] 11/20/2013 11/20/2013 Serafin Kim DO, [place] coupon [id number] 11/20/2013 11/20/2013 Serafin Kim DO, [place] coupon [id number] 11/20/2013 11/20/2013 Serafin Kim DO, PA coupon [id number] 11/20/2013 11/20/2013 Serafin Kim DO, [place] coupon [id number] 11/20/2013 11/20/2013 Serafin Kim DO, PA coupon [id number] 11/20/2013 11/20/2013 Serafin Kim DO, PA coupon [id number] 11/20/2013 11/20/2013 Serafin Kim DO, PA coupon [id number] 11/20/2013 11/20/2013 Serafin Kim DO, PA coupon [id number] 11/20/2013 11/20/2013 Serafin Kim DO, PA coupon [id number] 11/20/2013 11/20/2013 Serafin Kim DO, PA coupon [id number] 11/20/2013 11/20/2013 Serafin Kim DO, PA coupon [id number] 11/20/2013 11/20/2013 Serafin Kim DO, PA coupon [id number] 11/20/2013 11/20/2013 Serafin Kim DO, PA coupon [id number] 11/20/2013 11/20/2013 Serafin Kim DO, PA coupon [id number] 11/20/2013 11/20/2013 Serafin Kim DO, PA coupon [id number] 11/20/2013 11/20/2013 Serafin Kim DO, PA coupon [id number] 11/20/2013 11/20/2013 Serafin Kim DO, PA coupon [id number] 11/20/2013 11/20/2013 Serafin Kim DO, PA coupon [id number] 11/20/2013 11/20/2013 Serafin Kim [facility] [place] [facility] [phone] Andrés Fritz MD 01/03/2014 01/03/2014 [facility], [place], [place] Mammogram [id number] 01/12/2014 01/12/2014 Serafin Kim DO, PA Mammogram [id number] 01/12/2014 01/12/2014 Serafin Kim DO, PA Mammogram [id number] 01/12/2014 01/12/2014 Serafin Kim DO, PA Mammogram [id number] 01/12/2014 01/12/2014 Serafin Kim DO, PA Mammogram [id number]-llm5jvwl036o 01/12/2014 01/12/2014 Serafin Kim, DO, [place] Mammogram [id number] 01/12/2014 01/12/2014 Serafin Kim DO, PA Mammogram [id number] 01/12/2014 01/12/2014 Serafin Kim DO, PA Mammogram [id number] 01/12/2014 01/12/2014 Serafin Kim DO, PA Mammogram [id number] 01/12/2014 01/12/2014 Serafin Kim, DO, PA Mammogram [id number] 01/12/2014 01/12/2014 Serafin Kim, DO, [place] Mammogram [id number] 01/12/2014 01/12/2014 Serafin Kim, DO, [place] Mammogram [id number] 01/12/2014 01/12/2014 Serafin Kim, DO, [place] Mammogram [id number]-r8v2h58obv5w 01/12/2014 01/12/2014 Serafin Kim DO, PA Mammogram [id number]-qaz55gwmyg13 01/12/2014 01/12/2014 Serafin Kim, DO, [place] Mammogram [id number] 01/12/2014 01/12/2014 Serafin Kim DO, PA Mammogram [id number] 01/12/2014 01/12/2014 Serafin Kim DO, PA Mammogram [id number]-[id number] 01/12/2014 01/12/2014 Serafin Kim, DO, PA Mammogram [id number] 01/12/2014 01/12/2014 Serafin Kim DO, PA Mammogram [id number] 01/12/2014 01/12/2014 Serafin Kim DO, PA Mammogram [id number] 01/12/2014 01/12/2014 Serafin Kim DO, PA Mammogram [id number] 01/12/2014 01/12/2014 Serafin Kim DO, PA Mammogram [id number] 01/12/2014 01/12/2014 Serafin Kim DO, PA Mammogram [id number] 01/12/2014 01/12/2014 Serafin Kim , PA Mammogram [id number]-c951tvst0647 01/12/2014 01/12/2014 Serafin Kim DO, PA Unknown [id number] 01/31/2014 01/31/2014 Serafin Kim DO, PA Unknown [id number] 01/31/2014 01/31/2014 Serafin Kim DO, PA Unknown [id number] 01/31/2014 01/31/2014 Serafin Kim DO, PA Unknown [id number] 01/31/2014 01/31/2014 Serafin Kim DO, PA Unknown [id number] 01/31/2014 01/31/2014 Serafin Kim DO, PA Unknown [id number] 01/31/2014 01/31/2014 Serafin Kim DO, PA Unknown [id number] 01/31/2014 01/31/2014 Serafin Kim DO, PA Unknown [id number] 01/31/2014 01/31/2014 Serafin Kim DO, PA Unknown [id number] 01/31/2014 01/31/2014 Serafin Billings Gonzálezadri Reesgenovevaadri DO, PA Unknown [id number] 01/31/2014 01/31/2014 Serafin Reesgenovevaadri DO, [place] Unknown [id number] 01/31/2014 01/31/2014 Serafin Kim DO, PA Unknown [id number] 01/31/2014 01/31/2014 Serafin Billings Gonzálezadri Kim DO, PA Unknown [id number] 01/31/2014 01/31/2014 Serafin Awa Gonzálezadri Reesgenovevaadri DO, [place] Unknown [id number] 01/31/2014 01/31/2014 Serafin Awa Jessicamary Fulton Gonzálezadri DO, [place] Unknown [id number] 01/31/2014 01/31/2014 Serafin Kim DO PA Unknown [id number] 01/31/2014 01/31/2014 Serafin Kim DO PA Unknown [id number] 01/31/2014 01/31/2014 Serafin Kim DO PA Unknown [id number] 01/31/2014 01/31/2014 Serafin Kim DO PA Unknown [id number] 01/31/2014 01/31/2014 Serafin Kim DO PA Unknown [id number] 01/31/2014 01/31/2014 Serafin Kim DO PA Unknown [id number] 01/31/2014 01/31/2014 Serafin Kim DO PA Unknown [id number] 01/31/2014 01/31/2014 Serafin Kim DO PA Unknown [id number] 01/31/2014 01/31/2014 Serafin Kim DO PA refill meds [id number]-[id number] 02/07/2014 02/07/2014 Serafin Kim DO, PA refill meds [id number] 02/07/2014 02/07/2014 Serafin Kim DO, PA refill meds [id number]-c8p17z82g4yb 02/07/2014 02/07/2014 Serafin Kim DO, PA refill meds [id number] 02/07/2014 02/07/2014 Serafin Kim DO, PA refill meds [id number] 02/07/2014 02/07/2014 Serafin Kim DO, PA refill meds [id number]-qwpa-[id number] 02/07/2014 02/07/2014 Serafin Kim DO, PA refill meds [id number] 02/07/2014 02/07/2014 Serafin Kim DO, PA refill meds [id number] 02/07/2014 02/07/2014 Serafin Kim DO, PA refill meds [id number] 02/07/2014 02/07/2014 Serafin Kim DO, PA refill meds [id number] 02/07/2014 02/07/2014 Serafin Kim DO, PA refill meds [id number] 02/07/2014 02/07/2014 Serafin Kim DO, PA refill meds [id number] 02/07/2014 02/07/2014 Serafin Kim DO, PA refill meds [id number] 02/07/2014 02/07/2014 Serafin Kim DO, PA refill meds [id number] 02/07/2014 02/07/2014 Serafin Kim DO, PA refill meds [id number]-d67y-[id number] 02/07/2014 02/07/2014 Serafin Kim DO, PA refill meds [id number]-[id number] 02/07/2014 02/07/2014 Serafin Kim DO, PA refill meds [id number]-ut4k-753l93s384x9 02/07/2014 02/07/2014 Serafin Kim DO, PA refill meds [id number]-[id number] 02/07/2014 02/07/2014 Serafin Kim DO, PA refill meds [id number] 02/07/2014 02/07/2014 Serafin Kim DO, PA refill meds [id number]-r23v-0fzznjw6f586 02/07/2014 02/07/2014 Serafin Kim DO, PA refill meds [id number]-7ofx-[id number] 02/07/2014 02/07/2014 Serafin Kim DO, PA refill meds [id number] 02/07/2014 02/07/2014 Serafin Kim DO, PA refill meds [id number]-8slo-bh2u-6i1348t81lz2 02/07/2014 02/07/2014 Serafin Kim DO, PA reff [id number] 02/21/2014 02/21/2014 Serafin Kim DO, PA reff [id number] 02/21/2014 02/21/2014 Serafin Kim DO, PA reff [id number]-ypyc1739kbj3 02/21/2014 02/21/2014 Serafin Kim DO, PA reff [id number]-s45x407yn56r 02/21/2014 02/21/2014 Serafin Kim DO, PA reff [id number] 02/21/2014 02/21/2014 Serafin Kim DO, PA reff [id number] 02/21/2014 02/21/2014 Serafin Kim DO, PA reff [id number] 02/21/2014 02/21/2014 Serafin Lopezm, DO, [place] reff [id number] 02/21/2014 02/21/2014 Serafin Betancourt AwaClaudia Kim DO, PA reff [id number] 02/21/2014 02/21/2014 Serafin Kim DO, PA reff [id number] 02/21/2014 02/21/2014 Serafin Kim DO, PA reff [id number] 02/21/2014 02/21/2014 Serafin Kim DO, PA reff [id number]-klddwp8ure35 02/21/2014 02/21/2014 Serafin Kim DO, PA reff [id number] 02/21/2014 02/21/2014 Serafin Betancourt AwaClaudia Kim DO, PA reff [id number] 02/21/2014 02/21/2014 Serafin Kim DO, PA reff [id number] 02/21/2014 02/21/2014 Serafin Kim DO, PA reff [id number] 02/21/2014 02/21/2014 Serafin Kim DO, PA reff [id number] 02/21/2014 02/21/2014 Serafin Kim DO, PA reff [id number]-0tbu-[id number] 02/21/2014 02/21/2014 Sreafin Kim DO, PA reff [id number]-uc62-[id number] 02/21/2014 02/21/2014 Serafin Kim DO, PA reff [id number]-[id number] 02/21/2014 02/21/2014 Serafin Kim DO, PA reff [id number]-[id number] 02/21/2014 02/21/2014 Serafin Kim DO, PA reff [id number] 02/21/2014 02/21/2014 Serafin Kim DO, PA reff [id number] 02/21/2014 02/21/2014 Serafin Kim DO, PA refill meds [id number]-[id number] 02/22/2014 02/22/2014 Serafin Kim DO, PA refill meds [id number]-0e59-y6lq0jxlf85e 02/22/2014 02/22/2014 Serafin Kim DO, PA refill meds ka12sack-1915-251c-7mj5-q6435t1s1xc6 02/22/2014 02/22/2014 Serafin Kim DO PA refill meds [id number] 02/22/2014 02/22/2014 Serafin Kim DO, PA refill meds a3w3u7w6-[id number]-e612-16te62209w88 02/22/2014 02/22/2014 Serafin Kim DO, PA refill meds [id number]-279d-80m48kxd4k18 02/22/2014 02/22/2014 Serafin Kim DO, PA refill meds [id number]-vt0l-0bft-1763-4wjk30241m53 02/22/2014 02/22/2014 Serafin Kim DO, PA refill meds [id number]-595r-0ki8-080rb37w550q 02/22/2014 02/22/2014 Serafin Kim DO, PA refill meds [id number]-n6e9-[id number] 02/22/2014 02/22/2014 Serafin Kim DO, PA refill meds [id number] 02/22/2014 02/22/2014 Serafin Kim DO, PA refill meds [id number]-16g4-5tsh-62q3i91bmw6t 02/22/2014 02/22/2014 Serafin Kim DO, PA refill meds [id number]-7xhy-[id number] 02/22/2014 02/22/2014 Serafin Kim DO, PA refill meds [id number] 02/22/2014 02/22/2014 Serafin Kim DO, PA refill meds [id number]-54f2u04y15g7 02/22/2014 02/22/2014 Serafin Kim DO, PA refill meds [id number]-p4b7-[id number] 02/22/2014 02/22/2014 Serafin Kim DO, PA refill meds [id number]-[id number]-[id number] 02/22/2014 02/22/2014 Serafin Kim DO, PA refill meds 6htdzdr0-o41p-2010-9t1h-878a6k630z8e 02/22/2014 02/22/2014 Serafin Kim DO, PA refill meds 5ze7o0p0-hk6d-1ywf-963s-p78j8837iz63 02/22/2014 02/22/2014 Serafin Kim DO, PA refill meds [id number]-14tr-onj76ee63735 02/22/2014 02/22/2014 Serafin Kim DO, PA refill meds [id number] 02/22/2014 02/22/2014 Serafin Kim DO, PA refill meds [id number] 02/22/2014 02/22/2014 Serafin Kim DO, PA refill meds [id number]-b608i0hoz4f5 02/22/2014 02/22/2014 Serafin Kim DO, PA refill meds [id number]-e3x6-01j3-8977-26z89qpz43io 02/22/2014 02/22/2014 Serafin Awa Jessicamary Serafin Kirstin Jessicamary DO, [place] Unknown [id number] 03/12/2014 03/12/2014 Serafin Lopezmary Serafin Kirstin Jessicamary DO, [place] Unknown [id number] 03/12/2014 03/12/2014 Serafin Lopezmary Serafin Kirstin Jessicamary DO, [place] Unknown [id number] 03/12/2014 03/12/2014 Serafin Betancourt Kirstin Jessicamary DO, [place] Unknown [id number] 03/12/2014 03/12/2014 Serafin Lopezmary Serafin Kirstin Jessicamary DO, [place] Unknown [id number] 03/12/2014 03/12/2014 Serafin Kim DO, [place] Unknown [id number] 03/12/2014 03/12/2014 Serafin Kim DO, [place] Unknown [id number] 03/12/2014 03/12/2014 Serafin Lopezmary DO, [place] Unknown [id number] 03/12/2014 03/12/2014 Serafin Kim DO, [place] Unknown [id number] 03/12/2014 03/12/2014 Serafin Kim DO, [place] Unknown [id number] 03/12/2014 03/12/2014 Serafin Kim DO, [place] Unknown [id number] 03/12/2014 03/12/2014 Serafin Kim DO, [place] Unknown [id number] 03/12/2014 03/12/2014 Serafin Reesgenovevaadri Reesgenovevaadri DO, [place] Unknown [id number] 03/12/2014 03/12/2014 Serafin Billings Jessicamary Fulton Gonzálezadri DO, [place] Unknown [id number] 03/12/2014 03/12/2014 Serafin Billings Jessicamary Reesgenovevaadri DO, [place] Unknown [id number] 03/12/2014 03/12/2014 Serafin Awa Jessicamary Fulton Jessicamary DO, [place] Unknown [id number] 03/12/2014 03/12/2014 Serafin Billings Jessicamary Fulton Gonzálezadri DO, [place] Unknown [id number] 03/12/2014 03/12/2014 Serafin Billings Jessicamary Fulton Jessicamary DO, [place] Unknown [id number] 03/12/2014 03/12/2014 Serafin Billings Jessicamary Fulton Gonzálezadri DO, [place] Unknown [id number] 03/12/2014 03/12/2014 Serafin Lopezmary Serafin Kim DO, [place] refill meds [id number] 04/13/2014 04/13/2014 Serafin Kim DO, [place] refill meds [id number] 04/13/2014 04/13/2014 Serafin Kim DO, [place] refill meds [id number] 04/13/2014 04/13/2014 Serafin Kim DO, [place] refill meds [id number] 04/13/2014 04/13/2014 Serafin Kim DO, [place] refill meds [id number] 04/13/2014 04/13/2014 Serafin Kim DO, [place] refill meds [id number] 04/13/2014 04/13/2014 Serafin Kim DO, PA refill meds [id number] 04/13/2014 04/13/2014 Serafin Kim DO, PA refill meds [id number] 04/13/2014 04/13/2014 Serafin Kim DO, PA refill meds [id number] 04/13/2014 04/13/2014 Serafin Kim DO PA refill meds [id number] 04/13/2014 04/13/2014 Serafin Kim DO, PA refill meds [id number] 04/13/2014 04/13/2014 Searfin Kim DO, PA refill meds [id number] 04/13/2014 04/13/2014 Serafin Kim DO, PA refill meds [id number] 04/13/2014 04/13/2014 Serafin Kim DO, PA refill meds [id number] 04/13/2014 04/13/2014 Serafin Kim DO, [place] refill meds [id number] 04/13/2014 04/13/2014 Serafin Kim DO, PA refill meds [id number] 04/13/2014 04/13/2014 Serafin Kim DO, PA refill meds [id number] 04/13/2014 04/13/2014 Serafin Kim DO, PA refill meds [id number] 04/13/2014 04/13/2014 Serafin Kim DO, [place] refill meds [id number] 04/13/2014 04/13/2014 Serafin Kim [facility] [place] [facility] [place] [id number] Andrés Fritz MD 04/17/2014 04/17/2014 [facility] [place] [id number] Andrés Fritz MD 04/19/2014 04/19/2014 [facility] Serafin Kim DO, [place] Refill [id number] 04/27/2014 04/27/2014 Serafin Kim DO, PA Refill [id number] 04/27/2014 04/27/2014 Serafin Kim DO, PA Refill [id number] 04/27/2014 04/27/2014 Serafin Kim DO, [place] Refill [id number] 04/27/2014 04/27/2014 Serafin Kim DO PA Refill [id number] 04/27/2014 04/27/2014 Serafin Kim DO, PA Refill [id number] 04/27/2014 04/27/2014 Serafin Kim DO, PA Refill [id number] 04/27/2014 04/27/2014 Serafin Kim DO, PA Refill [id number] 04/27/2014 04/27/2014 Serafin Kim DO PA Refill [id number] 04/27/2014 04/27/2014 Serafin Kim DO, PA Refill [id number] 04/27/2014 04/27/2014 Serafin Kim DO, [place] Refill [id number] 04/27/2014 04/27/2014 Serafin Kim DO, [place] Refill [id number] 04/27/2014 04/27/2014 Serafin Kim DO, [place] Refill [id number] 04/27/2014 04/27/2014 Serafin Kim DO, PA Refill [id number] 04/27/2014 04/27/2014 Serafin Kim DO, PA Refill [id number] 04/27/2014 04/27/2014 Serafin Kim DO, [place] Refill [id number] 04/27/2014 04/27/2014 Serafin Kim DO, [place] Refill [id number] 04/27/2014 04/27/2014 Serafin Kim DO, [place] Refill [id number] 04/27/2014 04/27/2014 Serafin Kim [facility] [place] [facility] [place] [id number] Andrés Fritz MD 07/19/2014 07/19/2014 [facility] Serafin Kim, DO, PA ankle pain and swelling [id number] 07/26/2014 07/26/2014 Serafin Kim, DO, PA ankle pain and swelling [id number] 07/26/2014 07/26/2014 Serafin Kim, DO, PA ankle pain and swelling [id number] 07/26/2014 07/26/2014 Serafni Kim, DO, PA ankle pain and swelling [id number] 07/26/2014 07/26/2014 Serafin Kim, DO, PA ankle pain and swelling [id number] 07/26/2014 07/26/2014 Serafin Kim, DO, PA ankle pain and swelling [id number] 07/26/2014 07/26/2014 Serafin Kim, DO, PA ankle pain and swelling [id number] 07/26/2014 07/26/2014 Serafin Kim, DO, PA ankle pain and swelling [id number] 07/26/2014 07/26/2014 Serafin Kim, DO, PA ankle pain and swelling [id number] 07/26/2014 07/26/2014 Serafin Kim, DO, PA ankle pain and swelling [id number] 07/26/2014 07/26/2014 Serafin Kim, DO, PA ankle pain and swelling [id number] 07/26/2014 07/26/2014 Serafin Kim, DO, PA ankle pain and swelling [id number] 07/26/2014 07/26/2014 Serafin Kim DO, PA ankle pain and swelling [id number] 07/26/2014 07/26/2014 Serafin Kim, DO, PA ankle pain and swelling [id number] 07/26/2014 07/26/2014 Serafin Kim DO, PA ankle pain and swelling [id number] 07/26/2014 07/26/2014 Serafin Kim, DO, PA ankle pain and swelling [id number] 07/26/2014 07/26/2014 Serafin Kim, DO, PA ankle pain and swelling [id number] 07/26/2014 07/26/2014 Serafin Kim [facility] Outpatient Imaging [facility] [id number] Andrés Fritz 07/30/2014 07/31/2014 [facility] Seraf[facility] Kim DO, [place] refill request [id number] 08/01/2014 08/01/2014 Serafin Kim DO, [place] refill request [id number] 08/01/2014 08/01/2014 Serafin Kim DO, PA refill request [id number] 08/01/2014 08/01/2014 Serafin Kim DO, [place] refill request [id number] 08/01/2014 08/01/2014 Serafin Kim DO, PA refill request [id number] 08/01/2014 08/01/2014 Serafin Kim DO, PA refill request [id number] 08/01/2014 08/01/2014 Serafin Kim DO, PA refill request [id number] 08/01/2014 08/01/2014 Serafin Kim DO, PA refill request [id number] 08/01/2014 08/01/2014 Serafin Kim DO, PA refill request [id number] 08/01/2014 08/01/2014 Serafin Kim DO, PA refill request [id number] 08/01/2014 08/01/2014 Serafin Kim DO, PA refill request [id number] 08/01/2014 08/01/2014 Serafin Kim DO, [place] refill request [id number] 08/01/2014 08/01/2014 Serafin Kim DO, [place] refill request [id number] 08/01/2014 08/01/2014 Serafin Kim DO, [place] refill request [id number] 08/01/2014 08/01/2014 Serafin Kim DO, [place] refill request [id number] 08/01/2014 08/01/2014 Serafin Kim DO PA refill request [id number] 08/01/2014 08/01/2014 Serafin Kim DO, [place] refill request [id number] 08/01/2014 08/01/2014 Serafin Kim DO, PA f/u hospital [id number] 08/24/2014 08/24/2014 Serafin Kim DO, [place] f/u hospital [id number] 08/24/2014 08/24/2014 Serafin Kim DO, PA f/u hospital [id number] 08/24/2014 08/24/2014 Serafin Kim DO PA f/u [facility] [id number] 08/24/2014 08/24/2014 Serafin Kim [facility] [place] f/u [facility] [id number] 08/24/2014 08/24/2014 Serafin Kim DO PA f/u [facility] [id number] 08/24/2014 08/24/2014 Serafin Kim [facility] PA f/u [facility] [id number] 08/24/2014 08/24/2014 Serafin Kim [facility] PA f/u [facility] [id number] 08/24/2014 08/24/2014 Serafin Kim DO PA f/u [facility] [id number] 08/24/2014 08/24/2014 Serafin Kim [facility] PA f/u [facility] [id number] 08/24/2014 08/24/2014 Serafin Kim DO PA f/u [facility] [id number] 08/24/2014 08/24/2014 Serafin Kim [facility] PA f/u [facility] [id number] 08/24/2014 08/24/2014 Serafin Kim DO PA f/u [facility] [id number] 08/24/2014 08/24/2014 Serafin Kim DO PA f/u hospital [id number] 08/24/2014 08/24/2014 Serafin Kim DO, PA f/u [facility] [id number] 08/24/2014 08/24/2014 Serafin Kim DO, PA f/u [facility] [id number] 08/24/2014 08/24/2014 Serafin Kim DO, PA /u [facility] [id number] 08/24/2014 08/24/2014 Serafin Kim [facility] [id number] [facility] 10/18/2014 [facility] Serafin Kim DO PA Unknown [id number] 01/10/2015 01/10/2015 Serafin Kim DO, [place] Unknown [id number] 01/10/2015 01/10/2015 Serafin Kim DO, [place] Unknown [id number] 01/10/2015 01/10/2015 Serafin Kim DO PA Unknown [id number] 01/10/2015 01/10/2015 Serafin Kim DO PA Unknown [id number] 01/10/2015 01/10/2015 Serafin Kim Serafin E. Gonzálezadri DO, PA Unknown [id number] 01/10/2015 01/10/2015 Serafin Awa Jessicamary Fulton Gonzálezadri DO, PA Unknown [id number] 01/10/2015 01/10/2015 Serafin Kim Serafin Fulton Jessicamary DO, [place] Unknown [id number] 01/10/2015 01/10/2015 Serafin Betancourt Kirstin Jessicamary DO, PA Unknown [id number] 01/10/2015 01/10/2015 Serafin Kim Serafin Fulton Jessicamary DO, PA Unknown [id number] 01/10/2015 01/10/2015 Serafin Kim Serafin Fulton Jessicamary DO, PA Unknown [id number] 01/10/2015 01/10/2015 Serafin Kim Serafin Fulton Jessicamary DO, [place] Unknown [id number] 01/10/2015 01/10/2015 Serafin Betancourt Kirstin Jessicamary DO, PA Unknown [id number] 01/10/2015 01/10/2015 Serafin Betancourt Kirstin Jessicamary DO, PA Unknown [id number] 01/10/2015 01/10/2015 Serafin Kim DO, [place] Unknown [id number] 01/10/2015 01/10/2015 Serafin Kim, , [place] Unknown [id number] 01/10/2015 01/10/2015 Serafin Kim Outpatient [id number] [facility] 01/28/2015 [facility] Serafin Kim DO, [place] refill meds [id number] 01/28/2015 01/28/2015 Serafin Kim DO, [place] refill meds [id number] 01/28/2015 01/28/2015 Serafin Kim DO, PA refill meds [id number] 01/28/2015 01/28/2015 Serafin Kim DO, PA refill meds [id number] 01/28/2015 01/28/2015 Serafin Kim DO, [place] refill meds [id number] 01/28/2015 01/28/2015 Serafin Kim DO, PA refill meds [id number] 01/28/2015 01/28/2015 Serafin Kim DO, PA refill meds [id number] 01/28/2015 01/28/2015 Serafin Kim DO, PA refill meds [id number] 01/28/2015 01/28/2015 Serafin Lopezm, DO, [place] refill meds [id number] 01/28/2015 01/28/2015 Serafin Kim DO PA refill meds [id number] 01/28/2015 01/28/2015 Serafin Kim DO PA refill meds [id number] 01/28/2015 01/28/2015 Serafin Kim DO PA refill meds [id number] 01/28/2015 01/28/2015 Searfin Kim DO PA refill meds [id number] 01/28/2015 01/28/2015 Serafin Kim DO PA refill meds [id number] 01/28/2015 01/28/2015 Serafin Kim DO PA refill meds [id number] 01/28/2015 01/28/2015 Serafin Kim DO PA refill meds [id number] 01/28/2015 01/28/2015 Serafin Kim [facility] [id number] [facility] 03/12/2015 [facility] Serafin Kim DO PA Unknown [id number] 05/21/2015 05/21/2015 Serafin Kim DO PA Unknown [id number] 05/21/2015 05/21/2015 Serafin Kim DO, [place] Unknown [id number] 05/21/2015 05/21/2015 Serafin Kim DO, [place] Unknown [id number] 05/21/2015 05/21/2015 Serafin Kim DO PA Unknown [id number] 05/21/2015 05/21/2015 Serafin Kim DO, [place] Unknown [id number] 05/21/2015 05/21/2015 Serafin Kim DO, [place] Unknown [id number] 05/21/2015 05/21/2015 Serafin Kim DO, [place] Unknown [id number] 05/21/2015 05/21/2015 Serafin Kim DO PA Unknown [id number] 05/21/2015 05/21/2015 Serafin Kim DO PA Unknown [id number] 05/21/2015 05/21/2015 Serafin Kim DO, [place] Unknown [id number] 05/21/2015 05/21/2015 Serafin Kim DO PA Unknown [id number] 05/21/2015 05/21/2015 Serafin Billings Jessicamary Reesgenovevaadri DO, PA Unknown [id number] 05/21/2015 05/21/2015 Serafin Reesgenovevaadri Kim DO, PA Unknown [id number] 05/21/2015 05/21/2015 Serafin Billings Jessicamary Reesgenovevaadri DO, PA Unknown [id number] 05/21/2015 05/21/2015 Serafin Billings Jessicamary Reesgenovevaadri DO, PA Unknown [id number] 06/12/2015 06/12/2015 Serafin Billings Jessicamary Fulton Gonzálezadri DO, PA Unknown [id number] 06/12/2015 06/12/2015 Serafin Awa Lopezmary Fulton Gonzálezadri DO, PA Unknown [id number] 06/12/2015 06/12/2015 Serafin Billings Jessicamary Reesgenovevaadri DO, PA Unknown [id number] 06/12/2015 06/12/2015 Serafin Billings Jessicamary Reesgenovevaadri DO, PA Unknown [id number] 06/12/2015 06/12/2015 Serafin Lopezmary Fulton Jessicamary DO, PA Unknown [id number] 06/12/2015 06/12/2015 Serafin Lopezmary DO, PA Unknown [id number] 06/12/2015 06/12/2015 Serafin Kim DO PA Unknown [id number] 06/12/2015 06/12/2015 Serafin Kim DO, PA Unknown [id number] 06/12/2015 06/12/2015 Serafin Kim DO PA Unknown [id number] 06/12/2015 06/12/2015 Serafin Kim DO, [place] Unknown [id number] 06/12/2015 06/12/2015 Serafin Kim DO PA Unknown [id number] 06/12/2015 06/12/2015 Serafin Kim DO PA Unknown [id number] 06/12/2015 06/12/2015 Serafin Kim DO PA Unknown [id number] 06/12/2015 06/12/2015 Serafin Kim DO PA refill meds [id number] 06/27/2015 06/27/2015 Serafin Kim DO PA refill meds [id number] 06/27/2015 06/27/2015 Serafin Kim DO PA refill meds [id number] 06/27/2015 06/27/2015 Serafin Kim DO, PA refill meds [id number] 06/27/2015 06/27/2015 Serafin Kim DO, PA refill meds [id number] 06/27/2015 06/27/2015 Serafin Kim DO, PA refill meds [id number] 06/27/2015 06/27/2015 Serafin Kim DO, PA refill meds [id number] 06/27/2015 06/27/2015 Serafin Kim DO, [place] refill meds [id number] 06/27/2015 06/27/2015 Serafin Kim DO, [place] refill meds [id number] 06/27/2015 06/27/2015 Serafin Kim DO, [place] refill meds [id number] 06/27/2015 06/27/2015 Serafin Kim DO, PA refill meds [id number] 06/27/2015 06/27/2015 Serafin Kim DO, [place] refill meds [id number] 06/27/2015 06/27/2015 Serafin Betancourt AwaClaudia Kim DO, PA refill meds [id number] 06/27/2015 06/27/2015 Serafin Betancourt AwaClaudia Kim DO, [place] Refill [id number] 07/12/2015 07/12/2015 Serafin Kim DO, [place] Refill [id number] 07/12/2015 07/12/2015 Serafin Kim DO, [place] Refill [id number] 07/12/2015 07/12/2015 Serafin Kim DO, [place] Refill [id number] 07/12/2015 07/12/2015 Serafin Kim DO, [place] Refill [id number] 07/12/2015 07/12/2015 Serafin Kim DO, [place] Refill [id number] 07/12/2015 07/12/2015 Serafin Kim DO, [place] Refill [id number] 07/12/2015 07/12/2015 Serafin Kim DO, [place] Refill [id number] 07/12/2015 07/12/2015 Serafin Kim DO, [place] Refill [id number] 07/12/2015 07/12/2015 Serafin Kim DO PA Refill [id number] 07/12/2015 07/12/2015 Serafin Kim DO, [place] Refill [id number] 07/12/2015 07/12/2015 Serafin Kim DO PA Refill [id number] 07/12/2015 07/12/2015 Serafin Kim DO, PA Unknown [id number] 07/25/2015 07/25/2015 Serafin Kim DO, PA Unknown [id number] 07/25/2015 07/25/2015 Serafin Kim DO PA Unknown [id number] 07/25/2015 07/25/2015 Serafin Kim DO PA Unknown [id number] 07/25/2015 07/25/2015 Serafin Kim DO PA Unknown [id number] 07/25/2015 07/25/2015 Serafin Kim DO, PA Unknown [id number] 07/25/2015 07/25/2015 Serafin Kim DO PA Unknown [id number] 07/25/2015 07/25/2015 Serafin BillingsClaudia Jessicamary DO, PA Unknown [id number] 07/25/2015 07/25/2015 Serafin Lopezmary Fulton Jessicamary DO, PA Unknown [id number] 07/25/2015 07/25/2015 Serafin BillingsClaudia Jessicamary DO, PA Unknown [id number] 07/25/2015 07/25/2015 Serafin BillingsClaudia Jessicamary DO, PA Unknown [id number] 07/25/2015 07/25/2015 Serafin Kim DO, [place] Unknown [id number] 10/22/2015 10/22/2015 Serafin Kim DO, [place] Unknown [id number] 10/22/2015 10/22/2015 Serafin Kim DO, [place] Unknown [id number] 10/22/2015 10/22/2015 Serafin Lopezmary [place], [place] Unknown [id number] 10/22/2015 10/22/2015 Serafin Kim DO, [place] Unknown [id number] 10/22/2015 10/22/2015 Serafin Kim DO, [place] Unknown [id number] 10/22/2015 10/22/2015 Serafin Kim DO, [place] Unknown [id number] 10/22/2015 10/22/2015 Serafin Kim DO, [place] Unknown [id number] 10/22/2015 10/22/2015 Serafin Kim DO, [place] Unknown [id number] 10/22/2015 10/22/2015 Serafin Kim DO, [place] Unknown [id number] 10/22/2015 10/22/2015 Serafin Kim DO, [place] Refill [id number] 12/18/2015 12/18/2015 Serafin Kim DO, [place] Refill [id number] 12/18/2015 12/18/2015 Serafin Kim DO, [place] Refill [id number] 12/18/2015 12/18/2015 Serafin Kim DO, [place] Refill [id number] 12/18/2015 12/18/2015 Serafin Kim DO, [place] Refill [id number] 12/18/2015 12/18/2015 Serafin Kim DO, [place] Refill [id number] 12/18/2015 12/18/2015 Serafin BillingsClaudia Judy DO, [place] Refill [id number] 12/18/2015 12/18/2015 Serafin Kim DO, [place] Refill [id number] 12/18/2015 12/18/2015 Serafin BillingsClaudia Judy DO, [place] Refill [id number] 12/18/2015 12/18/2015 Serafin Kim DO, [place] Unknown [id number] 12/31/2015 12/31/2015 Serafin Kim DO, [place] Unknown [id number] 12/31/2015 12/31/2015 Serafin Kim DO, [place] Unknown [id number] 12/31/2015 12/31/2015 Serafin Kim DO, [place] Unknown [id number] 12/31/2015 12/31/2015 Serafin Kim DO, [place] Unknown [id number] 12/31/2015 12/31/2015 Serafin Kim DO, [place] Unknown [id number] 12/31/2015 12/31/2015 Serafin Kim DO, [place] Unknown [id number] 12/31/2015 12/31/2015 Serafin Kim DO PA Unknown [id number] 12/31/2015 12/31/2015 Serafin Kim DO [place] Refill [id number] 01/06/2016 01/06/2016 Serafin Kim DO PA Refill [id number] 01/06/2016 01/06/2016 Serafin Kim DO PA Refill [id number] 01/06/2016 01/06/2016 Serafin Kim DO PA Unknown [id number] 01/06/2016 01/06/2016 Serafin Kim DO [place] Unknown [id number] 01/06/2016 01/06/2016 Serafin Kim DO PA Unknown [id number] 01/06/2016 01/06/2016 Serafin Kim DO PA Refill [id number] 01/06/2016 01/06/2016 Serafin Kim DO PA Refill [id number] 01/06/2016 01/06/2016 Serafin Kim DO PA Refill [id number] 01/06/2016 01/06/2016 Serafin Kim DO, [place] Unknown [id number] 01/06/2016 01/06/2016 Serafin Kim DO, [place] Unknown [id number] 01/06/2016 01/06/2016 Serafin Kim DO, [place] Unknown [id number] 01/06/2016 01/06/2016 Serafin Kim DO, [place] Unknown [id number] 01/07/2016 01/07/2016 Serafin Kim DO, [place] Unknown [id number] 01/07/2016 01/07/2016 Serafin Kim DO, [place] Unknown [id number] 01/07/2016 01/07/2016 Serafin Kim DO, [place] Unknown [id number] 01/07/2016 01/07/2016 Serafin Kim DO, [place] Unknown [id number] 01/07/2016 01/07/2016 Serafin Kim DO, [place] Unknown [id number] 01/07/2016 01/07/2016 Serafin Kim DO, [place] Unknown [id number] 01/07/2016 01/07/2016 Serafin Kim DO [place] Unknown [id number] 01/30/2016 01/30/2016 Serafin Kim DO [place] Unknown [id number] 01/30/2016 01/30/2016 Serafin Kim DO, [place] Unknown [id number] 01/30/2016 01/30/2016 Serafin Kim DO [place] Unknown [id number] 01/30/2016 01/30/2016 Serafin Kim DO [place] Refill [id number] 03/10/2016 03/10/2016 Serafin Kim DO [place] Refill [id number] 03/10/2016 03/10/2016 Serafin Kim DO [place] Refill [id number] 03/10/2016 03/10/2016 Serafin Kim DO, [place] Refill [id number] 03/12/2016 03/12/2016 Serafin Kim DO [place] Refill [id number] 03/12/2016 03/12/2016 Serafin Kim DO PA Follow- Up [id number] 04/01/2016 04/01/2016 Serafin Kim [facility] Outpatient [id number] Serafin Kim 01/06/2017 01/07/2017 [facility] [id number] Wade Maldonado 01/08/2017 01/09/2017 [facility] [id number] Trung Blount 02/24/2017 02/24/2017 [facility] - [place] [facility] [id number] Serafin Judy 07/12/2018 07/13/2018 PEGGY Dye Departed Emergency Room [id number] KELLY KEITH MD 11/10/2018 11/11/2018 [facility] Procedures Procedure Code Date Perfomer Comments Source Computed tomography of brain without radiopaque contrast [id number] 11/10/2018 [facility] diabetic foot check [id number] 07/19/2014 yes [facility] diabetic eye exam 46026.1 05/07/2014 [facility] smoking/tobacco cessation, patient education and counseling 14 04/19/2014 yes [facility] [id number] [facility]<sup[facility]</sup> [id number] [facility]<sup>2</sup> [id number] [facility]ACCJesse [facility] [id number] [facility] Assessment and Plan No Data Provided for This Section Plan of Care Plan of Care Date Source Discharge Date 11/11/18 12:45am Disposition HOME, SELF-CARE Condition at Discharge Stable Instructions/Education Provided Fever - Adult Viral Syndrome - Adult Forms Provided Work/School Excuse Prescriptions See Medication Section Referrals PRETTY COTTO MD Address: [address] [place] [address] [place] [address] Additional Instructions/Education 1. 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 Please take motrin and tylenol as needed for fever 3. Return to the ED if your symptoms don't improve 11/11/2018 [facility] Social History Social History Date Source No social history information available. 11/11/2018 [facility] Social History TypeResponse Smoking Status Never smoker; Exposure to Tobacco Smoke None; Cigarette Smoking Last 365 Days No; Reg Smoking Cessation Counseling No 02/24/2017 [facility] Social History TypeResponse Smoking Status Never smoker; Exposure to Tobacco Smoke None; Cigarette Smoking Last 365 Days No; Reg Smoking Cessation Counseling No entered on: 02/24/17 02/24/2017 PEGGY Dye Social History ElementQualifiersDate Reported Tobacco Use: . [...] not available Apr 01, 2016 04/02/2016 Serafin Kim QualifierDescriptionCommentDate Reported Maternal Grandmother emphysema Dec 31, [...] not available Dec 31, 2015 01/02/2016 Serafin Kim QualifierDescriptionCommentDate Reported Maternal Grandmother emphysema July 25, [...] not available July 25, 2015 07/26/2015 Serafin Kim QualifierDescriptionCommentDate Reported Maternal Grandmother emphysema May 21, [...] not available May 21, 2015 05/22/2015 Serafin Kim QualifierDescriptionCommentDate Reported Maternal Grandmother emphysema August 24, [...] not available August 24, 2014 08/26/2014 Serafin Kim QualifierDescriptionCommentDate Reported Maternal Grandmother emphysema [...] 12, 2014 03/13/2014 Serafin Kim Advance Directives Order Name Results Value Date Source Advance Directives Advance Directives Directive Response Recorded Date/Time Does the patient have an advance directive? No 11/10/18 10:33pm Do you have a Directive to Physician? No 11/10/18 10:33pm Do you have a Medical Power of Airworthiness Safety Inspector? No 11/10/18 10:33pm Do you have an out of hospital Do Not Resuscitate Order? No 11/10/18 10:33pm Do you have any special needs we should be aware of? No 11/10/18 10:33pm Do you have a support person here with you today? Yes 11/10/18 10:33pm Did patient receive Notice of Privacy Practices? Yes 11/10/18 10:33pm Did patient receive patient rights and responsibilities? Yes 11/10/18 10:33pm 11/11/2018 [facility] Functional Status No Data Provided for This Section
--- OUTSIDE RECORDS SUMMARY | 2018-11-30 15:02 | XMS REPORT ---
Author Author Serafin Kim Organization [employer] Address Unknown Phone Unavailable Care Team Providers Care Trimmer [employer] Name Role Phone Serafin Kim CP Unavailable Allergies No Known Allergies Problems Problem Type Condition Code Onset Dates Condition Status Problem Orthostatic hypotension I95.1 Active Problem Pressure ulcer of buttock L89.309 Active Problem Back pain M54.9 Active Problem DM w/o complication type II E11.9 Active Problem Encounter for immunization Z23 Active Problem Muscle spasm M62.838 Active Problem GERD (gastroesophageal reflux disease) K21.9 Active Problem Altered glucose metabolism due to diabetes E11.9 Active Problem Iron deficiency anemia due to dietary causes D50.8 Active Problem Other chronic pain G89.29 Active Problem Vitamin B12 deficiency (dietary) anemia D51.8 Active Problem Acquired hypothyroidism E03.9 Active Problem Anemia of other chronic disease D63.8 Active Problem Pain in thoracic spine M54.6 Active Problem URI with cough and congestion J06.9 Active Problem Acute lower urinary tract infection N39.0 Active Problem Type 2 diabetes mellitus without complications E11.9 Active Problem 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 Z79.4 Active Problem Mixed hyperlipidemia E78.2 Active Problem Bronchitis J40 Active Problem Chronic insomnia F51.04 Active Problem Right hip pain M25.551 Active Problem Arthropathy M12.9 Active Problem Allergic rhinitis J30.9 Active Problem Other and unspecified hyperlipidemia E78.5 Active Problem Anxiety state F41.1 Active Problem Vaginal yeast infection B37.3 Active Problem Tobacco use disorder Z72.0 Active Problem Acute lower UTI N39.0 Active Problem 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 Active Problem 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119 Active Problem DKA (diabetic ketoacidoses) E13.10 Active Problem Peptic ulcer K27.9 Active Problem Furuncle L02.92 Active Problem Type 2 diabetes mellitus with hyperglycemia E11.65 Active Problem Nontoxic multinodular goiter E04.2 Active Medications Medication Code System Code Instructions Start Date End Date Status Dosage Simvastatin [facility] [id number] 20 MG Orally Daily Active 1 tablet in the evening Results No Known Results Summary Purpose [employer] Submission
--- OUTSIDE RECORDS SUMMARY | 2018-11-30 15:02 | XMS REPORT ---
Author Author Serafin Kim Organization [employer] Address Unknown Phone Unavailable Care Team Providers Care Wage And Salary Specialist Name Role Phone Serafin Kim CP Unavailable [...] Active Problem Peptic ulcer K27.9 Active Problem group home current use of [...] Instructions Start Date End Date Status Dosage Methocarbamol [facility] 09393555220 750 MG Orally every 6 hrs prn mm relaxation Mar 17, 2019 Active 1-1 tablets Results No Known Results Summary Purpose [employer] Submission
--- OUTSIDE RECORDS SUMMARY | 2018-11-30 15:02 | XMS REPORT ---
Author Author [facility] Address Unknown Phone Unavailable Care Team Providers Care Feather Washer Name Role Phone Timmy KEITH Unavailable Unavailable Problems This patient has no known problems. Allergies, Adverse Reactions, Alerts This patient has no known allergies or adverse reactions. Medications This patient has no known medications. Results Test Description Test Time Test Comments Text Results Atomic Results Result Comments CT BRAIN WO 2018-11-10 20:47:00 [place] [address] Patient Name: NATALIE ARENAS MR #: [id number] : 1960 Age/Sex: 57/F Req #: [id number] Adm Physician: Ordered by: KELLY KEITH MD Report #: [id number] Location: ER Room/Bed: Procedure: [id number] CT/CT BRAIN WO Exam Date: 11/10/18 Exam Time: 2029 REPORT STATUS: Signed EXAMINATION: Head CT without contrast. HISTORY:Heada roseann and fever. COMPARISON:None. TECHNIQUE: Multidetector axial images were obtained from the foramen magnum to the vertex without contrast. The images were reconstructed using brain and bone algorithms. Thin section brain images were reformatted into coronal and sagittal planes. Dose modulation, iterative reconstruction, and/or weight based adjustment of the mA/kV was utilized to reduce the radiation dose to as low as reasonably achievable. Intravenous contrast: None IMAGE QUALITY: Acceptable. FINDINGS: Skull/scalp: No lytic or blastic. lesions. No surgical changes. Parenchyma: Nonspecific few, scattered supratentorial white matter patchy hypodensity are likely related to small vessel ischemic changes. No acute hemorrhage, mass or acute major vascular territorial infarct. Arteries: No density suggestive of thrombosis. Mild atherosclerotic calcification in bilateral carotid siphon. Dural sinuses: No abnormal density suggestive of thrombosis. Ventricles: Moderate ventricular dilatation particularly involving the lateral and third ventricle slightly disproportionate to the amount of cerebral volume loss. Extra-axial spaces: No abnormal density. Brain volume: Normal for age. Craniocervical junction: No mass, Chiari malformation, or basilar invagination. Sella: No mass. Paranasal/mastoid sinuses: Imaged portions unremarkable. IMPRESSION: 1. No acute intracranial abnormality, particularly no acute hemorrhage, mass or acute major vascular territorial infarct. 2. Moderate ventricular dilatation disproportionate to the amount of cerebral volume loss may represent compensated dilatation secondary to selective central cerebral volume loss vs normal pressure or communicating type hydrocephalus in appropriate clinical setting. Signed by: Dr. Alayna Farooq M.D. on 11/10/2018 8:53 PM Dictated By: ALAYNA FAROOQ MD 52 Transcribed By: SERG on 11/10/182052 COPY TO: KELLY KEITH MD
--- OUTSIDE RECORDS SUMMARY | 2018-11-30 15:02 | XMS REPORT ---
Author Author Serafin Kim Organization [employer] Address Unknown Phone Unavailable Care Team Providers Care Bus Boy Name Role Phone Serafin Kim CP Unavailable [...] diabetes mellitus without complications E11.9 Active Problem terminal gauger supervisor current use of insulin Z79.4 Active Problem [...] Start Date End Date Status Dosage Omeprazole [facility] [id number] 40 mg Orally Once a day before breakfast Active 1 capsule Results No Known Results Summary Purpose [employer] Submission
[2018-11-30] MEDS ORDERED: SODIUM CHLORIDE 0.9% 1000ML 1,000 ML IV STA ×2 (15:03→15:41)
[2018-11-30] MEDS ORDERED: PANTOPRAZOLE 40 MG 10ML VIAL IV NR (15:03)
[2018-11-30] MEDS ORDERED: ONDANSETRON HCL INJ 2MG/ML 2ML 2 MG/ML VIAL IV NR (15:03)
[2018-11-30 15:23] LABS: BASOPHILS # (AUTO) 0.1 (0.0-0.1); BASOPHILS % 0.8 % (0.0-1.0); EOSINOPHILS # (AUTO) 0.1 (0.0-0.4); EOSINOPHILS % 0.8 % (0.0-6.0); HEMATOCRIT 47.9 % (34.2-44.1); HEMOGLOBIN 15.1 g/dL (12.0-16.0); LYMPHOCYTES # (AUTO) 3.2 (1.0-3.2); LYMPHOCYTES % 19.4 % (18.0-39.1); MEAN CORPUSCULAR HGB CONC 31.5 g/dL (31-35); MEAN CORPUSCULAR VOLUME 79.3 fL (81-99); MONOCYTES # (AUTO) 0.8 (0.2-0.8); MONOCYTES % 4.9 % (4.4-11.3); NEUTROPHILS # (AUTO) 12.1 (2.1-6.9); NEUTROPHILS % 73.4 % (38.7-80.0); PLATELET COUNT 547 x10e3/uL (140-360); RED BLOOD COUNT 6.04 x10e6/uL (3.6-5.1); RED CELL DISTRIBUTION WIDTH 14.4 % (11.7-14.4)
[2018-11-30 15:35] LABS: INR 0.84
[2018-11-30 15:36] LABS: PARTIAL THROMBOPLASTIN TIME 32.9 seconds (23.8-35.5)
[2018-11-30] MEDS ORDERED: VANCOMYCIN 1GM/NS 250 ML 250 ML IV ONE (17:15)
--- NOTE | 2018-11-30 17:19 | Diagnostic Imaging Report ---
Exam: Chest radiograph Clinical History: Nausea vomiting Findings: The cardiomediastinal silhouette and lungs are normal. The regional skeleton and soft tissue are unremarkable. There is no evidence of pleural effusion or pneumothorax. Impression: No radiographic evidence of acute cardiopulmonary disease. Signed by: Dr. Alexandr Hale MD on 11/30/2018 5:16 PM
[2018-11-30] MEDS: CEFEPIME 2 GM/NS 0.9% 100 ML 100 ML IV SCH (17:55)
[2018-11-30 18:05] LABS: BILIRUBIN,URINE MODERATE (NEGATIVE); CLARITY,URINE SL CLOUDY (CLEAR); KETONES,URINE TRACE (NEGATIVE); LEUKOCYTE ESTERASE ,URINE MODERATE (NEGATIVE); NITRITE,URINE NEGATIVE (NEGATIVE); PROTEIN,URINE DIPSTICK 1+ (NEGATIVE); URINE UROBILINOGEN 1 mg/dL (0.2 - 1)
[2018-11-30 18:07] LABS: COLOR,URINE STRAW (YELLOW)
[2018-11-30 18:18] LABS: BACTERIA,URINE MODERATE /HPF; EPITHELIAL CELLS,URINE MODERATE /LPF; RBC,URINE 0-5 /HPF (0-5)
[2018-11-30 18:38] LABS: ALBUMIN 3.4 g/dL (3.5-5.0); ALBUMIN/GLOBULIN RATIO 1.1 (0.8-2.0); ANION GAP 17.7 mmol/L (8-16); CALCIUM 8.9 mg/dL (8.4-10.2); CREATININE, SERUM 2.66 mg/dL (0.57-1.11); MAGNESIUM 1.5 MG/DL (1.3-2.1); POTASSIUM 4.7 mmol/L (3.5-5.1)
[2018-11-30 18:46] LABS: CREATINE KINASE MB 0.5 ng/mL (0-5.0)
[2018-11-30] MEDS ORDERED: OMEPRAZOLE40 MG PO (18:46)
[2018-11-30] MEDS ORDERED: TRESIBA SQ (18:46)
[2018-11-30] MEDS ORDERED: AMLODIPINE BESYL5 MG PO (18:46)
[2018-11-30] MEDS ORDERED: AMITRIPTYLINE H75 MG PO (18:46)
[2018-11-30] MEDS ORDERED: LISINOPRIL40 MG PO (18:46)
[2018-11-30] MEDS ORDERED: MELOXICAM15 MG PO (18:46)
[2018-11-30] MEDS ORDERED: METFORMIN HCL500 M1 PO (18:46)
[2018-11-30] MEDS ORDERED: NOVOLOG MI100 UNIT/1 (18:46)
[2018-11-30] MEDS ORDERED: SIMVASTATIN20 MG PO (18:46)
[2018-11-30] MEDS ORDERED: TIZANIDINE HCL4 MG PO (18:46)
--- NOTE | 2018-11-30 19:46 | Diagnostic Imaging Report ---
EXAM: CT Abdomen and Pelvis WITHOUT contrast INDICATION: Urinary tract infection. Low blood pressure. Nausea vomiting. Abdominal pain . Appendectomy. Hysterectomy. Hypertension. Diabetes. Chronic back pain. Gastric sleeve surgery. COMPARISON: None. TECHNIQUE: Abdomen and pelvis were scanned utilizing a multidetector helical scanner from the lung base to the pubic symphysis without administration of IV contrast. Absence of intravenous contrast decreases sensitivity for detection of focal lesions and vascular pathology. Coronal and sagittal reformations were obtained. Routine protocol was performed. IV CONTRAST: None ORAL CONTRAST: Water COMPLICATIONS: None RADIATION DOSE: Total DLP: 401.3 mGy*cm Estimated effective dose: (DLP x 0.015 x size factor) mSv CTDIvol has been reviewed. It is below the limits set by the Radiation Protocol Committee (RPC). Dose modulation, iterative reconstruction, and/or weight based adjustment of the mA/kV was utilized to reduce the radiation dose to as low as reasonably achievable. FINDINGS: LINES and TUBES: None. LOWER THORAX: Unremarkable HEPATOBILIARY: Fatty infiltration of the liver. No focal hepatic lesions. No biliary ductal dilation. GALLBLADDER: No radio-opaque stones or sludge. No wall thickening. SPLEEN: No splenomegaly. PANCREAS: No focal masses or ductal dilatation. ADRENALS: No adrenal nodules KIDNEYS/URETERS: No hydronephrosis. No cystic or solid mass lesions. No stones. GI TRACT: No abnormal distention, wall thickening, or evidence of bowel obstruction. Scattered diverticulosis without evidence of diverticulitis. Large amount of retained feces in the colon could be due to constipation. Postsurgical change to the stomach/distal esophagus. Hiatal hernia. Surgical clips in the right lower quadrant of the abdomen. The appendix is not seen. No inflammatory changes are seen in the right lower quadrant of the abdomen. PELVIC ORGANS/BLADDER: Unremarkable. LYMPH NODES: No lymphadenopathy. VESSELS: Scattered vascular calcification. PERITONEUM / RETROPERITONEUM: No free air or fluid. BONES: Scattered degenerative change. SOFT TISSUES: Unremarkable. IMPRESSION: Scattered diverticulosis without evidence of diverticulitis. Large amount of retained feces in the colon could be due to constipation. Postsurgical change to the stomach/distal esophagus. Hiatal hernia. Signed by: Dr. Madhu Rodriguez M.D. on 11/30/2018 7:43 PM
[2018-11-30] MEDS ORDERED: SODIUM CHLORIDE 0.9% 1000ML 1,000 ML IV SCH (19:50)
--- NOTE | 2018-11-30 19:50 | NUR ---
repeat lactic collected and sent
[2018-11-30] MEDS ORDERED: ONDANSETRON HCL INJ 2MG/ML 2ML 2 MG/ML VIAL IV PRN (20:00)
--- OUTSIDE RECORDS SUMMARY | 2018-11-30 20:08 | XMS REPORT | Clinical Summary ---
Author Author [place] [facility] Address Unknown Phone Unavailable Care Team Providers Care Bi Solutions Architect Name Role Phone Serafin Kim PCP Allergies [...] BLUE CROSS/BLUE SHIELD [employer] FED xxxxxxxxx O [phone] [address] [place] [address]
--- OUTSIDE RECORDS SUMMARY | 2018-11-30 20:11 | XMS REPORT | Continuity of Care Document ---
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 Name Role Phone [employer] Unavailable Unavailable Problems Problem Status Onset Date Classification Date Reported Comments Source Discharge Diagnosis: Acute lower urinary tract infection 02/24/2017 02/27/2017 [facility] URINARY SYMPTOMS Active 02/24/2017 [facility] Discharge Diagnosis: Acute bronchitis 01/08/2017 01/11/2017 [facility] , COUGH Active 01/08/2017 [facility] SOB Active 01/06/2017 [facility] HEADACHE Active 01/03/2014 Condition 07/19/2014 [facility] Headache7 Active 01/03/2014 Problem 07/14/2018 Data migrated from [employer] on 09/01/14. [facility] VITAMIN D DEFICIENCY Active 09/10/2012 Condition 07/19/2014 [facility] Vitamin D [id number] Active 09/10/2012 Problem 07/14/2018 Data migrated from [employer] on 09/01/14. [facility] STREPTOCOCCAL PHARYNGITIS Inactive 03/17/2012 Condition 07/19/2014 [facility] BRONCHITIS Inactive 03/17/2012 Condition 07/19/2014 [facility] Bronchitis5 Resolved 03/17/2012 Problem 07/14/2018 Data migrated from [employer] on 10/19/14. [facility] Streptococcal sore [id number] Resolved 03/17/2012 Problem 07/14/2018 Data migrated from [employer] on 10/19/14. [facility] NECK PAIN Inactive 01/13/2012 Condition 07/19/2014 [facility] WRIST PAIN Inactive 11/17/2011 Condition 07/19/2014 [facility] URI Inactive 05/29/2011 Condition 07/19/2014 [facility] Upper respiratory [id number] Resolved 05/29/2011 Problem 07/14/2018 Data migrated from [employer] on 10/19/14. [facility] SLEEP APNEA, OBSTRUCTIVE Active 02/13/2011 Condition 07/19/2014 [facility] Obstructive sleep apnea [id number] Active 02/13/2011 Problem 07/14/2018 Data migrated from [employer] on 09/01/14. [facility] ALLERGIC RHINITIS Active 01/06/2011 Condition 07/19/2014 [facility] Allergic rhinitis1 Active 01/06/2011 Problem 07/14/2018 Data migrated from [employer] on 09/01/14. [facility] INSOMNIA Active 12/26/2010 Condition 07/19/2014 [facility] Insomnia9 Active 12/26/2010 Problem 07/14/2018 Data migrated from [employer] on 09/01/14. [facility] FIBROMYALGIA Active 12/09/2010 Condition 07/19/2014 [facility] ARTHRITIS Active 12/09/2010 Condition 07/19/2014 [facility] PEPTIC ULCER DISEASE Active 12/09/2010 Condition 07/19/2014 [facility] ANXIETY Active 12/09/2010 Condition 07/19/2014 [facility] SMOKER Active 12/09/2010 Condition 07/19/2014 [facility] SNORING Active 12/09/2010 Condition 07/19/2014 [facility] Anxiety disorder2 Active 12/09/2010 Problem 07/14/2018 Data migrated from [employer] on 09/01/14. [facility] Arthritis3 Active 12/09/2010 Problem 07/14/2018 Data migrated from [employer] on 09/01/14. [facility] Fibromyositis6 Active 12/09/2010 Problem 07/14/2018 Data migrated from [employer] on 09/01/14. [facility] Peptic ulcer13 Active 12/09/2010 Problem 07/14/2018 Data migrated from [employer] on 09/01/14. [facility] [id number] Active 12/09/2010 Problem 07/14/2018 Data migrated from [employer] on 09/01/14. [facility] [id number] Active 12/09/2010 Problem 07/14/2018 Data migrated from [employer] on 09/01/14. [facility] GOITER, MULTINODULAR Active 04/16/2010 Condition 07/19/2014 [facility] DIABETES MELLITUS, TYPE II, UNCONTROLLED Active 04/16/2010 Condition 07/19/2014 [facility] ESSENTIAL HYPERTENSION, BENIGN Active 04/16/2010 Condition 07/19/2014 [facility] HYPERLIPIDEMIA Active 04/16/2010 Condition 07/19/2014 [facility] OBESITY Active 04/16/2010 Condition 07/19/2014 [facility] Benign essential hypertension4 Active 04/16/2010 Problem 07/14/2018 Data migrated from [employer] on 09/01/14. [facility] Hyperlipidemia8 Active 04/16/2010 Problem 07/14/2018 Data migrated from [employer] on 09/01/14. [facility] Multinodular [id number] Active 04/16/2010 Problem 07/14/2018 Data migrated from [employer] on 09/01/14. [facility] [id number] Active 04/16/2010 Problem 07/14/2018 Data migrated from [employer] on 09/01/14. [facility] Type II diabetes mellitus [id number] Active 04/16/2010 Problem 07/14/2018 Data migrated from [employer] on 09/01/14. [facility] Type 2 diabetes mellitus with hyperglycemia Active [...] without complications Active Problem 11/30/2018 Serafin Kim [facility] current use of insulin Active Problem 11/30/2018 [...] Orally Active 15 MG Orally after breakfast [facility] 10/17/2018 Serafin Kim Trulicity INJECT 1 SYRINGE WEEKLY subcutaneous Active 1.5 MG/0.5ML [facility] Serafin Kim Robaxin-750 TAKE 1 TABLET BY MOUTH TWICE A DAY Orally Active 750 MG Orally Daily [facility] 10/17/2018 Serafin Kim Tizanidine HCl TAKE 1 TABLET BY MOUTH 3 TIMES A DAY NEEDED Orally Active 4 MG Orally Daily [facility] 10/17/2018 Serafin Kim NovoFine Plus as directed NA Active 32G X 4 MM [facility] 08/18/2018 Serafin Kim Tresiba FlexTouch 30u Subcutaneous Active 200 UNIT/ML Subcutaneous daily [facility] 08/17/2018 Serafin Kim Levemir FlexTouch 15u Subcutaneous Active 100 UNIT/ML Subcutaneous twice a day (bid) [facility] 08/15/2018 Serafin Kim Folic Acid 1 tablet Orally Active 1 MG Orally Once a day [facility] 08/15/2018 Serafin Kim Methocarbamol 1 tablet Orally Active 750 MG Orally every 4 hrs before breakfast [facility] 04/20/2018 Serafin Kim Cefdinir 1 capsule Orally Active 300 MG Orally Twice a day [facility] 02/04/2018 Serafin Kim Proventil HFA 2 puffs as needed Inhalation Active 108 (90 Base) MCG/ACT Inhalation every 6 hrs [facility] 01/25/2018 Serafin Lopezm Trulicity 0.5 ml Subcutaneous Active 1.5 MG/0.5ML Subcutaneous Q week [facility] 08/07/2017 Serafin Reesxbaum Trulicity 0.5 ml Subcutaneous Active 1.5 MG/0.5ML Subcutaneous Q week [facility] 08/07/2017 Serafin Kim FreeStyle Lite Test Strips and Lancets as directed Capillary Active test strips Capillary three times a day (tid) [facility] 08/05/2017 Serafin Kim PredniSONE 1 tablet Orally Active 10 mg Orally Once a day [facility] 07/01/2017 Serafin Kim Tussionex Pennkinetic ER 5 ml as needed Orally Active 10-8 MG/5ML Orally every 12 hrs [facility] 03/09/2017 Serafin Kim Meclizine HCl 1 tablet as needed for dizziness Orally Active 25 MG Orally four times a day (qid) [facility] 03/08/2017 Serafin Kim Phenazopyridine hydrochloride 200 MG Oral Tablet [Pyridium] 200 mg=1 tab, PO, TID, PRN Dysuria, X 2 day, # 6 tab, 0 Refill(s), [id number] No Longer Active 02/24/2017 [facility] Cephalexin 500 MG Oral Capsule [Keflex] 500 mg=1 cap, PO, TID, X 10 day, # 30 cap, 0 Refill(s), [id number] Active 02/24/2017 [facility] Phenazopyridine hydrochloride 200 MG Oral Tablet [Pyridium] 200 mg=1 tab, PO, TID, PRN Dysuria, X 2 day, # 6 tab, 0 Refill(s), [id number] No Longer Active 02/24/2017 [facility] Acetaminophen 300 MG / Codeine Phosphate 30 MG Oral Tablet [Tylenol with Codeine #3] 1 - 2 tab, PO, Q4H, PRN Pain, X 2 day, # 12 tab, 0 Refill(s) Inactive 02/24/2017 [facility] Cephalexin 500 MG Oral Capsule [Keflex] 500 mg=1 cap, PO, TID, X 10 day, # 30 cap, 0 Refill(s), [id number] Inactive 02/24/2017 [facility] Rocephin 1 gm, Route: IM, Drug form: PDR/INJ, ONCE, Dosing Weight 68.182, kg, Priority: STAT, Start date: 02/24/17 8:43:00 FACE BURLER, Stop date: 02/24/17 8:43:00 FACE BURLER, ABX Indication: Urinary Tract InfectionNotes: (Same As: Rocephin). MEDICATION WASTE Product Size: 1000 mg Product Wasted: _0__ mg Inactive 02/24/2017 [facility] Fluconazole 1 tablet PO once (may repeat [...] # 9 gm, 0 Refill(s) Active 01/08/2017 [facility] Tylenol with Codeine 120 mg-12 mg/5 mL oral liquid 15 ml, PO, Q6H, PRN Cough, X 2 day, # 120 mL, 0 Refill(s) No Longer Active 01/08/2017 [facility] Dexamethasone 10 mg, Route: IM, ONCE, Dosing Weight 70.455, kg, Priority: STAT, Start date: 01/08/17 18:04:00 CDT, Stop date: 01/08/17 18:04:00 CDT Inactive 01/08/2017 [facility] Albuterol 0.833 MG/ML / Ipratropium [place] 0.167 MG/ML Inhalant Solution [DuoNeb] 3 ml, Route: INHALATION, Drug Form: SOLN, Dosing Weight 70.455, kg, PRN, PRN Respiratory Protocol, Start date: 01/08/17 18:04:00 CDT, Duration: 30 day, Stop date: 02/07/17 17:03:00 CSTNotes: (Same as: Duoneb) Inactive 01/08/2017 [facility] Augmentin 1 tablet Orally Active 875-125 MG [...] Active 10 mg Orally Once a day [facility] 12/28/2016 Serafin Reesxbaum Promethazine-DM 5 ml as needed for cough Orally Active 6.25-15 MG/5ML Orally every 6 hrs [facility] 12/28/2016 Serafin Reesxbaum Benzonatate 1 capsule as needed Orally Active 200 MG Orally Three times a day prn cough [facility] 12/14/2016 Serafin Billings Buxbaum Bactrim DS 1 tablet Orally Active 800-160 MG Orally twice a day (bid) [facility] 12/14/2016 Serafin Billings Buxbaum Amitriptyline HCl 1 tablet Orally Active 75 MG Orally once every night [facility] 12/14/2016 Serafin Billings Buxbaum Amitriptyline HCl 1 tablet Orally Active 75 mg Orally once every night [facility] 12/14/2016 Serafin Reesxbaum Benzonatate 1 capsule as needed Orally Active 200 MG Orally Three times a day prn cough [facility] 12/14/2016 Serafin Billings Buxbaum Trulicity 0.5 ml Subcutaneous Active 1.5 MG/0.5ML Subcutaneous q week [facility] 10/29/2016 Serafin Billings Buxbaum Trulicity 0.5 ml Subcutaneous Active 1.5 MG/0.5ML Subcutaneous q week [facility] 10/29/2016 Serafin Reesxbaum Meloxicam 1 tablet Orally Active 15 MG Orally Once a day with food [facility] 04/01/2016 Serafin Billings Buxbaum Meloxicam 1 tablet Orally Active 15 MG Orally Once a day with food [facility] 04/01/2016 Serafin Billings Buxbaum Lisinopril 1 tablet Orally Active 40 MG Orally Once a day [facility] 12/31/2015 Serafin Billings Buxbaum Lisinopril 1 tablet Orally Active 10 mg Orally Once a day [facility] 12/31/2015 Serafin Billings Buxbaum Amitriptyline HCl 1 tablet Orally Active 50 mg Orally Once a day [facility] 12/31/2015 Serafin Billings Buxbaum Lisinopril 1 tablet Orally Active 10 mg Orally Once a day [facility] 12/31/2015 Serafin Billings Buxbaum Robaxin-750 1 tablet Orally Active 750 MG Orally twice a day (bid) [facility] 10/22/2015 Serafin Kim Omeprazole 1 capsule Orally Active 40 mg Orally Once a day [facility] 07/25/2015 Serafin Kim Lisinopril 1 tablet Orally Active 2.5 MG Orally Once a day [facility] 07/25/2015 Serafin Kim Tramadol HCl 1 tablet Orally No Longer Active 50 mg Orally twice a day (bid) for pain [facility] 07/25/2015 Serafin Kim Tizanidine HCl 1 tablet as needed Orally Active 4 mg Orally three times a day (tid) [facility] 07/12/2015 Serafin Kim Pantoprazole Sodium 1 tablet Orally Active 40 mg Orally Once a day [facility] 06/27/2015 Serafin Kim Citalopram Hydrobromide 1 tablet Orally Active 10 mg Orally once every night [facility] 06/12/2015 Serafin Kim Diflucan 1 tablet Orally Active 150 MG Orally Once a day [facility] 01/28/2015 Serafin Kim Tizanidine HCl TAKE 1 TABLET NEEDED THREE TIMES A DAY (TID) NEEDED (PRN) ORALLY NA Active 4 mg [facility] 08/25/2014 Serafin Kim Pantoprazole Sodium 1 tablet Orally Active 40 mg Orally Once a day [facility] 08/24/2014 Serafin Kim Trazodone HCl 1 tablet Orally Active 50 mg Orally once every night [facility] 07/26/2014 Serafin Kim PROBIOTIC CAPS 1 po qd Active 07/19/2014 [facility] VITAMIN D (ERGOCALCIFEROL) 03255 UNIT CAPS Take 1 capsule by mouth every week for 12 weeks Active 07/19/2014 [facility] CONTRAVE 8-90 MG [id number] 2 in am and 2 in pm No Longer Active 04/24/2014 [facility] CREON CPEP 1 po qd No Longer Active 04/19/2014 [facility] TraMADol HCl ER 1 tablet Orally Active 200 MG Orally Once a day [facility] 03/14/2014 Serafin Kim Creon 20 1 capsule with meals Orally Active 66.4-20-75 MU Orally Three times a day [facility] 03/12/2014 Serafin E Buxbaum Pantoprazole Sodium 1 [...] [facility] TRAMADOL HCL ER 200 MG [id number] 1 po prn No Longer Active 01/03/2014 [...] MG CAPS 1 po qd Active 10/05/2012 [facility] AMLODIPINE BESY-BENAZEPRIL HCL 5-10 MG CAPS 1 po qd Active 10/05/2012 [facility] VITAMIN D3 77682 UNIT CAPS take 2 times a week Active 09/10/2012 [facility] VITAMIN D3 23306 UNIT CAPS take 2 times a week [...] Group TRAMADOL HCL ER (BIPHASIC) 200 MG [id number] 1 tab qhs No Longer Active 09/07/2012 [facility] CLONAZEPAM 2 MG TABS 1 tab qhs Active 09/07/2012 [facility] LANTUS 100 UNIT/ML SOLN 65 units sq qhs Active 09/07/2012 [facility] FLORASTOR 250 MG CAPS 1 cap twice daily No Longer Active 09/07/2012 [facility] CLONAZEPAM 2 MG TABS 1 tab qhs No Longer Active 09/07/2012 [facility] NOVOLOG 100 UNIT/ML SOLN injects up [...] Active 05/29/2011 [facility] MUCINEX 600 MG [id number] one PO bid prn congestion No Longer Active 05/29/2011 [facility] AZITHROMYCIN 500 MG TABS one PO daily No Longer Active 05/29/2011 [facility] MUCINEX 600 MG [id number] one PO bid prn congestion No Longer Active 05/29/2011 [facility] MUCINEX 600 MG [id number] one PO bid prn congestion No Longer Active 05/29/2011 [facility] AZITHROMYCIN 500 MG TABS one PO daily No Longer Active 05/29/2011 [facility] MUCINEX 600 MG [id number] one PO bid prn congestion No Longer Active 05/29/2011 [facility] MUCINEX 600 MG [id number] one PO bid prn congestion No Longer [...] up to 65 units daily Active 04/16/2010 [facility] FREESTYLE LITE TEST STRP Check glucose levels qid Active 04/16/2010 [facility] INSULIN SYRINGE 31G X 5/16" 0.3 ML MISC takes u to 25 units TID No Longer Active 04/16/2010 [facility] INSULIN SYRINGE 31G X 5/16" 1 ML MISC takes up to 65 units daily Active 04/16/2010 [facility] INSULIN SYRINGE 31G X 5/16" 0.3 ML MISC takes u to 25 units TID Active 04/16/2010 [facility] INSULIN SYRINGE 31G X 5/16" 1 [...] Drug allergy Active 04/16/2010 1Data migrated from [employer] on 07/31/14. Originally documented as IBUPROFEN. PEGGY [...] glucometer (mass/volume) 144 70 - 120 11/11/2018 [facility] Influenza virus A and B antigen identification by immunofluorescence NEGATIVE NEGATIVE 11/10/2018 [facility] Urine color determination YELLOW YELLOW 11/10/2018 [facility] Urine clarity SL CLOUDY CLEAR 11/10/2018 [facility] Specific gravity of Urine by Test strip 1.025 1.010 - 1.025 11/10/2018 [facility] Urine pH measurement by automated test strip 6 5 - 7 11/10/2018 [facility] Urine leukocyte esterase detection by automated test strip NEGATIVE NEGATIVE 11/10/2018 [facility] Urine nitrite detection by automated test strip NEGATIVE NEGATIVE 11/10/2018 [facility] Urine protein detection by automated test strip 2+ NEGATIVE 11/10/2018 [facility] Urine glucose detection by automated test strip 3+ NEGATIVE 11/10/2018 [facility] Urine ketones detection by automated test strip TRACE NEGATIVE 11/10/2018 [facility] Urine urobilinogen measurement by test strip (mass/volume) 1 0.2 - 1 11/10/2018 [facility] Urine total bilirubin detection NEGATIVE NEGATIVE 11/10/2018 [facility] Urine erythrocytes detection 1+ NEGATIVE 11/10/2018 [facility] Automated urine sediment leukocyte count by microscopy (number/high power field) 11-20 0 - 5 11/10/2018 [facility] Erythrocytes detection in urine sediment by light microscopy 6-10 0 - 5 11/10/2018 [facility] Bacteria detection in urine sediment by light microscopy MANY NONE 11/10/2018 [facility] Epithelial cells detection in urine sediment by light microscopy FEW NONE 11/10/2018 [facility] Renal epithelial cells detection in urine sediment by light microscopy MODERATE NONE 11/10/2018 [facility] Blood leukocytes automated count (number/volume) 13.95 4.8 - 10.8 11/10/2018 [facility] Blood erythrocytes automated count (number/volume) 4.62 3.6 - 5.1 11/10/2018 [facility] Blood hemoglobin measurement (moles/volume) 11.7 12.0 - 16.0 11/10/2018 [facility] Automated blood hematocrit (volume fraction) 36.5 34.2 - 44.1 11/10/2018 [facility] Automated erythrocyte mean corpuscular volume 79.0 81 - 99 11/10/2018 [facility] Automated erythrocyte mean corpuscular hemoglobin (mass per erythrocyte) 25.3 28 - 32 11/10/2018 [facility] Automated erythrocyte mean corpuscular hemoglobin concentration measurement (mass/volume) 32.1 31 - 35 11/10/2018 [facility] RDW BldCo-Rto 13.5 11.7 - 14.4 11/10/2018 [facility] Automated blood platelet count (count/volume) 366 140 - 360 11/10/2018 [facility] Automated blood segmented neutrophil count as percentage of total leukocytes 81.6 38.7 - 80.0 11/10/2018 [facility] Automated blood lymphocyte count as percentage ot total leukocytes 9.9 18.0 - 39.1 11/10/2018 [facility] Automated blood monocyte count as percentage of total leukocytes 6.9 4.4 - 11.3 11/10/2018 [facility] Automated blood eosinophil count as percentage of total leukocytes 0.6 0.0 - 6.0 11/10/2018 [facility] Automated blood basophil count as percentage of total leukocytes 0.5 0.0 - 1.0 11/10/2018 [facility] IM GRANULOCYTES % 0.5 0.0 - 1.0 11/10/2018 [facility] Automated blood neutrophil count 11.4 2.1 - 6.9 11/10/2018 [facility] Blood lymphocytes count (number/volume) 1.4 1.0 - 3.2 11/10/2018 [facility] Blood monocytes automated count (number/volume) 1.0 0.2 - 0.8 11/10/2018 [facility] Automated blood eosinophil count 0.1 0.0 - 0.4 11/10/2018 [facility] Automated blood basophil count (count/volume) 0.1 0.0 - 0.1 11/10/2018 [facility] Absolute Immature Granulocyte (auto 0.07 0 - 0.1 11/10/2018 [facility] Serum or plasma sodium measurement (moles/volume) 134 136 - 145 11/10/2018 [facility] Serum or plasma potassium measurement (moles/volume) 3.9 3.5 - 5.1 11/10/2018 [facility] Serum or plasma chloride measurement (moles/volume) 94 98 - 107 11/10/2018 [facility] Serum or plasma carbon dioxide, total measurement (moles/volume) 25 22 - 29 11/10/2018 [facility] Serum or plasma anion gap 18.9 8 - 16 11/10/2018 [facility] Serum or plasma urea nitrogen measurement (mass/volume) 12 7 - 26 11/10/2018 [facility] Serum or plasma creatinine measurement (mass/volume) 1.02 0.57 - 1.11 11/10/2018 [facility] Serum or plasma urea nitrogen/creatinine mass ratio 12 6 - 25 11/10/2018 [facility] Estimated glomerular filtration rate (GFR) determination 56 60 11/10/2018 [facility] Glucose measurement 246 74 - 118 11/10/2018 [facility] Serum or plasma calcium measurement (mass/volume) 9.5 8.4 - 10.2 11/10/2018 [facility] Lactic Acid Level 22.9 4.5 - 19.8 11/10/2018 [facility] Serum or plasma total bilirubin measurement (mass/volume) 0.4 0.2 - 1.2 11/10/2018 [facility] Aspartate Amino Transf (AST/SGOT) 24 5 - 34 11/10/2018 [facility] Serum or plasma alanine aminotransferase measurement (enzymatic activity/volume) 24 0 - 55 11/10/2018 [facility] Serum or plasma protein measurement (mass/volume) 6.8 6.5 - 8.1 11/10/2018 [facility] Serum or plasma albumin measurement (mass/volume) 3.4 3.5 - 5.0 11/10/2018 [facility] Plasma globulin measurement (mass/volume) 3.4 2.3 - 3.5 11/10/2018 [facility] Serum or plasma albumin/globulin mass ratio 1.0 0.8 - 2.0 11/10/2018 [facility] Serum or plasma alkaline phosphatase measurement (enzymatic activity/volume) 114 40 - 150 11/10/2018 [facility] Serum or plasma amylase measurement (enzymatic activity/volume) 46 25 - 125 11/10/2018 [facility] Serum or plasma lipase measurement (enzymatic activity/volume) 19 8 - 78 11/10/2018 [facility] URINE AND STOOL UA Urobilinogen <=1.0 mg/dL 0.1 - 1.0 02/24/2017 [facility] URINE AND STOOL UA Trans Epi 4 <=0 /LPF 02/24/2017 [facility] URINE AND STOOL UA pH 5.0 5.0 - 8.0 02/24/2017 [facility] URINE AND STOOL UA Bili Small *ABN* (02/24/17 8:17 AM) Negative 02/24/2017 [facility] URINE AND STOOL UA Blood Large *ABN* (02/24/17 8:17 AM) Negative 02/24/2017 [facility] URINE AND STOOL UA Ketones Trace mg/dL Negative mg/dL 02/24/2017 [facility] URINE AND STOOL UA Turbidity Clear (02/24/17 8:17 AM) Clear 02/24/2017 [facility] URINE AND STOOL UA Spec Grav 1.023 <=1.030 02/24/2017 [facility] URINE AND STOOL UA Color Yellow *NA* (02/24/17 8:17 AM) Yellow 02/24/2017 [facility] URINE AND STOOL UA WBC 15 0 - 5 02/24/2017 [facility] URINE AND STOOL UA Leuk Est Small *ABN* (02/24/17 8:17 AM) Negative 02/24/2017 [facility] URINE AND STOOL UA Nitrite Negative (02/24/17 8:17 AM) Negative 02/24/2017 [facility] URINE AND STOOL UA Protein Negative mg/dL Negative mg/dL 02/24/2017 [facility] URINE AND STOOL UA Glucose Negative mg/dL Negative mg/dL 02/24/2017 [facility] URINE AND STOOL UA RBC >182 0 - 2 02/24/2017 [facility] URINE AND STOOL UA Mucus Many /LPF None Seen /LPF 02/24/2017 [facility] URINE AND STOOL UA Sq Epi Few /LPF Few /LPF 02/24/2017 [facility] Chemistry HGBA1C 8.4 - 5.6 07/18/2014 Medical [...] TSH 0.958 0.360 - 3.740 07/18/2014 [facility] Hematology HGB 14.9 12.0 - 16.0 07/18/2014 [facility] Hematology HCT 48.0 36.0 - 48.0 07/18/2014 [facility] Hematology PLATELETS 310 K/CMM 133 - [...] HGB 14.8 12.0 - 16.0 04/17/2014 [facility] Hematology HCT 45.7 36.0 - 48.0 04/17/2014 [facility] Hematology PLATELETS 307 K/CMM 133 - [...] PHOS 125 39 - 136 09/08/2011 [facility] Hematology HGB 14.8 12.0 - 16.0 [...] [facility] Chemistry HGBA1C 8.6 10/03/2010 [facility] Chemistry TSH 0.203 0.360 - 3.740 10/03/2010 [facility] Chemistry HGBA1C 8.6 10/03/2010 [facility] Chemistry TSH 0.203 0.360 - 3.740 10/03/2010 [facility] Chemistry SODIUM 139 135 - 145 10/03/2010 [facility] Chemistry POTASSIUM 4.3 3.5 - 5.1 10/03/2010 [facility] Chemistry BUN 20 7 - 22 10/03/2010 [facility] Chemistry CREATININE 0.6 0.5 - 1.4 10/03/2010 [facility] Chemistry BUN/CREAT 33 6 - 25 10/03/2010 [facility] Chemistry ALBUMIN 4.3 3.5 - 5.0 10/03/2010 [facility] Chemistry CALCIUM 9.6 8.5 - 10.5 10/03/2010 [facility] Chemistry SGOT (AST) 7 0 - 37 10/03/2010 [facility] Chemistry SGPT (ALT) 24 0 - 65 10/03/2010 [facility] Chemistry ALK PHOS 98 39 - 136 10/03/2010 [facility] Hematology HGB 13.7 12.0 - 16.0 10/03/2010 [facility] Hematology HCT 41.3 36.0 - 48.0 10/03/2010 [facility] Hematology PLATELETS 307 K/CMM 133 - 450 10/03/2010 [facility] Pathology Reports No Data Provided for [...] : 1960; Age: 56 years Female MR: [id number] Study: Chest 2 views DX Order Time: [...] radiographic evidence of acute pulmonary disease. SL: [id number] 01/08/2017 [facility] Chest 2 views DX Study: Chest 2 [...] unremarkable. IMPRESSION: No acute cardiopulmonary disease. SL: [id number] 01/06/2017 [facility] Consultation Notes No Data Provided for This [...] 03/08/2017 Serafin Reesxbaum Respitory Rate 18 02/24/2017 [facility] Heart Rate 82 02/24/2017 [facility] Systolic (mm Hg) 160 02/24/2017 [facility] Diastolic (mm Hg) 85 02/24/2017 [facility] Temperature Oral (F) 98.7 F 02/24/2017 [facility] Respitory Rate 18 02/24/2017 [facility] Systolic (mm Hg) 160 02/24/2017 [facility] Diastolic (mm Hg) 80 02/24/2017 [facility] Heart Rate 90 02/24/2017 [facility] Temperature Oral (F) 99.1 F 02/24/2017 [facility] BMI Calculated 29.36 02/24/2017 [facility] Height 152.4 cm 02/24/2017 [facility] Weight 68.182 02/24/2017 [facility] Weight 155 01/15/2017 Serafin Claudioaum Height 60 01/15/2017 Serafin Reesxbaum Temperature Oral (F) 98.1 F 01/15/2017 Serafin Awa Reesxbaum Heart Rate 80 01/15/2017 Serafin Awa Buxbaum Diastolic (mm Hg) 86 01/15/2017 Serafin Awa Buxbaum Systolic (mm Hg) 140 01/15/2017 Serafin Billings Buxbaum Systolic (mm Hg) 156 01/09/2017 [facility] Diastolic (mm Hg) 84 01/09/2017 [facility] Temperature Oral (F) 97.9 F 01/09/2017 [facility] Heart Rate 80 01/09/2017 [facility] Respitory Rate 20 01/09/2017 [facility] Respitory Rate 16 01/09/2017 [facility] Systolic (mm Hg) 145 01/08/2017 [facility] Diastolic (mm Hg) 82 01/08/2017 [facility] Heart Rate 82 01/08/2017 [facility] Respitory Rate 18 01/08/2017 [facility] Temperature Oral (F) 98 F 01/08/2017 [facility] Temperature Oral (F) 97.8 F 01/08/2017 [facility] Height 152.4 cm 01/08/2017 [facility] Weight 70.455 01/08/2017 [facility] BMI Calculated 30.33 01/08/2017 [facility] Heart Rate 98 01/08/2017 [facility] Systolic (mm Hg) 179 01/08/2017 [facility] Diastolic (mm Hg) 86 01/08/2017 [facility] Weight 163 12/14/2016 Serafin Awa Reesxbaum Height [...] Serafin E Buxbaum Heart Rate 84 08/12/2016 Searfin E Buxbaum Diastolic (mm Hg) 92 08/12/2016 [...] 05/21/2015 Serafin Claudioaum Weight 187 08/24/2014 Serafin wAa Claudioaum Height 60 08/24/2014 Serafin Claudioaum Temperature [...] Provider ADM Date DC Date Status Source [facility] Office Visit [id number] Andrés Fritz MD 09/07/2012 09/07/2012 [facility] Lab Report [id number] Andrés Fritz MD 09/07/2012 09/07/2012 [facility] [place] [facility] [place] [id number] Andrés Fritz MD 10/05/2012 10/05/2012 [facility] [place] [facility] [place] Visit [id number] Andrés Fritz MD 05/30/2013 05/30/2013 [facility] Serafin Kim DO, PA reff, meds [id number] 11/14/2013 11/14/2013 Serafin Kim DO, PA reff, meds [id number] 11/14/2013 11/14/2013 Serafin Kim DO, PA reff, meds [id number] 11/14/2013 11/14/2013 Serafin Kim DO, PA reff, meds [id number] 11/14/2013 11/14/2013 Serafin Kim DO, PA reff, meds [id number] 11/14/2013 11/14/2013 Serafin Kim DO, PA reff, meds [id number] 11/14/2013 11/14/2013 Serafin Kim DO, PA reff, meds [id number] 11/14/2013 11/14/2013 Serafin Kim DO, PA reff, meds [id number] 11/14/2013 11/14/2013 Serafin Kim DO, PA reff, meds [id number] 11/14/2013 11/14/2013 Serafin Kim DO PA reff, meds [id number] 11/14/2013 11/14/2013 Serafin Kim DO, PA reff, meds [id number] 11/14/2013 11/14/2013 Serafin Kim DO, PA reff, meds [id number] 11/14/2013 11/14/2013 Serafin Kim DO, PA reff, meds [id number] 11/14/2013 11/14/2013 Serafin Kim DO, PA reff, meds [id number] 11/14/2013 11/14/2013 Serafin Kim DO PA reff, meds [id number] 11/14/2013 11/14/2013 Serafin Kim DO PA reff, meds [id number] 11/14/2013 11/14/2013 Serafin Kim DO PA reff, meds [id number] 11/14/2013 11/14/2013 Serafin Kim DO PA reff, meds [id number] 11/14/2013 11/14/2013 Serafin Kim DO PA reff, meds [id number] 11/14/2013 11/14/2013 Serafin Kim DO PA reff, meds [id number] 11/14/2013 11/14/2013 Serafin Kim DO PA reff, meds [id number] 11/14/2013 11/14/2013 Serafin Kim DO, PA reff, meds [id number] 11/14/2013 11/14/2013 Serafin Kim DO PA reff, meds [id number] 11/14/2013 11/14/2013 Serafin Kim DO, PA reff, meds [id number] 11/14/2013 11/14/2013 Serafin Kim DO, PA reff, meds [id number] 11/14/2013 11/14/2013 Serafin Kim DO, PA reff, meds [id number] 11/14/2013 11/14/2013 Serafin Kim DO, PA reff, meds [id number] 11/14/2013 11/14/[address] [facility] Lab Report [id number] Andrés Fritz MD 11/15/2013 11/15/2013 [facility] Serafin Kim DO, PA refill [id number] 11/15/2013 11/15/2013 Serafin Kim DO, PA refill [id number] 11/15/2013 11/15/2013 Serafin Kim DO, PA refill [id number] 11/15/2013 11/15/2013 Serafin iKm DO, PA refill [id number] 11/15/2013 11/15/2013 Serafin Kim DO, PA refill [id number] 11/15/2013 11/15/2013 Serafin Kim DO, PA refill [id number] 11/15/2013 11/15/2013 Serafin Betancourt Kirstin Judy DO, PA refill [id number] 11/15/2013 11/15/2013 Serafin Betancourt AwaClaudia Kim DO, PA refill [id number] 11/15/2013 11/15/2013 Serafin Kim DO, PA refill [id number] 11/15/2013 11/15/2013 Serafin Kim DO, PA refill [id number] 11/15/2013 11/15/2013 Serafin Kim DO, PA refill [id number] 11/15/2013 11/15/2013 Serafin Kim DO, PA refill [id number] 11/15/2013 11/15/2013 Serafin Kim DO, PA refill [id number] 11/15/2013 11/15/2013 Serafin Kim DO, PA refill [id number] 11/15/2013 11/15/2013 Serafin Kim DO, PA refill [id number] 11/15/2013 11/15/2013 Serafin Kim DO, PA refill [id number] 11/15/2013 11/15/2013 Serafin Kim DO, PA refill [id number] 11/15/2013 11/15/2013 Serafin Kim DO, PA refill [id number] 11/15/2013 11/15/2013 Serafin Kim DO, PA refill [id number] 11/15/2013 11/15/2013 Serafin Kim DO, PA refill [id number] 11/15/2013 11/15/2013 Serafin Kim DO, PA refill [id number] 11/15/2013 11/15/2013 Serafin Kim DO, PA refill [id number] 11/15/2013 11/15/2013 Serafin Kim DO, PA refill [id number] 11/15/2013 11/15/2013 Serafin Kim DO, PA refill [id number] 11/15/2013 11/15/2013 Serafin Kim DO, PA refill [id number] 11/15/2013 11/15/2013 Serafin Kim Serafin Kirstin Kim DO, PA refill [id number] 11/15/2013 11/15/2013 Serafin Kim DO, PA refill [id number] 11/15/2013 11/15/2013 Serafin Kim DO, PA coupon [id number] 11/20/2013 11/20/2013 Serafin Kim DO, PA coupon [id number] 11/20/2013 11/20/2013 Serafin Kim DO, PA coupon [id number] 11/20/2013 11/20/2013 Serafin Kim DO, PA coupon [id number] 11/20/2013 11/20/2013 Serafin Kim DO, PA coupon [id number] 11/20/2013 11/20/2013 Serafin Kim DO, PA coupon [id number] 11/20/2013 11/20/2013 Serafin Kim DO, PA coupon [id number] 11/20/2013 11/20/2013 Serafin Kim DO, PA coupon [id number] 11/20/2013 11/20/2013 Serafin Kim DO, PA coupon [id number] 11/20/2013 11/20/2013 Serafin Kim DO, PA coupon [id number] 11/20/2013 11/20/2013 Serafin Kim DO, PA coupon [id number] 11/20/2013 11/20/2013 Serafin Kim DO, PA coupon [id number] 11/20/2013 11/20/2013 Serafin Kim DO, PA coupon [id number] 11/20/2013 11/20/2013 Serafin Kim DO, PA coupon [id number] 11/20/2013 11/20/2013 Serafin Kim DO, PA coupon [id number] 11/20/2013 11/20/2013 Serafin Kim DO, PA coupon [id number] 11/20/2013 11/20/2013 Serafin Kim DO, PA coupon [id number] 11/20/2013 11/20/2013 Serafin Kim DO, PA coupon [id number] 11/20/2013 11/20/2013 Serafin Kim DO, PA coupon [id number] 11/20/2013 11/20/2013 Serafin Kim DO, PA coupon [id number] 11/20/2013 11/20/2013 Serafin Kim DO, PA coupon [id number] 11/20/2013 11/20/2013 Serafin Kim DO, PA coupon [id number] 11/20/2013 11/20/2013 Serafin Kim DO, PA coupon [id number] 11/20/2013 11/20/2013 Serafin Kim DO, PA coupon [id number] 11/20/2013 11/20/2013 Serafin Kim DO, PA coupon [id number] 11/20/2013 11/20/2013 Serafin Kim DO, PA coupon [id number] 11/20/2013 11/20/2013 Serafin Kim DO, PA coupon [id number] 11/20/2013 11/20/[address] [facility] [place] [facility] [place] [id number] Andrés Fritz MD 01/03/2014 01/03/2014 [facility] Serafin Kim, DO, [place] Mammogram [id number] 01/12/2014 01/12/2014 Serafin Kim DO, PA Mammogram [id number] 01/12/2014 01/12/2014 Serafin Kim DO, PA Mammogram [id number] 01/12/2014 01/12/2014 Serafin Kim DO, PA Mammogram [id number] 01/12/2014 01/12/2014 Serafin Kim DO, PA Mammogram [id number] 01/12/2014 01/12/2014 Serafin Kim, DO, [place] Mammogram [id number] 01/12/2014 01/12/2014 Serafin Kim DO, PA Mammogram [id number] 01/12/2014 01/12/2014 Serafin Kim DO, PA Mammogram [id number] 01/12/2014 01/12/2014 Serafin Kim DO, PA Mammogram [id number] 01/12/2014 01/12/2014 Serafin Kim, DO, PA Mammogram [id number] 01/12/2014 01/12/2014 Serafin Kim, DO, PA Mammogram [id number] 01/12/2014 01/12/2014 Serafin Kim, DO, PA Mammogram [id number] 01/12/2014 01/12/2014 Serafin Kim, DO, PA Mammogram [id number] 01/12/2014 01/12/2014 Serafin Kim DO, PA Mammogram [id number] 01/12/2014 01/12/2014 Serafin Kim, DO, PA Mammogram [id number] 01/12/2014 01/12/2014 Serafin Kim DO, PA Mammogram [id number] 01/12/2014 01/12/2014 Serafin Kim DO, PA Mammogram [id number] 01/12/2014 01/12/2014 Serafin Kim, DO, PA Mammogram [id number] 01/12/2014 01/12/2014 Serafin Kim DO, PA Mammogram [id number] 01/12/2014 01/12/2014 Serafin Kim DO, PA Mammogram [id number] 01/12/2014 01/12/2014 Serafin Kim DO, PA Mammogram [id number] 01/12/2014 01/12/2014 Serafin Kim DO, PA Mammogram [id number] 01/12/2014 01/12/2014 Serafin iKm DO, PA Mammogram [id number] 01/12/2014 01/12/2014 Serafin Kim , PA Mammogram [id number] 01/12/2014 01/12/2014 Serafin Kim DO, PA Unknown [id number] 01/31/2014 01/31/2014 Serafin Kim DO, PA Unknown [id number] 01/31/2014 01/31/2014 Serafin Kim DO, PA Unknown [id number] 01/31/2014 01/31/2014 Serafin Kim DO, PA Unknown [id number] 01/31/2014 01/31/2014 Serafin Kim DO, PA Unknown [id number] 01/31/2014 01/31/2014 Serafin Kim DO, PA Unknown [id number] 01/31/2014 01/31/2014 Serafin Kim DO, PA Unknown [id number] 01/31/2014 01/31/2014 Serafin Kim DO, PA Unknown [id number] 01/31/2014 01/31/2014 Serafin Kim DO, [place] Unknown [id number] 01/31/2014 01/31/2014 Serafin Billings Gonzálezadri Reesgenovevaadri DO, PA Unknown [id number] 01/31/2014 01/31/2014 Serafin Reesgenovevaadri DO, PA Unknown [id number] 01/31/2014 01/31/2014 Serafin Kim DO, PA Unknown [id number] 01/31/2014 01/31/2014 Serafin Billings Gonzálezadri Kim DO, PA Unknown [id number] 01/31/2014 01/31/2014 Serafin Awa Gonzálezadri Reesgenovevaadri DO, PA Unknown [id number] 01/31/2014 01/31/2014 Serafin Awa Jessicamary Fulton Gonzálezadri DO, PA Unknown [id number] 01/31/2014 01/31/2014 Serafni Kim DO PA Unknown [id number] 01/31/2014 01/31/2014 Serafin Kim DO PA Unknown [id number] 01/31/2014 01/31/2014 Serafin Kim DO PA Unknown [id number] 01/31/2014 01/31/2014 Serafin Kim DO PA Unknown [id number] 01/31/2014 01/31/2014 Serafin Kim DO PA Unknown [id number] 01/31/2014 01/31/2014 Serafin Kim DO PA Unknown [id number] 01/31/2014 01/31/2014 Serafin Kim DO PA Unknown [id number] 01/31/2014 01/31/2014 Serafin Kim DO PA Unknown [id number] 01/31/2014 01/31/2014 Serafin Kim DO PA refill meds [id number] 02/07/2014 02/07/2014 Serafin Kim DO, PA refill meds [id number] 02/07/2014 02/07/2014 Serafin Kim DO, PA refill meds [id number] 02/07/2014 02/07/2014 Serafin Kim DO, [place] refill meds [id number] 02/07/2014 02/07/2014 Serafin Kim DO, PA refill meds [id number] 02/07/2014 02/07/2014 Serafin Kim DO, PA refill meds [id number] 02/07/2014 02/07/2014 Serafin Kim DO, PA refill meds [id number] 02/07/2014 02/07/2014 Serafin Kim DO, PA refill meds [id number] 02/07/2014 02/07/2014 Serafin Kim DO, PA refill meds [id number] 02/07/2014 02/07/2014 Serafin Kim DO, PA refill meds [id number] 02/07/2014 02/07/2014 Serafin Kim DO, PA refill meds [id number] 02/07/2014 02/07/2014 Serafin Kim DO, PA refill meds [id number] 02/07/2014 02/07/2014 Serafin Kim DO, [place] refill meds [id number] 02/07/2014 02/07/2014 Serafin iKm DO, [place] refill meds [id number] 02/07/2014 02/07/2014 Serafin Kim DO, [place] refill meds [id number] 02/07/2014 02/07/2014 Serafin Kim DO, [place] refill meds [id number] 02/07/2014 02/07/2014 Serafin Kim DO, [place] refill meds [id number] 02/07/2014 02/07/2014 Serafin Kim DO, [place] refill meds [id number] 02/07/2014 02/07/2014 Serafin Kim DO, [place] refill meds [id number] 02/07/2014 02/07/2014 Serafin Kim DO, [place] refill meds [id number] 02/07/2014 02/07/2014 Serafin Kim DO, [place] refill meds [id number] 02/07/2014 02/07/2014 Serafin Kim DO, [place] refill meds [id number] 02/07/2014 02/07/2014 Serafin Kim DO, [place] refill meds [id number] 02/07/2014 02/07/2014 Serafin Kim DO, PA reff [id number] 02/21/2014 02/21/2014 Serafin Kim DO, PA reff [id number] 02/21/2014 02/21/2014 Serafin Kim DO, [place] reff [id number] 02/21/2014 02/21/2014 Serafin Kim DO, PA reff [id number] 02/21/2014 02/21/2014 Serafin Kim DO, [place] reff [id number] 02/21/2014 02/21/2014 Serafin Kim DO, [place] reff [id number] 02/21/2014 02/21/2014 Serafin Kim DO, [place] reff [id number] 02/21/2014 02/21/2014 Serafin Lopezm, DO, [place] reff [id number] 02/21/2014 02/21/2014 Serafin Betancourt AwaClaudia Kim DO, PA reff [id number] 02/21/2014 02/21/2014 Serafin Kim DO, [place] reff [id number] 02/21/2014 02/21/2014 Serafin Kim DO, [place] reff [id number] 02/21/2014 02/21/2014 Serafin Kim DO, PA reff [id number] 02/21/2014 02/21/2014 Serafin Kim DO, [place] reff [id number] 02/21/2014 02/21/2014 Serafin Betancourt AwaClaudia Kim DO, [place] reff [id number] 02/21/2014 02/21/2014 Serafin Kim DO, [place] reff [id number] 02/21/2014 02/21/2014 Serafin Kim DO, [place] reff [id number] 02/21/2014 02/21/2014 Serafin Kim DO, [place] reff [id number] 02/21/2014 02/21/2014 Serafin Kim DO, [place] reff [id number] 02/21/2014 02/21/2014 Serafin Kim DO, PA reff [id number] 02/21/2014 02/21/2014 Serafin Kim DO, PA reff [id number] 02/21/2014 02/21/2014 Serafin Kim DO, PA reff [id number] 02/21/2014 02/21/2014 Serafin Kim DO, [place] reff [id number] 02/21/2014 02/21/2014 Serafin Kim DO, PA reff [id number] 02/21/2014 02/21/2014 Serafin Kim DO, [place] refill meds [id number] 02/22/2014 02/22/2014 Serafin Kim DO, [place] refill meds [id number] 02/22/2014 02/22/2014 Serafin Kim DO, PA refill meds [id number] 02/22/2014 02/22/2014 Serafin Kim DO PA refill meds [id number] 02/22/2014 02/22/2014 Serafin Kim DO, PA refill meds [id number] 02/22/2014 02/22/2014 Serafin Kim DO, [place] refill meds [id number] 02/22/2014 02/22/2014 Serafin Kim DO, PA refill meds [id number] 02/22/2014 02/22/2014 Serafin Kim DO, PA refill meds [id number] 02/22/2014 02/22/2014 Serafin Kim DO, PA refill meds [id number] 02/22/2014 02/22/2014 Serafin Kim DO, PA refill meds [id number] 02/22/2014 02/22/2014 Serafin Kim DO, [place] refill meds [id number] 02/22/2014 02/22/2014 Serafin Kim DO, PA refill meds [id number] 02/22/2014 02/22/2014 Serafin Kim DO, [place] refill meds [id number] 02/22/2014 02/22/2014 Serafin Kim DO, [place] refill meds [id number] 02/22/2014 02/22/2014 Serafin Kim DO, [place] refill meds [id number] 02/22/2014 02/22/2014 Serafin Kim DO, PA refill meds [id number] 02/22/2014 02/22/2014 Serafin Kim DO, [place] refill meds [id number] 02/22/2014 02/22/2014 Serafin Kim DO, PA refill meds [id number] 02/22/2014 02/22/2014 Serafin Kim DO, [place] refill meds [id number] 02/22/2014 02/22/2014 Serafin Kim DO, [place] refill meds [id number] 02/22/2014 02/22/2014 Serafin Kim DO, [place] refill meds [id number] 02/22/2014 02/22/2014 Serafin Kim DO, [place] refill meds [id number] 02/22/2014 02/22/2014 Serafin Kim DO, [place] refill meds [id number] 02/22/2014 02/22/2014 Serafin Awa Jessicamary Serafin Kirstin Jessicamary DO, [place] Unknown [id number] 03/12/2014 03/12/2014 Serafin Lopezmary Serafin Kirstin Jessicamary DO, [place] Unknown [id number] 03/12/2014 03/12/2014 Serafin Lopezmary Serafin Kirstin Jessicamary DO, [place] Unknown [id number] 03/12/2014 03/12/2014 Serafin Betancourt Kirstin Jessicamary DO, [place] Unknown [id number] 03/12/2014 03/12/2014 Serafin Lopezmary Serafin Kirstin Jessicamary DO, [place] Unknown [id number] 03/12/2014 03/12/2014 Serafin Kim DO, [place] Unknown [id number] 03/12/2014 03/12/2014 Serafin Kim DO, [place] Unknown [id number] 03/12/2014 03/12/2014 Serafin Lopezmary DO, [place] Unknown [id number] 03/12/2014 03/12/2014 Serafin Kim DO, [place] Unknown [id number] 03/12/2014 03/12/2014 Serafin Kim DO, [place] Unknown [id number] 03/12/2014 03/12/2014 Serafin Kim DO, [place] Unknown [id number] 03/12/2014 03/12/2014 Serafin Kim DO, [place] Unknown [id number] 03/12/2014 03/12/2014 Serafin Reesgenovevaadri Reesgenovevaadri DO, [place] Unknown [id number] 03/12/2014 03/12/2014 Serafin Billings Jessicamary Fulton Gonzálezadri DO, [place] Unknown [id number] 03/12/2014 03/12/2014 Serafin Billings Jessicamary Reesgenovevaadri DO, [place] Unknown [id number] 03/12/2014 03/12/2014 Serafin Awa Jessicamary [place]on Jessicamary DO, [place] Unknown [id number] 03/12/2014 03/12/2014 Serafin Billings Jessicamary Fulton Gonzálezadri DO, [place] Unknown [id number] 03/12/2014 03/12/2014 Serafin Billings Jessicamary [place]on Jessicamary DO, [place] Unknown [id number] 03/12/2014 03/12/2014 Serafin Billings Jessicamary Fulton Gonzálezadri DO, [place] Unknown [id number] 03/12/2014 03/12/2014 Serafin Lopezmary Serafin Kim DO, [place] refill meds [id number] 04/13/2014 04/13/2014 Serafin Kim DO, [place] refill meds [id number] 04/13/2014 04/13/2014 Serafin Kim DO, [place] refill meds [id number] 04/13/2014 04/13/2014 Serafin Kim DO, [place] refill meds [id number] 04/13/2014 04/13/2014 Serafin Kim DO, [place] refill meds [id number] 04/13/2014 04/13/2014 Serafin Kim DO, [place] refill meds [id number] 04/13/2014 04/13/2014 Serafin Kim DO, [place] refill meds [id number] 04/13/2014 04/13/2014 Serafin Kim DO, [place] refill meds [id number] 04/13/2014 04/13/2014 Serafin Kim DO, [place] refill meds [id number] 04/13/2014 04/13/2014 Serafin Kim DO PA refill meds [id number] 04/13/2014 04/13/2014 Serafin Kim DO, [place] refill meds [id number] 04/13/2014 04/13/2014 Serafin Kim DO, [place] refill meds [id number] 04/13/2014 04/13/2014 Serafin Kim DO, [place] refill meds [id number] 04/13/2014 04/13/2014 Serafin Kim DO, PA refill meds [id number] 04/13/2014 04/13/2014 Serafin Kim DO, [place] refill meds [id number] 04/13/2014 04/13/2014 Serafin Kim DO, PA refill meds [id number] 04/13/2014 04/13/2014 Serafin Kim DO, [place] refill meds [id number] 04/13/2014 04/13/2014 Serafin Kim DO, PA refill meds [id number] 04/13/2014 04/13/2014 Serafin Kim DO, [place] refill meds [id number] 04/13/2014 04/13/[address] [facility] [place] [facility] [place] [id number] Andrés Fritz MD 04/17/2014 04/17/2014 [facility] [place] [facility] [facility] [place] [id number] Andrés Fritz MD 04/19/2014 04/19/2014 [facility] Serafin Kim DO, [place] Refill [id number] 04/27/2014 04/27/2014 Serafin Kim DO, [place] Refill [id number] 04/27/2014 04/27/2014 Serafin Kim DO, [place] Refill [id number] 04/27/2014 04/27/2014 Serafin Kim DO, [place] Refill [id number] 04/27/2014 04/27/2014 Serafin Kim DO PA Refill [id number] 04/27/2014 04/27/2014 Serafin Kim DO, [place] Refill [id number] 04/27/2014 04/27/2014 Serafin Kim DO, [place] Refill [id number] 04/27/2014 04/27/2014 Serafin Kim DO, [place] Refill [id number] 04/27/2014 04/27/2014 Serafin Kim DO PA Refill [id number] 04/27/2014 04/27/2014 Serafin Kim DO, [place] Refill [id number] 04/27/2014 04/27/2014 Serafin Kim DO, [place] Refill [id number] 04/27/2014 04/27/2014 Serafin Kim DO, [place] Refill [id number] 04/27/2014 04/27/2014 Serafin Kim DO, [place] Refill [id number] 04/27/2014 04/27/2014 Serafin Kim DO, [place] Refill [id number] 04/27/2014 04/27/2014 Serafin Kim DO, [place] Refill [id number] 04/27/2014 04/27/2014 Serafin Kim DO, [place] Refill [id number] 04/27/2014 04/27/2014 Serafin Kim DO, [place] Refill [id number] 04/27/2014 04/27/2014 Serafin Kim DO, [place] Refill [id number] 04/27/2014 04/27/[address] [facility] [place] [facility] [place] [id number] Andrés Fritz MD 07/19/2014 07/19/2014 [facility] Serafin Kim, DO, PA ankle pain and swelling [id number] 07/26/2014 07/26/2014 Serafin Kim, DO, PA ankle pain and swelling [id number] 07/26/2014 07/26/2014 Serafin Kim, DO, PA ankle pain and swelling [id number] 07/26/2014 07/26/2014 Serafin Kim, DO, PA ankle pain and swelling [id number] 07/26/2014 07/26/2014 Serafin Kim, DO, PA ankle pain and swelling [id number] 07/26/2014 07/26/2014 Serafin Kim, DO, PA ankle pain and swelling [id number] 07/26/2014 07/26/2014 Serafin Kim, DO, PA ankle pain and swelling [id number] 07/26/2014 07/26/2014 Serafin Kim, DO, PA ankle pain and swelling [id number] 07/26/2014 07/26/2014 Serafin Kim, DO, PA ankle pain and swelling [id number] 07/26/2014 07/26/2014 Serafin iKm, DO, PA ankle pain and swelling [id number] 07/26/2014 07/26/2014 Serafin Kim, DO, PA ankle pain and swelling [id number] 07/26/2014 07/26/2014 Serafin Kim, DO, PA ankle pain and swelling [id number] 07/26/2014 07/26/2014 Serafin Kim DO, PA ankle pain and swelling [id number] 07/26/2014 07/26/2014 Serafin Kim, DO, PA ankle pain and swelling [id number] 07/26/2014 07/26/2014 Serafin Kim DO, PA ankle pain and swelling [id number] 07/26/2014 07/26/2014 Serafin Kim, DO, PA ankle pain and swelling [id number] 07/26/2014 07/26/2014 Serafin Kim, DO, PA ankle pain and swelling [id number] 07/26/2014 07/26/2014 Serafin Kim [facility] Outpatient Imaging [facility] [id number] Andrés Fritz 07/30/2014 07/31/2014 [facility] [place] Serafin Kim DO, [place] refill request [id number] 08/01/2014 08/01/2014 Serafin Kim DO, [place] refill request [id number] 08/01/2014 08/01/2014 Serafin Kim DO, [place] refill request [id number] 08/01/2014 08/01/2014 Serafin Kim DO, [place] refill request [id number] 08/01/2014 08/01/2014 Serafin Kim DO, [place] refill request [id number] 08/01/2014 08/01/2014 Serafin Kim DO, [place] refill request [id number] 08/01/2014 08/01/2014 Serafin Kim DO, [place] refill request [id number] 08/01/2014 08/01/2014 Serafin Kim DO, [place] refill request [id number] 08/01/2014 08/01/2014 Serafin Kim DO, [place] refill request [id number] 08/01/2014 08/01/2014 Serafin Kim DO, [place] refill request [id number] 08/01/2014 08/01/2014 Serafin Kim DO, [place] refill request [id number] 08/01/2014 08/01/2014 Serafin Kim DO, [place] refill request [id number] 08/01/2014 08/01/2014 Serafin Kim DO, [place] refill request [id number] 08/01/2014 08/01/2014 Serafin Kim DO, [place] refill request [id number] 08/01/2014 08/01/2014 Serafin Kim DO, [place] refill request [id number] 08/01/2014 08/01/2014 Serafin Kim DO PA refill request [id number] 08/01/2014 08/01/2014 Serafin Kim DO, [place] refill request [id number] 08/01/2014 08/01/2014 Serafin Kim DO, [place] f/u hospital [id number] 08/24/2014 08/24/2014 Serafin Kim DO, [place] f/u hospital [id number] 08/24/2014 08/24/2014 Serafin Kim DO, [place] f/u hospital [id number] 08/24/2014 08/24/2014 Serafin Kim DO [place] f/u [facility] [id number] 08/24/2014 08/24/2014 Serafin Kim [facility] [place] f/u [facility] [id number] 08/24/2014 08/24/2014 Serafin Kim DO [place] f/u [facility] [id number] 08/24/2014 08/24/2014 Serafin Kim [facility] [place] f/u [facility] [id number] 08/24/2014 08/24/2014 Serafin Kim [facility] [place] f/u [facility] [id number] 08/24/2014 08/24/2014 Serafin Kim DO [place] f/u [facility] [id number] 08/24/2014 08/24/2014 Serafin Kim [facility] PA f/u [facility] [id number] 08/24/2014 08/24/2014 Serafin Kim DO [place] f/u [facility] [id number] 08/24/2014 08/24/2014 Serafin Kim [facility] PA f/u [facility] [id number] 08/24/2014 08/24/2014 Serafin Kim DO [place] f/u [facility] [id number] 08/24/2014 08/24/2014 Serafin Kim DO [place] f/u hospital [id number] 08/24/2014 08/24/2014 Serafin Kim DO, [place] f/u [facility] [id number] 08/24/2014 08/24/2014 Serafin Kim DO, [place] f/u [facility] [id number] 08/24/2014 08/24/2014 Serafin Kim DO, [place] /u [facility] [id number] 08/24/2014 08/24/[address] [facility] [id number] [facility] 10/18/2014 [facility] Serafin Kim DO [place] Unknown [id number] 01/10/2015 01/10/2015 Serafin Kim DO, [place] Unknown [id number] 01/10/2015 01/10/2015 Serafin Kim DO, [place] Unknown [id number] 01/10/2015 01/10/2015 Serafin Kim DO [place] Unknown [id number] 01/10/2015 01/10/2015 Serafin Kim DO [place] Unknown [id number] 01/10/2015 01/10/2015 Serafin Kim Serafin E. Gonzálezadri DO, [place] Unknown [id number] 01/10/2015 01/10/2015 Serafin Awa Jessicamary Fulton Gonzálezadri DO, [place] Unknown [id number] 01/10/2015 01/10/2015 Serafin Kim Serafin Fulton Jessicamary DO, [place] Unknown [id number] 01/10/2015 01/10/2015 Serafin Betancourt Kirstin Jessicamary DO, [place] Unknown [id number] 01/10/2015 01/10/2015 Serafin Kim Serafin Fulton Jessicamary DO, [place] Unknown [id number] 01/10/2015 01/10/2015 Serafin Kim Serafin Fulton Jessicamary DO, [place] Unknown [id number] 01/10/2015 01/10/2015 Serafin Kim Serafin Fulton Jessicamary DO, [place] Unknown [id number] 01/10/2015 01/10/2015 Serafin Betancourt Kirstin Jessicamary DO, [place] Unknown [id number] 01/10/2015 01/10/2015 Serafin Betancourt Kirstin Jessicamary DO, [place] Unknown [id number] 01/10/2015 01/10/2015 Serafin Kim DO, [place] Unknown [id number] 01/10/2015 01/10/2015 Serafin Kim, , [place] Unknown [id number] 01/10/2015 01/10/2015 Serafin Kim Outpatient [id number] ANDRÉS FRITZ 01/28/2015 [facility] Serafin Kim DO, [place] refill meds [id number] 01/28/2015 01/28/2015 Serafin Kim DO, [place] refill meds [id number] 01/28/2015 01/28/2015 Serafin Kim DO, [place] refill meds [id number] 01/28/2015 01/28/2015 Serafin Kim DO, [place] refill meds [id number] 01/28/2015 01/28/2015 Serafin Kim DO, [place] refill meds [id number] 01/28/2015 01/28/2015 Serafin Kim DO, [place] refill meds [id number] 01/28/2015 01/28/2015 Serafin Kim DO, [place] refill meds [id number] 01/28/2015 01/28/2015 Serafin Kim DO, [place] refill meds [id number] 01/28/2015 01/28/2015 Serafin Lopezm, DO, [place] refill meds [id number] 01/28/2015 01/28/2015 Serafin Kim DO [place] refill meds [id number] 01/28/2015 01/28/2015 Serafin Kim DO [place] refill meds [id number] 01/28/2015 01/28/2015 Serafin Kim DO [place] refill meds [id number] 01/28/2015 01/28/2015 Serafin Kim DO [place] refill meds [id number] 01/28/2015 01/28/2015 Serafin Kim DO [place] refill meds [id number] 01/28/2015 01/28/2015 Serafin Kim DO [place] refill meds [id number] 01/28/2015 01/28/2015 Serafin Kim DO [place] refill meds [id number] 01/28/2015 01/28/[address] [facility] [id number] ANDRÉS FRITZ 03/12/2015 [facility] Serafin Kim DO [place] Unknown [id number] 05/21/2015 05/21/2015 Serafin Kim DO [place] Unknown [id number] 05/21/2015 05/21/2015 Serafin Kim DO, [place] Unknown [id number] 05/21/2015 05/21/2015 Serafin Kim DO, [place] Unknown [id number] 05/21/2015 05/21/2015 Serafin Kim DO [place] Unknown [id number] 05/21/2015 05/21/2015 Serafin Kim DO, [place] Unknown [id number] 05/21/2015 05/21/2015 Serafin Kim DO, [place] Unknown [id number] 05/21/2015 05/21/2015 Serafin Kim DO, [place] Unknown [id number] 05/21/2015 05/21/2015 Serafin Kim DO [place] Unknown [id number] 05/21/2015 05/21/2015 Serafin Kim DO [place] Unknown [id number] 05/21/2015 05/21/2015 Serafin Kim DO, [place] Unknown [id number] 05/21/2015 05/21/2015 Serafin Kim DO [place] Unknown [id number] 05/21/2015 05/21/2015 Serafin Billings Jessicamary Reesgenovevaadri DO, [place] Unknown [id number] 05/21/2015 05/21/2015 Serafin Reesgenovevaadri Kim DO, [place] Unknown [id number] 05/21/2015 05/21/2015 Serafin Billings Jessicamary Reesgenovevaadri DO, [place] Unknown [id number] 05/21/2015 05/21/2015 Serafin Billings Jessicamary Reesgenovevaadri DO, [place] Unknown [id number] 06/12/2015 06/12/2015 Serafin Billings Jessicamary Fulton Gonzálezadri DO, [place] Unknown [id number] 06/12/2015 06/12/2015 Serafin Awa Lopezmary Fulton Gonzálezadri DO, [place] Unknown [id number] 06/12/2015 06/12/2015 Serafin Billings Jessicamary Reesgenovevaadri DO, [place] Unknown [id number] 06/12/2015 06/12/2015 Serafin Billings Jessicamary Reesgenovevaadri DO, [place] Unknown [id number] 06/12/2015 06/12/2015 Serafin Lopezmary Fulton Jessicamary DO, [place] Unknown [id number] 06/12/2015 06/12/2015 Serafin Lopezmary DO, [place] Unknown [id number] 06/12/2015 06/12/2015 Serafin Kim DO [place] Unknown [id number] 06/12/2015 06/12/2015 Serafin Kim DO, [place] Unknown [id number] 06/12/2015 06/12/2015 Serafin Kim DO [place] Unknown [id number] 06/12/2015 06/12/2015 Serafin Kim DO, [place] Unknown [id number] 06/12/2015 06/12/2015 Serafin Kim DO [place] Unknown [id number] 06/12/2015 06/12/2015 Serafin Kim DO PA Unknown [id number] 06/12/2015 06/12/2015 Serafin Kim DO PA Unknown [id number] 06/12/2015 06/12/2015 Serafin Kim DO PA refill meds [id number] 06/27/2015 06/27/2015 Serafin Kim DO PA refill meds [id number] 06/27/2015 06/27/2015 Serafin Kim DO PA refill meds [id number] 06/27/2015 06/27/2015 Serafin Kim DO, PA refill meds [id number] 06/27/2015 06/27/2015 Serafin Kim DO, PA refill meds [id number] 06/27/2015 06/27/2015 Serafin Kim DO, PA refill meds [id number] 06/27/2015 06/27/2015 Serafin Kim DO, PA refill meds [id number] 06/27/2015 06/27/2015 Serafin Kim DO, PA refill meds [id number] 06/27/2015 06/27/2015 Serafin Kim DO, [place] refill meds [id number] 06/27/2015 06/27/2015 Serafin Kim DO, PA refill meds [id number] 06/27/2015 06/27/2015 Serafin Kim DO, PA refill meds [id number] 06/27/2015 06/27/2015 Serafin Kim DO, PA refill meds [id number] 06/27/2015 06/27/2015 Serafin Betancourt AwaClaudia Kim DO, PA refill meds [id number] 06/27/2015 06/27/2015 Serafin Betancourt AwaClaudia Kim DO, [place] Refill [id number] 07/12/2015 07/12/2015 Serafin Kim DO, [place] Refill [id number] 07/12/2015 07/12/2015 Serafin Kim DO, [place] Refill [id number] 07/12/2015 07/12/2015 Serafin Kim DO, [place] Refill [id number] 07/12/2015 07/12/2015 Serafin Kim DO, PA Refill [id number] 07/12/2015 07/12/2015 Serafin Kim DO, PA Refill [id number] 07/12/2015 07/12/2015 Serafin Kim DO, PA Refill [id number] 07/12/2015 07/12/2015 Serafin Kim DO, [place] Refill [id number] 07/12/2015 07/12/2015 Serafin Kim DO, [place] Refill [id number] 07/12/2015 07/12/2015 Serafin Kim DO PA Refill [id number] 07/12/2015 07/12/2015 Serafin Kim DO, PA Refill [id number] 07/12/2015 07/12/2015 Serafin Kim DO PA Refill [id number] 07/12/2015 07/12/2015 Serafin Kim DO, PA Unknown [id number] 07/25/2015 07/25/2015 Serafin Kim DO, PA Unknown [id number] 07/25/2015 07/25/2015 Serafin Kim DO PA Unknown [id number] 07/25/2015 07/25/2015 Serafin Kim DO PA Unknown [id number] 07/25/2015 07/25/2015 Serafin Kim DO PA Unknown [id number] 07/25/2015 07/25/2015 Serafin Kim DO, PA Unknown [id number] 07/25/2015 07/25/2015 Serafin Kim DO PA Unknown [id number] 07/25/2015 07/25/2015 Serafin BillingsClaudia Jessicamary DO, PA Unknown [id number] 07/25/2015 07/25/2015 Serafin Lopezmary Fulton Jessicamary DO, PA Unknown [id number] 07/25/2015 07/25/2015 Serafin BillingsClaudia Jessicamary DO, PA Unknown [id number] 07/25/2015 07/25/2015 Serafin BillingsClaudia Jessicamary DO, PA Unknown [id number] 07/25/2015 07/25/2015 Serafin Kim DO, PA Unknown [id number] 10/22/2015 10/22/2015 Serafin Kim DO, PA Unknown [id number] 10/22/2015 10/22/2015 Serafin Kim DO, PA Unknown [id number] 10/22/2015 10/22/2015 Serafin Lopezmary DO, [place] Unknown [id number] 10/22/2015 10/22/2015 Serafin Kim DO, PA Unknown [id number] 10/22/2015 10/22/2015 Serafin Kim DO, PA Unknown [id number] 10/22/2015 10/22/2015 Serafin Kim DO, PA Unknown [id number] 10/22/2015 10/22/2015 Serafin Kim DO, PA Unknown [id number] 10/22/2015 10/22/2015 Serafin Kim DO, PA Unknown [id number] 10/22/2015 10/22/2015 Seraifn Kim DO, PA Unknown [id number] 10/22/2015 10/22/2015 Serafin Kim DO, [place] Refill [id number] 12/18/2015 12/18/2015 Serafin Kim DO, [place] Refill [id number] 12/18/2015 12/18/2015 Serafin Kim DO, [place] Refill [id number] 12/18/2015 12/18/2015 Serafin Kim DO, [place] Refill [id number] 12/18/2015 12/18/2015 Serafin Kim DO, [place] Refill [id number] 12/18/2015 12/18/2015 Serafin Kim DO, [place] Refill [id number] 12/18/2015 12/18/2015 Serafin BillingsClaudia Judy DO, [place] Refill [id number] 12/18/2015 12/18/2015 Serafin Kim DO, [place] Refill [id number] 12/18/2015 12/18/2015 Serafin BillingsClaudia Judy DO, [place] Refill [id number] 12/18/2015 12/18/2015 Serafin Kim DO, PA Unknown [id number] 12/31/2015 12/31/2015 Serafin Kim DO, PA Unknown [id number] 12/31/2015 12/31/2015 Serafin Kim DO, PA Unknown [id number] 12/31/2015 12/31/2015 Serafin Kim DO, PA Unknown [id number] 12/31/2015 12/31/2015 Serafin Kim DO, PA Unknown [id number] 12/31/2015 12/31/2015 Serafin Kim DO, PA Unknown [id number] 12/31/2015 12/31/2015 Serafin Kim DO, PA Unknown [id number] 12/31/2015 12/31/2015 Serafin Kim DO PA Unknown [id number] 12/31/2015 12/31/2015 Serafin Kim DO PA Refill [id number] 01/06/2016 01/06/2016 Serafin Kim DO PA Refill [id number] 01/06/2016 01/06/2016 Serafin Kim DO PA Refill [id number] 01/06/2016 01/06/2016 Serafin Kim DO PA Unknown [id number] 01/06/2016 01/06/2016 Serafin Kim DO PA Unknown [id number] 01/06/2016 01/06/2016 Serafin Kim DO PA Unknown [id number] 01/06/2016 01/06/2016 Serafin Kim DO PA Refill [id number] 01/06/2016 01/06/2016 Serafin Kim DO PA Refill [id number] 01/06/2016 01/06/2016 Serafin Kim DO PA Refill [id number] 01/06/2016 01/06/2016 Serafin Kim DO, PA Unknown [id number] 01/06/2016 01/06/2016 Serafin Kim DO, PA Unknown [id number] 01/06/2016 01/06/2016 Serafin Kim DO, PA Unknown [id number] 01/06/2016 01/06/2016 Serafin Kim DO, PA Unknown [id number] 01/07/2016 01/07/2016 Serafin Kim DO, PA Unknown [id number] 01/07/2016 01/07/2016 Serafin Kim DO, PA Unknown [id number] 01/07/2016 01/07/2016 Serafin Kim DO, PA Unknown [id number] 01/07/2016 01/07/2016 Serafin Kim DO, PA Unknown [id number] 01/07/2016 01/07/2016 Serafin Kim DO, PA Unknown [id number] 01/07/2016 01/07/2016 Serafin Kim DO, PA Unknown [id number] 01/07/2016 01/07/2016 Serafin Kim DO PA Unknown [id number] 01/30/2016 01/30/2016 Serafin Kim DO PA Unknown [id number] 01/30/2016 01/30/2016 Serafin Kim DO, PA Unknown [id number] 01/30/2016 01/30/2016 Serafin Kim DO PA Unknown [id number] 01/30/2016 01/30/2016 Serafin Kim DO PA Refill [id number] 03/10/2016 03/10/2016 Serafin Kim DO PA Refill [id number] 03/10/2016 03/10/2016 Serafin Kim DO PA Refill [id number] 03/10/2016 03/10/2016 Serafin Kim DO, PA Refill [id number] 03/12/2016 03/12/2016 Serafin Kim DO PA Refill [id number] 03/12/2016 03/12/2016 Serafin Kim DO PA Follow- Up [id number] 04/01/2016 04/01/2016 Serafin Kim [facility] Outpatient [id number] Serafin Kim 01/06/2017 01/07/2017 [facility] Emergency [id number] Wade Maldonado 01/08/2017 01/09/2017 [facility] Emergency [id number] Trung Blount 02/24/2017 02/24/2017 [facility] [id number] Serafin Judy 07/12/2018 07/13/2018 [facility] Departed Emergency Room [id number] KELLY KEITH MD 11/10/2018 11/11/2018 [facility] Procedures Procedure Code Date Perfomer Comments Source Computed tomography of brain without radiopaque contrast [id number] 11/10/2018 IN[facility] diabetic foot check [id number] 07/19/2014 yes [facility] diabetic eye exam 22555.1 05/07/2014 [facility] smoking/tobacco cessation, patient education and counseling 14 04/19/2014 yes [facility] [id number] [facility]<sup>[facility]</sup> [id number] [facility] Other<sup>2</sup> [id number] [facility] ISACCJesse [facility] Tonsillectomy [id number] [facility] Assessment and Plan No Data Provided for This Section Plan of Care Plan of Care Date Source Discharge Date 11/11/18 12:45am Disposition HOME, SELF-CARE Condition at Discharge Stable Instructions/Education Provided Fever - Adult Viral Syndrome - Adult Forms Provided Work/School Excuse Prescriptions See Medication Section Referrals PRETTY COTTO MD Address: [address] [place] [address] [place] [address] Additional Instructions/Education 1. 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 Please take motrin and tylenol as needed for fever 3. Return to the ED if your symptoms don't improve 11/11/2018 [facility] Social History Social History Date Source No social history information available. 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 No 11/10/18 10:33pm Do you have an [...] rights and responsibilities? Yes 11/10/18 10:33pm 11/11/2018 [facility] Functional Status No Data Provided for This Section
[2018-11-30] MEDS ORDERED: SOD PHOSPHATE/SOD BIPHOSPHATE ENEMA 132 ML BTL PR NR (20:15)
[2018-11-30 21:00] VITALS: BP 102/58
--- NOTE | 2018-11-30 21:30 | NUR ---
PATIENT RECEIVED AOX4, NO DISTRESS NOTED. PATIENT COMPLAINS OF PAIN IN LOWER BACK AND WILL PAGE DR. BANEGAS FOR MEDICATION ORDER. BED IS LOCKED AND IN LOWEST POSITION, BOTH SIDE RAILS ARE UP, CALL LIGHT WITHIN REACH, WILL CONTINUE TO MONITOR.
[2018-11-30] MEDS ORDERED: MORPHINE SULFATE INJ 4 MG/ML INJ 1ML IV PRN (21:45)
[2018-11-30 23:00] VITALS: BP 102/58
--- NOTE | 2018-11-30 23:00 | NUR ---
PATIENT MEDICATED FOR PAIN IN LOWER BACK, FAMILY MEMBER AT BEDSIDE. IV IS FLOWING AT ORDERED RATE, CALL LIGHT IS WITHIN REACH.
[2018-11-30 23:45] VITALS: BP 133/70
[2018-12-01] VITALS (7 sets, daily range): BP systolic 117–134; BP diastolic 56–68
[2018-12-01 05:36] LABS: BASOPHILS % 0.4 % (0.0-1.0); EOSINOPHILS # (AUTO) 0.2 (0.0-0.4); EOSINOPHILS % 1.7 % (0.0-6.0); HEMATOCRIT 34.1 % (34.2-44.1); HEMOGLOBIN 10.4 g/dL (12.0-16.0); LYMPHOCYTES # (AUTO) 3.1 (1.0-3.2); LYMPHOCYTES % 33.1 % (18.0-39.1); MEAN CORPUSCULAR HEMOGLOBIN 24.6 pg (28-32); MEAN CORPUSCULAR HGB CONC 30.5 g/dL (31-35); MEAN CORPUSCULAR VOLUME 80.6 fL (81-99); MONOCYTES # (AUTO) 0.6 (0.2-0.8); MONOCYTES % 6.8 % (4.4-11.3); NEUTROPHILS # (AUTO) 5.3 (2.1-6.9); NEUTROPHILS % 57.3 % (38.7-80.0); PLATELET COUNT 358 x10e3/uL (140-360); RED BLOOD COUNT 4.23 x10e6/uL (3.6-5.1); RED CELL DISTRIBUTION WIDTH 14.3 % (11.7-14.4)
[2018-12-01 06:06] LABS: ALBUMIN 3.1 g/dL (3.5-5.0); ALBUMIN/GLOBULIN RATIO 1.1 (0.8-2.0); ANION GAP 14.2 mmol/L (8-16); CALCIUM 8.3 mg/dL (8.4-10.2); CREATININE, SERUM 1.59 mg/dL (0.57-1.11); POTASSIUM 4.2 mmol/L (3.5-5.1)
[2018-12-01] MEDS: CEFEPIME 2 GM/NS 0.9% 100 ML 100 ML IV SCH ×2 (06:32→18:18)
[2018-12-01 07:05] LABS: CREATINE KINASE MB 0.7 ng/mL (0-5.0)
--- NOTE | 2018-12-01 07:16 | NUR ---
PATIENT SITTING UP IN BED WORKING ON HER COMPUTER, NO COMPLAIN VOICED. REMAINS NPO, TELEMETRY BOX IN PLACE. BED IN LOWER POSITION, CALL LIGHT AT REACH.
[2018-12-01] MEDS ORDERED: DEXTROSE 50% SYRINGE 50 ML IV PRN (08:30)
[2018-12-01] MEDS ORDERED: MAGNESIUM HYDROXIDE 30 ML UDC PO ONE (09:00)
[2018-12-01] MEDS: SODIUM CHLORIDE 0.45% 1,000 ML IV SCH ×2 (09:06→18:30)
[2018-12-01] MEDS: AMLODIPINE BESYLATE 5 MG TAB PO SCH (09:07)
--- NOTE | 2018-12-01 09:09 | Pre Op History & Physical ---
The patient has some nausea and vomiting for 4 to 5 days along with a fall two days ago. HISTORY OF PRESENT ILLNESS: The patient is a 57-year-old woman. She has a history of diabetes. She also had a history of a gastric sleeve four years ago. She has fibromyalgia and arthritis with chronic pain in her lower back, neck, and knees. She does follow with Pain Management, but has only received tramadol so far. About four days ago, she had the abrupt onset of nausea and vomiting. She did not have any fevers. She had no hematemesis or diarrhea. She had no abdominal pain. She noted some dizziness and fell about 2 days prior to admission. She bruised the left posterior rib cage. When she went to a Pain Management doctor yesterday, she was found to have low blood pressure and referred to the emergency department. In the Emergency Department, she was found to have an elevated BUN and creatinine along with the leukocytosis. She also had some pyuria. PAST SURGICAL HISTORY: 1. Status post shoulder surgery. 2. Status post gastric sleeve. PAST MEDICAL HISTORY: 1. Insulin-dependent diabetes. 2. Arthritis. 3. Fibromyalgia. SOCIAL HISTORY: The patient quit smoking five years ago. She is not an active drinker. ALLERGIES: NO KNOWN DRUG ALLERGIES. REVIEW OF SYSTEMS: The patient has some headache. She has some neck discomfort. She is not complaining of chest pain. She did have pain in her back with the fall. She is not having cough or difficulty breathing. She has no abdominal pain. She does not have any chest pain. She did have nausea and vomiting, but it has improved. She is constipated. There is no leg edema. PHYSICAL EXAMINATION: VITAL SIGNS: The patient is afebrile. The blood pressure is 124/60 and the saturation is 97%. Pulse is 79. HEENT: Shows no facial swelling or erythema. CARDIAC: Reveals regular rate and rhythm with normal S1, S2. There are no murmurs or rubs heard. LUNGS: Auscultation of the lungs reveal clear breath sounds bilaterally. There is no wheezing. ABDOMEN: Soft and nontender. There is no rebound or guarding. EXTREMITIES: Show no leg edema or calf tenderness. There is no cyanosis or clubbing. SKIN: Shows no rashes. NEUROLOGICAL: Shows no focal abnormalities. RADIOGRAPHIC DATA: CT scan of the chest shows scattered diverticulosis as well as retained feces and constipation. Chest x-ray shows no acute disease. LABORATORY DATA: White blood cell count was 16.5 on admission and has improved to 9. Hemoglobin is 10.4 and the platelet count is 358. The BUN to creatinine ratio was 36 to 2.66 on admission, but has improved to 31/1.59. Urinalysis shows 10-20 white blood cells. IMPRESSION: 1. Acute kidney injury. 2. Sepsis secondary to urinary tract source, present on admission. 3. Insulin-dependent diabetes mellitus. 4. Nausea and vomiting. 5. Bruised rib cage on the left side. PLAN: 1. Continue IV fluids. 2. Laxatives. 3. GI consultation. 4. Continue antibiotics and await culture results. 5. X-ray of the ribs and chest today. Raf Agrawal MD [facility] /[id number]
[2018-12-01] MEDS: HYDROCODONE/APAP 5MG-325MG TAB PO PRN ×3 (09:10→23:43)
--- NOTE | 2018-12-01 10:12 | NUR ---
PATIENT OFF UNIT TO RADIOLOGY.
--- NOTE | 2018-12-01 10:35 | NUR ---
PATIENT BACK TO UNIT FROM RADIOLOGY. IV FLUID INFUSING ORDERED. BED IN LOWER POSITION, CALL LIGHT AT REACH.
--- NOTE | 2018-12-01 11:16 | NUR ---
CURRENTLY SEEING OUTPATIENT THERAPY AT [facility]
--- NOTE | 2018-12-01 11:21 | Diagnostic Imaging Report ---
Exam: Left rib series Clinical history: Left posterior rib pain Findings: There is no evidence of acute fracture or malalignment of the visualized osseous structures. Degenerative changes are noted throughout the thoracic spine with bridging osteophytes. There is no evidence of pulmonary consolidation, pleural effusion, or pneumothorax. The cardiac size is within normal limits. Impression: 1. No radiographic evidence of acute osseous injury. Signed by: Dr. Alexandr Hale MD on 12/01/2018 11:18 AM
[2018-12-01] MEDS: INSULIN REGULAR, HUMAN 100 UNIT/1 ML 3ML VIAL SQ SCH ×3 (11:30→20:58)
[2018-12-01 15:52] LABS: CREATINE KINASE MB 0.8 ng/mL (0-5.0)
--- NOTE | 2018-12-01 16:24 | NUR ---
PATIENT SITTING AT BED SIDE TALKING TO FAMILY MEMBER VISITING, NO COMPLAIN VOICED. BED IN LOWER POSITION, CALL LIGHT AT REACH.
--- NOTE | 2018-12-01 20:45 | NUR ---
PATIENT'S IV WAS CLOGGED AFTER PREVIOUSLY TAKING A SHOWER. HAD UNSUCCESSFUL ATTEMPTS TO FLUSH, WILL ATTEMPT TO START A NEW IV AT A DIFFERENT SITE.
[2018-12-01] MEDS ORDERED: SIMVASTATIN 20 MG TAB PO SCH (21:00)
[2018-12-01] MEDS ORDERED: AMITRIPTYLINE HCL 25 MG TAB PO SCH (21:00)
--- NOTE | 2018-12-01 22:30 | NUR ---
AFTER SEVERAL UNSUCCESSFUL ATTEMPTS, PATIENTS IV WAS SUCCESSFULLY APPLIED TO THE RIGHT FOREARM WITH A 20 GAUGE. IT IS FLOWING AND PATENT, PATIENT NOW RUNNING ON FLUIDS AT ORDERED RATE. FAMILY MEMBER AT BEDSIDE, BED IN LOWEST POSITION, CALL LIGHT WITHIN REACH, WILL CONTINUE TO MONITOR.
[2018-12-02] VITALS: BP 128/68
[2018-12-02] MEDS: HYDROCODONE/APAP 5MG-325MG TAB PO PRN ×2 (03:54→10:41)
[2018-12-02] MEDS: SODIUM CHLORIDE 0.45% 1,000 ML IV SCH (03:54)
[2018-12-02 04:00] VITALS: BP 125/62
[2018-12-02 05:45] LABS: BASOPHILS # (AUTO) 0.1 (0.0-0.1); BASOPHILS % 1.2 % (0.0-1.0); EOSINOPHILS # (AUTO) 0.3 (0.0-0.4); EOSINOPHILS % 3.9 % (0.0-6.0); HEMATOCRIT 36.7 % (34.2-44.1); HEMOGLOBIN 11.2 g/dL (12.0-16.0); LYMPHOCYTES % 44.1 % (18.0-39.1); MEAN CORPUSCULAR HEMOGLOBIN 24.9 pg (28-32); MEAN CORPUSCULAR HGB CONC 30.5 g/dL (31-35); MEAN CORPUSCULAR VOLUME 81.6 fL (81-99); MONOCYTES # (AUTO) 0.5 (0.2-0.8); MONOCYTES % 7.1 % (4.4-11.3); NEUTROPHILS % 43.1 % (38.7-80.0); PLATELET COUNT 316 x10e3/uL (140-360); RED CELL DISTRIBUTION WIDTH 14.4 % (11.7-14.4)
[2018-12-02 06:08] LABS: ALANINE AMINOTRANSFERASE 20 IU/L (0-55); ALBUMIN 3.2 g/dL (3.5-5.0); ALBUMIN/GLOBULIN RATIO 1.1 (0.8-2.0); ALKALINE PHOSPHATASE 88 IU/L (40-150); ANION GAP 15.2 mmol/L (8-16); BLOOD UREA NITROGEN 10 mg/dL (7-26); BUN/CREATININE RATIO 13 (6-25); CALCIUM 9.2 mg/dL (8.4-10.2); CARBON DIOXIDE 23 mmol/L (22-29); CHLORIDE 103 mmol/L (98-107); CREATININE, SERUM 0.79 mg/dL (0.57-1.11); EST GLOMERULAR FILTRATION RATE > 60 ML/MIN (60-); GLUCOSE 130 mg/dL (74-118); POTASSIUM 4.2 mmol/L (3.5-5.1); SODIUM 137 mmol/L (136-145)
[2018-12-02] MEDS: CEFEPIME 2 GM/NS 0.9% 100 ML 100 ML IV SCH (06:19)
--- NOTE | 2018-12-02 06:20 | Consultation ---
DATE OF CONSULTATION: 12/01/2018 GI Consult Note REASON FOR CONSULT: Nausea and vomiting for 3-4 days. HISTORY OF PRESENTING ILLNESS: A 57-year-old very pleasant female, who has a history of diabetes, gastric sleeve surgery for obesity, got admitted with lower back pain, nausea, and vomiting. Workup revealed that she has a urinary tract infection. She is currently being treated with antibiotic. The patient is on clear liquid diet. She is tolerating clear liquid diet very well. She is no longer having any nausea or vomiting. She is in fact hungry and would like to eat solid food. REVIEW OF SYSTEMS: Twelve-point system reviewed, symptomatology is limited as per HPI. PAST SURGICAL HISTORY: Shoulder surgery and gastric sleeve surgery. PAST MEDICAL HISTORY: Insulin-dependent diabetes, arthritis, and fibromyalgia. FAMILY HISTORY: Noncontributory. Negative for any GI or STUDY ABROAD COORDINATOR malignancies. SOCIAL HISTORY: Quit smoking five years ago. Seldom drinks alcohol. Never used any illicit drugs. ALLERGIES: NO KNOWN DRUG ALLERGIES. HOME MEDICATIONS: Amitriptyline, amlodipine, insulin, lisinopril, meloxicam, metformin, omeprazole, simvastatin, and tizanidine. PHYSICAL EXAMINATION: VITAL SIGNS: Temperature 95.9, pulse 87, respirations 18, blood pressure 134/68, and oxygen saturation 100% on room air. GENERAL: Not in any acute distress. HEENT: Oral mucosa is moist. Anicteric sclerae. CVS: S1, S2 regular. LUNGS: Bilaterally grossly clear. ABDOMEN: Soft. Mild lower quadrant tenderness on deep palpation without rebound, rigidity, or guarding. Positive bowel sounds. EXTREMITIES: Warm. No leg edema. LABORATORY DATA: WBC 9.22, hemoglobin 10.4, hematocrit 34.1, MCV 80.6, and platelet count of 358. Sodium 138, potassium 4.2, chloride 106, bicarb 22, BUN 31, creatinine 1.59. Liver enzymes normal. PT 12.0, INR 0.84. Urinalysis showed leukocyte esterase moderate, wbc's 11-20, nitrite negative. Urine culture preliminary is still in progress. CT of the abdomen and pelvis showed large amount of retained feces in the colon, scattered diverticulosis, postsurgical changes in the stomach and distal esophagus, hiatal hernia. IMPRESSION: 1. Nausea and vomiting secondary to underlying urinary tract infection. This has also resolved after starting the antibiotic, cefepime. 2. Constipation as revealed on CT scan, colon is retained with lot of fecal overload. 3. Status post gastric sleeve, hiatal hernia, and hiatal hernia. PLAN: Advance the diet to solid food. Bowel regimen for constipation. I have given the patient my business card. Once she is discharged from here, then she needs to follow up for a screening colonoscopy, which she has not got it done yet. The patient's blood work also reveals anemia with microcytic indices. Therefore, I will check iron profile. Stool for occult blood. All these needs to be followed as an outpatient. I thank Dr. Agrawal for allowing me to participate in the care of this patient. Kade London MD [facility]/JENI /[id number]
[2018-12-02 06:46] LABS: FERRITIN 60.52 ng/mL (4.63-204.00)
[2018-12-02] MEDS: INSULIN REGULAR, HUMAN 100 UNIT/1 ML 3ML VIAL SQ SCH (07:30)
[2018-12-02 07:41] VITALS: BP 135/64
[2018-12-02] MEDS ORDERED: PANTOPRAZOLE SOD 40 MG TABEC PO SCH (08:00)
[2018-12-02] MEDS: AMLODIPINE BESYLATE 5 MG TAB PO SCH (08:12)
[2018-12-02 08:15] VITALS: BP 135/64
[2018-12-02] MEDS ORDERED: POLYETHYLENE GLYCOL 3350 17 GM PACK PO SCH (09:00)
[2018-12-02] MEDS ORDERED: CEFDINIR300 MG PO (10:03)
--- NOTE | 2018-12-02 10:54 | NUR ---
patient discharged home. Alert with no distress, prescription given, IV canula removed with tip intact, no ss of infiltration noted, at bed side taking her home, transported via wheelchair to [facility]
--- NOTE | 2018-12-02 16:34 | Discharge Summary ---
DISCHARGE MEDICATIONS: 1. Amitriptyline 75 mg p.o. daily. 2. Amlodipine 5 mg p.o. daily. 3. Lisinopril 40 mg p.o. daily. 4. NovoLog 70/30 FlexPen as directed. 5. Metformin 500 mg p.o. b.i.d. 6. Omeprazole 40 mg p.o. daily. 7. Simvastatin 20 mg p.o. daily. 8. Tresiba 30 units subcutaneous daily. 9. Zanaflex 4 mg p.o. t.i.d. p.r.n. 10. Omnicef 300 mg p.o. b.i.d. for 5 days. DISCHARGE DIAGNOSES: 1. Urinary tract infection with sepsis, present on admission. 2. Acute kidney injury. 3. Nausea and vomiting. 4. Dehydration. 5. Diabetes. 6. Anemia secondary to unclear cause. 7. Bruised rib cage. RADIOGRAPHIC DATA: CT scan of the abdomen and pelvis showed some diverticulosis. There was constipation and postsurgical changes in the distal stomach and esophagus. Rib series showed no acute disease. Chest x-ray showed no acute disease. CONSULTING PHYSICIAN: Dr. London of Gastroenterology. HISTORY OF PRESENT ILLNESS: The patient is a 57-year-old woman. She has a history of diabetes. She had a gastric sleeve 4 years ago. She has fibromyalgia and arthritis with chronic pain in her lower back and neck. She came in with abrupt onset of nausea and vomiting. She did not have fevers. She had no abdominal pain. She went to see her pain management doctor and became lightheaded. She felt as if she was going to pass out and was sent to the emergency department. HOSPITAL COURSE: The patient was admitted. She was found to have acute kidney injury with an elevated creatinine. White blood cell count was 16.5. She received intravenous fluids and antibiotics. She also received antiemetics. The next day she felt better. She had less nausea and vomiting. Her diet was gradually advanced. She was seen by Gastroenterology. Gastroenterology recommended the outpatient colonoscopy. DISPOSITION: The patient felt much better at the time of discharge. She will follow up with Dr. Serafin Kim in 1 week as well as with Gastroenterology. Raf Agrawal MD [facility]/JENI /[id number] cc: Serafin Kim MD
[2018-12-02] MEDS ORDERED: SENNA-S TABLET PO SCH (21:00)
== END 2018-12-02 10:55 | disposition home or self-care (01) | DRG 872 ==
LOC: ER 14:52 → ERHOLD 19:55 → MED/SURG3 21:00
PROVIDERS: ADMIT Internal Medicine Critical Care Medicine; ATTEND Internal Medicine Critical Care Medicine
DX: A41.9 Sepsis, unspecified organism (principal); N39.0 Urinary tract infection, site not specified; N17.9 Acute kidney failure, unspecified; E86.0 Dehydration; D64.89 Other specified anemias; E11.9 Type 2 diabetes mellitus without complications; K59.00 Constipation, unspecified; Z98.84 Bariatric surgery status; K44.9 Diaphragmatic hernia without obstruction or gangrene; M79.7 Fibromyalgia; Z79.84 Long term (current) use of oral hypoglycemic drugs
CPT/HCPCS: 36415; 71045; 71101; 74176; 80053; 81001; 82550; 82553; 82728; 82948; 83540; 83605; 83690; 83735; 84466; 84484; 85025; 85610; 85730; 87040; 87086; 93005; 99284; J2270; J2405; J3370; J7030

== ENCOUNTER 2019-07-02 16:09 | Emergency (ER) | payer OTHER ==
[~2019-07-02] VITALS: Ht 152.4 cm; Wt 64.9 kg
[~2019-07-02 16:09] MED LIST: AMITRIPTYLINE H75 MG PO; AMLODIPINE BESYL5 MG PO; CEFDINIR300 MG PO; LISINOPRIL40 MG PO; MELOXICAM15 MG PO; METFORMIN HCL500 M1 PO; METOPROLOL TART25 MG PO; NOVOLOG MI100 UNIT/1; OMEPRAZOLE40 MG PO; ROBAXIN-750750 MG PO; SIMVASTATIN20 MG PO; TIZANIDINE HCL4 MG PO; TRESIBA SQ; TRESIBA100 UNIT/1 SQ; TRULICITY1.5 MG/0.5 SQ
--- NOTE | 2019-07-02 17:28 | Diagnostic Imaging Report ---
Examination: CT head without contrast Clinical Indication: Fall on Wednesday with head injury. Technique: Transaxial noncontrast images from the skull base through the vertex were obtained. Sagittal and coronal reformatted images were done. Dose modulation, iterative reconstruction, and/or weight based adjustment of the mA/kV was utilized to reduce the radiation dose to as low as reasonably achievable. Comparison: Head CTs dated 04/03/2019 and 11/10/2018. Brain MRI dated 04/04/2019. Findings: Scalp: No abnormalities. Bones: Intact. No fractures. No blastic or lytic lesions. Brain sulci: Mild volume loss with bifrontal predominance for patient's age. Ventricles: No hydrocephalus. Extra-axial space: No abnormalities. Parenchyma: There are subtle patchy areas of low-attenuation within subcortical and periventricular white matter, nonspecific, but could represent microvascular ischemic disease. No masses, hemorrhage, or acute or chronic cortical based vascular insults. Suprasellar region: No abnormalities. Craniocervical junction: The foramen magnum is patent. No Chiari one malformation. Impression: 1. No acute intracranial finding. 2. Unchanged chronic microvascular ischemic change and volume loss when compared to prior head CT 04/03/2019. Signed by: Dr. Nohelia Moura M.D. on 07/02/2019 5:25 PM
--- NOTE | 2019-07-02 17:34 | Diagnostic Imaging Report ---
Examination: CT CERVICAL SPINE WO CONTRAST HISTORY:Neck pain and injury after fall. COMPARISON:None. TECHNIQUE: Multidetector helical axial images were obtained without contrast from the foramen magnum to T1. Coronal and sagittal reformatted images were done. Bone and soft tissue windows were evaluated. Dose modulation, iterative reconstruction, and/or weight based adjustment of the mA/kV was utilized to reduce the radiation dose to as low as reasonably achievable. FINDINGS: Alignment:Normal alignment. Vertebrae: Normal height and density. No acute fracture, infection or neoplasm. Disc space heights: Normal height. Caliber of spinal canal: Developmentally normal. Posterior fossa and craniocervical junction: Foramen magnum patent. No Chiari 1 malformation. Soft tissues: A 1.7cm hypodense and peripherally calcified left thyroid lobe nodule. Degenerative changes: Anterior osteophytes from C3 through T1. No disc bulge/ herniation or canal stenosis from C2-C3 through C6-C7. Streak artifact limits evaluation of the C6-T2 levels. Visualized lung apices: No abnormalities. IMPRESSION: No acute abnormalities. Signed by: Dr. Nohelia Moura M.D. on 07/02/2019 5:30 PM
[2019-07-02 18:23] VITALS: BP 135/64
== END 2019-07-02 18:24 | disposition home or self-care (01) ==
LOC: ER 16:09
DX: R55 Syncope and collapse (principal); S00.01XA Abrasion of scalp, initial encounter; W19.XXXA Unspecified fall, initial encounter; Y93.9 Activity, unspecified; Y92.009 Unspecified place in unspecified non-institutional (private) residence as the place of occurrence of the external cause; Y92.012 Bathroom of single-family (private) house as the place of occurrence of the external cause; Z98.84 Bariatric surgery status; Z83.3 Family history of diabetes mellitus; Z82.49 Family history of ischemic heart disease and other diseases of the circulatory system
CPT/HCPCS: 70450; 72125; 93005; 99283

== ENCOUNTER 2019-08-04 18:51 | Observation (INO) | payer OTHER ==
[~2019-08-04] VITALS: Ht 152.4 cm; Wt 67.3 kg
[2019-08-04] MEDS ORDERED: SODIUM CHLORIDE 0.9% 1000ML 1,000 ML IV STA (19:08)
[2019-08-04] MEDS ORDERED: CALCIUM CHLORIDE 10% 1.36 MEQ/ML 10ML SYR IV STA (19:08)
[2019-08-04] MEDS ORDERED: SODIUM CHLORIDE 0.9% 1000ML 1,000 ML ONE (19:11)
[2019-08-04] MEDS ORDERED: GLUCAGON FOR INJ 1 MG VIAL IV ONE (19:15)
[2019-08-04] MEDS ORDERED: ASPIRIN 81 MG CHEW TAB PO ONE ×2 (19:15→20:15)
[2019-08-04] MEDS ORDERED: GLUCAGON FOR INJ 1 MG VIAL ONE (19:24)
[2019-08-04] MEDS ORDERED: CALCIUM GLUCONATE 10% INJ 0.465 MEQ/ML VIAL ONE (19:24)
[2019-08-04 19:28] LABS: BASOPHILS # (AUTO) 0.1 (0.0-0.1); BASOPHILS % 0.7 % (0.0-1.0); EOSINOPHILS # (AUTO) 0.1 (0.0-0.4); HEMATOCRIT 36.4 % (34.2-44.1); HEMOGLOBIN 11.6 g/dL (12.0-16.0); LYMPHOCYTES # (AUTO) 2.7 (1.0-3.2); LYMPHOCYTES % 21.6 % (18.0-39.1); MEAN CORPUSCULAR HGB CONC 31.9 g/dL (31-35); MEAN CORPUSCULAR VOLUME 81.6 fL (81-99); MONOCYTES # (AUTO) 0.9 (0.2-0.8); MONOCYTES % 7.1 % (4.4-11.3); NEUTROPHILS # (AUTO) 8.6 (2.1-6.9); NEUTROPHILS % 69.1 % (38.7-80.0); PLATELET COUNT 336 x10e3/uL (140-360); RED BLOOD COUNT 4.46 x10e6/uL (3.6-5.1); RED CELL DISTRIBUTION WIDTH 15.6 % (11.7-14.4)
[2019-08-04 19:40] LABS: ALANINE AMINOTRANSFERASE 14 IU/L (0-55); ALBUMIN 3.6 g/dL (3.5-5.0); ALKALINE PHOSPHATASE 87 IU/L (40-150); ANION GAP 20.1 mmol/L (8-16); BLOOD UREA NITROGEN 24 mg/dL (7-26); BUN/CREATININE RATIO 12 (6-25); CALCIUM 10.4 mg/dL (8.4-10.2); CARBON DIOXIDE 21 mmol/L (22-29); CHLORIDE 103 mmol/L (98-107); CREATINE KINASE 33 IU/L (29-168); CREATININE, SERUM 2.02 mg/dL (0.57-1.11); EST GLOMERULAR FILTRATION RATE 25 ML/MIN (60-); GLUCOSE 170 mg/dL (74-118); POTASSIUM 5.1 mmol/L (3.5-5.1); SODIUM 139 mmol/L (136-145)
--- NOTE | 2019-08-04 19:57 | Diagnostic Imaging Report ---
EXAMINATION: CHEST SINGLE (PORTABLE) INDICATION: COMPARISON: None FINDINGS: AP view TUBES and LINES: None. LUNGS/PLEURA: Lungs are well inflated. There is no evidence of pneumonia or pulmonary edema.. There is left basilar linear atelectasis. There is no pleural effusion or pneumothorax. HEART AND MEDIASTINUM: The cardiomediastinal silhouette is unremarkable. BONES AND SOFT TISSUES: No acute osseous lesion. Soft tissues are unremarkable. UPPER ABDOMEN: No free air under the diaphragm. IMPRESSION: Left basilar linear atelectasis Signed by: Eber Vuong MD on 08/04/2019 7:54 PM
[2019-08-04] MEDS ORDERED: TRESIBA FL200 UNIT/1 SQ (21:33)
[2019-08-04] MEDS ORDERED: NIFEDIAC CC60 MG PO (21:33)
[2019-08-04] MEDS ORDERED: OLMESARTAN MEDO40 MG PO (21:33)
[2019-08-04] MEDS ORDERED: BACLOFEN10 MG PO (21:34)
[2019-08-04] MEDS ORDERED: VITAMIN D3 COM1 EACH PO (21:37)
[2019-08-04] MEDS ORDERED: TRIAMTERENE-HCTZ1 EA PO (21:37)
[2019-08-04] MEDS ORDERED: HYDROCODON-ACE1 EA11 PO (21:38)
[2019-08-04] MEDS ORDERED: SKELAXIN800 MG PO (21:39)
[2019-08-04] MEDS ORDERED: DEXTROSE 50% SYRINGE 50 ML IV PRN (22:30)
--- NOTE | 2019-08-04 23:00 | NUR ---
Patient received via stretcher from ER. AAO x 4. Patient had no complaints of pain. Respirations even and non-labored. Admission history obtained. Initial physical assessment performed. Patient oriented to room, call light and plan of care. Fall precautions implemented. Patient instructed to call for assistance when needed. Call light within reach.
[2019-08-04 23:12] VITALS: BP 139/58
[2019-08-04 23:45] VITALS: BP 144/73
--- NOTE | 2019-08-04 23:53 | NUR ---
Patient complained of headache (10/12). Bean Acosta (APPLICATION SUPPORT ENGINEER) notified. New order received for Tylenol 650 mg Q6H PRN.
[2019-08-05] VITALS (8 sets, daily range): BP systolic 141–176; BP diastolic 67–87
[2019-08-05] MEDS ORDERED: ONDANSETRON HCL INJ 2MG/ML 2ML 2 MG/ML VIAL IV PRN
[2019-08-05] MEDS ORDERED: NON-FORMULARY MEDICATION (Dulaglutide (Trulicity) 1.5 MG) SQ SCH
[2019-08-05] MEDS: HYDROCODONE/APAP 5MG-325MG TAB PO PRN ×3 (00:11→19:56)
[2019-08-05] MEDS ORDERED: ACETAMINOPHEN 325 MG TAB PO PRN ×3 (00:15)
[2019-08-05] MEDS: AMITRIPTYLINE HCL 25 MG TAB PO SCH ×2 (00:24→21:03)
[2019-08-05 06:07] LABS: BASOPHILS # (AUTO) 0.1 (0.0-0.1); BASOPHILS % 0.5 % (0.0-1.0); EOSINOPHILS # (AUTO) 0.1 (0.0-0.4); EOSINOPHILS % 0.5 % (0.0-6.0); HEMATOCRIT 35.5 % (34.2-44.1); HEMOGLOBIN 11.2 g/dL (12.0-16.0); LYMPHOCYTES # (AUTO) 2.3 (1.0-3.2); LYMPHOCYTES % 20.7 % (18.0-39.1); MEAN CORPUSCULAR HEMOGLOBIN 25.5 pg (28-32); MEAN CORPUSCULAR HGB CONC 31.5 g/dL (31-35); MEAN CORPUSCULAR VOLUME 80.7 fL (81-99); MONOCYTES # (AUTO) 0.6 (0.2-0.8); MONOCYTES % 5.2 % (4.4-11.3); NEUTROPHILS # (AUTO) 8.1 (2.1-6.9); NEUTROPHILS % 72.7 % (38.7-80.0); PLATELET COUNT 336 x10e3/uL (140-360); RED CELL DISTRIBUTION WIDTH 15.4 % (11.7-14.4)
[2019-08-05 06:31] LABS: CREATINE KINASE 49 IU/L (29-168)
[2019-08-05 06:33] LABS: ALBUMIN 3.5 g/dL (3.5-5.0); ALBUMIN/GLOBULIN RATIO 1.1 (0.8-2.0); CREATININE, SERUM 1.54 mg/dL (0.57-1.11)
[2019-08-05 06:46] LABS: CHOL/HDL RATIO 8.7 (3.0-3.6); CHOLESTEROL 262 MD/DL (0-199); HDL CHOLESTEROL 30 MG/DL (40-60); MAGNESIUM 1.5 MG/DL (1.3-2.1); PHOSPHORUS 4.2 MG/DL (2.3-4.7); TRIGLYCERIDES 939 MG/DL (0-149)
--- NOTE | 2019-08-05 07:00 | NUR ---
Received patient lying in bed with eyes open. Respiration even and unlabored without SOB. Patient c/o headache. Patient was given tylenol for headache by caustic cresylate shift superintendent nurse. Call light in reach.
[2019-08-05] MEDS: MULTIVITAMINS/MINERALS TAB PO SCH (08:31)
[2019-08-05] MEDS: INSULIN REGULAR, HUMAN 100 UNIT/1 ML 3ML VIAL SQ SCH ×4 (08:37→21:00)
[2019-08-05] MEDS ORDERED: MV MN PO SCH (09:00)
[2019-08-05] MEDS ORDERED: [UNRECOGNIZED DRUG - OTHER] PO SCH (09:00)
[2019-08-05] MEDS ORDERED: FOLIC ACID PO SCH (09:00)
[2019-08-05] MEDS ORDERED: HERB PO SCH (09:00)
[2019-08-05] MEDS ORDERED: AMITRIPTYLINE HCL 25 MG TAB PO SCH (09:00)
[2019-08-05] MEDS ORDERED: NON-FORMULARY MEDICATION (Amitriptyline Hcl 75 MG) PO SCH (09:00)
[2019-08-05] MEDS: INSULIN DEGLUDEC 38 UNIT SQ SCH (09:00)
[2019-08-05] MEDS ORDERED: TRULICITY 1.5MG SQ SCH (09:00)
[2019-08-05] MEDS ORDERED: INSULIN DEGLUDEC 38 UNIT SQ SCH (09:00)
[2019-08-05] MEDS ORDERED: IRON PO SCH (09:00)
[2019-08-05] MEDS ORDERED: ACETAMIN/BUTALBITAL/CAFFEINE TAB PO NR (11:15)
[2019-08-05] MEDS: NIFEDIPINE CR 30 MG TAB PO SCH (12:06)
[2019-08-05] MEDS ORDERED: SODIUM CHLORIDE 0.9% 250ML 250 ML IV SCH (12:30)
[2019-08-05] MEDS: SODIUM CHLORIDE 0.9% 1000ML 1,000 ML IV SCH (12:30)
[2019-08-05] MEDS ORDERED: MAGNESIUM OXIDE 400 MG TAB PO NR (12:45)
[2019-08-05 13:13] LABS: CREATINE KINASE 44 IU/L (29-168)
--- NOTE | 2019-08-05 13:24 | History and Physical ---
PRIMARY CARE PHYSICIAN: Serafin Kim MD CHIEF COMPLAINT: Multiple falls. HISTORY OF PRESENT ILLNESS: The patient is a 58-year-old female with a history of neurological workup recently in April with negative MRI of the brain, negative carotid duplex, negative echocardiogram, CT showing moderate ventriculomegaly. The workup was due to weakness of the right hand for 2 to 3 days as well as dysarthria. She was followed by Dr. Chowdhury with Neurology, at that time, regarding this hospitalization she woke up, feeling nauseated yesterday morning without any vomiting or diarrhea. She laid down and slept from about 9 a.m. to 5:30 p.m. After sleeping only about 2 hours the night before due to the nausea, then when she got out of bed she had repeated falls, 6 in all, hitting her head on a [place] chest and subsequently hitting her nose. She denies having any dizziness or syncope at that time and did not trip. PAST MEDICAL HISTORY: Hypertension, diabetes mellitus, hyperlipidemia, depression, cervical spondylosis, cervical degenerative disk disease, fibromyalgia, arthritis, history of ejection fraction of 60%, sepsis with urinary tract infection, obesity. She fell in June 2019 with left eye injury, although she has not seen an general lithographic worker as they have been closed due to the coronavirus pandemic. PAST SURGICAL HISTORY: Gastric sleeve in 2014. In March 2018, she had a left shoulder cyst removal. Steroid injections in the neck, hysterectomy, two C sections, appendectomy, tonsillectomy at age 10. FAMILY HISTORY: Mother had ovarian cancer. Father had colon cancer. Maternal grandmother had emphysema. Maternal grandfather had massive VA. SOCIAL HISTORY: The patient lives with her . She quit smoking in 2014, had smoked one pack per day for a total of 36 pack years. Drinks alcohol on occasion. She quit smoking marijuana. ALLERGIES: NO KNOWN ALLERGIES. MEDICATIONS: See medication reconciliation. REVIEW OF SYSTEMS: CONSTITUTIONAL: Denies any fever or chills. She states she has lost about 24 pounds in the past year intentionally. EYES: Wears glasses. Has occasional black spots in the left eye. EAR, NOSE, AND THROAT: No complaints. RESPIRATORY: Denies shortness of breath, cough, or phlegm. GENITOURINARY: Denies difficulty with urination. PSYCHIATRIC: Denies psychiatric history. INTEGUMENTARY: Denies rash or lesions. CARDIOVASCULAR: Denies chest pain or palpitations. GASTROINTESTINAL: Denies any difficulty swallowing. Currently, no nausea, vomiting, or diarrhea. Her last bowel movement this morning was soft. MUSCULOSKELETAL: Denies any current neck pain. She does complain of pain to the buttocks. NEUROLOGICAL: No complaints of dizziness. She does have a headache, which she rates at a 6 on a 0/10 pain scale. She had a headache rated at 7/10 last night. ENDOCRINE: Known diabetic. HEMATOLOGIC: Denies any bleeding or bruising. PHYSICAL EXAMINATION: VITAL SIGNS: Temperature 97.9, T-max 98.1, heart rate 92, blood pressure 156/71, subsequently 176/78, respirations 17, and oxygen saturation 98%. Height 5 feet, weight 148 pounds, BMI 28.9. Blood pressure 82/45 on admission. GENERAL: Supine, alert, and oriented. LUNGS: Clear to auscultation bilaterally. HEENT: EOMI. NECK: Supple. No lymphadenopathy, thyromegaly, or JVD. CARDIOVASCULAR: Regular rate and rhythm. No murmur. ABDOMEN: Bowel sounds positive. Soft, nontender. EXTREMITIES: No pitting edema. No clubbing, cyanosis, or marked swelling. No signs or symptoms of DVT. NEUROLOGICAL: No drift on neurological exam. GCS 15. LABORATORY DATA: From 08/04/2019, on admission sodium 139, potassium 5.1, chloride 103, CO2 of 21, BUN 24, creatinine 2.02, estimated GFR 25, glucose 170, calcium 10.4. LFTs within normal limits. Creatine kinase 33, CK-MB is 0.8, troponin I less than 0.001. B-type natriuretic peptide 19.3, total protein 7.1, albumin 3.6. WBC 12.45, hemoglobin 11.6, hematocrit 36.4, platelets 336. Today; sodium 138, potassium 5.0, chloride 106, CO2 of 23, BUN 25, creatinine 1.54, estimated GFR 34, glucose 153. Hemoglobin A1c 9.3%, calcium 11, phosphorus of 4.2, magnesium 1.5, total bilirubin 0.4, AST 11, ALT 12, and alkaline phosphatase 95, creatine kinase 49. CK-MB 1.2. Troponin I less than 0.001. Total protein 6.8, albumin 3.5. Triglycerides 939, cholesterol 262, LDL not done, HDL 30. TSH 0.66. IMAGING: She had a chest x-ray yesterday, which showed left basilar linear atelectasis. ASSESSMENT AND PLAN: 1. Multiple falls x6 on 08/04/2019, with closed head injury, possibly due to dehydration. We will consult Dr. Chowdhury with Neurology, who is familiar with this patient. CT of the head now to rule out subdural hematoma. Physical therapy consult. Today is Wednesday, thus Speech Language pathology would not be available until Wednesday and the patient denies any difficulty swallowing. The patient has been out of bed, ambulating to the restroom without any difficulty this morning. 2. Headache, Fioricet one time dose as well as p.r.n. ordered, possibly due to hitting her head. 3. Acute kidney injury. Creatinine improving. We will start on normal saline at 100 mL an hour for additional hydration, metformin, baclofen, Skelaxin, tizanidine, and triamterene/hydrochlorothiazide, all held. Monitor renal labs. 4. Uncontrolled hypertension with hypotension on admission. Blood pressure 82/45 on admission and currently 176/78. Home medications metoprolol and nifedipine resumed. We will continue hold triamterene/hydrochlorothiazide for now. 5. Left basilar atelectasis. Incentive spirometry. 6. Uncontrolled type 2 diabetes mellitus. Hemoglobin A1c 9.3%. Metformin on hold. We will change to ADA diet. Continue low-dose sliding scale insulin. Monitor fingerstick blood glucose before meals and at bedtime. 7. Hyperlipidemia. Resume home medications. Zocor. 8. Hyperkalemia. Potassium 5 (5.1). Monitor with hydration. 9. Hypercalcemia. Calcium 11. Monitor with hydration. 10. Hypomagnesemia, magnesium 1.5. We will give one time dose of magnesium oxide 800 mg p.o. once, reassess in the morning. 11. Chronic pain with cervical degenerative disk disease, cervical spondylosis, fibromyalgia, and arthritis. Pain control, supportive care. 12. Depression. Home medication, Elavil resumed. 13. Prophylaxis; Pepcid, ambulatory. Time spent 60 minutes. Billing code [id number]. Dictated by Ho Teran, GEOLOGICAL SPECIALIST MD POOJA Hutchison/JENI /[id number]
[2019-08-05] MEDS ORDERED: SODIUM CHLORIDE 0.9% 250ML 250 ML IV ONE (13:30)
[2019-08-05 14:49] LABS: BILIRUBIN,URINE NEGATIVE (NEGATIVE); CLARITY,URINE CLEAR (CLEAR); COLOR,URINE YELLOW (YELLOW); KETONES,URINE NEGATIVE (NEGATIVE); LEUKOCYTE ESTERASE ,URINE NEGATIVE (NEGATIVE); NITRITE,URINE NEGATIVE (NEGATIVE); PROTEIN,URINE DIPSTICK 1+ (NEGATIVE); URINE UROBILINOGEN 0.2 mg/dL (0.2 - 1)
[2019-08-05 15:00] LABS: EPITHELIAL CELLS,URINE MANY /LPF
[2019-08-05 15:01] LABS: BACTERIA,URINE MODERATE /HPF
[2019-08-05] MEDS: ACETAMIN/BUTALBITAL/CAFFEINE TAB PO PRN ×2 (16:54→23:16)
[2019-08-05] MEDS: METOPROLOL TARTRATE 25 MG TAB PO SCH (17:20)
--- NOTE | 2019-08-05 17:25 | Diagnostic Imaging Report ---
History:Multiple falls Comparison studies: Head CT on 07/02/2019 Technique: Axial images were obtained from the skull base to the vertex. Coronal and sagittal images reconstructed from the axial data. Dose modulation, iterative reconstruction, and/or weight based adjustment of the mA/kV was utilized to reduce the radiation dose to as low as reasonably achievable. Intravenous contrast: None Findings: Scalp/skull: No abnormalities. Extra-axial spaces: No masses. No fluid collections. Brain sulci: Mildly prominent. Ventricles: Mild compensatory dilatation. No hydrocephalus. Parenchyma: Subtle hypodensities in the supratentorial white matter are small vessel ischemic changes. No masses, hemorrhage, acute or chronic cortical vascular insults. Sellar/suprasellar region: No abnormalities. Craniocervical junction: Patent foramen magnum. No Chiari one malformation. Incidental findings: Subtle atherosclerotic calcifications in the carotid siphons . Impression: No acute abnormalities. No changes when compared to the head CT of 07/02/2019 Chronic findings: 1. Mild generalized volume loss. 2. Mild supratentorial white matter small vessel ischemic changes. Signed by: Dr. Tre Coto M.D. on 08/05/2019 5:22 PM
--- NOTE | 2019-08-05 19:00 | NUR ---
Report given to facility maintenance worker. Respiration even and unlabored without SOB. Call light in reach.
[2019-08-05] MEDS ORDERED: SIMVASTATIN 20 MG TAB PO SCH (21:00)
[2019-08-05] MEDS: LORATADINE 10 MG TAB PO SCH (22:17)
[2019-08-06] VITALS: BP 145/75
[2019-08-06] MEDS: SODIUM CHLORIDE 0.9% 1000ML 1,000 ML IV SCH ×2 (01:00→08:34)
[2019-08-06 04:00] VITALS: BP 123/56
[2019-08-06 05:25] LABS: BASOPHILS # (AUTO) 0.1 (0.0-0.1); BASOPHILS % 0.9 % (0.0-1.0); EOSINOPHILS # (AUTO) 0.2 (0.0-0.4); EOSINOPHILS % 2.2 % (0.0-6.0); HEMATOCRIT 34.8 % (34.2-44.1); HEMOGLOBIN 11.1 g/dL (12.0-16.0); LYMPHOCYTES # (AUTO) 3.7 (1.0-3.2); LYMPHOCYTES % 47.6 % (18.0-39.1); MEAN CORPUSCULAR HEMOGLOBIN 25.3 pg (28-32); MEAN CORPUSCULAR HGB CONC 31.9 g/dL (31-35); MEAN CORPUSCULAR VOLUME 79.3 fL (81-99); MONOCYTES # (AUTO) 0.6 (0.2-0.8); MONOCYTES % 7.9 % (4.4-11.3); NEUTROPHILS # (AUTO) 3.2 (2.1-6.9); NEUTROPHILS % 40.9 % (38.7-80.0); PLATELET COUNT 329 x10e3/uL (140-360); RED BLOOD COUNT 4.39 x10e6/uL (3.6-5.1); RED CELL DISTRIBUTION WIDTH 15.2 % (11.7-14.4)
[2019-08-06 05:44] LABS: BLOOD UREA NITROGEN 12 mg/dL (7-26); BUN/CREATININE RATIO 14 (6-25); CALCIUM 10.4 mg/dL (8.4-10.2); CARBON DIOXIDE 26 mmol/L (22-29); CHLORIDE 104 mmol/L (98-107); CREATININE, SERUM 0.85 mg/dL (0.57-1.11); EST GLOMERULAR FILTRATION RATE > 60 ML/MIN (60-); GLUCOSE 182 mg/dL (74-118); MAGNESIUM 1.2 MG/DL (1.3-2.1); PHOSPHORUS 2.6 MG/DL (2.3-4.7); SODIUM 139 mmol/L (136-145)
--- NOTE | 2019-08-06 06:43 | NUR ---
PATIENT IS RESTING COMFORTABLY IN THE BED. NO DISTRESS NOTED. CALL [facility] IS WITHIN REACH.
--- NOTE | 2019-08-06 07:00 | NUR ---
Received patient lying in bed with eyes closed. Respiration even and unlabored without SOB. Call light in reach.
[2019-08-06] MEDS ORDERED: MAGNESIUM SULFATE 2GM/50ML 50 ML IV ONE (07:30)
--- NOTE | 2019-08-06 07:46 | NUR ---
Message left for Dr. Garcia regarding DAY 2 OBS and dc plan. Awaiting reply
[2019-08-06] MEDS ORDERED: LORAZEPAM INJ 2 MG/ML VIAL IV ONE (08:00)
[2019-08-06] MEDS: INSULIN REGULAR, HUMAN 100 UNIT/1 ML 3ML VIAL SQ SCH ×2 (08:11→12:30)
[2019-08-06] MEDS: INSULIN DEGLUDEC 38 UNIT SQ SCH (08:12)
[2019-08-06] MEDS: METOPROLOL TARTRATE 25 MG TAB PO SCH (08:12)
[2019-08-06] MEDS: MULTIVITAMINS/MINERALS TAB PO SCH (08:12)
[2019-08-06] MEDS: NIFEDIPINE CR 30 MG TAB PO SCH (08:12)
[2019-08-06] MEDS: LORATADINE 10 MG TAB PO SCH (08:12)
[2019-08-06 08:32] VITALS: BP 138/80
--- NOTE | 2019-08-06 08:33 | NUR ---
Patient transported for MRI at this time.
[2019-08-06 08:42] VITALS: BP 138/80
[2019-08-06] MEDS ORDERED: FLUTICASONE PROPIONATE NASAL SPRAY NS SCH (09:00)
--- NOTE | 2019-08-06 11:09 | Diagnostic Imaging Report ---
Examination: MRI BRAIN WO CONTRAST History: Syncope; passed out. Comparison studies: Head CTs dated 08/05/2019 and 07/02/2019. Technique: Sagittal T2; axial DWI, FLAIR, GRE or SWI, T1, Coronal FLAIR. Intravenous contrast: None Findings: Scalp: No abnormal signal. No masses. Bone marrow: Normal in signal intensity. Brain volume: Mild volume loss. Ventricles: No hydrocephalus. Extra-axial spaces: No abnormalities. Parenchyma: There are patchy and punctate areas of T2/FLAIR hyperintensity in the periventricular and subcortical and pontine white matter, nonspecific. A chronic lacunar infarct is identified in the anterior left vel. No masses, hemorrhage, or acute vascular insults. Suprasellar and sellar region: No abnormalities. Craniocervical junction: No abnormalities. The foramen magnum is patent. No Chiari malformations. Vessels: Normal flow-voids in the arteries and sinuses. Additional findings:None. IMPRESSION: No acute abnormalities, no acute infarct or hemorrhage. Minimal chronic microvascular ischemic change. Mild volume loss. Chronic lacunar infarct in the anterior left vel. Signed by: Dr. Nohelia Moura M.D. on 08/06/2019 11:06 AM
--- NOTE | 2019-08-06 11:15 | Diagnostic Imaging Report ---
Examination: MRI SPINE CERVICAL WO CONTRAST History: Neck pain and injury. Passed out; syncope. Comparison studies: Cervical spine CT dated 07/02/2019. Technique: Sagittal T1, T2 and IR, axial T2 and axial gradient echo intravenous contrast: None Findings: Motion artifact. Alignment: Straightening of normal lordosis. No scoliosis. Cervicomedullary junction: No abnormalities. Patent foramen magnum. Soft tissues: No T2 hyperintense inflammatory changes. Spinal cord: Normal in size . Due to motion artifact, the signal from the foramen magnum through T1 cannot be evaluated. Vertebrae: No fractures, infection or neoplasm. Anterior osteophytes from C3 through C7. Degenerative changes: C1-C2: No abnormalities. C2-C3: No abnormalities. C3-C4: Asymmetric left disc osteophyte complex. No foraminal or canal stenosis. C4-C5: Central disc protrusion superimposed on diffuse disc osteophyte complex results in moderate to severe stenosis. Mild right foraminal narrowing due to uncovertebral arthropathy. No left foraminal narrowing. C5-C6: Diffuse disc osteophyte complex. No foraminal or canal stenosis. C6-C7: Diffuse disc osteophyte complex. No foraminal or canal stenosis. C7-T1: No definite abnormalities. IMPRESSION: 1. No acute fracture. 2. Limited evaluation of the cord. 3. Degenerative change from C3-C4 through C6-C7 with moderate to severe canal stenosis at C4-C5. Signed by: Dr. Nohelia Moura M.D. on 08/06/2019 11:12 AM
[2019-08-06 12:37] VITALS: BP 124/81
[2019-08-06] MEDS ORDERED: HYDROCHLOROTHIA25 MG PO (14:13)
[2019-08-06] MEDS ORDERED: FIORICET 50-301 EACH PO (14:48)
[2019-08-06 15:30] VITALS: BP 127/84
--- NOTE | 2019-08-06 16:18 | NUR ---
PIV to left FA discontinued with catheter tip intact, no bleeding noted. Transported via wheelchair to private vehicle. All personal belongings taken.
--- NOTE | 2019-08-06 20:58 | Consultation ---
DATE OF CONSULTATION: 08/04/2019 HISTORY OF PRESENT ILLNESS: A 58-year-old female, history of old small left pontine stroke, was recently in the hospital beginning of the year with similar symptoms including weakness in the right side and ataxia. The patient has longstanding history of migraines as well as fibromyalgia, cervical spondylosis, diabetes, hypertension, hyperlipidemia, depression, arthritis, and coronary artery disease. Because of her ataxia, she has been receiving physical therapy as an outpatient. At the time of her recent admission, cervical spine MRI was going to be done, but it was scheduled as an outpatient; however, she does not go for it. The patient today comes in after having multiple falls and falling and hitting her head. CT scan of the head was unremarkable for any acute changes. PAST MEDICAL HISTORY: Hypertension, diabetes, hyperlipidemia, depression, cervical spondylosis, degenerative disk disease, fibromyalgia, arthritis, UTI, obesity. PAST SURGICAL HISTORY: She had gastric sleeve in 2014. Received multiple steroid injections for her disk disease. . Appendectomy. Tonsillectomy. FAMILY HISTORY: Ovarian cancer, colon cancer, emphysema, coronary artery disease, stroke. Total face to face time spent today on this very ill patient was 110 minutes with more than half the time spent counselling and coordination of care including discussions with family, patient, referring physician, staff and consultants. SOCIAL HISTORY: . Used to smoke heavily. Previously, use of marijuana, alcohol, and drugs noted. ALLERGIES: UNKNOWN. MEDICATIONS: Per list. It is to be noted that the patient was discharged on aspirin as well as high dose statin last time she was admitted as well as Plavix. PHYSICAL EXAMINATION: VITAL SIGNS: Temperature 98, respiratory rate 16, pulse rate 80, blood pressure 100/70. HEAD AND NECK: No meningeal signs. LUNGS: Good air entry. ABDOMEN: Soft. NEUROLOGIC: Alert. Follows commands. Speech normal. Minimal fine motor movement abnormality above the right arm with right hemiparesis as well as ataxia noted reflexes are 3 on the right, 2 of the left. Planters were flexor. Sensory, decreased pinprick, vibration, proprioception distally. ASSESSMENT: 1. The patient's repeated falls are probably multifactorial related to her old small vessel stroke as well as her history of cervical spondylosis and potential myelopathy in the cervical region superimposed, mild neuropathy which could be deficiency vitamin related because of her history of gastric surgery. 2. Hypertension. 3. Hyperlipidemia. 4. Diabetes. 5. History of obesity. 6. Status post gastric bypass. RECOMMENDATIONS: The patient was advised to continue with thiamine supplements. For the time being, we will continue with aspirin, Plavix as well as high-dose statins. We will check MRI brain as well as MRI cervical spine. Continue with physical, occupational, and speech therapy. The patient might benefit from a neurodiagnostic study as an outpatient. Keep blood pressure in the upper normal range. Avoid over-treating blood pressure. The patient was also encouraged to take folate and multivitamins. We will check also vitamin B12 level as well as TSH and folate level. Target blood pressure is in the upper normal range, and target blood sugar is normal range. Surya Chowdhury MD AM/JENI /[id number]
--- NOTE | 2019-08-06 22:28 | Discharge Summary ---
HOSPITAL COURSE: Ms. Santiago is a 58-year-old female with a history of a neurological workup recently in April 2019 with negative MRI of the brain, negative carotid duplex, negative echocardiogram, CT showing moderate ventriculomegaly. Workup was due to weakness of the right hand for 2-3 days as well as dysarthria. She was followed by Dr. Chowdhury with Neurology. At that time, I was consulted this hospitalization as well to follow her. The patient was admitted because she woke up feeling nauseated the day prior to admission without any vomiting or diarrhea. She laid down and slept from about 9 a.m. to 5:30 p.m. After sleeping only about 2 hours the night before due to the nausea and then when she got out of bed she had repeated falls, 6 falls on all hitting her head on a [place]edar chest and subsequently hitting her nose. She denied having any dizziness or syncope at that time and did not trip. ADMITTING DIAGNOSES: 1. Multiple falls x6 on 08/04/2019, with closed-head injury, possibly due to dehydration. 2. Headache. 3. Acute kidney injury. 4. Uncontrolled hypertension with hypotension on admission. 5. Left basilar atelectasis. 6. Uncontrolled type 2 diabetes mellitus. 7. Hyperlipidemia. 8. Hyperkalemia. 9. Hypercalcemia. 10. Hypomagnesemia. 11. Chronic pain with cervical degenerative disk disease, cervical spondylosis, fibromyalgia and arthritis. 12. Depression. DISCHARGE DIAGNOSES: 1. Multiple falls x6 on 08/04/2019, with closed-head injury, possibly due to dehydration. 2. Headache. 3. Acute kidney injury. 4. Uncontrolled hypertension with hypotension on admission. 5. Left basilar atelectasis. 6. Uncontrolled type 2 diabetes mellitus. 7. Hyperlipidemia. 8. Hyperkalemia. 9. Hypercalcemia. 10. Hypomagnesemia. 11. Chronic pain with cervical degenerative disk disease, cervical spondylosis, fibromyalgia and arthritis. 12. Depression. HOSPITAL COURSE: Please see H and P for specific labs on admission. For a more thorough list of admission labs; her August 03, WBC was 12.45, potassium was 5.1, BUN 24, creatinine 2.02, estimated GFR 25, and calcium 10.4. Cardiac enzymes were within normal limits throughout her stay. Her maximum temperature was 98.4, remained afebrile. Her discharge white blood cell count was 7.81, hemoglobin 11.1, hematocrit 34.8, sodium 139, potassium 4.0, BUN 12, creatinine 0.85, GFR greater than 60. Calcium 10.4, magnesium 1.2. She received 2 g of magnesium sulfate today. CT of the brain showed mild supratentorial white matter small vessel ischemic changes. MRI of the brain showed no acute abnormalities, no acute infarct or hemorrhage. Minimal chronic microvascular ischemic change. Mild volume loss. Chronic lacunar infarct in the anterior left vel. An MRI of the spine showed no acute fracture. Limited evaluation of the cord. Degenerative change from C3-C4 through C6-C7 with [id number] canal stenosis at C4-C5. Case was discussed with the patient, who likely has some problems with memory given her microvascular ischemic changes, but I spoke with her daughter, on the phone at length. I explained to her that the patient needs to follow up with her PCP, Dr. Kim in 1-2 weeks. She needs to follow up with her current outpatient neurologist, who the patient could not remember the name of, which is scheduled for August 07. She is also to follow up with Dr. Olivo with Neurosurgery. The patient ambulated with Physical Therapy yesterday and walked 300 feet. She is out of bed without assistance currently without problems with falling, although she hit her head, and there was no subdural hematoma on CT. Her headache was managed with Fioricet. We will discharge her with a prescription for this one Fioricet every 6 hours p.r.n. for headache. Regarding her severe dehydration, her triamterene and hydrochlorothiazide was changed to plain hydrochlorothiazide 12.5 mg p.o. daily. She is much better hydrated. Blood pressure was 82/45 on admission. Today, temperature is 97.9, heart rate 75, respirations 18, blood pressure 124/81, and oxygen saturation 98%. Hemoglobin A1c was 9.3%. The patient to follow up with Dr. Kim regarding hypercalcemia and hypomagnesemia. Dictated by Ho Teran, TYRONE Aniceto Garcia MD HWP/MODL /[id number]
--- NOTE | 2019-08-06 23:28 | Progress Note ---
DATE: 08/05/2019 Followup Appointment Progress Note SUBJECTIVE: The patient is feeling fine today. She is back to her baseline. Did not have any syncopal spells. MEDICATIONS: Per list.Total face to face time spent today on this very ill patient was 66 minutes with more than half the time spent counselling and coordination of care including discussions with family, patient, referring physician, staff and consultants. OBJECTIVE: LUNGS: Clear. ABDOMEN: Soft. NEUROLOGIC: The patient follows commands. No facial asymmetry noted. Uvula midline. Gag is positive. Speech is fluent. Mild right arm fine motor movement abnormality. She had decreased pinprick in the right C6 dermatome. Deep tendon reflexes were 3 on the right and 2 on the left. ASSESSMENT: Findings on her MRI of the brain were reviewed. They are all old changes. The MRI of the brain is not changed from the last one with the left small-vessel pontine stroke. She has cervical spondylosis by brain MRI mainly at C4-5 with spinal stenosis. However, there is no evidence of cord compression. The changes at that level might be contributing to the symptoms in her right arm, suggest a Spine Surgery evaluation, which can be done as an outpatient. In the meantime, the patient can continue with physical therapy and traction with focus at C4-C5, as well as ultrasound attempts, conservative treatment. She has received injections in the past for the same issue with no improvement and as such, the surgical intervention could be considered that can be done as an outpatient, however. As far as her old stroke, we will continue with dual-antiplatelet therapy as well as high-dose statins, control cardiovascular risk factors, keeping her blood pressure in the normal range and her blood sugar in normal range with continuous physical occupational therapy. Surya Chowdhury MD AM/JENI /[id number]
== END 2019-08-06 16:18 | disposition home or self-care (01) ==
LOC: ER 18:51 → ERHOLD 21:49 → MED/SURG2 22:42
PROVIDERS: ADMIT Internal Medicine; ATTEND Internal Medicine
DX: S00.90XA Unspecified superficial injury of unspecified part of head, initial encounter (principal); N17.9 Acute kidney failure, unspecified; R55 Syncope and collapse; R53.1 Weakness; N28.9 Disorder of kidney and ureter, unspecified; I69.393 Ataxia following cerebral infarction; I69.351 Hemiplegia and hemiparesis following cerebral infarction affecting right dominant side; I10 Essential (primary) hypertension; E11.9 Type 2 diabetes mellitus without complications; E78.5 Hyperlipidemia, unspecified; M47.812 Spondylosis without myelopathy or radiculopathy, cervical region; J98.11 Atelectasis; F32.9 Major depressive disorder, single episode, unspecified; G89.29 Other chronic pain; E83.42 Hypomagnesemia; E83.52 Hypercalcemia; E87.5 Hyperkalemia; Z79.84 Long term (current) use of oral hypoglycemic drugs; Z91.81 History of falling; W01.190A Fall on same level from slipping, tripping and stumbling with subsequent striking against furniture, initial encounter; Y93.89 Activity, other specified; Y92.013 Bedroom of single-family (private) house as the place of occurrence of the external cause; Z98.84 Bariatric surgery status; Z80.41 Family history of malignant neoplasm of ovary; Z80.0 Family history of malignant neoplasm of digestive organs; Z82.49 Family history of ischemic heart disease and other diseases of the circulatory system; Z87.891 Personal history of nicotine dependence; M79.7 Fibromyalgia
CPT/HCPCS: 36415 ×3; 70450; 70551; 71045; 72141; 80048; 80053 ×2; 80061; 81001; 82550 ×2; 82553 ×2; 82948 ×3; 83036; 83735 ×2; 83880; 84100 ×2; 84443; 84484 ×2; 85025 ×3; 87086; 93005; 93306; 97162; 99284; G0378 ×3; J0610; J1610; J1817; J2060; J3475; J7030 ×3

== ENCOUNTER → 2022-05-28 | Outpatient (CLI) | payer OTHER ==
[~2022-05-28] MED LIST changes: +BACLOFEN10 MG PO; +FIORICET 50-301 EACH PO; +HYDROCHLOROTHIA25 MG PO; +HYDROCODON-ACE1 EA11 PO; +NIFEDIAC CC60 MG PO; +OLMESARTAN MEDO40 MG PO; +SKELAXIN800 MG PO; +TRESIBA FL200 UNIT/1 SQ; +TRIAMTERENE-HCTZ1 EA PO; +VITAMIN D3 COM1 EACH PO
== END ==
LOC: LAB 13:53
PROVIDERS: ATTEND Psychiatry & Neurology Neurology
DX: G60.9 Hereditary and idiopathic neuropathy, unspecified (principal)
CPT/HCPCS: 36415; 82607; 82746; 83036; 84207; 84439; 84443; 85651; 86039; 86140; 86334

== ENCOUNTER → 2022-06-03 | Outpatient (CLI) | payer OTHER ==
[~2022-06-03] MED LIST changes: +GADOBENATE DIMEGLUMINE 1 ML IV ONE
[2022-06-03 11:39] LABS: CREATININE, SERUM 1.38 mg/dL (0.57-1.11)
== END ==
LOC: MRI 10:49
PROVIDERS: ATTEND Psychiatry & Neurology Neurology
DX: R29.818 Other symptoms and signs involving the nervous system (principal); R51.9 Headache, unspecified
CPT/HCPCS: 36415; 70553; 82565; 84520

== ENCOUNTER 2023-02-22 13:37 | Emergency (ER) | payer OTHER ==
[~2023-02-22] VITALS: Ht 152.4 cm; Wt 67.1 kg
[~2023-02-22 13:37] MED LIST changes: -GADOBENATE DIMEGLUMINE 1 ML IV ONE
[2023-02-22] MEDS ORDERED: TRAMADOL HCL 50 MG TAB PO ONE (14:15)
[2023-02-22] MEDS ORDERED: IOPAMIDOL 370 MG/ML 100 ML INFUS..BTL INJ ONE (14:29)
[2023-02-22 14:36] LABS: BASOPHILS # (AUTO) 0.1 (0.0-0.1); BASOPHILS % 0.6 % (0.0-1.0); EOSINOPHILS # (AUTO) 0.2 (0.0-0.4); EOSINOPHILS % 1.7 % (0.0-6.0); HEMATOCRIT 29.8 % (34.2-44.1); HEMOGLOBIN 9.2 g/dL (12.0-16.0); LYMPHOCYTES # (AUTO) 1.9 (1.0-3.2); LYMPHOCYTES % 16.2 % (18.0-39.1); MEAN CORPUSCULAR HEMOGLOBIN 26.1 pg (28-32); MEAN CORPUSCULAR HGB CONC 30.9 g/dL (31-35); MEAN CORPUSCULAR VOLUME 84.4 fL (81-99); MONOCYTES # (AUTO) 0.7 (0.2-0.8); MONOCYTES % 5.4 % (4.4-11.3); NEUTROPHILS # (AUTO) 9.1 (2.1-6.9); NEUTROPHILS % 75.6 % (38.7-80.0); PLATELET COUNT 406 x10e3/uL (140-360); RED BLOOD COUNT 3.53 x10e6/uL (3.6-5.1); RED CELL DISTRIBUTION WIDTH 13.6 % (11.7-14.4); WHITE BLOOD COUNT 11.97 x10e3/uL (4.8-10.8)
[2023-02-22 14:55] LABS: ANION GAP 19.3 mmol/L (8-16); CALCIUM 10.2 mg/dL (8.4-10.2); CREATININE, SERUM 1.55 mg/dL (0.57-1.11); POTASSIUM 5.3 mmol/L (3.5-5.1)
[2023-02-22] MEDS ORDERED: ONDANSETRON HCL INJ 2MG/ML 2ML 2 MG/ML VIAL IV STA (16:06)
[2023-02-22] MEDS ORDERED: Morphine 2mg Syringe 2 MG/ML SYR IV STA (16:06)
[2023-02-22] MEDS ORDERED: VENTOLIN HFA18 GM INH (16:19)
[2023-02-22] MEDS ORDERED: ACETAMINOPHEN-1 EAC4 PO (16:19)
[2023-02-22] MEDS ORDERED: ONDANSETRON ODT4 MG PO (16:19)
[2023-02-22 17:14] VITALS: BP 147/71; PULSE 97; RESP 18; TEMP 97.6; O2SAT 100
== END 2023-02-22 17:28 | disposition home or self-care (01) ==
LOC: ER 14:10
DX: S22.42XA Multiple fractures of ribs, left side, initial encounter for closed fracture (principal); R10.12 Left upper quadrant pain; M25.562 Pain in left knee; V43.52XA Car driver injured in collision with other type car in traffic accident, initial encounter; Y92.488 Other paved roadways as the place of occurrence of the external cause; I10 Essential (primary) hypertension; E11.9 Type 2 diabetes mellitus without complications; K21.9 Gastro-esophageal reflux disease without esophagitis; F41.9 Anxiety disorder, unspecified; M79.7 Fibromyalgia; M54.9 Dorsalgia, unspecified; G89.29 Other chronic pain
CPT/HCPCS: 36415; 71260; 73562; 74177; 80048; 85025; 99284; J2270; J2405; Q9967

== ENCOUNTER 2023-03-02 16:31 | Emergency (ER) | payer OTHER ==
[~2023-03-02] VITALS: Ht 152.4 cm; Wt 67.1 kg
[~2023-03-02 16:31] MED LIST changes: +ACETAMINOPHEN-1 EAC4 PO; +ONDANSETRON ODT4 MG PO; +VENTOLIN HFA18 GM INH
[2023-03-02 17:28] LABS: CLARITY,URINE CLEAR (CLEAR); COLOR,URINE YELLOW (YELLOW)
[2023-03-02 17:29] LABS: AMPHETAMINES SCREEN,URINE NEGATIVE (NEGATIVE); GLUCOSE, URINE 1+ (NEGATIVE); KETONES,URINE NEGATIVE (NEGATIVE); LEUKOCYTE ESTERASE ,URINE NEGATIVE (NEGATIVE); NITRITE,URINE NEGATIVE (NEGATIVE); OPIATES SCREEN,URINE POSITIVE (NEGATIVE); PH,URINE 7 (5 - 7); PHENCYCLIDINE SCREEN,URINE NEGATIVE (NEGATIVE); PROTEIN,URINE DIPSTICK TRACE (NEGATIVE)
[2023-03-02 17:30] LABS: BACTERIA,URINE RARE /HPF; BENZODIAZEPINES SCREEN,URINE NEGATIVE (NEGATIVE); BILIRUBIN,URINE NEGATIVE (NEGATIVE); CANNABINOIDS SCREEN,URINE NEGATIVE (NEGATIVE); EPITHELIAL CELLS,URINE RARE /LPF; METHADONE SCREEN, URINE NEGATIVE (NEGATIVE); RBC,URINE 0-5 /HPF (0-5); URINE UROBILINOGEN 0.2 mg/dL (0.2 - 1); WBC,URINE (MAN) 0-5 /HPF (0-5)
[2023-03-02 17:57] LABS: BASOPHILS # (AUTO) 0.1 (0.0-0.1); BASOPHILS % 0.6 % (0.0-1.0); EOSINOPHILS # (AUTO) 0.3 (0.0-0.4); EOSINOPHILS % 2.8 % (0.0-6.0); HEMATOCRIT 30.1 % (34.2-44.1); HEMOGLOBIN 9.3 g/dL (12.0-16.0); LYMPHOCYTES # (AUTO) 1.5 (1.0-3.2); LYMPHOCYTES % 15.8 % (18.0-39.1); MEAN CORPUSCULAR HEMOGLOBIN 26.1 pg (28-32); MEAN CORPUSCULAR HGB CONC 30.9 g/dL (31-35); MEAN CORPUSCULAR VOLUME 84.3 fL (81-99); MONOCYTES # (AUTO) 0.6 (0.2-0.8); MONOCYTES % 6.1 % (4.4-11.3); NEUTROPHILS # (AUTO) 7.1 (2.1-6.9); NEUTROPHILS % 74.4 % (38.7-80.0); PLATELET COUNT 475 x10e3/uL (140-360); RED BLOOD COUNT 3.57 x10e6/uL (3.6-5.1); RED CELL DISTRIBUTION WIDTH 13.9 % (11.7-14.4); WHITE BLOOD COUNT 9.49 x10e3/uL (4.8-10.8)
[2023-03-02 18:13] LABS: ALBUMIN 3.5 g/dL (3.5-5.0); ANION GAP 16.6 mmol/L (8-16); BILIRUBIN,TOTAL 0.5 mg/dL (0.2-1.2); CALCIUM 10.7 mg/dL (8.4-10.2); CREATININE, SERUM 1.49 mg/dL (0.57-1.11); POTASSIUM 4.6 mmol/L (3.5-5.1); TOTAL PROTEIN 6.9 g/dL (6.5-8.1)
[2023-03-02 18:18] LABS: ACETAMINOPHEN < 3.0 ug/mL (10-30); ETHANOL < 10.0 mg/dL (0.0-10.0); SALICYLATE < 5.0 mg/dL (0-30)
[2023-03-02 18:38] LABS: TROPONIN I < 0.001 ng/mL (0-0.300)
[2023-03-03] MEDS ORDERED: ONDANSETRON HCL 4 MG ORAL DISINTEGRATING TAB PO STA (06:04)
[2023-03-03] MEDS ORDERED: ONDANSETRON HCL INJ 2MG/ML 2ML 2 MG/ML VIAL ONE (06:06)
[2023-03-03] MEDS ORDERED: ONDANSETRON HCL INJ 2MG/ML 2ML 2 MG/ML VIAL IV STA (06:07)
[2023-03-04] MEDS ORDERED: PIOGLITAZONE HC30 MG PO (01:55)
[2023-03-04] MEDS ORDERED: TIZANIDINE HCL4 MG PO (01:58)
[2023-03-04] MEDS ORDERED: TIZANIDINE HCL4 M1 PO (01:58)
[2023-03-04] MEDS ORDERED: OZEMPIC1 MG/0.71 INJ (01:59)
[2023-03-04] MEDS ORDERED: TRICOR48 MG PO (02:03)
[2023-03-04] MEDS ORDERED: magnesium PO (02:03)
[2023-03-04] MEDS ORDERED: VITAMIN B122500 MCG PO (02:03)
[2023-03-04] MEDS ORDERED: MECLIZINE HCL12.5 MG PO (02:03)
[2023-03-04] MEDS ORDERED: BIOTIN2500 MCG PO (02:03)
[2023-03-04] MEDS ORDERED: FOLIC ACID0.4 MG PO (02:03)
[2023-03-04] MEDS ORDERED: FEROSUL325 MG PO (02:03)
[2023-03-04] MEDS ORDERED: COREG6.25 MG PO (02:03)
[2023-03-04] MEDS ORDERED: VESICARE5 MG PO (02:03)
[2023-03-04 02:57] VITALS: BP 141/103; PULSE 94; RESP 17; TEMP 98.1; O2SAT 99
== END 2023-03-04 03:02 ==
LOC: ER 16:40
DX: F29 Unspecified psychosis not due to a substance or known physiological condition (principal); I10 Essential (primary) hypertension; E11.65 Type 2 diabetes mellitus with hyperglycemia; K21.9 Gastro-esophageal reflux disease without esophagitis; M54.9 Dorsalgia, unspecified; G89.29 Other chronic pain; R94.31 Abnormal electrocardiogram [ECG] [EKG]; Z98.84 Bariatric surgery status
CPT/HCPCS: 36415; 70450; 80053; 80307; 80320; 80329 ×2; 81001; 82140; 82948; 84484; 85025; 93005; 99284; J2405

== ENCOUNTER 2024-02-24 12:43 | Inpatient (IN) | payer MEDICARE, OTHER ==
[~2024-02-24] VITALS: Ht 152.4 cm; Wt 59.4 kg
[~2024-02-24 12:43] MED LIST changes: +BIOTIN2500 MCG PO; +COREG6.25 MG PO; +FEROSUL325 MG PO; +FOLIC ACID0.4 MG PO; +MECLIZINE HCL12.5 MG PO; +OZEMPIC1 MG/0.71 INJ; +PIOGLITAZONE HC30 MG PO; +TIZANIDINE HCL4 M1 PO; +TRICOR48 MG PO; +VESICARE5 MG PO; +VITAMIN B122500 MCG PO; +magnesium PO
[2024-02-24 12:50] VITALS: TEMP 98.2
[2024-02-24] MEDS: SODIUM CHLORIDE 0.9% 1000ML 1,000 ML IV ONE ×2 (13:25→16:00)
[2024-02-24 13:51] LABS: BASOPHILS # (AUTO) 0.1 (0.0-0.1); BASOPHILS % 0.6 % (0.0-1.0); EOSINOPHILS # (AUTO) 0.1 (0.0-0.4); EOSINOPHILS % 0.7 % (0.0-6.0); HEMATOCRIT 39.5 % (34.2-44.1); HEMOGLOBIN 12.1 g/dL (12.0-16.0); LYMPHOCYTES # (AUTO) 1.3 (1.0-3.2); LYMPHOCYTES % 13.8 % (18.0-39.1); MEAN CORPUSCULAR HEMOGLOBIN 26.4 pg (28-32); MEAN CORPUSCULAR HGB CONC 30.6 g/dL (31-35); MEAN CORPUSCULAR VOLUME 86.1 fL (81-99); MONOCYTES # (AUTO) 0.6 (0.2-0.8); MONOCYTES % 6.1 % (4.4-11.3); NEUTROPHILS # (AUTO) 7.4 (2.1-6.9); NEUTROPHILS % 77.3 % (38.7-80.0); PLATELET COUNT 398 x10e3/uL (140-360); RED BLOOD COUNT 4.59 x10e6/uL (3.6-5.1); RED CELL DISTRIBUTION WIDTH 15.6 % (11.7-14.4); WHITE BLOOD COUNT 9.52 x10e3/uL (4.8-10.8)
[2024-02-24 14:13] LABS: ALBUMIN 3.6 g/dL (3.5-5.0); ANION GAP 20.8 mmol/L (8-16); BILIRUBIN,TOTAL 0.4 mg/dL (0.2-1.2); CALCIUM 10.8 mg/dL (8.4-10.2); CREATININE, SERUM 2.68 mg/dL (0.57-1.11); POTASSIUM 4.8 mmol/L (3.5-5.1); TOTAL PROTEIN 7.2 g/dL (6.5-8.1)
[2024-02-24 14:28] LABS: CLARITY,URINE SL CLOUDY (CLEAR); COLOR,URINE YELLOW (YELLOW); GLUCOSE, URINE 500 (NEGATIVE); KETONES,URINE 1+ (NEGATIVE); LEUKOCYTE ESTERASE ,URINE SMALL (NEGATIVE); NITRITE,URINE NEGATIVE (NEGATIVE); PH,URINE 6 (5 - 7); PROTEIN,URINE DIPSTICK NEGATIVE (NEGATIVE)
[2024-02-24 14:29] LABS: BACTERIA,URINE MANY /HPF; BILIRUBIN,URINE SMALL (NEGATIVE); EPITHELIAL CELLS,URINE MODERATE /LPF; RBC,URINE 0-5 /HPF (0-5); URINE UROBILINOGEN 0.2 mg/dL (0.2 - 1); WBC,URINE (MAN) 21-50 /HPF (0-5)
[2024-02-24] MEDS: INSULIN REGULAR, HUMAN 100 UNIT/1 ML IV ONE (17:10)
[2024-02-24] MEDS: SODIUM CHLORIDE 0.9% 1000ML 1,000 ML IV SCH (19:01)
[2024-02-24] MEDS: ONDANSETRON HCL INJ 2MG/ML 2ML 2 MG/ML VIAL IV PRN (19:41)
[2024-02-24 20:15] VITALS: PULSE 78; RESP 16
[2024-02-24 21:38] VITALS: BP 158/66; PULSE 85; RESP 18; TEMP 99.1; O2SAT 100
[2024-02-24 23:00] VITALS: BP 158/66; PULSE 85; RESP 18; TEMP 99.1; O2SAT 100
[2024-02-25] VITALS (11 sets, daily range): BP systolic 107–164; BP diastolic 67–95; PULSE 84–106; RESP 18–20; TEMP 98.4–100.1; O2SAT 96–100
[2024-02-25] MEDS ORDERED: GLIPIZIDE5 MG PO (05:44)
[2024-02-25] MEDS ORDERED: DEPAKOTE ER250 MG PO (05:44)
[2024-02-25] MEDS ORDERED: METHOCARBAMOL500 MG PO (05:44)
[2024-02-25] MEDS ORDERED: QUETIAPINE FUMA25 MG PO (05:44)
[2024-02-25] MEDS ORDERED: ASPIRIN81 MG PO (05:44)
[2024-02-25] MEDS ORDERED: LIPITOR20 MG PO (05:44)
[2024-02-25 05:58] LABS: BASOPHILS # (AUTO) 0.1 (0.0-0.1); BASOPHILS % 0.8 % (0.0-1.0); EOSINOPHILS # (AUTO) 0.1 (0.0-0.4); EOSINOPHILS % 1.2 % (0.0-6.0); HEMATOCRIT 35.5 % (34.2-44.1); HEMOGLOBIN 10.7 g/dL (12.0-16.0); LYMPHOCYTES # (AUTO) 1.9 (1.0-3.2); MEAN CORPUSCULAR HEMOGLOBIN 26.3 pg (28-32); MEAN CORPUSCULAR HGB CONC 30.1 g/dL (31-35); MEAN CORPUSCULAR VOLUME 87.2 fL (81-99); MONOCYTES # (AUTO) 0.8 (0.2-0.8); MONOCYTES % 9.5 % (4.4-11.3); NEUTROPHILS # (AUTO) 5.8 (2.1-6.9); NEUTROPHILS % 65.1 % (38.7-80.0); PLATELET COUNT 337 x10e3/uL (140-360); RED BLOOD COUNT 4.07 x10e6/uL (3.6-5.1); RED CELL DISTRIBUTION WIDTH 15.2 % (11.7-14.4); WHITE BLOOD COUNT 8.87 x10e3/uL (4.8-10.8)
[2024-02-25 06:16] LABS: ALBUMIN/GLOBULIN RATIO 0.9 (0.8-2.0); ANION GAP 17.1 mmol/L (8-16); BILIRUBIN,TOTAL 0.3 mg/dL (0.2-1.2); CALCIUM 9.7 mg/dL (8.4-10.2); CREATININE, SERUM 1.84 mg/dL (0.57-1.11); POTASSIUM 4.1 mmol/L (3.5-5.1); TOTAL PROTEIN 6.3 g/dL (6.5-8.1)
[2024-02-25] MEDS ORDERED: CYCLOBENZAPRINE10 MG PO (08:32)
[2024-02-25] MEDS ORDERED: BENICAR40 MG (08:32)
[2024-02-25] MEDS ORDERED: TRAZODONE HCL50 MG PO (08:32)
[2024-02-25] MEDS ORDERED: TIZANIDINE HCL4 M1 PO (08:32)
[2024-02-25] MEDS ORDERED: BACLOFEN10 MG PO (08:32)
[2024-02-25] MEDS ORDERED: ALBUTEROL SULF 0.083% NEB SOLN 3 ML NEB INH PRN (09:00)
[2024-02-25] MEDS: CARVEDILOL 3.125 MG TAB PO SCH (09:00)
[2024-02-25] MEDS: DIVALPROEX SODIUM 250 MG TAB...DR PO SCH (09:00)
[2024-02-25] MEDS: SOLIFENACIN SUCCINATE 5 MG TAB PO SCH (09:00)
[2024-02-25] MEDS ORDERED: DEXTROSE 50% SYRINGE 50 ML IV PRN (09:00)
[2024-02-25] MEDS ORDERED: HYDRALAZINE HCL 20 MG/ML VIAL IV PRN (09:00)
[2024-02-25] MEDS: ASPIRIN 81 MG CHEW TAB PO SCH (09:00)
[2024-02-25] MEDS: INSULIN LISPRO 100 UNIT/1 ML 3ML VIAL SQ SCH ×4 (11:30→17:21)
[2024-02-25] MEDS: METOCLOPRAMIDE HCL 10 MG/2ML VIAL IV SCH (12:13)
[2024-02-25] MEDS: INSULIN GLARGINE 100 UNITS/ML VIAL SQ ONE (13:00)
[2024-02-25 14:52] LABS: FREE T4 (FREE THYROXINE) 1.07 ng/dL (0.8-1.8); THYROID STIMULATING HORMONE 0.268 uIU/mL (0.350-4.940)
[2024-02-25] MEDS: INSULIN GLARGINE 100 UNITS/ML VIAL SQ SCH (20:59)
[2024-02-25] MEDS: ATORVASTATIN 40 MG TAB PO SCH (21:45)
[2024-02-25] MEDS: QUETIAPINE FUMARATE 25 MG TAB PO SCH (21:45)
[2024-02-26] VITALS (7 sets, daily range): BP systolic 93–112; BP diastolic 58–68; PULSE 83–97; RESP 18–20; TEMP 98.4–99.3; O2SAT 97–100
[2024-02-26 05:44] LABS: BASOPHILS % 0.3 % (0.0-1.0); EOSINOPHILS # (AUTO) 0.2 (0.0-0.4); EOSINOPHILS % 1.3 % (0.0-6.0); HEMATOCRIT 34.2 % (34.2-44.1); HEMOGLOBIN 10.6 g/dL (12.0-16.0); LYMPHOCYTES # (AUTO) 1.4 (1.0-3.2); LYMPHOCYTES % 11.1 % (18.0-39.1); MEAN CORPUSCULAR HEMOGLOBIN 26.2 pg (28-32); MEAN CORPUSCULAR VOLUME 84.7 fL (81-99); MONOCYTES # (AUTO) 0.9 (0.2-0.8); MONOCYTES % 7.1 % (4.4-11.3); NEUTROPHILS # (AUTO) 9.6 (2.1-6.9); NEUTROPHILS % 79.2 % (38.7-80.0); PLATELET COUNT 323 x10e3/uL (140-360); RED BLOOD COUNT 4.04 x10e6/uL (3.6-5.1); RED CELL DISTRIBUTION WIDTH 15.6 % (11.7-14.4); WHITE BLOOD COUNT 12.16 x10e3/uL (4.8-10.8)
[2024-02-26 06:10] LABS: ANION GAP 15.7 mmol/L (8-16); CALCIUM 9.8 mg/dL (8.4-10.2); CREATININE, SERUM 1.39 mg/dL (0.57-1.11); POTASSIUM 3.7 mmol/L (3.5-5.1)
[2024-02-26] MEDS: INSULIN GLARGINE 100 UNITS/ML VIAL SQ SCH (23:04)
[2024-02-27] VITALS (10 sets, daily range): BP systolic 91–130; BP diastolic 53–117; PULSE 77–93; RESP 16–20; TEMP 97.8–99.9; O2SAT 94–100
[2024-02-27 05:30] LABS: BASOPHILS # (AUTO) 0.1 (0.0-0.1); BASOPHILS % 0.7 % (0.0-1.0); EOSINOPHILS # (AUTO) 0.1 (0.0-0.4); EOSINOPHILS % 0.9 % (0.0-6.0); HEMOGLOBIN 11.8 g/dL (12.0-16.0); LYMPHOCYTES # (AUTO) 1.8 (1.0-3.2); LYMPHOCYTES % 16.2 % (18.0-39.1); MEAN CORPUSCULAR HEMOGLOBIN 26.3 pg (28-32); MEAN CORPUSCULAR HGB CONC 29.5 g/dL (31-35); MEAN CORPUSCULAR VOLUME 89.1 fL (81-99); MONOCYTES # (AUTO) 0.5 (0.2-0.8); MONOCYTES % 4.8 % (4.4-11.3); NEUTROPHILS # (AUTO) 8.3 (2.1-6.9); PLATELET COUNT 260 x10e3/uL (140-360); RED BLOOD COUNT 4.49 x10e6/uL (3.6-5.1); RED CELL DISTRIBUTION WIDTH 16.1 % (11.7-14.4); WHITE BLOOD COUNT 10.92 x10e3/uL (4.8-10.8)
[2024-02-27 05:50] LABS: % IRON SATURATION 6 % (15-50); CHOL/HDL RATIO 2.6 (3.0-3.6); CHOLESTEROL 126 MD/DL (0-199); HDL CHOLESTEROL 49 MG/DL (40-60); IRON 18 ug/dL (50-170); LDL CHOLESTEROL 49 MG/DL (60-130); TOTAL IRON BINDING CAPACITY 293 ug/dL (261-478); TRANSFERRIN 209 mg/dL (180-382); TRIGLYCERIDES 142 MG/DL (0-149)
[2024-02-27 05:51] LABS: LIPASE < 4 U/L (8-78)
[2024-02-27 06:02] LABS: ANION GAP 17.8 mmol/L (8-16); CREATININE, SERUM 1.5 mg/dL (0.57-1.11); POTASSIUM 3.8 mmol/L (3.5-5.1)
[2024-02-27] MEDS: SODIUM BICARBONATE 650 MG TAB PO SCH (09:12)
[2024-02-27] MEDS: ACETAMINOPHEN 325 MG TAB PO PRN (09:26)
[2024-02-27] MEDS: SODIUM CHLORIDE 0.9% 1000ML 1,000 ML IV SCH (23:48)
[2024-02-28] VITALS (10 sets, daily range): BP systolic 90–110; BP diastolic 49–67; PULSE 76–88; RESP 16–19; TEMP 97.5–99.8; O2SAT 95–100
[2024-02-28 06:13] LABS: BASOPHILS % 0.5 % (0.0-1.0); EOSINOPHILS # (AUTO) 0.2 (0.0-0.4); EOSINOPHILS % 2.4 % (0.0-6.0); HEMATOCRIT 29.6 % (34.2-44.1); HEMOGLOBIN 8.9 g/dL (12.0-16.0); LYMPHOCYTES # (AUTO) 0.7 (1.0-3.2); LYMPHOCYTES % 8.1 % (18.0-39.1); MEAN CORPUSCULAR HEMOGLOBIN 25.9 pg (28-32); MEAN CORPUSCULAR HGB CONC 30.1 g/dL (31-35); MONOCYTES # (AUTO) 0.3 (0.2-0.8); MONOCYTES % 3.9 % (4.4-11.3); PLATELET COUNT 228 x10e3/uL (140-360); RED BLOOD COUNT 3.44 x10e6/uL (3.6-5.1); WHITE BLOOD COUNT 8.37 x10e3/uL (4.8-10.8)
[2024-02-28 06:50] LABS: ALBUMIN 1.9 g/dL (3.5-5.0); ALBUMIN/GLOBULIN RATIO 0.6 (0.8-2.0); ANION GAP 14.2 mmol/L (8-16); BILIRUBIN,TOTAL 0.3 mg/dL (0.2-1.2); CALCIUM 9.1 mg/dL (8.4-10.2); CREATININE, SERUM 1.6 mg/dL (0.57-1.11); TOTAL PROTEIN 5.1 g/dL (6.5-8.1)
[2024-02-28 06:52] LABS: POTASSIUM 3.2 mmol/L (3.5-5.1)
[2024-02-28] MEDS: SODIUM BICARBONATE 650 MG TAB PO SCH (08:30)
[2024-02-28] MEDS ORDERED: PROPOFOL IV EMULSION 10 MG/ML 20 ML VIAL ONE (14:08)
[2024-02-28] MEDS ORDERED: LIDOCAINE HCL 2% LOCAL INJ 5 ML SDV VIAL INJ ONE (14:08)
[2024-02-28] MEDS ORDERED: FENTANYL CITRATE/PF 100MCG/2 ML INJ ONE (14:48)
[2024-02-28] MEDS ORDERED: ONDANSETRON HCL INJ 2MG/ML 2ML 2 MG/ML VIAL ONE (15:02)
[2024-02-28] MEDS: INSULIN LISPRO 100 UNIT/1 ML 3ML VIAL SQ SCH (16:30)
[2024-02-28] MEDS: SUCRALFATE 1 GM TAB PO SCH (18:31)
[2024-02-28] MEDS: INSULIN GLARGINE 100 UNITS/ML VIAL SQ SCH (21:00)
[2024-02-28] MEDS: POTASSIUM CHLORIDE 20 MEQ TAB CR PO ONE (22:09)
[2024-02-29] VITALS (8 sets, daily range): BP systolic 103–152; BP diastolic 45–84; PULSE 73–88; RESP 18–20; TEMP 97.9–98.5; O2SAT 92–100
[2024-02-29] MEDS: LOSARTAN POTASSIUM 25 MG TAB PO SCH (09:00)
[2024-02-29] MEDS: INSULIN LISPRO 100 UNIT/1 ML 3ML VIAL SQ SCH (16:30)
[2024-02-29] MEDS: IRON SUCROSE 100 MG in SODIUM CHLORIDE 0.9% 100 ML IV SCH (16:45)
[2024-02-29] MEDS: SODIUM CHLORIDE 0.9% 1000ML 1,000 ML IV SCH (16:46)
[2024-02-29] MEDS: INSULIN GLARGINE 100 UNITS/ML VIAL SQ SCH (21:08)
[2024-03-01] VITALS: BP 98/51; PULSE 75; RESP 20; TEMP 98.6; O2SAT 98
[2024-03-01 04:00] VITALS: BP 107/51; PULSE 62; RESP 20; TEMP 98.6; O2SAT 98
[2024-03-01 05:45] LABS: BASOPHILS % 0.2 % (0.0-1.0); EOSINOPHILS # (AUTO) 0.2 (0.0-0.4); EOSINOPHILS % 3.2 % (0.0-6.0); HEMATOCRIT 24.5 % (34.2-44.1); LYMPHOCYTES # (AUTO) 0.5 (1.0-3.2); LYMPHOCYTES % 9.6 % (18.0-39.1); MEAN CORPUSCULAR HEMOGLOBIN 26.2 pg (28-32); MEAN CORPUSCULAR HGB CONC 31.4 g/dL (31-35); MEAN CORPUSCULAR VOLUME 83.3 fL (81-99); MONOCYTES # (AUTO) 0.5 (0.2-0.8); MONOCYTES % 8.8 % (4.4-11.3); NEUTROPHILS # (AUTO) 4.3 (2.1-6.9); NEUTROPHILS % 76.6 % (38.7-80.0); PLATELET COUNT 197 x10e3/uL (140-360); RED BLOOD COUNT 2.94 x10e6/uL (3.6-5.1); RED CELL DISTRIBUTION WIDTH 16.2 % (11.7-14.4); WHITE BLOOD COUNT 5.65 x10e3/uL (4.8-10.8)
[2024-03-01 05:48] LABS: HEMOGLOBIN 7.7 g/dL (12.0-16.0)
[2024-03-01 06:11] VITALS: PULSE 74; RESP 22; O2SAT 94
[2024-03-01 06:15] LABS: ANION GAP 14.2 mmol/L (8-16); CALCIUM 8.7 mg/dL (8.4-10.2); CREATININE, SERUM 1.27 mg/dL (0.57-1.11)
[2024-03-01 06:54] LABS: POTASSIUM 3.2 mmol/L (3.5-5.1)
[2024-03-01 08:00] VITALS: BP 107/51; PULSE 74; RESP 22; TEMP 98.6; O2SAT 94
[2024-03-01 08:39] VITALS: BP 102/50; PULSE 73; RESP 18; TEMP 98.7; O2SAT 99
[2024-03-01] MEDS: POTASSIUM CHLORIDE 10MEQ EA PO ONE (10:39)
[2024-03-01] MEDS ORDERED: CARAFATE1 GM/10 ML PO (11:37)
[2024-03-01] MEDS ORDERED: PANTOPRAZOLE SO40 MG PO (11:38)
[2024-03-01] MEDS ORDERED: REGLAN10 MG PO (11:39)
[2024-03-01] MEDS ORDERED: lantus solostar SQ (11:43)
[2024-03-01] MEDS ORDERED: HUMALOG KW200 UNIT/1 SC (11:48)
[2024-03-01 11:49] VITALS: BP 140/100; PULSE 76; RESP 19; TEMP 98; O2SAT 100
[2024-03-01] MEDS ORDERED: needles (11:50)
[2024-03-01] MEDS ORDERED: ONDANSETRON ODT4 MG SL (11:54)
[2024-03-01] MEDS ORDERED: [UNRECOGNIZED DRUG - OTHER] (11:55)
[2024-03-01] MEDS ORDERED: [UNRECOGNIZED DRUG - OTHER] (11:55)
== END 2024-03-01 15:15 | disposition home health service (06) | DRG 683 ==
LOC: ER 13:02 → ERHOLD 16:14 → MED/SURG2 21:30
PROVIDERS: ADMIT Internal Medicine; ATTEND Internal Medicine
PROC: 0DB78ZX Excision of Stomach, Pylorus, Via Natural or Artificial Opening Endoscopic, Diagnostic (ICD-10-PCS; 2024-02-28)
PROC: 0DB38ZX Excision of Lower Esophagus, Via Natural or Artificial Opening Endoscopic, Diagnostic (ICD-10-PCS; 2024-02-28)
PROC: 0DB68ZX Excision of Stomach, Via Natural or Artificial Opening Endoscopic, Diagnostic (ICD-10-PCS; principal; 2024-02-28 14:52)
DX: N17.9 Acute kidney failure, unspecified (principal); E87.20 Acidosis, unspecified; N39.0 Urinary tract infection, site not specified; E86.0 Dehydration; E11.65 Type 2 diabetes mellitus with hyperglycemia; E11.22 Type 2 diabetes mellitus with diabetic chronic kidney disease; I12.9 Hypertensive chronic kidney disease with stage 1 through stage 4 chronic kidney disease, or unspecified chronic kidney disease; N18.30 Chronic kidney disease, stage 3 unspecified; B96.20 Unspecified Escherichia coli [E. coli] as the cause of diseases classified elsewhere; K44.9 Diaphragmatic hernia without obstruction or gangrene; K21.9 Gastro-esophageal reflux disease without esophagitis; K25.9 Gastric ulcer, unspecified as acute or chronic, without hemorrhage or perforation; K29.70 Gastritis, unspecified, without bleeding; M19.90 Unspecified osteoarthritis, unspecified site; M54.9 Dorsalgia, unspecified; M54.2 Cervicalgia; R63.0 Anorexia; R63.4 Abnormal weight loss; R53.81 Other malaise; M79.7 Fibromyalgia; F32.9 Major depressive disorder, single episode, unspecified; F41.9 Anxiety disorder, unspecified; Z79.85 Long-term (current) use of injectable non-insulin antidiabetic drugs; Z98.84 Bariatric surgery status; Z90.710 Acquired absence of both cervix and uterus; Z68.25 Body mass index [BMI] 25.0-25.9, adult
CPT/HCPCS: 36415; 43239; 74176; 76770; 80048; 80053; 80061; 81001; 82948; 83036; 83540; 83690; 84439; 84443; 84466; 85025; 87086; 88305; 88342; 94799; 96372; 99284; J0696; J1756; J2003; J2405; J2470; J2765; J7030; J7050

== ENCOUNTER 2024-03-11 10:59 | Inpatient (IN) | payer MEDICARE ==
[~2024-03-11] VITALS: Ht 152.4 cm; Wt 65.3 kg
[2024-03-11] VITALS (12 sets, daily range): BP systolic 79–125; BP diastolic 42–89; PULSE 65–84; RESP 15–20; TEMP 98.7–99.3; O2SAT 92–100
[~2024-03-11 10:59] MED LIST changes: +ASPIRIN81 MG PO; +BENICAR40 MG; +CARAFATE1 GM/10 ML PO; +CYCLOBENZAPRINE10 MG PO; +DEPAKOTE ER250 MG PO; +GLIPIZIDE5 MG PO; +HUMALOG KW200 UNIT/1 SC; +LIPITOR20 MG PO; +METHOCARBAMOL500 MG PO; +ONDANSETRON ODT4 MG SL; +PANTOPRAZOLE SO40 MG PO; +QUETIAPINE FUMA25 MG PO; +REGLAN10 MG PO; +TRAZODONE HCL50 MG PO; +[UNRECOGNIZED DRUG - OTHER]; +[UNRECOGNIZED DRUG - OTHER]; +lantus solostar SQ; +needles
[2024-03-11] MEDS ORDERED: DEXTROSE 50% SYRINGE 50 ML IV ONE (11:33)
[2024-03-11] MEDS: SODIUM CHLORIDE 0.9% 1000ML 1,000 ML IV SCH ×3 (12:00→13:15)
[2024-03-11 12:10] LABS: BASOPHILS # (AUTO) 0.1 (0.0-0.1); BASOPHILS % 0.7 % (0.0-1.0); EOSINOPHILS % 0.2 % (0.0-6.0); HEMOGLOBIN 8.1 g/dL (12.0-16.0); LYMPHOCYTES # (AUTO) 0.9 (1.0-3.2); LYMPHOCYTES % 7.8 % (18.0-39.1); MEAN CORPUSCULAR HGB CONC 32.4 g/dL (31-35); MEAN CORPUSCULAR VOLUME 80.4 fL (81-99); MONOCYTES # (AUTO) 1.6 (0.2-0.8); MONOCYTES % 14.4 % (4.4-11.3); NEUTROPHILS # (AUTO) 8.1 (2.1-6.9); NEUTROPHILS % 74.7 % (38.7-80.0); PLATELET COUNT 390 x10e3/uL (140-360); RED BLOOD COUNT 3.11 x10e6/uL (3.6-5.1); RED CELL DISTRIBUTION WIDTH 17.6 % (11.7-14.4); WHITE BLOOD COUNT 10.87 x10e3/uL (4.8-10.8)
[2024-03-11 12:19] LABS: CLARITY,URINE CLEAR (CLEAR); COLOR,URINE YELLOW (YELLOW); LEUKOCYTE ESTERASE ,URINE NEGATIVE (NEGATIVE); MAGNESIUM 1.3 MG/DL (1.3-2.1); NITRITE,URINE NEGATIVE (NEGATIVE); PH,URINE 6 (5 - 7); PROTEIN,URINE DIPSTICK 1+ (NEGATIVE)
[2024-03-11 12:20] LABS: ALBUMIN 1.8 g/dL (3.5-5.0); ALBUMIN/GLOBULIN RATIO 0.5 (0.8-2.0); AMPHETAMINES SCREEN,URINE NEGATIVE (NEGATIVE); ANION GAP 12.7 mmol/L (8-16); BENZODIAZEPINES SCREEN,URINE POSITIVE (NEGATIVE); BILIRUBIN,TOTAL 0.3 mg/dL (0.2-1.2); BILIRUBIN,URINE SMALL (NEGATIVE); CALCIUM 9.2 mg/dL (8.4-10.2); CANNABINOIDS SCREEN,URINE NEGATIVE (NEGATIVE); COCAINE SCREEN,URINE NEGATIVE (NEGATIVE); CREATININE, SERUM 1.02 mg/dL (0.57-1.11); GLUCOSE, URINE NEGATIVE (NEGATIVE); KETONES,URINE TRACE (NEGATIVE); METHADONE SCREEN, URINE NEGATIVE (NEGATIVE); OPIATES SCREEN,URINE NEGATIVE (NEGATIVE); PHENCYCLIDINE SCREEN,URINE NEGATIVE (NEGATIVE); TOTAL PROTEIN 5.4 g/dL (6.5-8.1); URINE UROBILINOGEN 2 mg/dL (0.2 - 1)
[2024-03-11 12:22] LABS: POTASSIUM 2.7 mmol/L (3.5-5.1)
[2024-03-11 12:23] LABS: ACETAMINOPHEN < 3.0 ug/mL (10-30); CORONAVIRUS COVID-19 AG NEGATIVE (NEGATIVE); ETHANOL < 10.0 mg/dL (0.0-10.0); INFLUENZA A AG NEGATIVE (NEGATIVE); INFLUENZA B AG NEGATIVE (NEGATIVE); SALICYLATE < 5.0 mg/dL (0-30)
[2024-03-11] MEDS ORDERED: ACETAMINOPHEN 1000 MG/100 ML 100 ML IV ONE (12:32)
[2024-03-11 12:42] LABS: RBC,URINE 0-5 /HPF (0-5); WBC,URINE (MAN) 0-5 /HPF (0-5)
[2024-03-11 12:43] LABS: EPITHELIAL CELLS,URINE MODERATE /LPF
[2024-03-11 12:44] LABS: TROPONIN I 0.334 ng/mL (0-0.300)
[2024-03-11 13:59] LABS: INR 1.06; PROTHROMBIN TIME 14.4 seconds (11.9-14.5)
[2024-03-11 14:00] LABS: PARTIAL THROMBOPLASTIN TIME 34.8 seconds (23.8-35.5)
[2024-03-11] MEDS ORDERED: Vancomycin IV 1 GM in SODIUM CHLORIDE 0.9% 250ML 250 ML IV SCH (14:00)
[2024-03-11] MEDS ORDERED: SODIUM CHLORIDE 0.9% 1000ML 1,000 ML ONE (14:25)
[2024-03-11] MEDS: ACETAMINOPHEN 1000 MG/100 ML IV STA (14:34)
[2024-03-11] MEDS: ASPIRIN 81 MG CHEW TAB PO ONE ×2 (14:34→14:35)
[2024-03-11] MEDS: MUPIROCIN 2% OINT 22 GM TUBE TOP SCH (14:34)
[2024-03-11] MEDS: DEXTROSE 50% SYRINGE 50 ML IV STA (14:38)
[2024-03-11] MEDS: MIDODRINE HCL 5 MG TABLET PO SCH (16:57)
[2024-03-11] MEDS: PANTOPRAZOLE SOD 40 MG TABEC PO SCH (16:58)
[2024-03-11] MEDS: POTASSIUM CHLORIDE 20MEQ/100ML 100 ML IV SCH (18:25)
[2024-03-11 18:56] LABS: TROPONIN I 1.308 ng/mL (0-0.300)
[2024-03-11] MEDS: ATORVASTATIN 40 MG TAB PO SCH (21:20)
[2024-03-12] VITALS (48 sets, daily range): BP systolic 85–153; BP diastolic 45–112; PULSE 48–82; RESP 11–22; TEMP 98.5–98.6; O2SAT 91–100
[2024-03-12 07:04] LABS: CALCIUM 7.9 mg/dL (8.4-10.2); CREATININE, SERUM 0.89 mg/dL (0.57-1.11)
[2024-03-12 07:26] LABS: TROPONIN I 0.558 ng/mL (0-0.300)
[2024-03-12 07:28] LABS: BASOPHILS % 0.3 % (0.0-1.0); EOSINOPHILS # (AUTO) 0.1 (0.0-0.4); EOSINOPHILS % 1.1 % (0.0-6.0); LYMPHOCYTES # (AUTO) 1.4 (1.0-3.2); LYMPHOCYTES % 16.4 % (18.0-39.1); MEAN CORPUSCULAR HGB CONC 30.9 g/dL (31-35); MEAN CORPUSCULAR VOLUME 84.1 fL (81-99); MONOCYTES # (AUTO) 1.3 (0.2-0.8); MONOCYTES % 14.4 % (4.4-11.3); NEUTROPHILS # (AUTO) 5.7 (2.1-6.9); NEUTROPHILS % 65.9 % (38.7-80.0); PLATELET COUNT 316 x10e3/uL (140-360); RED BLOOD COUNT 2.58 x10e6/uL (3.6-5.1); RED CELL DISTRIBUTION WIDTH 17.5 % (11.7-14.4); WHITE BLOOD COUNT 8.73 x10e3/uL (4.8-10.8)
[2024-03-12 07:32] LABS: HEMATOCRIT 21.7 % (34.2-44.1); HEMOGLOBIN 6.7 g/dL (12.0-16.0)
[2024-03-12] MEDS ORDERED: DEXTROSE 50% SYRINGE 50 ML IV PRN (09:30)
[2024-03-12] MEDS: SODIUM CHLORIDE 0.9% 250ML 250 ML IV ONE (09:31)
[2024-03-12] MEDS: FENOFIBRATE 48 MG TAB PO SCH (09:31)
[2024-03-12] MEDS: POTASSIUM CHLORIDE 20 MEQ TAB CR PO STA (09:31)
[2024-03-12 09:53] LABS: MAGNESIUM 1.4 MG/DL (1.3-2.1); PHOSPHORUS 2.6 MG/DL (2.3-4.7)
[2024-03-12] MEDS ORDERED: IOPAMIDOL 370 MG/ML 100 ML INFUS..BTL INJ ONE (11:22)
[2024-03-12] MEDS: INSULIN LISPRO 100 UNIT/1 ML 3ML VIAL SQ SCH ×2 (11:45→16:30)
[2024-03-12 15:43] LABS: TROPONIN I 0.535 ng/mL (0-0.300)
[2024-03-12] MEDS: FUROSEMIDE INJ 10 MG/ML 4 ML VIAL IV ONE (17:49)
[2024-03-12] MEDS: FUROSEMIDE INJ 10 MG/ML 2 ML VIAL ONE (17:54)
[2024-03-12] MEDS: SODIUM CHLORIDE 0.9% 250ML 250 ML ONE (17:55)
[2024-03-12] MEDS: ONDANSETRON HCL INJ 2MG/ML 2ML 2 MG/ML VIAL IV PRN (21:25)
[2024-03-12] MEDS: HYDROCODONE/APAP 5MG-325MG TAB PO PRN (21:25)
[2024-03-13] VITALS (19 sets, daily range): BP systolic 99–138; BP diastolic 48–99; PULSE 51–64; RESP 10–16; TEMP 97.8–98; O2SAT 90–99
[2024-03-13 06:30] LABS: BASOPHILS # (AUTO) 0.1 (0.0-0.1); BASOPHILS % 0.9 % (0.0-1.0); EOSINOPHILS # (AUTO) 0.1 (0.0-0.4); EOSINOPHILS % 2.4 % (0.0-6.0); HEMATOCRIT 30.8 % (34.2-44.1); LYMPHOCYTES # (AUTO) 1.5 (1.0-3.2); MEAN CORPUSCULAR HEMOGLOBIN 27.2 pg (28-32); MEAN CORPUSCULAR HGB CONC 32.5 g/dL (31-35); MEAN CORPUSCULAR VOLUME 83.7 fL (81-99); MONOCYTES # (AUTO) 0.9 (0.2-0.8); MONOCYTES % 15.9 % (4.4-11.3); NEUTROPHILS # (AUTO) 2.9 (2.1-6.9); PLATELET COUNT 279 x10e3/uL (140-360); RED BLOOD COUNT 3.68 x10e6/uL (3.6-5.1); RED CELL DISTRIBUTION WIDTH 16.8 % (11.7-14.4); WHITE BLOOD COUNT 5.78 x10e3/uL (4.8-10.8)
[2024-03-13 06:53] LABS: ALBUMIN 1.5 g/dL (3.5-5.0); ALBUMIN/GLOBULIN RATIO 0.5 (0.8-2.0); ALKALINE PHOSPHATASE 61 IU/L (40-150); ANION GAP 13.3 mmol/L (8-16); BILIRUBIN,TOTAL 0.4 mg/dL (0.2-1.2); BLOOD UREA NITROGEN 11 mg/dL (7-26); BUN/CREATININE RATIO 10 (6-25); CALCIUM 8.4 mg/dL (8.4-10.2); CARBON DIOXIDE 25 mmol/L (22-29); CHLORIDE 104 mmol/L (98-107); EST GLOMERULAR FILTRATION RATE 56 ML/MIN (>=60); GLUCOSE 129 mg/dL (74-118); SODIUM 139 mmol/L (136-145); TOTAL PROTEIN 4.6 g/dL (6.5-8.1)
[2024-03-13 06:54] LABS: ALANINE AMINOTRANSFERASE < 6 IU/L (0-55); POTASSIUM 3.3 mmol/L (3.5-5.1)
[2024-03-13 07:01] LABS: MAGNESIUM 1.3 MG/DL (1.3-2.1); PHOSPHORUS 2.6 MG/DL (2.3-4.7)
[2024-03-13 07:22] LABS: FREE T4 (FREE THYROXINE) 1.03 ng/dL (0.8-1.8); THYROID STIMULATING HORMONE 0.649 uIU/mL (0.350-4.940)
[2024-03-13] MEDS ORDERED: ZOLPIDEM TARTRATE 5 MG TAB PO PRN (08:00)
[2024-03-13] MEDS: POTASSIUM CHLORIDE 20MEQ/100ML 200 ML IV ONE (08:08)
[2024-03-13] MEDS: HYDROMORPHONE 1MG/1ML INJ IV ONE (08:30)
[2024-03-13] MEDS: MULTIVITAMINS/MINERALS TAB PO SCH (10:50)
[2024-03-14] VITALS (19 sets, daily range): BP systolic 107–135; BP diastolic 48–85; PULSE 48–79; RESP 8–20; TEMP 97.8–98.6; O2SAT 92–99
[2024-03-14 06:51] LABS: BASOPHILS # (AUTO) 0.1 (0.0-0.1); BASOPHILS % 1.1 % (0.0-1.0); EOSINOPHILS # (AUTO) 0.2 (0.0-0.4); EOSINOPHILS % 3.1 % (0.0-6.0); HEMATOCRIT 28.7 % (34.2-44.1); HEMOGLOBIN 9.2 g/dL (12.0-16.0); LYMPHOCYTES # (AUTO) 1.5 (1.0-3.2); LYMPHOCYTES % 26.8 % (18.0-39.1); MEAN CORPUSCULAR HEMOGLOBIN 27.3 pg (28-32); MEAN CORPUSCULAR HGB CONC 32.1 g/dL (31-35); MEAN CORPUSCULAR VOLUME 85.2 fL (81-99); MONOCYTES # (AUTO) 0.8 (0.2-0.8); NEUTROPHILS # (AUTO) 2.8 (2.1-6.9); NEUTROPHILS % 50.5 % (38.7-80.0); PLATELET COUNT 279 x10e3/uL (140-360); RED BLOOD COUNT 3.37 x10e6/uL (3.6-5.1); RED CELL DISTRIBUTION WIDTH 17.3 % (11.7-14.4); WHITE BLOOD COUNT 5.56 x10e3/uL (4.8-10.8)
[2024-03-14 08:48] LABS: ALBUMIN 1.7 g/dL (3.5-5.0); ALBUMIN/GLOBULIN RATIO 0.5 (0.8-2.0); ALKALINE PHOSPHATASE 62 IU/L (40-150); ANION GAP 13.8 mmol/L (8-16); BILIRUBIN,TOTAL 0.4 mg/dL (0.2-1.2); BLOOD UREA NITROGEN 12 mg/dL (7-26); BUN/CREATININE RATIO 11 (6-25); CALCIUM 8.7 mg/dL (8.4-10.2); CARBON DIOXIDE 24 mmol/L (22-29); CHLORIDE 106 mmol/L (98-107); CREATININE, SERUM 1.08 mg/dL (0.57-1.11); EST GLOMERULAR FILTRATION RATE 57 ML/MIN (>=60); GLUCOSE 120 mg/dL (74-118); POTASSIUM 3.8 mmol/L (3.5-5.1); SODIUM 140 mmol/L (136-145); TOTAL PROTEIN 5.2 g/dL (6.5-8.1)
[2024-03-14 09:01] LABS: ALANINE AMINOTRANSFERASE < 6 IU/L (0-55)
[2024-03-14] MEDS: INSULIN GLARGINE 100 UNITS/ML VIAL SQ SCH (21:00)
[2024-03-15] VITALS (21 sets, daily range): BP systolic 103–144; BP diastolic 46–74; PULSE 49–63; RESP 11–19; TEMP 98.2–99.5; O2SAT 91–100
[2024-03-15] MEDS: ALTEPLASE RECOMBINANT 2 MG/2 ML VIAL IV PRN (08:58)
[2024-03-16] VITALS (27 sets, daily range): BP systolic 104–164; BP diastolic 41–94; PULSE 43–56; RESP 12–19; TEMP 98.2–98.6; O2SAT 93–100
[2024-03-16] MEDS ORDERED: LIDOCAINE 2% /EPINEPHRINE 20 ML SDV INJ ONE (12:44)
[2024-03-16] MEDS ORDERED: LIDOCAINE HCL 1% 30ML-PF VIAL ONE (12:45)
[2024-03-16] MEDS ORDERED: MIDAZOLAM HCL 2 MG/2 ML VIAL ONE (13:38)
[2024-03-16] MEDS ORDERED: FENTANYL CITRATE/PF 100MCG/2 ML INJ ONE (13:38)
[2024-03-16 15:33] LABS: BODY FLUID APPEARANCE CLEAR; BODY FLUID COLOR YELLOW; BODY FLUID TYPE PLEURAL; RBC,BODY FLUID < 2000 cells/uL; WBC,BODY FLUID 192 cells/uL
[2024-03-16 16:33] LABS: LYMPHOCYTES,BODY FLUID 28 %; MONO/MACROPHG,BODY FLUID 27 %; NEUTROPHILS,BODY FLUID 45 %; TOTAL CELLS COUNTED (DIFF) 100
[2024-03-16] MEDS: CENTRAL TPN FORMULA 1 BAG IV SCH (20:12)
[2024-03-17] VITALS (21 sets, daily range): BP systolic 127–151; BP diastolic 55–81; PULSE 41–61; RESP 11–27; TEMP 97.7–98.9; O2SAT 94–100
[2024-03-17 07:02] LABS: ALBUMIN 1.7 g/dL (3.5-5.0); ALBUMIN/GLOBULIN RATIO 0.5 (0.8-2.0); ALKALINE PHOSPHATASE 76 IU/L (40-150); ANION GAP 10.5 mmol/L (8-16); BILIRUBIN,TOTAL 0.4 mg/dL (0.2-1.2); BLOOD UREA NITROGEN 11 mg/dL (7-26); BUN/CREATININE RATIO 13 (6-25); CALCIUM 8.5 mg/dL (8.4-10.2); CARBON DIOXIDE 27 mmol/L (22-29); CHLORIDE 104 mmol/L (98-107); CREATININE, SERUM 0.86 mg/dL (0.57-1.11); EST GLOMERULAR FILTRATION RATE 75 ML/MIN (>=60); GLUCOSE 282 mg/dL (74-118); MAGNESIUM 1.6 MG/DL (1.3-2.1); PHOSPHORUS 1.9 MG/DL (2.3-4.7); POTASSIUM 3.5 mmol/L (3.5-5.1); SODIUM 138 mmol/L (136-145); TOTAL PROTEIN 5.3 g/dL (6.5-8.1)
[2024-03-17 07:06] LABS: ALANINE AMINOTRANSFERASE < 6 IU/L (0-55)
[2024-03-17 08:17] LABS: BASOPHILS # (AUTO) 0.1 (0.0-0.1); BASOPHILS % 0.6 % (0.0-1.0); EOSINOPHILS # (AUTO) 0.3 (0.0-0.4); EOSINOPHILS % 2.9 % (0.0-6.0); HEMATOCRIT 35.5 % (34.2-44.1); HEMOGLOBIN 11.1 g/dL (12.0-16.0); LYMPHOCYTES # (AUTO) 1.9 (1.0-3.2); LYMPHOCYTES % 16.3 % (18.0-39.1); MEAN CORPUSCULAR HEMOGLOBIN 27.1 pg (28-32); MEAN CORPUSCULAR HGB CONC 31.3 g/dL (31-35); MEAN CORPUSCULAR VOLUME 86.6 fL (81-99); MONOCYTES # (AUTO) 0.9 (0.2-0.8); MONOCYTES % 7.8 % (4.4-11.3); NEUTROPHILS % 70.3 % (38.7-80.0); PLATELET COUNT 363 x10e3/uL (140-360); RED CELL DISTRIBUTION WIDTH 17.8 % (11.7-14.4); WHITE BLOOD COUNT 11.35 x10e3/uL (4.8-10.8)
[2024-03-17] MEDS: CENTRAL TPN FORMULA 1 BAG IV SCH (21:26)
[2024-03-17] MEDS: INSULIN GLARGINE 100 UNITS/ML VIAL SQ SCH (21:28)
[2024-03-18] VITALS (19 sets, daily range): BP systolic 121–150; BP diastolic 48–63; PULSE 48–60; RESP 11–22; TEMP 97.5–98.2; O2SAT 93–100
[2024-03-18 06:58] LABS: BASOPHILS # (AUTO) 0.1 (0.0-0.1); BASOPHILS % 0.6 % (0.0-1.0); EOSINOPHILS # (AUTO) 0.3 (0.0-0.4); EOSINOPHILS % 3.3 % (0.0-6.0); HEMATOCRIT 32.9 % (34.2-44.1); HEMOGLOBIN 10.3 g/dL (12.0-16.0); LYMPHOCYTES # (AUTO) 1.9 (1.0-3.2); LYMPHOCYTES % 19.7 % (18.0-39.1); MEAN CORPUSCULAR HEMOGLOBIN 27.7 pg (28-32); MEAN CORPUSCULAR HGB CONC 31.3 g/dL (31-35); MEAN CORPUSCULAR VOLUME 88.4 fL (81-99); MONOCYTES # (AUTO) 0.7 (0.2-0.8); MONOCYTES % 7.5 % (4.4-11.3); NEUTROPHILS # (AUTO) 6.5 (2.1-6.9); NEUTROPHILS % 66.9 % (38.7-80.0); PLATELET COUNT 341 x10e3/uL (140-360); RED BLOOD COUNT 3.72 x10e6/uL (3.6-5.1); RED CELL DISTRIBUTION WIDTH 18.3 % (11.7-14.4); WHITE BLOOD COUNT 9.72 x10e3/uL (4.8-10.8)
[2024-03-18 07:14] LABS: ALBUMIN 1.5 g/dL (3.5-5.0); ALBUMIN/GLOBULIN RATIO 0.4 (0.8-2.0); ALKALINE PHOSPHATASE 64 IU/L (40-150); ANION GAP 10.5 mmol/L (8-16); BILIRUBIN,TOTAL 0.2 mg/dL (0.2-1.2); BLOOD UREA NITROGEN 14 mg/dL (7-26); BUN/CREATININE RATIO 15 (6-25); CALCIUM 8.5 mg/dL (8.4-10.2); CARBON DIOXIDE 25 mmol/L (22-29); CHLORIDE 106 mmol/L (98-107); CREATININE, SERUM 0.93 mg/dL (0.57-1.11); EST GLOMERULAR FILTRATION RATE 69 ML/MIN (>=60); MAGNESIUM 2.1 MG/DL (1.3-2.1); POTASSIUM 4.5 mmol/L (3.5-5.1); SODIUM 137 mmol/L (136-145); TOTAL PROTEIN 4.9 g/dL (6.5-8.1)
[2024-03-18 07:15] LABS: ALANINE AMINOTRANSFERASE < 6 IU/L (0-55)
[2024-03-18 07:18] LABS: GLUCOSE 577 mg/dL (74-118)
[2024-03-18] MEDS ORDERED: ZOLPIDEM TARTRATE 5 MG TAB PO PRN (09:15)
[2024-03-18] MEDS: LACTOBACILLUS ACIDOPHILUS CAPSULE PO SCH (09:19)
[2024-03-18] MEDS: CENTRAL TPN FORMULA 1 BAG IV SCH (19:26)
[2024-03-18] MEDS ORDERED: CENTRAL TPN FORMULA 1 BAG IV SCH (20:00)
[2024-03-18] MEDS: INSULIN GLARGINE 100 UNITS/ML VIAL SQ SCH (20:49)
[2024-03-19] VITALS (9 sets, daily range): BP systolic 108–156; BP diastolic 53–64; PULSE 56–105; RESP 14–19; TEMP 98–98.5; O2SAT 95–100
[2024-03-19 06:25] LABS: BASOPHILS # (AUTO) 0.1 (0.0-0.1); BASOPHILS % 0.5 % (0.0-1.0); EOSINOPHILS # (AUTO) 0.5 (0.0-0.4); EOSINOPHILS % 5.2 % (0.0-6.0); HEMOGLOBIN 10.4 g/dL (12.0-16.0); LYMPHOCYTES # (AUTO) 1.9 (1.0-3.2); LYMPHOCYTES % 18.6 % (18.0-39.1); MEAN CORPUSCULAR HEMOGLOBIN 27.3 pg (28-32); MEAN CORPUSCULAR HGB CONC 32.5 g/dL (31-35); MONOCYTES # (AUTO) 0.8 (0.2-0.8); MONOCYTES % 7.9 % (4.4-11.3); NEUTROPHILS # (AUTO) 6.7 (2.1-6.9); PLATELET COUNT 381 x10e3/uL (140-360); RED BLOOD COUNT 3.81 x10e6/uL (3.6-5.1); WHITE BLOOD COUNT 9.94 x10e3/uL (4.8-10.8)
[2024-03-19 06:43] LABS: MAGNESIUM 1.7 MG/DL (1.3-2.1); PHOSPHORUS 1.8 MG/DL (2.3-4.7)
[2024-03-19 06:50] LABS: ALBUMIN 1.5 g/dL (3.5-5.0); ALBUMIN/GLOBULIN RATIO 0.4 (0.8-2.0); ALKALINE PHOSPHATASE 71 IU/L (40-150); ANION GAP 11.4 mmol/L (8-16); BILIRUBIN,TOTAL 0.2 mg/dL (0.2-1.2); BLOOD UREA NITROGEN 16 mg/dL (7-26); BUN/CREATININE RATIO 22 (6-25); CALCIUM 8.6 mg/dL (8.4-10.2); CARBON DIOXIDE 23 mmol/L (22-29); CHLORIDE 106 mmol/L (98-107); CREATININE, SERUM 0.73 mg/dL (0.57-1.11); EST GLOMERULAR FILTRATION RATE 92 ML/MIN (>=60); GLUCOSE 157 mg/dL (74-118); SODIUM 137 mmol/L (136-145); TOTAL PROTEIN 5.1 g/dL (6.5-8.1)
[2024-03-19 06:57] LABS: ALANINE AMINOTRANSFERASE < 6 IU/L (0-55); POTASSIUM 3.4 mmol/L (3.5-5.1)
[2024-03-19] MEDS ORDERED: CENTRAL TPN FORMULA 1 BAG IV SCH (07:46)
[2024-03-19] MEDS: POTASSIUM CHLORIDE 20MEQ/100ML 100 ML IV SCH (08:37)
[2024-03-19] MEDS ORDERED: MAGNESIUM SULFATE 2GM/50ML IV ONE (12:00)
[2024-03-19] MEDS: MAGNESIUM SULFATE 2GM/50ML 50 ML IV ONE (12:26)
[2024-03-19] MEDS: VANCOMYCIN HCL 125 MG CAPSULE PO SCH (14:28)
[2024-03-19] MEDS: LACTOBACILLUS ACIDOPHILUS CAPSULE PO SCH (14:28)
[2024-03-19] MEDS: ENOXAPARIN SOD INJ 40 MG/0.4 ML SYR SC SCH (17:08)
[2024-03-19] MEDS: CENTRAL TPN FORMULA 1 BAG IV SCH (21:45)
[2024-03-19] MEDS: HYDROCODONE/APAP 5MG-325MG TAB PO PRN (22:05)
[2024-03-20] VITALS (10 sets, daily range): BP systolic 118–164; BP diastolic 57–81; PULSE 56–66; RESP 16–19; TEMP 97.7–98.4; O2SAT 98–100
[2024-03-20 06:23] LABS: BASOPHILS # (AUTO) 0.1 (0.0-0.1); BASOPHILS % 0.8 % (0.0-1.0); EOSINOPHILS # (AUTO) 0.6 (0.0-0.4); EOSINOPHILS % 6.4 % (0.0-6.0); HEMATOCRIT 31.5 % (34.2-44.1); HEMOGLOBIN 10.1 g/dL (12.0-16.0); LYMPHOCYTES % 21.9 % (18.0-39.1); MEAN CORPUSCULAR HEMOGLOBIN 26.9 pg (28-32); MEAN CORPUSCULAR HGB CONC 32.1 g/dL (31-35); MEAN CORPUSCULAR VOLUME 83.8 fL (81-99); MONOCYTES # (AUTO) 0.7 (0.2-0.8); MONOCYTES % 7.6 % (4.4-11.3); NEUTROPHILS # (AUTO) 5.8 (2.1-6.9); NEUTROPHILS % 62.4 % (38.7-80.0); PLATELET COUNT 378 x10e3/uL (140-360); RED BLOOD COUNT 3.76 x10e6/uL (3.6-5.1); RED CELL DISTRIBUTION WIDTH 18.3 % (11.7-14.4); WHITE BLOOD COUNT 9.27 x10e3/uL (4.8-10.8)
[2024-03-20 06:45] LABS: ALBUMIN 1.5 g/dL (3.5-5.0); ALBUMIN/GLOBULIN RATIO 0.4 (0.8-2.0); ALKALINE PHOSPHATASE 73 IU/L (40-150); BILIRUBIN,TOTAL 0.3 mg/dL (0.2-1.2); BLOOD UREA NITROGEN 16 mg/dL (7-26); BUN/CREATININE RATIO 23 (6-25); CALCIUM 8.5 mg/dL (8.4-10.2); CARBON DIOXIDE 22 mmol/L (22-29); CHLORIDE 106 mmol/L (98-107); CREATININE, SERUM 0.71 mg/dL (0.57-1.11); EST GLOMERULAR FILTRATION RATE 95 ML/MIN (>=60); GLUCOSE 158 mg/dL (74-118); SODIUM 134 mmol/L (136-145); TOTAL PROTEIN 5.2 g/dL (6.5-8.1)
[2024-03-20 06:52] LABS: ALANINE AMINOTRANSFERASE < 6 IU/L (0-55)
[2024-03-20 06:56] LABS: MAGNESIUM 1.8 MG/DL (1.3-2.1); PHOSPHORUS 2.3 MG/DL (2.3-4.7)
[2024-03-20] MEDS ORDERED: DIATRIZOATE MEGL/DIATRIZOA SOD 30 ML BTL PO ONE (13:39)
[2024-03-20] MEDS ORDERED: IOPAMIDOL 370 MG/ML 100 ML INFUS..BTL INJ ONE (18:19)
[2024-03-20] MEDS: CENTRAL TPN FORMULA 1 BAG IV SCH (20:51)
[2024-03-21] VITALS (10 sets, daily range): BP systolic 142–167; BP diastolic 57–94; PULSE 59–75; RESP 16–19; TEMP 97.8–98.6; O2SAT 97–100
[2024-03-21 06:48] LABS: ALBUMIN 1.6 g/dL (3.5-5.0); ALBUMIN/GLOBULIN RATIO 0.4 (0.8-2.0); ALKALINE PHOSPHATASE 78 IU/L (40-150); ANION GAP 12.2 mmol/L (8-16); BILIRUBIN,TOTAL 0.3 mg/dL (0.2-1.2); BLOOD UREA NITROGEN 15 mg/dL (7-26); BUN/CREATININE RATIO 21 (6-25); CARBON DIOXIDE 21 mmol/L (22-29); CHLORIDE 105 mmol/L (98-107); CREATININE, SERUM 0.72 mg/dL (0.57-1.11); EST GLOMERULAR FILTRATION RATE 93 ML/MIN (>=60); GLUCOSE 126 mg/dL (74-118); POTASSIUM 4.2 mmol/L (3.5-5.1); SODIUM 134 mmol/L (136-145); TOTAL PROTEIN 5.6 g/dL (6.5-8.1)
[2024-03-21 06:56] LABS: ALANINE AMINOTRANSFERASE < 6 IU/L (0-55)
[2024-03-21] MEDS ORDERED: IOPAMIDOL 370 MG/ML 100 ML INFUS..BTL INJ ONE (10:50)
[2024-03-21] MEDS ORDERED: DIATRIZOATE MEGL/DIATRIZOA SOD 30 ML BTL PO ONE (10:50)
[2024-03-21 14:05] LABS: CDIFF AG QUIK CHEK **POSITIVE** (NEGATIVE); CDIFF TOX QUIK CHEK NEGATIVE (NEGATIVE)
[2024-03-21] MEDS ORDERED: FENTANYL CITRATE/PF 100MCG/2 ML INJ ONE (14:58)
[2024-03-21] MEDS: CENTRAL TPN FORMULA 1 BAG IV SCH (20:13)
[2024-03-22] VITALS (7 sets, daily range): BP systolic 125–153; BP diastolic 47–68; PULSE 56–100; RESP 16–20; TEMP 97.5–98.8; O2SAT 96–100
[2024-03-22 06:58] LABS: ALBUMIN 1.7 g/dL (3.5-5.0); ALBUMIN/GLOBULIN RATIO 0.4 (0.8-2.0); ALKALINE PHOSPHATASE 88 IU/L (40-150); ANION GAP 10.6 mmol/L (8-16); BILIRUBIN,TOTAL 0.3 mg/dL (0.2-1.2); BLOOD UREA NITROGEN 16 mg/dL (7-26); BUN/CREATININE RATIO 23 (6-25); CALCIUM 9.8 mg/dL (8.4-10.2); CARBON DIOXIDE 21 mmol/L (22-29); CHLORIDE 107 mmol/L (98-107); EST GLOMERULAR FILTRATION RATE 97 ML/MIN (>=60); GLUCOSE 129 mg/dL (74-118); POTASSIUM 4.6 mmol/L (3.5-5.1); SODIUM 134 mmol/L (136-145)
[2024-03-22 07:00] LABS: ALANINE AMINOTRANSFERASE < 6 IU/L (0-55)
[2024-03-22] MEDS: CENTRAL TPN FORMULA 1 BAG IV SCH (20:00)
[2024-03-23] VITALS (10 sets, daily range): BP systolic 106–136; BP diastolic 47–74; PULSE 50–98; RESP 16–21; TEMP 97.6–98.8; O2SAT 98–100
[2024-03-23 06:24] LABS: BASOPHILS # (AUTO) 0.1 (0.0-0.1); BASOPHILS % 1.5 % (0.0-1.0); EOSINOPHILS # (AUTO) 0.7 (0.0-0.4); HEMATOCRIT 33.5 % (34.2-44.1); HEMOGLOBIN 10.5 g/dL (12.0-16.0); LYMPHOCYTES # (AUTO) 1.7 (1.0-3.2); LYMPHOCYTES % 23.7 % (18.0-39.1); MEAN CORPUSCULAR HEMOGLOBIN 27.3 pg (28-32); MEAN CORPUSCULAR HGB CONC 31.3 g/dL (31-35); MONOCYTES # (AUTO) 0.5 (0.2-0.8); MONOCYTES % 6.8 % (4.4-11.3); NEUTROPHILS # (AUTO) 4.2 (2.1-6.9); NEUTROPHILS % 56.8 % (38.7-80.0); PLATELET COUNT 408 x10e3/uL (140-360); RED BLOOD COUNT 3.85 x10e6/uL (3.6-5.1); RED CELL DISTRIBUTION WIDTH 18.1 % (11.7-14.4); WHITE BLOOD COUNT 7.31 x10e3/uL (4.8-10.8)
[2024-03-23 06:45] LABS: ALANINE AMINOTRANSFERASE < 6 IU/L (0-55); ALBUMIN 1.7 g/dL (3.5-5.0); ALBUMIN/GLOBULIN RATIO 0.4 (0.8-2.0); ALKALINE PHOSPHATASE 83 IU/L (40-150); ANION GAP 11.6 mmol/L (8-16); BILIRUBIN,TOTAL 0.3 mg/dL (0.2-1.2); BLOOD UREA NITROGEN 17 mg/dL (7-26); BUN/CREATININE RATIO 23 (6-25); CALCIUM 9.3 mg/dL (8.4-10.2); CARBON DIOXIDE 20 mmol/L (22-29); CHLORIDE 107 mmol/L (98-107); CREATININE, SERUM 0.75 mg/dL (0.57-1.11); EST GLOMERULAR FILTRATION RATE 89 ML/MIN (>=60); GLUCOSE 168 mg/dL (74-118); POTASSIUM 4.6 mmol/L (3.5-5.1); SODIUM 134 mmol/L (136-145); TOTAL PROTEIN 5.7 g/dL (6.5-8.1)
[2024-03-23] MEDS: SODIUM CHLORIDE 0.9% 250ML 250 ML ONE (09:41)
[2024-03-23] MEDS ORDERED: MICAFUNGIN SODIUM 100 MG IV SCH (10:30)
[2024-03-23] MEDS: MICAFUNGIN SODIUM 100 MG in SODIUM CHLORIDE 0.9% 100 ML IV SCH (11:54)
[2024-03-23] MEDS: CENTRAL TPN FORMULA 1 BAG IV SCH (21:56)
[2024-03-24] VITALS (10 sets, daily range): BP systolic 123–144; BP diastolic 51–61; PULSE 52–96; RESP 16–20; TEMP 97.3–98.5; O2SAT 96–100
[2024-03-24 07:19] LABS: ALBUMIN 1.7 g/dL (3.5-5.0); ALBUMIN/GLOBULIN RATIO 0.4 (0.8-2.0); ANION GAP 11.4 mmol/L (8-16); BILIRUBIN,TOTAL 0.3 mg/dL (0.2-1.2); CALCIUM 9.8 mg/dL (8.4-10.2); CREATININE, SERUM 0.74 mg/dL (0.57-1.11); POTASSIUM 4.4 mmol/L (3.5-5.1); TOTAL PROTEIN 5.8 g/dL (6.5-8.1)
[2024-03-24] MEDS: CENTRAL TPN FORMULA 1 BAG IV SCH (20:22)
[2024-03-25] VITALS (10 sets, daily range): BP systolic 125–158; BP diastolic 54–63; PULSE 52–100; RESP 16–20; TEMP 97.6–98.3; O2SAT 97–100
[2024-03-25] MEDS: CENTRAL TPN FORMULA 1 BAG IV SCH (20:24)
[2024-03-26] VITALS (9 sets, daily range): BP systolic 112–160; BP diastolic 43–79; PULSE 44–59; RESP 16–20; TEMP 97.2–98.2; O2SAT 97–100
[2024-03-26 05:42] LABS: BASOPHILS # (AUTO) 0.1 (0.0-0.1); EOSINOPHILS # (AUTO) 0.6 (0.0-0.4); EOSINOPHILS % 10.1 % (0.0-6.0); HEMATOCRIT 32.8 % (34.2-44.1); HEMOGLOBIN 9.9 g/dL (12.0-16.0); LYMPHOCYTES # (AUTO) 2.1 (1.0-3.2); LYMPHOCYTES % 34.1 % (18.0-39.1); MEAN CORPUSCULAR HEMOGLOBIN 26.9 pg (28-32); MEAN CORPUSCULAR HGB CONC 30.2 g/dL (31-35); MEAN CORPUSCULAR VOLUME 89.1 fL (81-99); MONOCYTES # (AUTO) 0.5 (0.2-0.8); MONOCYTES % 7.8 % (4.4-11.3); NEUTROPHILS # (AUTO) 2.8 (2.1-6.9); NEUTROPHILS % 45.7 % (38.7-80.0); PLATELET COUNT 448 x10e3/uL (140-360); RED BLOOD COUNT 3.68 x10e6/uL (3.6-5.1); RED CELL DISTRIBUTION WIDTH 18.6 % (11.7-14.4); WHITE BLOOD COUNT 6.02 x10e3/uL (4.8-10.8)
[2024-03-26 06:06] LABS: ALBUMIN 1.9 g/dL (3.5-5.0); ALBUMIN/GLOBULIN RATIO 0.5 (0.8-2.0); ANION GAP 12.9 mmol/L (8-16); BILIRUBIN,TOTAL 0.3 mg/dL (0.2-1.2); CALCIUM 9.9 mg/dL (8.4-10.2); CREATININE, SERUM 0.84 mg/dL (0.57-1.11); POTASSIUM 4.9 mmol/L (3.5-5.1); TOTAL PROTEIN 5.9 g/dL (6.5-8.1)
[2024-03-27] VITALS (7 sets, daily range): BP systolic 139–159; BP diastolic 48–55; PULSE 46–58; RESP 16–26; TEMP 97.2–98.3; O2SAT 96–100
[2024-03-27] MEDS: INSULIN LISPRO 100 UNIT/1 ML 3ML VIAL SQ SCH (16:30)
[2024-03-27] MEDS ORDERED: INSULIN GLARGINE 100 UNITS/ML VIAL SQ SCH (21:00)
== END 2024-03-27 20:17 | DRG 871 ==
LOC: ER 11:06 → ERHOLD 13:12 → ICU 15:31 → MED/SURG3 03-19 06:28
PROVIDERS: ADMIT Internal Medicine; ATTEND Internal Medicine
PROC: 02HV33Z Insertion of Infusion Device into Superior Vena Cava, Percutaneous Approach (ICD-10-PCS; 2024-03-11)
PROC: B548ZZA Ultrasonography of Superior Vena Cava, Guidance (ICD-10-PCS; 2024-03-11)
PROC: 3E03329 Introduction of Other Anti-infective into Peripheral Vein, Percutaneous Approach (ICD-10-PCS; 2024-03-11)
PROC: 30233N1 Transfusion of Nonautologous Red Blood Cells into Peripheral Vein, Percutaneous Approach (ICD-10-PCS; principal; 2024-03-12)
PROC: 0W9B3ZZ Drainage of Left Pleural Cavity, Percutaneous Approach (ICD-10-PCS; 2024-03-16)
PROC: 3E0336Z Introduction of Nutritional Substance into Peripheral Vein, Percutaneous Approach (ICD-10-PCS; 2024-03-16)
DX: A41.9 Sepsis, unspecified organism (principal); G93.41 Metabolic encephalopathy; N17.0 Acute kidney failure with tubular necrosis; K65.1 Peritoneal abscess; K28.5 Chronic or unspecified gastrojejunal ulcer with perforation; K95.89 Other complications of other bariatric procedure; J90 Pleural effusion, not elsewhere classified; E46 Unspecified protein-calorie malnutrition; T81.43XA Infection following a procedure, organ and space surgical site, initial encounter; L02.818 Cutaneous abscess of other sites; B37.89 Other sites of candidiasis; A04.72 Enterocolitis due to Clostridium difficile, not specified as recurrent; K22.10 Ulcer of esophagus without bleeding; I95.9 Hypotension, unspecified; E87.6 Hypokalemia; I10 Essential (primary) hypertension; Z79.4 Long term (current) use of insulin; Z11.52 Encounter for screening for COVID-19; Z98.84 Bariatric surgery status; M79.7 Fibromyalgia; G89.29 Other chronic pain; M54.2 Cervicalgia; M54.50 Low back pain, unspecified; R00.0 Tachycardia, unspecified; R79.89 Other specified abnormal findings of blood chemistry; R19.7 Diarrhea, unspecified; E66.01 Morbid (severe) obesity due to excess calories; Z68.28 Body mass index [BMI] 28.0-28.9, adult; Z71.3 Dietary counseling and surveillance; E86.0 Dehydration; Z53.8 Procedure and treatment not carried out for other reasons; D50.0 Iron deficiency anemia secondary to blood loss (chronic); E88.09 Other disorders of plasma-protein metabolism, not elsewhere classified; E87.8 Other disorders of electrolyte and fluid balance, not elsewhere classified; E11.65 Type 2 diabetes mellitus with hyperglycemia; Y83.8 Other surgical procedures as the cause of abnormal reaction of the patient, or of later complication, without mention of misadventure at the time of the procedure; Y92.009 Unspecified place in unspecified non-institutional (private) residence as the place of occurrence of the external cause; K29.70 Gastritis, unspecified, without bleeding; E66.9 Obesity, unspecified; E11.649 Type 2 diabetes mellitus with hypoglycemia without coma; E11.43 Type 2 diabetes mellitus with diabetic autonomic (poly)neuropathy; K31.84 Gastroparesis; R00.1 Bradycardia, unspecified; T17.918A Gastric contents in respiratory tract, part unspecified causing other injury, initial encounter; W44.8XXA Other foreign body entering into or through a natural orifice, initial encounter; Y92.230 Patient room in hospital as the place of occurrence of the external cause
CPT/HCPCS: 10160; 32555; 36415; 36569; 49406; 70450; 71045; 71260; 74177; 74470; 77012; 80048; 80053; 80164; 80307; 80320; 80329; 81001; 82040; 82550; 82945; 82948; 83036; 83605; 83615; 83735; 83880; 84100; 84157; 84439; 84443; 84478; 84484; 85025; 85610; 85730; 86850; 86900; 86920; 87040; 87070; 87071; 87075; 87086; 87102; 87205; 87206; 87324; 87449; 88112; 88305; 89051; 93005; 93306; 94799; 99152; 99252; 99285; C1729; J1171; J1650; J1815; J1940; J2003; J2004; J2185; J2248; J2250; J2405; J2470; J2543; J2997; J3475; J3480; J7030; J7050; J7799; P9016; Q9963; Q9967